=== PATIENT | female | born 1935 | race Caucasian/White ===

== ENCOUNTER → 2019-04-24 07:46 | Outpatient (CLI) | payer MEDICARE, SELFPAY ==
--- NOTE | ~2019-04-24 | XR_ITS ---
XR cervical spine 4-5V DATE: 04/24/2019 08:32 INDICATION: Neck pain TECHNIQUE: Standing AP, open-mouth, odontoid, lateral and swimmer views COMPARISON: 11/28/2013 cervical spine FINDINGS: C1 and C2 are normally aligned and the odontoid process is intact. No fracture or dislocati on or locked facet or prevertebral soft tissue swelling. Mild degenerative disc disease C4-5 and C6-7. Moderately severe degenerative disease C5-6. There is uncovertebral joint spurring at C5-6. IMPRESSION: Degenerative changes, relatively stable since 11/28/2013 Reviewed, dictated and finalized at location B. S LEADER
== END ==
PROVIDERS: PCP Family Medicine; Visit Provider Family Medicine
DX: M54.2 Cervicalgia (principal)
CPT/HCPCS: 72050

== ENCOUNTER → 2019-04-24 11:28 | Outpatient (CLI) | payer MEDICARE, SELFPAY ==
--- NOTE | ~2019-04-24 | XR_ITS ---
XR lumbar spine min 4V DATE: 04/24/2019 12:03 INDICATION: Low back pain intermittently for a few months. No injury. TECHNIQUE: AP, lateral, bilateral oblique and coned lateral lumbosacral views COMPARISON: 07/09/2015 lumbar spine FINDINGS: There is mild levoscoliosis. There is osteopenia. No fracture or bone destruction is detected. The included lower thoracic and lumbar pedicles are inta ct. The sacroiliac joints are normal. No spondylolysis or spondylolisthesis. Lumbar and lumbosacral interspaces are relatively preserved.. Degenerative changes are noted at the mid and lower lumbar and lumbosacral apophyseal joints. There is abdominal aortic and iliac arterial calcification; no aneurysm is evident. Surgical clips, right upper quadrant, likely due to cholecystectomy There is prominent of fecal material in the colon but no apparent bowel obstruction. IMPRESSION: Mild levoscoliosis Osteopenia Reviewed, dictated and finalized at location B. NT ACQUISITION PARTNER
--- NOTE | ~2019-04-24 | XR_ITS ---
XR sacroiliac joints min 3V 04/24/2019 12:03 Indication: Low back pain Procedure: 3 views of the sacroiliac joints. Comparison: 05/03/2006 Findings: There are stable bilateral symmetric degenerative changes of the sacroiliac joints. No eros anny changes to suggest inflammatory arthropathy. Sacral foramen are symmetric. Impression: 1: Mild symmetric degenerative changes of the sacroiliac joints, stable. Reviewed, dictated and finalized at location A. [facility] Impression: 1: Mild symmetric degenerative changes of the sacroiliac joints, stable.
== END ==
PROVIDERS: PCP Family Medicine; Visit Provider Family Medicine
DX: M54.5 Low back pain (principal); M85.88 Other specified disorders of bone density and structure, other site
CPT/HCPCS: 72110; 72202

== ENCOUNTER 2019-05-03 11:27 | Emergency (ER) | payer MEDICARE, SELFPAY ==
[2019-05-03 11:35] VITALS: BP 145/64; PULSE 74; RESP 16; TEMP 36.1; O2SAT 96
--- NOTE | 2019-05-03 11:50 | ED.EXTPRO ---
HPI - Extremity Problem General Chief complaint: Extremity Problem,Nontraumatic Stated complaint: rt arm pain Time Seen by Provider: 05/03/19 11:50 Source: patient and RN notes reviewed History of Present Illness HPI Narrative: Patient is an 84-year-old female that presents the urgent care with complaints of intermittent right arm pain from the elbow to the right hand. Patient states is been ongoing for approximately 4 to 6 weeks. Patient states she notices an increase in the pain when she is stirring something on the stove or writing. Patient does have a history of fibromyalgia and ray nods. Patient states she has not followed up with her PCP regarding the recent pain but has decreased her gabapentin recently. Patient denies any weakness to the right arm. States that she also has some symptoms to the left arm which are not as severe. Patient denies dropping anything from the right hand. Patient denies any known trauma, fall, injury. Patient denies chest pain. No other acute complaints. No acute distress noted. Patient aware of the plan of care. Related Data Home Medications Medication Instructions Recorded Confirmed meloxicam 7.5 mg tablet 15 mg PO DAILY tablet 01/15/19 05/03/19 diclofenac sodium 1 % TOPICAL TID 05/03/19 05/03/19 Allergies Allergy/AdvReac Type Severity Reaction Status Date / Time codeine Allergy Unknown Unknown Verified 05/03/19 11:32 Review of Systems Review of Systems: Narrative: CONSTITUTIONAL: Denies fever, chills, or sweats. EYES: Denies visual changes, redness, or discharge. ENT: Denies rhinorrhea, congestion, sore throat, or otalgia. CARDIOVASCULAR: Denies chest pain, palpitations, or edema. RESPIRATORY: Denies cough or dyspnea. GASTROINTESTINAL: Denies abdominal pain, nausea, vomiting, or diarrhea. GENITOURINARY: Denies dysuria or hematuria. SKIN: Denies rash or itching. MUSCULOSKELETAL: Reports of intermittent pain from the right elbow to the right hand NEUROLOGIC: Denies headache, numbness, or weakness. All other systems reviewed are negative, except as documented in HPI. [facility] Social History Social History Smoking status: Never smoker Second hand tobacco smoke exposure: No Alcohol intake: current Gender identity (if verbalized by the patient): Female Comments At the time of my signature, I reviewed and agree with the nursing past medical, surgical, social, and family history. There is no relevant family history pertinent to the patient complaint. Exam Narrative: Exam Narrative: GENERAL: This is a well-nourished, well-developed patient, in no apparent distress. HEAD: normocephalic, atraumatic. EYES: PERRL. Sclera clear/white. Vision is grossly intact. EARS: External ears normal NOSE: External nose normal with no obvious nasal discharge THROAT: Mucous membranes moist NECK: Neck supple CARDIOVASCULAR: Regular rate and rhythm without murmurs, gallops, or rubs. RESPIRATORY: Clear to auscultation. Breath sounds equal bilaterally. No wheezes, rales, or rhonchi. SKIN: warm, intact with no suspicious lesions or rash, good texture and turgor. NEURO: awake, alert, and oriented to person, place and time. There were no obvious focal neurologic abnormalities. Positive strong equal multiple wire sawyer/strength. No obvious neuro deficits or abnormalities. EXTREMITIES: No clubbing, cyanosis, or edema. No joint tenderness, effusion, or edema noted. No calf tenderness. Negative Homans sign bilaterally. Course Vital Signs Vital signs: Vital Signs Temperature 96.9 F L 05/03/19 11:35 Pulse Rate 74 05/03/19 11:35 Respiratory Rate 16 05/03/19 11:35 Blood Pressure 145/64 H 05/03/19 11:35 Pulse Oximetry 96 05/03/19 11:35 Temperature 96.9 F L 05/03/19 11:35 Pulse Rate 74 05/03/19 11:35 Respiratory Rate 16 05/03/19 11:35 Blood Pressure 145/64 H 05/03/19 11:35 Pulse Oximetry 96 05/03/19 11:35 Reviewed?patient is informed
== END 2019-05-03 12:28 | disposition home or self-care (01) ==
PROVIDERS: Emergency Provider Nurse Practitioner Family; PCP Family Medicine
DX: M77.9 Enthesopathy, unspecified (principal); M79.7 Fibromyalgia; E78.00 Pure hypercholesterolemia, unspecified; I10 Essential (primary) hypertension; M19.90 Unspecified osteoarthritis, unspecified site; E03.9 Hypothyroidism, unspecified
CPT/HCPCS: 99212; G0463

== ENCOUNTER 2019-07-17 14:25 | Outpatient (CLI) | payer MEDICARE, SELFPAY ==
--- NOTE | ~2019-07-17 | US_ITS ---
EXAMINATION: US art doppler w press ELISABETH SHAH EXAM DATE: 07/17/2019 15:29 INDICATION: Hypertension. Leg pain and numbness and tingling. Peripheral arterial disease. TECHNIQUE: Segmental pressures and plethysmographic and Doppler waveforms of the brachial and lower e xtremity arteries were obtained. There is no prior study for comparison. FINDINGS: Right and left brachial artery pressures of 188 mm Hg and 181 mm Hg, respectively, are concordant (no rmal difference <= 30 mmHg). RIGHT LEG: The ankle-brachial index (FAWN) is 1.00 (normal >= 0.9-1). The great toe-brachial index (TBI) is 0.56 (normal >= 0.65). The lower extremity ratios, segmental pressure gradients as follows; Proximal superficial femoral artery:- Could not obtain ( mmHg). Distal superficial femoral artery: ----- 1.11 (209 mmHg). Popliteal: 0.95 (178 mmHg). Dorsalis pedis: 0.99 (186 mmHg). Posterior tibial: 1.00 (188 mmHg). (Normal gradients <= 20-30 mmHg between adjacent levels on the same leg or the same levels on the two legs). Arterial waveforms are biphasic. LEFT LEG: The ankle-brachial index (FAWN) is 1.01 (normal >= 0.9-1). The great toe-brachial index (TBI) is 0.62 (normal >= 0.65). The lower extremity ratios, segmental pressure gradients as follows; Proximal superficial femoral artery:- Could not obtain ( mmHg). Distal superficial femoral artery: ----- Could not obtain ( mmHg). Popliteal: Could not obtain ( mmHg). Dorsalis pedis: 1.01 (189 mmHg). Posterior tibial: 0.77 (144 mmHg). (Normal gradients <= 20-30 mmHg between adjacent levels on the same leg or the same levels on the two legs). Arterial waveforms are biphasic. IMPRESSION: 1. Right ankle-brachial index 1.00, normal. 2. Left ankle-brachial index 1.01, normal. 3. Segmental pressures as above. 4. High blood pressure. Reviewed, dictated and finalized at location A.
== END 2019-07-17 14:26 | disposition home or self-care (01) ==
PROVIDERS: PCP Family Medicine; Visit Provider Podiatrist Foot & Ankle Surgery
DX: I70.203 Unspecified atherosclerosis of native arteries of extremities, bilateral legs (principal); I10 Essential (primary) hypertension; I73.9 Peripheral vascular disease, unspecified
CPT/HCPCS: 93923

== ENCOUNTER 2019-07-26 09:13 | Outpatient (CLI) | payer MEDICARE, SELFPAY ==
--- NOTE | ~2019-07-26 | CT_ITS ---
EXAMINATION: CTA abd aorta runoff DATE: 07/26/2019 09:59 INDICATION: Atherosclerosis, renal disease, bilateral foot pain, hypertension TECHNIQUE: Computed tomographic angiography (CTA) of the abdomen, pelvis, and both lower extremities was performed with 150 mL Omnipaque-350 intravenous contrast. The dose-length product (DLP) was 1368. 15 mGy-cm. Maximum intensity projection 3D-reconstructions of the arteries were created by the [employer] on a separate workstation. Automated exposure control and iterative reconstruction technique w ere employed. COMPARISON: None. FINDINGS: ABDOMINAL AORTA AND ITS BRANCHES: There is calcified atherosclerosis without aneurysm or dissection. There is moderate stenosis involvi ng the first 2 cm of the celiac axis. Mild stenosis is present at the origin of the superior mesenter ic artery. There are two right and one left renal arteries. Mild stenosis is seen at the origin of th e left renal artery. PELVIC VASCULATURE: There are areas of calcified atherosclerosis without hemodynamically significant stenosis. RIGHT LOWER EXTREMITY VASCULATURE: There is minimal calcified atherosclerosis of the common femoral vein without hemodynamically signifi cant stenosis. Otherwise, there is no significant atherosclerosis throughout the remainder of the leg . The peroneal artery is diminutive at the ankle. LEFT LOWER EXTREMITY VASCULATURE: No significant atherosclerosis or stenosis. The peroneal artery is diminutive at the ankle. ADDITIONAL FINDINGS: The lung bases are clear. The heart size is normal. The gallbladder is surgically absent. The liver, spleen, pancreas, and adrenal glands are normal. The kidneys are unremarkable. No pathologically enla rged abdominal or pelvic lymph nodes are identified. There is no free intraperitoneal gas or evidence of bowel obstruction. A moderate volume of colonic stool is present. IMPRESSION: 1. Areas of intra-abdominal atherosclerosis without hemodynamically significant peripheral arterial d isease. Reviewed, dictated and finalized at location A. IMPRESSION: 1. Areas of intra-abdominal atherosclerosis without hemodynamically significant peripheral arterial disease.
[2019-07-26 09:51] LABS: Estimated Glomerular Filt Rate > 60
== END 2019-07-26 09:14 | disposition home or self-care (01) ==
PROVIDERS: PCP Family Medicine; Visit Provider Podiatrist Foot & Ankle Surgery
DX: I70.203 Unspecified atherosclerosis of native arteries of extremities, bilateral legs (principal)
CPT/HCPCS: 36415; 75635; Q9967

== ENCOUNTER 2019-08-08 06:31 | Outpatient (CLI) | payer MEDICARE, SELFPAY ==
--- NOTE | ~2019-08-08 | MR_ITS ---
EXAMINATION: MR lumbar spine wo con DATE: 08/08/2019 07:46 INDICATION: Lumbago. Bilateral leg pain. TECHNIQUE: Magnetic resonance imaging (MRI) of the lumbar spine was performed without intravenous con trast. Sequences included sagittal T2-weighted FSE, sagittal T2-weighted FS FSE, sagittal T1-weighted FSE, and axial T2-weighted FSE. COMPARISON: Lumbar spine radiographs 04/24/2019 FINDINGS: There is 5 degrees levocurvature of lumbar spine. Vertebral body heights and intervertebral disc heights are normal. The distal spinal cord signal intensity is normal. The conus medullaris is at L2. The following disc levels are specifically discussed: L1-L2: The disc does not extend beyond the endplate margin. There is mild bilateral facet joint osteo arthritis. There is no neural foraminal stenosis. There is no central canal stenosis. L2-L3: The disc is mildly bulging. There is mild bilateral facet joint osteoarthritis. There is mild bilateral neural foraminal stenosis. There is no central canal stenosis. L3-L4: The disc is mildly bulging. There is moderate bilateral facet joint osteoarthritis. There is m ild bilateral neural foraminal stenosis. There is no central canal stenosis. L4-L5: The disc is bulging. There is severe bilateral facet joint osteoarthritis. There is mild bilat eral neural foraminal stenosis. There is mild central canal stenosis. L5-S1: The disc is bulging. There is severe bilateral facet joint osteoarthritis. There is mild bilat eral neural foraminal stenosis. There is mild central canal stenosis. IMPRESSION: 1. Mild lumbar spondylosis. Reviewed, dictated and finalized at location A. IMPRESSION: 1. Mild lumbar spondylosis.
== END 2019-08-08 06:32 | disposition home or self-care (01) ==
PROVIDERS: PCP Family Medicine; Visit Provider Nurse Practitioner Family
DX: M54.5 Low back pain (principal); M47.816 Spondylosis without myelopathy or radiculopathy, lumbar region
CPT/HCPCS: 72148

== ENCOUNTER 2019-08-29 08:57 | Outpatient (CLI) | payer MEDICARE, SELFPAY ==
--- NOTE | 2019-08-29 11:00 | NEURO_ITS ---
Patient Number: [id number] Impression: # Complains of right hand pain. # No Carpal Tunnel Syndrome. # Right ulnar neuropathy around the elbow. # Normal needle/EMG exam. # Clinical correlation recommended. Nerve Conduction Studies Anti Sensory Summary Table Stim Site NR Peak (ms) P-T Amp (?V) Site1 Site2 Delta-P (ms) Dist (cm) Jean (m/s) Right Median Anti Sensory (2-3nd Digit) Wrist 3.0 77.5 Wrist 2-3nd Digit 3.0 14.0 47 Wrist 2.9 84.0 Wrist 2-3nd Digit 3.0 14.0 47 Right Radial Anti Sensory (Base 1st Digit) Wrist 2.4 37.1 Wrist Base 1st Digit 2.4 0.0 Right Ulnar Anti Sensory (5th Digit) Wrist 2.7 83.1 Wrist 5th Digit 2.7 14.0 52 Motor Summary Table Stim Site NR Onset (ms) O-P Amp (mV) Site1 Site2 Delta-0 (ms) Dist (cm) Jean (m/s) Right Median Motor (Abd Poll Brev) Wrist 3.5 5.7 Elbow Wrist 4.5 26.0 58 Elbow 8.0 1.9 Right Ulnar Motor (Abd Dig Minimi) Wrist 2.9 4.4 A Elbow Wrist 5.1 26.0 51 A Elbow 8.0 2.3 B Elbow Wrist 4.1 20.0 49 B Elbow 7.0 3.5 F Wave Studies NR F-Lat (ms) L-R F-Lat (ms) Right Median (Mrkrs) (Abd Poll Brev) 29.47 Right Ulnar (Mrkrs) (Abd Dig Min) 28.64 EMG Side Muscle Nerve Root Ins Act Fibs Amp Dur Recrt Comment Right 1stDorInt Ulnar C8-T1 Nml Nml Nml Nml Nml Right Ext Indicis Radial (Post Int) C7-8 Nml Nml Nml Nml Nml Right Ext Digitorum Radial (Post Int) C7-8 Nml Nml Nml Nml Nml Right BrachioRad Radial C5-6 Nml Nml Nml Nml Nml Right PronatorTeres Median C6-7 Nml Nml Nml Nml Nml Right Abd Poll Brev Median C8-T1 Nml Nml Nml Nml Nml Right ABD Dig Min Ulnar C8-T1 Nml Nml Nml Nml Nml MTDD
== END 2019-08-29 08:58 | disposition home or self-care (01) ==
PROVIDERS: PCP Family Medicine; Visit Provider Plastic Surgery
DX: R20.2 Paresthesia of skin (principal); G56.21 Lesion of ulnar nerve, right upper limb
CPT/HCPCS: 95886; 95909

== ENCOUNTER 2019-08-30 07:03 | Emergency (ER) | payer MEDICARE, SELFPAY ==
--- NOTE | ~2019-08-30 | CT_ITS ---
EXAMINATION: CT brain wo con DATE: 08/30/2019 07:49 INDICATION: Blurred vision and headache TECHNIQUE: Computed tomography (CT) of the head was performed without intravenous contrast. Sagittal and coronal reconstructions were performed. The mA was adjusted according to patient size. Iterative reconstruction technique was employed. The dose-length product was 529.67 mGy-cm. COMPARISON: head CT dated 11/28/2013 FINDINGS: No acute intracranial hemorrhage, acute infarction or abnormal extra axial fluid collection. There is mild scattered white matter hypoattenuation consistent with chronic small vessel ischemic disease. V entricles are normal and symmetric. No mass/mass effect. Changes of bilateral intraocular lens replac ement. The orbits, paranasal sinuses and mastoid air cells are normal. Intracranial calcified cerebra l atherosclerosis is noted. IMPRESSION: 1. No acute intracranial process. 2. Mild scattered white matter hypoattenuation consistent with chronic small vessel ischemic disease. Reviewed, dictated and finalized at location A. IMPRESSION: 1. No acute intracranial process. 2. Mild scattered white matter hypoattenuation consistent with chronic small ve ssel ischemic disease.
--- NOTE | 2019-08-30 07:05 | ED.HA ---
HPI - Headache General Chief Complaint: Headache Stated Complaint: headache Time Seen by Provider: 08/30/19 07:05 History of Present Illness HPI Narrative: Intermittent headaches for the past 3 weeks. Variable locations. Feels jolts throughout her body. Currently being evaluated for carpal tunnel syndrome versus neuropathy. EMG negative. She has a h/o fibromyalgia, raynaud's, hypothyroidism. Related Data Home Medications Medication Instructions Recorded Confirmed meloxicam 7.5 mg tablet 15 mg PO DAILY tablet 01/15/19 05/03/19 diclofenac sodium 1 % TOPICAL TID 05/03/19 05/03/19 Allergies Allergy/AdvReac Type Severity Reaction Status Date / Time codeine Allergy Unknown Unknown Verified 08/30/19 07:05 Review of Systems Review of Systems: All systems reviewed & are unremarkable except as noted in HPI and below Constitutional: Constitutional: Denies fever(s) and Denies weakness Cardiovascular: Cardiovascular: Denies chest pain Respiratory: Respiratory: Denies dyspnea Genitourinary: Genitourinary: Denies dysuria Musculoskeletal: Musculoskeletal: Reports back pain Integumentary/Breasts: Skin/Breast: Denies rash Neurologic: Reports dizziness, Reports headache(s), Denies numbness and Denies weakness PMFSH Past Medical History Medical History Arthritis Fibromyalgia HLD (hyperlipidemia) HTN (hypertension) Hypothyroid Raynaud disease Surgical History Surgical History History of cholecystectomy History of cholecystectomy Family History Family History Father Hypertension Family history of malignant neoplasm Family history of cardiovascular disease Mother Hypertension Family history of emphysema Sibling Hypertension Family history of heart disease in male family member before age 55 Acute myocardial infarction Other Depression Family history of arthritis Social History Social History Smoking status: Never smoker Second hand tobacco smoke exposure: No Alcohol intake: current Gender identity (if verbalized by the patient): Female Exam Const: General: healthy appearing, no acute distress and alert Orientation/consciousness: patient oriented x3 HENMT: Head: normal to inspection Other: posterior scalp tenderness Eyes: Conjunctivae: conjunctivae normal Pupils: Equal, round and reactive pupils present Neck: Neck: normal visual inspection and no lymphadenopathy Chest: Chest palpation & inspection: no tenderness Resp: Effort & Inspection: normal respiratory effort Auscultation: clear to auscultation bilaterally, no rales, no rhonchi and no wheezes Cardio: Jugular venous distension: no JVD Rate: regular rate Rhythm: regular rhythm Heart sounds: no murmurs GI: Inspection: non-distended GI Palp: Yes Soft to palpation and No Tenderness to palpation present (GI) Skin: General skin exam: normal color Neuro: General: patient oriented x3, moves all extremities, no focal motor deficits and CN's II-XI intact bilaterally Cranial nerves: Yes Nystagmus not present Speech: normal speech Extrem: General: no edema Psych: Appearance: well kempt Affect: Anxious affect present Course Vital Signs Vital signs: Vital Signs Temperature 36.6 C 08/30/19 07:10 Pulse Rate 58 L 08/30/19 07:10 Respiratory Rate 18 08/30/19 07:10 Blood Pressure 152/64 H 08/30/19 07:10 Pulse Oximetry 100 08/30/19 07:10 Temperature 36.6 C 08/30/19 07:10 Pulse Rate 58 L 08/30/19 07:10 Respiratory Rate 18 08/30/19 07:10 Blood Pressure 149/67 H 08/30/19 08:47 Pulse Oximetry 100 08/30/19 08:47 MDM - Headache Differential Diagnosis Differential diagnosis: Likely migraine and headache Medical Records Attestation: I reviewed the patient's medical re
[2019-08-30 07:10] VITALS: BP 152/64; PULSE 58; RESP 18; TEMP 36.6; O2SAT 100
[2019-08-30 07:17] VITALS: BP 167/53; O2SAT 100
[2019-08-30 07:32] VITALS: BP 150/56; O2SAT 87
[2019-08-30] MEDS: SODIUM CHLORIDE 0.9% IV 500 ML 999 ML IV CONT (08:20)
[2019-08-30] MEDS: METOCLOPRAMIDE HCL INJ 10 MG/2 ML VIAL IV PUSH (08:20)
[2019-08-30 08:23] LABS: Basophils Absolute Auto 0.1 K/mm3 (0.0-0.1); Basophils Percent Auto 1.4 % (0.2-1.2); Eosinophils Absolute Auto 0.1 K/mm3 (0-0.3); Eosinophils Percent Auto 1.6 % (0-4.4); Hematocrit 37.2 % (37.0-47.0); Hemoglobin 12.3 g/dL (12.0-15.0); Immature Granulocyte Absolute 0.02 K/mm3 (0.00-0.031); Immature Granulocyte Percent A 0.4 % (0-0.5); Lymphocytes Absolute Auto 1.37 K/mm3 (0.9-3.2); Lymphocytes Percent Auto 24.8 % (18.3-44.2); Mean Corpuscular HGB Conc 33.1 g/dl (32-36); Mean Corpuscular Hemoglobin 30.8 pg (26-34); Mean Corpuscular Volume 93.2 fl (80-100); Mean Platelet Volume 11.3 fl (7.4-10.4); Monocytes Absolute Auto 0.6 K/mm3 (0.1-0.6); Neutrophils Absolute Auto 3.4 K/mm3 (1.3-6.7); Neutrophils Percent Auto 60.8 % (45.5-73.1); Platelet Count Result 234 k/mm3 (150-375); Red Blood Count 3.99 M/mm3 (4.2-5.4); Red Cell Distribution Width 12.5 % (11.5-14.5); White Blood Count 5.5 K/mm3 (4.5-10.0)
[2019-08-30 08:35] LABS: Blood Urea Nitrogen 16 mg/dL (7-17); Calcium 9.2 mg/dL (8.4-10.2); Carbon Dioxide 25 mmol/L (22-30); Chloride 101 mmol/L (98-107); Estimated CRCL calculation 54 ml/min; Estimated Glomerular Filt Rate > 60; Glucose 92 mg/dL (65-105); Potassium 4.4 mmol/L (3.4-5.0); Sodium 133 mmol/L (137-145)
[2019-08-30 08:47] VITALS: BP 149/67; O2SAT 100
--- NOTE | 2019-08-30 09:00 | PC.NURSE ---
Pt states her headache is now a dull ache but only rates it one point lower than previous. Pt has new sites of pain anytime this RN goes into the room. c/o mitzi feet pain, and left arm pain at present.
--- NOTE | 2019-08-30 09:27 | PC.NURSE ---
Pt ambulatory to bathroom for clean catch urine collection. Pt now c/o pain to left hand and right wrist where the IV tape is sore. Both sites appear to be WNL.
[2019-08-30 09:44] LABS: Add Urine Microscopic? NO; Appearance Urine Clear (Clear); Bilirubin Urine Negative (Negative); Blood Urine Negative (Negative); Color Urine Colorless (Yellow); Glucose Urine UA Negative (Negative); Ketones Urine Negative (Negative); Leukocyte Esterase Ur Negative LEU/UL (Negative); Nitrate Urine Negative (Negative); Protein Urine Negative (Negative); Specific Grav Ur 1.005 (1.001-1.035); Urobilinogen Urine Negative mg/dL (<2.0)
[2019-08-30] MEDS: KETOROLAC 30 MG/ML VIAL (*BKC) IV PUSH (10:01)
== END 2019-08-30 10:58 | disposition home or self-care (01) ==
PROVIDERS: Emergency Provider Emergency Medicine; PCP Family Medicine
DX: R51 Headache (principal); M19.90 Unspecified osteoarthritis, unspecified site; M79.7 Fibromyalgia; E78.5 Hyperlipidemia, unspecified; I10 Essential (primary) hypertension; E03.9 Hypothyroidism, unspecified; I73.00 Raynaud's syndrome without gangrene
CPT/HCPCS: 36415; 70450; 80048; 81003; 85025; 96365; 96375; 99284; J0131; J1200; J1885; J2765; J7040

== ENCOUNTER 2019-09-16 12:07 | Emergency (ER) | payer MEDICARE, SELFPAY ==
[2019-09-16 12:11] VITALS: BP 143/45; PULSE 64; RESP 18; TEMP 36.4; O2SAT 100
--- NOTE | 2019-09-16 12:16 | PC.NURSE ---
Patient to restroom at this time.
[2019-09-16 13:13] VITALS: BP 139/58; PULSE 62; RESP 18; O2SAT 99
--- NOTE | 2019-09-16 14:09 | ED.GENADULT ---
HPI - General Adult General Chief complaint: Unspecified Stated complaint: pain all over Time Seen by Provider: 09/16/19 12:16 History of Present Illness HPI narrative: Patient is an 84-year-old female who presents with diffuse body pain. Intermittent and worsening over the last 3 to 4 weeks. No fevers or chills or sweats. She is had MRI evaluation. She has had a recent nerve conduction study. She takes gabapentin and has had that increase. Occasionally she will have shocklike jolts in her body. She is scheduled to follow-up with her manager architectural in 2 weeks. Patient reports when she has the pain she comes very anxious and then anxiety worsens her pain. observes that when he calms down her anxiety most of her symptoms resolved. Patient also went to pain management and received an injection of low back earlier in the week for this. Related Data Home Medications Medication Instructions Recorded Confirmed meloxicam 7.5 mg tablet 15 mg PO DAILY tablet 01/15/19 05/03/19 diclofenac sodium 1 % TOPICAL TID 05/03/19 05/03/19 Allergies Allergy/AdvReac Type Severity Reaction Status Date / Time No Known Allergies Allergy Verified 09/16/19 12:35 Review of Systems Review of Systems: All systems reviewed & are unremarkable except as noted in HPI and below Constitutional: Constitutional: Denies chills, Denies fever(s) and Denies weakness Respiratory: Respiratory: Denies cough, Denies dyspnea and Denies wheezing Gastrointestinal: Gastrointestinal: Denies abdominal pain, Denies diarrhea, Denies nausea and Denies vomiting Musculoskeletal: Musculoskeletal: Reports back pain, Denies arthralgias, Denies joint swelling and Denies muscle cramps Neurologic: Denies focal weakness and 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 HEAD: Normocephalic, atraumatic. ENT: Mucous membranes moist. CHEST: Clear to auscultation. No respiratory distress. HEART: Regular rate and rhythm. Normal peripheral pulses. EXTREMITIES: Normal range of motion. No edema. Back: No reproducible tenderness paraspinal musculature of the back. No midline tenderness. NEURO: Alert and oriented x3. PSYCH: Normal mood and affect. Course Course Emergency Course: [place] for pain here. Will give hydroxyzine at home for anxiety. Needs follow-up with her PCP. Vital Signs Vital signs: Vital Signs Temperature 97.5 F L 09/16/19 12:11 Pulse Rate 64 09/16/19 12:11 Respiratory Rate 18 09/16/19 12:11 Blood Pressure 143/45 H 09/16/19 12:11 Pulse Oximetry 100 09/16/19 12:11 Temperature 97.5 F L 09/16/19 12:11 Pulse Rate 64 09/16/19 12:11 Respiratory Rate 18 09/16/19 12:11 Blood Pressure 143/45 H 09/16/19 12:11 Pulse Oximetry 100 09/16/19 12:11 Medical Decision Making Vital Signs Vital Signs: Vital Signs Temperature 97.5 F L 09/16/19 12:11 Pulse Rate 64 09/16/19 12:11 Respiratory Rate 18 09/16/19 12:11 Blood Pressure 143/45 H 09/16/19 12:11 Pulse Oximetry 100 09/16/19 12:11 Temperature 97.5 F L 09/16/19 12:11 Pulse Rate 64 09/16/19 12:11 Respiratory Rate 18 09/16/19 12:11 Blood Pressure 143/45 H 09/16/19 12:11 Pulse Oximetry 100 09/16/19 12:11 Discharge Plan Discharge Clinical Impression: Fibromyalgia, Anxiety Patient Disposition: Home, Self-Care Condition: Stable Instructions: Pain Management (ED), Anxiety (ED) Prescriptions: New hydroxyzine HCl 25 mg tablet 25 mg PO TID PRN (Reason: anxiety) Qty: 14 RF: 0 No Action diclofenac sodium 1 % topical TID RF: 0 meloxicam 7.5 mg tablet 15 mg PO DAILY RF: 0
[2019-09-16 14:28] VITALS: BP 133/61; PULSE 66; RESP 18; TEMP 36.2; O2SAT 97
== END 2019-09-16 14:28 | disposition home or self-care (01) ==
PROVIDERS: Emergency Provider Emergency Medicine; PCP Family Medicine
DX: M79.7 Fibromyalgia (principal); F41.9 Anxiety disorder, unspecified
CPT/HCPCS: 99283; A9270

== ENCOUNTER 2019-10-18 06:39 | Outpatient (CLI) | payer MEDICARE, SELFPAY ==
--- NOTE | ~2019-10-18 | MR_ITS ---
EXAMINATION: MR cervical spine wo con DATE: 10/18/2019 07:27 INDICATION: Cervicalgia. TECHNIQUE: Magnetic resonance imaging (MRI) of the cervical spine was performed without intravenous c ontrast. Sequences included sagittal T2-weighted FSE, sagittal T2-weighted FS FSE, sagittal T1-weight ed FSE, axial MERGE and axial T2-weighted FSE. COMPARISON: None FINDINGS: Bone alignment is normal. Vertebral body heights are normal. T1 and T2 hyperintense hemangioma at T6 . Bone marrow signal intensity is otherwise normal. Mild disc height loss at C5-C6 and T2-T3 through T5-T6 and minimal disc height loss at C4-C5. Cord signal intensity is normal. The following disc leve ls are specifically discussed: C2-C3: The disc does not extend beyond the endplate margin. There is no uncovertebral joint osteoarth ritis. There is mild right and severe left facet joint osteoarthritis. There is no neural foraminal s tenosis. There is no central canal stenosis. C3-C4: Disc is mildly bulging. There is mild bilateral uncovertebral joint osteoarthritis. There is m ild bilateral facet joint osteoarthritis. There is minimal bilateral neural foraminal stenosis. There is minimal central canal stenosis. C4-C5: Disc is bulging. There is mild bilateral uncovertebral joint osteoarthritis. There is mild rig ht and severe left facet joint osteoarthritis. There is moderate right and mild to moderate left neur al foraminal stenosis. There is mild central canal stenosis. C5-C6: Disc is bulging. There is mild left and moderate right uncovertebral joint osteoarthritis. The re is mild bilateral facet joint osteoarthritis. There is mild left and moderate right neural foramin al stenosis. There is mild central canal stenosis. C6-C7: Disc is bulging. There is mild bilateral uncovertebral joint osteoarthritis. There is mild mitzi ateral facet joint osteoarthritis. There is mild bilateral neural foraminal stenosis. There is mild c entral canal stenosis. C7-T1: Disc is mildly bulging. There is no uncovertebral joint osteoarthritis. There is moderate bila teral facet joint osteoarthritis. There is no neural foraminal stenosis. There is no central canal st enosis. IMPRESSION: 1. Mild cervical spondylosis. Reviewed, dictated and finalized at location A.
== END 2019-10-18 06:40 | disposition home or self-care (01) ==
LOC: ANHIMG 06:41
PROVIDERS: PCP Family Medicine; Visit Provider Nurse Practitioner Family
DX: M54.2 Cervicalgia (principal); M47.892 Other spondylosis, cervical region
CPT/HCPCS: 72141

== ENCOUNTER 2019-11-25 03:41 | Emergency (ER) | payer MEDICARE, SELFPAY ==
--- NOTE | ~2019-11-25 | CT_ITS ---
EXAMINATION: CT abdomen pelvis w con DATE: 11/25/2019 06:31 INDICATION: Lower abdominal pain TECHNIQUE: Computed tomography (CT) of the abdomen and pelvis was performed with 100 cc Omnipaque 350 intravenous contrast. Automated exposure control and iterative reconstruction technique were employe d. Exam dose: 501.22 mGy-cm total exam DLP. COMPARISON: CTA abdominal aorta runoff FINDINGS: The lung bases are clear of infiltrate or consolidation. Normal heart size. No pericardial or pleural effusion. Status post cholecystectomy. No hepatic, splenic, pancreatic, adrenal or renal space-occupying mass lesion is detected. There is abdominal aortic calcification and calcification at the origins of the celiac, renal arterie s as well as calcification of the iliac and right femoral arteries. No abdominal aortic aneurysm. No intraperitoneal or retroperitoneal or pelvic mass lesion or adenopathy or ascites. There is diffuse thickening of the urinary bladder wall; recommend correlation for possible cystitis. The uterus and adnexal areas are unremarkable. No bowel obstruction, pneumatosis or intraperitoneal free air. No CT evidence of appendicitis. No suspicious osteolytic or osteoblastic lesions are noted. IMPRESSION: Status post cholecystectomy Diffuse thickening of the urinary bladder wall, raising possibility of cystitis Reviewed, dictated and finalized at Location A. Reviewed, dictated and finalized at location A.
--- NOTE | ~2019-11-25 | XR_ITS ---
XR shoulder RT min 2V DATE: 11/25/2019 06:34 INDICATION: Right posterior shoulder pain for 2 to 3 weeks. No acute injury. TECHNIQUE: 5 views COMPARISON: None FINDINGS: No fracture or dislocation, periosteal reaction or bone destruction of the right shoulder. No abnormal soft tissue calcification of the right shoulder is detected. IMPRESSION: Negative Reviewed, dictated and finalized at location A. IMPRESSION: Negative
[2019-11-25 03:48] VITALS: BP 182/74; PULSE 60; RESP 17; TEMP 36.7; O2SAT 100
[2019-11-25 05:00] VITALS: BP 183/72; PULSE 67; RESP 16; O2SAT 98
[2019-11-25 05:04] LABS: Basophils Absolute Auto 0.1 K/mm3 (0.0-0.1); Basophils Percent Auto 1.4 % (0.2-1.2); Eosinophils Absolute Auto 0.1 K/mm3 (0-0.3); Eosinophils Percent Auto 1.6 % (0-4.4); Hematocrit 42.8 % (37.0-47.0); Hemoglobin 14.3 g/dL (12.0-15.0); Immature Granulocyte Absolute 0.02 K/mm3 (0.00-0.031); Immature Granulocyte Percent A 0.3 % (0-0.5); Lymphocytes Absolute Auto 2.04 K/mm3 (0.9-3.2); Lymphocytes Percent Auto 32.6 % (18.3-44.2); Mean Corpuscular HGB Conc 33.4 g/dl (32-36); Mean Corpuscular Hemoglobin 31.7 pg (26-34); Mean Corpuscular Volume 94.9 fl (80-100); Mean Platelet Volume 11.2 fl (7.4-10.4); Monocytes Absolute Auto 0.7 K/mm3 (0.1-0.6); Neutrophils Absolute Auto 3.3 K/mm3 (1.3-6.7); Neutrophils Percent Auto 53.1 % (45.5-73.1); Platelet Count Result 237 k/mm3 (150-375); Red Blood Count 4.51 M/mm3 (4.2-5.4); Red Cell Distribution Width 13.2 % (11.5-14.5); White Blood Count 6.3 K/mm3 (4.5-10.0)
[2019-11-25] MEDS: KETOROLAC 30 MG/ML VIAL (*BKC) (05:04)
--- NOTE | 2019-11-25 05:07 | ED.GENADULT ---
HPI - General Adult General Chief complaint: Unspecified <Adia Mathias MD - Last Filed: 11/25/19 19:42> Stated complaint: generalized pain, head, abdomen <Adia Mathias MD - Last Filed: 11/25/19 19:42> Time Seen by Provider: 11/25/19 04:01 <Adia Mathias MD - Last Filed: 11/25/19 19:42> Source: patient <Adia Mathias MD - Last Filed: 11/25/19 19:42> Mode of arrival: ambulatory <Adia Mathias MD - Last Filed: 11/25/19 19:42> Limitations: no limitations <Adia Mathias MD - Last Filed: 11/25/19 19:42> History of Present Illness HPI narrative: This patient is an 84 year old female who presents for evaluation of right upper back pain. Patient reports she has been having pain to right shoulder and right shoulder blade with movement of her right arm. She reports she has had this pain for 1 month. When I review her records, she has been complaining of this pain to her PCP for over 6 months. She states she was unable to sleep due to the pain so she came to ER. She also reports abdominal pain for the past month. She denies fever, cough, sob, nausea, or vomiting. She also complained to nursing about intermittent headaches that she has had for months. She states she is mainly her for her right shoulder. She has been evaluated in the ER her headaches with labs and CT brain. She reports she takes gabapentin and hydrocodone for pain. <Adia Mathias MD - Last Filed: 11/25/19 19:42> Related Data Home medications: Home Medications Medication Instructions Recorded Confirmed diclofenac sodium 1 % topical gel 2 gm TOPICAL QID 10/24/19 valacyclovir 1 gram tablet 1,000 mg PO TID 11/13/19 <Adia Mathias MD - Last Filed: 11/25/19 19:42> Allergies/adverse reactions: Allergies Allergy/AdvReac Type Severity Reaction Status Date / Time No Known Allergies Allergy Verified 11/25/19 03:52 <Adia Mathias MD - Last Filed: 11/25/19 19:42> Review of Systems Review of Systems: All systems reviewed & are unremarkable except as noted in HPI and below <Adia Mathias MD - Last Filed: 11/25/19 19:42> Constitutional: Constitutional: Denies chills and Denies fever(s) <Adia Mathias MD - Last Filed: 11/25/19 19:42> Cardiovascular: Cardiovascular: Denies chest pain <Adia Mathias MD - Last Filed: 11/25/19 19:42> Respiratory: Respiratory: Denies cough and Denies dyspnea <Adia Mathias MD - Last Filed: 11/25/19 19:42> Gastrointestinal: Gastrointestinal: Reports abdominal pain, Denies diarrhea, Denies nausea and Denies vomiting <Adia Mathias MD - Last Filed: 11/25/19 19:42> Musculoskeletal: Musculoskeletal: Reports back pain <Adia Mathias MD - Last Filed: 11/25/19 19:42> Neurologic: Denies focal weakness, Denies numbness and Denies weakness <Adia Mathias MD - Last Filed: 11/25/19 19:42> PMFSH Past Medical History Medical History: Medical History Arthritis Fibromyalgia FRANCY (generalized anxiety disorder) HLD (hyperlipidemia) HTN (hypertension) Hypothyroid Raynaud disease <Adia Mathias MD - Last Filed: 11/25/19 19:42> Surgical History Surgical History: Surgical History History of cholecystectomy History of cholecystectomy <Adia Mathias MD - Last Filed: 11/25/19 19:42> Social History Social History: Social History Smoking status: Never smoker Second hand tobacco smoke exposure: No Alcohol intake: former Substance use: never Substance use type: does not use Gender identity (if verbalized by the patient): Female Spiritual care concerns: Yes (See a cellulose insulation helper.) Agree to blood products: Yes <Adia Mathias MD - Last Filed: 11/25/19 19:42> Exam Narrative: Exam Narrative: GENERAL: Well-a
[2019-11-25 05:14] LABS: Prothrombin Time 13.3 Seconds (11.1-14.7)
[2019-11-25 05:15] LABS: Partial Thromboplastin Time 34.1 SECONDS (22.3-36.8)
[2019-11-25 05:16] LABS: Alanine Aminotransferase 29 U/L (4-35); Albumin Level 4.7 g/dL (3.5-5.1); Alkaline Phosphatase 114 U/L (38-126); Anion Gap 6 mmol/L (8-16); Aspartate Amino Transferase 39 U/L (14-36); Bilirubin,Total 0.7 mg/dL (0.2-1.3); Blood Urea Nitrogen 13 mg/dL (7-17); Calcium 9.9 mg/dL (8.4-10.2); Carbon Dioxide 24 mmol/L (22-30); Chloride 104 mmol/L (98-107); Estimated CRCL calculation 41 ml/min; Estimated Glomerular Filt Rate > 60; Glucose 92 mg/dL (65-105); Lipase 537 U/L (23-300); Potassium 3.9 mmol/L (3.4-5.0); Sodium 134 mmol/L (137-145)
[2019-11-25 05:18] LABS: D Dimer 0.39 ug/mL (<0.48)
[2019-11-25 05:42] LABS: Add Urine Microscopic? NO; Appearance Urine Clear (Clear); Bilirubin Urine Negative (Negative); Blood Urine Negative (Negative); Color Urine Colorless (Yellow); Glucose Urine UA Negative (Negative); Ketones Urine Negative (Negative); Leukocyte Esterase Ur Negative LEU/UL (Negative); Nitrate Urine Negative (Negative); Protein Urine Negative (Negative); Specific Grav Ur 1.006 (1.001-1.035); Urobilinogen Urine Negative mg/dL (<2.0)
[2019-11-25 06:00] VITALS: BP 177/65; PULSE 66; RESP 18; O2SAT 97
[2019-11-25] MEDS: LORazepam (*CRX) 0.5 MG TABLET PO (06:54)
[2019-11-25 09:17] VITALS: BP 145/80; PULSE 80; RESP 17; TEMP 36.8; O2SAT 98
== END 2019-11-25 09:21 | disposition home or self-care (01) ==
PROVIDERS: General Practice; Emergency Provider Emergency Medicine; PCP Family Medicine
DX: M54.6 Pain in thoracic spine (principal); M19.90 Unspecified osteoarthritis, unspecified site; M79.7 Fibromyalgia; E78.5 Hyperlipidemia, unspecified; I10 Essential (primary) hypertension; E03.9 Hypothyroidism, unspecified; I73.00 Raynaud's syndrome without gangrene; R10.9 Unspecified abdominal pain
CPT/HCPCS: 36415; 73030; 74177; 80053; 81003; 83690; 85025; 85380; 85610; 85730; 96374; 99284; A9270; J1885; Q9967

== ENCOUNTER 2020-01-19 06:34 | Emergency (ER) | payer MEDICARE, SELFPAY ==
--- NOTE | ~2020-01-19 | XR_ITS ---
EXAMINATION: XR chest 2V DATE: 01/19/2020 08:25 INDICATION: Shortness of breath TECHNIQUE: Frontal and lateral views of the chest are obtained COMPARISON: 07/08/2017 FINDINGS: The lungs are free of acute opacities. There is no pleural effusion or pneumothorax. The ca rdiomediastinal silhouette is normal. There is mild thoracic spondylosis. Surgical clips in the right upper quadrant are likely from prior cholecystectomy. IMPRESSION: 1. No acute cardiopulmonary abnormality. Reviewed, dictated and finalized at location A. PAPER INSTALLER
--- NOTE | ~2020-01-19 | CT_ITS ---
EXAMINATION: CT abdomen pelvis w con INDICATION: Abdominal pain TECHNIQUE: Computed tomographic images of the abdomen and pelvis were obtained after the administrati on of 100 cc of Omnipaque 350 intravenous contrast. The dose-length product (DLP) was 385.75 mGy-cm. Automated exposure control and iterative reconstruction technique were employed. COMPARISON: 11/25/2019 FINDINGS: Minimal dependent atelectasis is present in the lung bases. The heart size is normal. The g allbladder is surgically absent. The liver, spleen, pancreas, and adrenal glands are normal. The kidn eys are unremarkable. No pathologically enlarged abdominal or pelvic lymph nodes are identified. Ther e is no free intraperitoneal gas or evidence of bowel obstruction. There is calcified atherosclerosis of the aorta and many of the other arteries. A small fat-containing umbilical hernia is noted. The b ladder is distended with urine. IMPRESSION: 1. No CT correlate for the patient's symptoms. Reviewed, dictated and finalized at location A. MACHINE CUTTER
[2020-01-19 06:38] VITALS: BP 132/56; PULSE 115; RESP 22; TEMP 35.7; O2SAT 94
--- NOTE | 2020-01-19 07:12 | ED.HA ---
HPI - Headache General Chief Complaint: Headache Stated Complaint: headache/anxious Time Seen by Provider: 01/19/20 07:06 Source: patient and family Mode of arrival: ambulatory Limitations: no limitations History of Present Illness HPI Narrative: Patient is an 84-year-old female presenting to the emergency department for evaluation of multiple complaints. She is reporting chronic history of headache pain, neck pain, chest pain, abdominal pain, and anxiety. Patient states she is having an anxiety attack. She states that her skin on her back starts to feel itchy. She is reporting chest pain and shortness of breath that began many days ago. Patient states she can no longer stay at home due to the anxiety she was feeling regarding her general state of health. Patient had been on antianxiety medication in the past, but did not tolerate that well thus it was discontinued quite some time ago. No new problems started today. She states that she generally has an upset stomach and this is intermittent for her. She reports nausea without vomiting. She denies any focal pain states the general area that her stomach feels upset is in the upper abdomen. She denies any weakness, numbness, dizziness. She reports some generalized chest pain that does not radiate to the back or flanks. She states this also started many days ago. Patient denies any associated diaphoresis. Patient states she feels short of breath without cough or hemoptysis, however patient's oxygen saturation is adequate in room air. Related Data Home Medications Medication Instructions Recorded Confirmed diclofenac sodium 1 % topical gel 2 gm TOPICAL QID 10/24/19 01/07/20 ciclopirox 8 % topical solution 1 applic TOPICAL DAILY 11/27/19 01/07/20 ascorbate calcium (vitamin C) 500 500 mg PO DAILY 01/07/20 01/07/20 mg tablet cholecalciferol (vitamin D3) 50 50 mcg PO DAILY 01/07/20 01/07/20 mcg (2,000 unit) capsule multivitamin 1 tablet PO DAILY 01/07/20 01/07/20 vitamin B complex 1 tablet PO DAILY 01/07/20 01/07/20 sulfasalazine 01/19/20 Allergies Allergy/AdvReac Type Severity Reaction Status Date / Time No Known Allergies Allergy Verified 01/19/20 06:42 Review of Systems Review of Systems: Narrative: CONSTITUTIONAL: Denies fever, chills, or sweats. EYES: Denies visual changes, redness, or discharge. ENT: Denies rhinorrhea, congestion, sore throat, or otalgia. CARDIOVASCULAR: Reports chest pain and palpitations without edema RESPIRATORY: Denies cough, reports shortness of breath GASTROINTESTINAL: Reports abdominal pain with nausea, denies vomiting or diarrhea GENITOURINARY: Denies dysuria or hematuria. SKIN: Denies rash or itching. MUSCULOSKELETAL: Denies back pain, joint pain, or myalgia. NEUROLOGIC: Denies headache, numbness, or weakness. PSYCHIATRIC: Reports anxiety PMFSH Past Medical History Medical History Arthritis Fibromyalgia FRANCY (generalized anxiety disorder) HLD (hyperlipidemia) HTN (hypertension) Hypothyroid Raynaud disease Surgical History Surgical History History of cholecystectomy History of cholecystectomy Family History Family History Father Hypertension Family history of malignant neoplasm Family history of cardiovascular disease Mother Hypertension Family history of emphysema Sibling Hypertension Family history of heart disease in male family member before age 55 Acute myocardial infarction Other Depression Family history of arthritis Social History Social History Smoking status: Never smoker Second hand tobacco smoke exposure: No Alcohol intake: former Substance use: never Substance use type: does not use Gender identity (if verbalized by the patient): Female Sexual Orientation (if Jermaine
--- NOTE | 2020-01-19 07:47 | ECG_ITS ---
Measurements Intervals [place] Rate: 54 P: 75 PA: 169 QRS: -13 QRSD: 89 T: 52 QT: 474 QTc: 450 Interpretive Statements SINUS BRADYCARDIA BORDERLINE ECG Electronically Signed On 01-19-2020 12:35:23 OPERATIONS INTERN by Darshan Albarado D.O.
[2020-01-19 08:11] LABS: Basophils Absolute Auto 0.1 K/mm3 (0.0-0.1); Basophils Percent Auto 1.1 % (0.2-1.2); Eosinophils Absolute Auto 0.1 K/mm3 (0-0.3); Eosinophils Percent Auto 0.8 % (0-4.4); Hematocrit 41.8 % (37.0-47.0); Hemoglobin 13.6 g/dL (12.0-15.0); Immature Granulocyte Absolute 0.06 K/mm3 (0.00-0.031); Immature Granulocyte Percent A 0.9 % (0-0.5); Lymphocytes Absolute Auto 1.54 K/mm3 (0.9-3.2); Lymphocytes Percent Auto 23.5 % (18.3-44.2); Mean Corpuscular HGB Conc 32.5 g/dl (32-36); Mean Corpuscular Hemoglobin 31.1 pg (26-34); Mean Corpuscular Volume 95.4 fl (80-100); Mean Platelet Volume 10.5 fl (7.4-10.4); Monocytes Absolute Auto 0.8 K/mm3 (0.1-0.6); Neutrophils Absolute Auto 4.1 K/mm3 (1.3-6.7); Neutrophils Percent Auto 61.7 % (45.5-73.1); Platelet Count Result 226 k/mm3 (150-375); Red Blood Count 4.38 M/mm3 (4.2-5.4); Red Cell Distribution Width 12.7 % (11.5-14.5); White Blood Count 6.6 K/mm3 (4.5-10.0)
[2020-01-19 08:22] LABS: Prothrombin Time 13.7 Seconds (11.1-14.7)
[2020-01-19 08:23] LABS: Partial Thromboplastin Time 33.5 SECONDS (22.3-36.8)
[2020-01-19 08:25] LABS: D Dimer 0.27 ug/mL (<0.48)
[2020-01-19 08:29] LABS: Alanine Aminotransferase 46 U/L (4-35); Albumin Level 3.9 g/dL (3.5-5.1); Alkaline Phosphatase 108 U/L (38-126); Anion Gap 6 mmol/L (8-16); Aspartate Amino Transferase 47 U/L (14-36); Bilirubin,Total 0.8 mg/dL (0.2-1.3); Blood Urea Nitrogen 9 mg/dL (7-17); Calcium 9.3 mg/dL (8.4-10.2); Carbon Dioxide 29 mmol/L (22-30); Chloride 96 mmol/L (98-107); Estimated CRCL calculation 48 ml/min; Estimated Glomerular Filt Rate > 60; Glucose 97 mg/dL (65-105); Lipase 668 U/L (23-300); Sodium 131 mmol/L (137-145)
[2020-01-19 08:40] LABS: NT Pro B Type Natriuretic Pept 85 PG/ML (5-100); Troponin I < 0.012 ng/mL (0.000-0.034)
[2020-01-19 08:47] LABS: Add Urine Microscopic? NO; Appearance Urine Clear (Clear); Bilirubin Urine Negative (Negative); Blood Urine Negative (Negative); Color Urine Straw (Yellow); Glucose Urine UA Negative (Negative); Ketones Urine Negative (Negative); Leukocyte Esterase Ur Negative LEU/UL (Negative); Nitrate Urine Negative (Negative); Protein Urine Negative (Negative); Specific Grav Ur 1.005 (1.001-1.035); Urobilinogen Urine Negative mg/dL (<2.0)
[2020-01-19] MEDS: SODIUM CHLORIDE 0.9% IV 1,000 ML 999 ML IV CONT (08:58)
[2020-01-19] MEDS: FAMOTIDINE 20 MG/2 ML VIAL IV PUSH (08:58)
[2020-01-19] MEDS: METOCLOPRAMIDE HCL INJ 10 MG/2 ML VIAL IV PUSH (08:58)
[2020-01-19] MEDS: diphenhydrAMINE HCl INJ 50 MG/ML VIAL 25 MG IV PUSH (08:58)
[2020-01-19] MEDS: KETOROLAC 15 MG/ML VIAL (*BKC) IV PUSH (09:01)
[2020-01-19] MEDS: MAGNESIUM SULF 2 GM/WATER 50ML 2 GM/50 ML BAG IVPB (09:02)
[2020-01-19 11:24] VITALS: BP 136/78; PULSE 56; RESP 19; O2SAT 100
== END 2020-01-19 11:25 | disposition home or self-care (01) ==
PROVIDERS: Emergency Provider Emergency Medicine; PCP Family Medicine
DX: G44.209 Tension-type headache, unspecified, not intractable (principal); F41.9 Anxiety disorder, unspecified; M19.90 Unspecified osteoarthritis, unspecified site; M79.7 Fibromyalgia; E78.5 Hyperlipidemia, unspecified; I10 Essential (primary) hypertension; E03.9 Hypothyroidism, unspecified; I73.00 Raynaud's syndrome without gangrene; R00.1 Bradycardia, unspecified; R06.02 Shortness of breath
CPT/HCPCS: 36415; 71046; 74177; 80053; 81003; 83690; 83880; 84484; 85025; 85380; 85610; 85730; 93005; 96365; 96375; 99284; J1200; J1885; J2765; J3475; J7030; Q9967

== ENCOUNTER 2020-01-23 20:45 | Emergency (ER) | payer MEDICARE, SELFPAY ==
[2020-01-23 20:50] VITALS: BP 167/70; PULSE 65; RESP 16; TEMP 36.1; O2SAT 100
--- NOTE | 2020-01-23 21:05 | PC.NURSE ---
patient here in ED room 5 with c/o body aches, neck pain and increased anxiety. see triage notes. patient has been taking hydrocodone for years . recently tried to stop taking. quit doses approximately 10 days ago. spouse states she was seen 3 days ago in this ED for the same symptoms. patient states she took 1 hydrocodone this am. she could not take the pain anymore . assessments chart.
--- NOTE | 2020-01-23 21:28 | ED.GENADULT ---
HPI - General Adult General Chief complaint: Unspecified Stated complaint: anxiety; withdrawl symptoms Time Seen by Provider: 01/23/20 21:03 History of Present Illness HPI narrative: Patient is a 84-year-old female who presents the emergency department with chief complaint of feeling anxious and generalized pain all over. The patient reports she has history of fibromyalgia. The patient reports she was on B[place] for many years and decided to wean herself off of Benton 10 days ago. Patient states that she has pain worse in her neck radiating up into her head denies nausea vomiting denies diarrhea. Patient states she is also been more anxious lately. The patient states that she has been in the emergency department multiple times for similar complaints but neglected to tell the providers that she had weaned herself off of B[place]. Related Data Home Medications Medication Instructions Recorded Confirmed diclofenac sodium 1 % topical gel 2 gm TOPICAL QID 10/24/19 01/07/20 ciclopirox 8 % topical solution 1 applic TOPICAL DAILY 11/27/19 01/07/20 ascorbate calcium (vitamin C) 500 500 mg PO DAILY 01/07/20 01/07/20 mg tablet cholecalciferol (vitamin D3) 50 50 mcg PO DAILY 01/07/20 01/07/20 mcg (2,000 unit) capsule multivitamin 1 tablet PO DAILY 01/07/20 01/07/20 vitamin B complex 1 tablet PO DAILY 01/07/20 01/07/20 sulfasalazine 01/19/20 Allergies Allergy/AdvReac Type Severity Reaction Status Date / Time No Known Allergies Allergy Verified 01/19/20 06:42 Review of Systems Review of Systems: Narrative: CONSTITUTIONAL: Denies fever, chills, or sweats. EYES: Denies visual changes, redness, or discharge. ENT: Denies rhinorrhea, congestion, sore throat, or otalgia. CARDIOVASCULAR: Denies chest pain, palpitations, or edema. RESPIRATORY: Denies cough or dyspnea. GASTROINTESTINAL: Denies abdominal pain, nausea, vomiting, or diarrhea. GENITOURINARY: Denies dysuria or hematuria. SKIN: Denies rash or itching. MUSCULOSKELETAL: Denies back pain, joint pain, or myalgia. NEUROLOGIC: Denies headache, numbness, or weakness. PSYCHIATRIC: Denies anxiety or depression. All systems reviewed & are unremarkable except as noted in HPI and below PMFSH Past Medical History Medical History Arthritis Fibromyalgia FRANCY (generalized anxiety disorder) HLD (hyperlipidemia) HTN (hypertension) Hypothyroid Raynaud disease Surgical History Surgical History History of cholecystectomy History of cholecystectomy Family History Family History Father Hypertension Family history of malignant neoplasm Family history of cardiovascular disease Mother Hypertension Family history of emphysema Sibling Hypertension Family history of heart disease in male family member before age 55 Acute myocardial infarction Other Depression Family history of arthritis Social History Social History Smoking status: Never smoker Second hand tobacco smoke exposure: No Alcohol intake: former Substance use: never Substance use type: does not use Gender identity (if verbalized by the patient): Female Spiritual care concerns: Yes (See a customer service cashier.) Agree to blood products: Yes Exam Narrative: Exam Narrative: GENERAL: Well-appearing, well-nourished, and in no acute distress. HEAD: Normocephalic, atraumatic. EYES: PERRLA and EOMI. ENT: Nares clear, no rhinorrhea or epistaxis. Mucous membranes moist. NECK: Supple. CHEST: Clear to auscultation. No respiratory distress. HEART: Regular rate and rhythm. No murmur heard. Normal peripheral pulses. ABDOMEN: Soft, nontender, nondistended, normal active bowel sounds. EXTREMITIES: Normal range of motion. No edema. SKIN: Warm, dry, no rash. NEURO: No focal deficits.
[2020-01-23] MEDS: AMITRIPTYLINE HCL 10 MG TABLET PO (21:40)
--- NOTE | 2020-01-23 21:40 | PC.NURSE ---
patient given amitriptylline as ordered. and patient aware of new med. prescription sent to pharmacy.
== END 2020-01-23 21:53 | disposition home or self-care (01) ==
PROVIDERS: Emergency Provider Emergency Medicine; PCP Family Medicine
DX: M79.7 Fibromyalgia (principal); M54.2 Cervicalgia; M19.90 Unspecified osteoarthritis, unspecified site; E78.5 Hyperlipidemia, unspecified; I10 Essential (primary) hypertension; E03.9 Hypothyroidism, unspecified; I73.00 Raynaud's syndrome without gangrene
CPT/HCPCS: 99283; A9270

== ENCOUNTER 2020-01-25 16:11 | Emergency (ER) | payer MEDICARE, SELFPAY ==
--- NOTE | ~2020-01-25 | XR_ITS ---
EXAMINATION: XR ankle LT min 3V DATE: 01/25/2020 16:25 INDICATION: Anterior left ankle pain TECHNIQUE: Anteroposterior, oblique, mortise, and lateral views of the left ankle were obtained. COMPARISON: None. FINDINGS: Alignment is normal. No fracture. Joint spaces are well maintained. No ankle joint effusion. The so ft tissues are unremarkable. IMPRESSION: 1. . Negative left ankle radiographs. Reviewed, dictated and finalized at location H. ET RECORD CLERK
[2020-01-25 16:17] VITALS: BP 144/49; PULSE 67; RESP 16; TEMP 36.4; O2SAT 100
--- NOTE | 2020-01-25 16:27 | ED.GENADULT ---
HPI - General Adult General Chief complaint: Extremity Problem,Nontraumatic Stated complaint: lt ankle pain Source: patient Mode of arrival: ambulatory Limitations: no limitations History of Present Illness HPI narrative: 84 y/o female. PMH Includes: See Record. Presents to Urgent Care Clinic today with acute complaints of LT ankle pain, worsening in past 2-3 weeks. She denies acute fall, injury, or trauma. States she may have stepped on it wrong . The pain is described as sharp , intermittent. Worse with prolonged standing or ambulation. Home treatment remedies have yielded sub-therapeutic relief per report. No additional acute c/o upon PE. Related Data Home Medications Medication Instructions Recorded Confirmed diclofenac sodium 1 % topical gel 2 gm TOPICAL QID 10/24/19 01/07/20 ciclopirox 8 % topical solution 1 applic TOPICAL DAILY 11/27/19 01/07/20 ascorbate calcium (vitamin C) 500 500 mg PO DAILY 01/07/20 01/07/20 mg tablet cholecalciferol (vitamin D3) 50 50 mcg PO DAILY 01/07/20 01/07/20 mcg (2,000 unit) capsule multivitamin 1 tablet PO DAILY 01/07/20 01/07/20 sulfasalazine 01/19/20 acetaminophen 650 mg PO Q8H PRN 01/25/20 01/25/20 cyanocobalamin (vitamin B-12) 5,000 mcg PO DAILY 01/25/20 01/25/20 [Vitamin B-12] Allergies Allergy/AdvReac Type Severity Reaction Status Date / Time No Known Allergies Allergy Verified 01/25/20 16:26 Review of Systems Review of Systems: Narrative: CONSTITUTIONAL: Denies fever, chills, sweats. EYES: Denies visual changes, redness, discharge. ENT: Denies rhinorrhea, congestion, sore throat, otalgia. CARDIOVASCULAR: Denies chest pain, palpitations, edema. RESPIRATORY: Denies dyspnea, wheezing, cough GASTROINTESTINAL: Denies abdominal pain, nausea, vomiting, diarrhea. GENITOURINARY: Denies dysuria, hematuria, abnormal discharge SKIN: Denies rash or itching. MUSCULOSKELETAL: Positive Joint pain LT ankle. No myalgia. NEUROLOGIC: Denies numbness, or focal weakness. PSYCHIATRIC: Denies anxiety or depression. [facility] Past Medical History Medical History Arthritis Fibromyalgia FRANCY (generalized anxiety disorder) HLD (hyperlipidemia) HTN (hypertension) Hypothyroid Raynaud disease Surgical History Surgical History History of cholecystectomy History of cholecystectomy Family History Family History Father Hypertension Family history of malignant neoplasm Family history of cardiovascular disease Mother Hypertension Family history of emphysema Sibling Hypertension Family history of heart disease in male family member before age 55 Acute myocardial infarction Other Depression Family history of arthritis Social History Social History Smoking status: Never smoker Second hand tobacco smoke exposure: No Alcohol intake: former Substance use: never Substance use type: does not use Gender identity (if verbalized by the patient): Female Spiritual care concerns: Yes (See a machine operator assistant.) Agree to blood products: Yes Exam Narrative: Exam Narrative: GENERAL: This is a well-nourished, well-developed patient, in no apparent distress. HEAD: normocephalic, atraumatic. EYES: PERRL. Sclera clear/white. Vision is grossly intact. EARS: External ears normal, auditory canals clear and without drainage, TMs normal without perforation. Hearing grossly intact. NOSE: External nose normal with no obvious nasal discharge, nares without redness, no rhinorrhea. THROAT: Mucous membranes moist, posterior pharynx clear. NECK: Neck supple, non-tender without lymphadenopathy, masses or thyromegaly. CARDIOVASCULAR: Regular rate and rhythm without murmurs, gallops, or rubs. Pedal pulses 3+ bilateral. RESPIRATORY: Clear to auscultation. Breath sounds equ
== END 2020-01-25 16:57 | disposition home or self-care (01) ==
PROVIDERS: Emergency Provider Nurse Practitioner Adult Health; PCP Family Medicine
DX: S93.402A Sprain of unspecified ligament of left ankle, initial encounter (principal); X58.XXXA Exposure to other specified factors, initial encounter; M19.90 Unspecified osteoarthritis, unspecified site; M79.7 Fibromyalgia; E78.5 Hyperlipidemia, unspecified; I10 Essential (primary) hypertension; E03.9 Hypothyroidism, unspecified; I73.00 Raynaud's syndrome without gangrene
CPT/HCPCS: 73610; 99213; G0463

== ENCOUNTER 2020-02-01 08:09 | Outpatient (CLI) | payer MEDICARE, SELFPAY ==
--- NOTE | ~2020-02-01 | XR_ITS ---
EXAMINATION: XR thoracic spine 2V DATE: 02/01/2020 08:26 INDICATION: Thoracic back pain. TECHNIQUE: 3 views of thoracic spine were obtained. COMPARISON: Chest 2 views 01/19/2020 FINDINGS: There is 8 degrees levocurvature of cervicothoracic spine. Vertebral body heights are halle l. There is mildly decreased disc height at multiple levels in mid thoracic spine. There are endplate osteophytes at most levels. IMPRESSION: 1. Mild thoracic spondylosis. Reviewed, dictated and finalized at location A. E COMMERCE ARCHITECT
== END 2020-02-01 08:10 | disposition home or self-care (01) ==
LOC: ANHIMG 08:14
PROVIDERS: PCP Family Medicine; Visit Provider Family Medicine
DX: M47.814 Spondylosis without myelopathy or radiculopathy, thoracic region (principal)
CPT/HCPCS: 72070

== ENCOUNTER 2020-02-06 16:20 | Emergency (ER) | payer MEDICARE, SELFPAY ==
[2020-02-06 17:13] VITALS: BP 147/51; PULSE 66; RESP 14; TEMP 36.6; O2SAT 99
[2020-02-06 17:38] LABS: Basophils Absolute Auto 0.2 K/mm3 (0.0-0.1); Eosinophils Absolute Auto 0.2 K/mm3 (0-0.3); Eosinophils Percent Auto 2.4 % (0-4.4); Hematocrit 41.5 % (37.0-47.0); Hemoglobin 13.9 g/dL (12.0-15.0); Immature Granulocyte Percent A 1.3 % (0-0.5); Lymphocytes Absolute Auto 1.88 K/mm3 (0.9-3.2); Lymphocytes Percent Auto 24.8 % (18.3-44.2); Mean Corpuscular HGB Conc 33.5 g/dl (32-36); Mean Corpuscular Hemoglobin 31.6 pg (26-34); Mean Corpuscular Volume 94.3 fl (80-100); Mean Platelet Volume 9.5 fl (7.4-10.4); Monocytes Absolute Auto 1.1 K/mm3 (0.1-0.6); Monocytes Percent Auto 14.8 % (2.6-8.5); Neutrophils Absolute Auto 4.1 K/mm3 (1.3-6.7); Neutrophils Percent Auto 54.7 % (45.5-73.1); Platelet Count Result 312 k/mm3 (150-375); Red Cell Distribution Width 12.8 % (11.5-14.5); White Blood Count 7.6 K/mm3 (4.5-10.0)
[2020-02-06 17:47] LABS: Add Urine Microscopic? NO; Appearance Urine Clear (Clear); Bilirubin Urine Negative (Negative); Blood Urine Negative (Negative); Color Urine Straw (Yellow); Glucose Urine UA Negative (Negative); Ketones Urine Negative (Negative); Leukocyte Esterase Ur Negative LEU/UL (Negative); Nitrate Urine Negative (Negative); Protein Urine Negative (Negative); Urobilinogen Urine Negative mg/dL (<2.0)
[2020-02-06 17:51] LABS: Specific Grav Ur 1.003 (1.001-1.035)
[2020-02-06 17:51] LABS: Alanine Aminotransferase 49 U/L (4-35); Albumin Level 4.6 g/dL (3.5-5.1); Alkaline Phosphatase 149 U/L (38-126); Anion Gap 9 mmol/L (8-16); Aspartate Amino Transferase 48 U/L (14-36); Bilirubin,Total 0.6 mg/dL (0.2-1.3); Blood Urea Nitrogen 10 mg/dL (7-17); Calcium 9.7 mg/dL (8.4-10.2); Carbon Dioxide 25 mmol/L (22-30); Chloride 98 mmol/L (98-107); Estimated CRCL calculation 55 ml/min; Estimated Glomerular Filt Rate > 60; Glucose 92 mg/dL (65-105); Lipase 202 U/L (23-300); Potassium 3.9 mmol/L (3.4-5.0); Sodium 132 mmol/L (137-145)
--- NOTE | 2020-02-06 18:15 | PC.NURSE ---
spoke to this rn about pts anxiety over past 6 months. states is seeing dr. wei tomorrow. has seen once in the past for this and prescribed a med that she took for 4 days and seemed to make anxiety worse.
[2020-02-06 18:39] VITALS: BP 148/61; PULSE 63; RESP 16; O2SAT 94
[2020-02-06] MEDS: LORazepam (*CRX) 1 MG TABLET PO (18:43)
--- NOTE | 2020-02-06 20:03 | ED.GENADULT ---
HPI - General Adult General Chief complaint: Anxiety Stated complaint: Anxiety Attack, Pain all Over Time Seen by Provider: 02/06/20 17:50 Source: patient and family Mode of arrival: ambulatory Limitations: no limitations History of Present Illness HPI narrative: Patient is a 35-year-old female presents feeling anxious with generalized aching which she has been having for months seen by primary care for this took her new medicine tramadol today but had been experiencing anxiety prior to taking the medicine but notes that she has felt anxious all day with similar occurrences in the past scheduled to see primary care tomorrow denies recent illness or other concerns presents in no distress but does appear uncomfortable and in anxious state Related Data Home Medications Medication Instructions Recorded Confirmed diclofenac sodium 1 % topical gel 2 gm TOPICAL QID 10/24/19 01/25/20 ciclopirox 8 % topical solution 1 applic TOPICAL DAILY 11/27/19 01/25/20 ascorbate calcium (vitamin C) 500 500 mg PO DAILY 01/07/20 01/25/20 mg tablet cholecalciferol (vitamin D3) 50 50 mcg PO DAILY 01/07/20 01/25/20 mcg (2,000 unit) capsule multivitamin 1 tablet PO DAILY 01/07/20 01/25/20 sulfasalazine 500 mg PO TID 01/19/20 01/25/20 acetaminophen 650 mg PO Q8H PRN 01/25/20 01/25/20 cyanocobalamin (vitamin B-12) 5,000 mcg PO DAILY 01/25/20 01/25/20 [Vitamin B-12] Allergies Allergy/AdvReac Type Severity Reaction Status Date / Time duloxetine Allergy Severe Anxiety Verified 01/29/20 10:32 Review of Systems Review of Systems: All systems reviewed & are unremarkable except as noted in HPI and below PMFSH Past Medical History Medical History Arthritis Fibromyalgia FRANCY (generalized anxiety disorder) HLD (hyperlipidemia) HTN (hypertension) Hypothyroid Raynaud disease Surgical History Surgical History Cataract 2019 H/O elbow surgery 2020 History of cholecystectomy 2016 History of cholecystectomy Family History Family History Father Family history of malignant neoplasm Family history of cardiovascular disease Depression Heart disease Hypertension Leukemia Mother Hypertension Family history of emphysema Heart disease Sibling Hypertension Family history of heart disease in male family member before age 55 Acute myocardial infarction Diabetes mellitus Heart disease Grandparent Cerebrovascular accident Hypertension Other Family history of arthritis Social History Social History Smoking status: Never smoker Second hand tobacco smoke exposure: No Alcohol intake: former Substance use: never Substance use type: does not use Gender identity (if verbalized by the patient): Female Spiritual care concerns: Yes (See a technical implementation lead.) Agree to blood products: Yes Exam Narrative: Exam Narrative: GENERAL: Well-appearing, well-nourished, and in no acute distress. HEAD: Normocephalic, atraumatic. EYES: PERRLA and EOMI. ENT: Nares clear, no rhinorrhea or epistaxis. Mucous membranes moist. CHEST: Clear to auscultation. No respiratory distress. No wheezes rales or rhonchi HEART: Regular rate and rhythm. No murmur heard. EXTREMITIES: Normal range of motion. No edema. SKIN: Warm, dry, no rash. NEURO: No focal deficits. Alert and oriented x3. Cranial nerves II through XII grossly intact PSYCH: Normal mood and affect. Course Course Emergency Course: Patient in the room in no distress feeling better. Patient noted improvement with Ativan feels comfortable to go home with follow-up tomorrow no high risk changes in the blood work Vital Signs Vital signs: Vital Signs Temperature 97.8 F 02/06/20 17:13 Pulse Rate 66 02/06/20 17:13 Respiratory Rate 14 02/06/20 17:13 Bloo
[2020-02-06 20:20] VITALS: BP 150/71; PULSE 60; RESP 14; O2SAT 94
== END 2020-02-06 20:21 | disposition home or self-care (01) ==
PROVIDERS: Emergency Provider Emergency Medicine; PCP Family Medicine
DX: F41.9 Anxiety disorder, unspecified (principal); M19.90 Unspecified osteoarthritis, unspecified site; M79.7 Fibromyalgia; E78.5 Hyperlipidemia, unspecified; I10 Essential (primary) hypertension; E03.9 Hypothyroidism, unspecified
CPT/HCPCS: 36415; 80053; 81003; 83690; 85025; 99283; A9270

== ENCOUNTER 2020-02-21 07:19 | Outpatient (CLI) | payer MEDICARE, SELFPAY ==
--- NOTE | ~2020-02-21 | XR_ITS ---
XR shoulder RT min 2V DATE: 02/21/2020 07:57 INDICATION: Right shoulder pain TECHNIQUE: 4 views COMPARISON: None FINDINGS: No fracture or dislocation, periosteal reaction or bone destruction. Normal alignment at th e acromioclavicular and glenohumeral joints. No abnormal soft tissue calcification. Moderate osteopenia. IMPRESSION: Moderate osteopenia; otherwise negative Reviewed, dictated and finalized at location B. ACORPOREAL TECHNICIAN
== END 2020-02-21 07:20 | disposition home or self-care (01) ==
PROVIDERS: PCP Family Medicine; Visit Provider Family Medicine
DX: M85.811 Other specified disorders of bone density and structure, right shoulder (principal)
CPT/HCPCS: 73030

== ENCOUNTER 2020-03-12 11:17 | Emergency (ER) | payer MEDICARE, SELFPAY ==
--- NOTE | 2020-03-12 11:19 | ED.ABDPAIN ---
HPI - Abdominal Pain General Chief Complaint: Anxiety Stated Complaint: ABD pain Time Seen by Provider: 03/12/20 11:19 Source: patient and family Mode of arrival: ambulatory Limitations: no limitations History of Present Illness HPI narrative: Patient is an 85-year-old with a history of fibromyalgia, hypertension, chronic anxiety who presents for possible evaluation of adverse reaction to medication. Patient states she started buspirone this morning for her anxiety which her primary care physician prescribed, and she felt a sensation that her throat was closing after taking it. She denies feeling that way now. Patient is very tearful, pacing in the room. Her states the patient's anxiety is out of control. Patient denies any vomiting, shortness of breath, wheezing or hives. No history of allergic reactions in the past. No diarrhea. Patient is not having any difficulty breathing. Patient has been constipated due to taking an opiate medication for all over, generalized body pain. At this point, patient has not been referred to a psychiatrist. She denies current abdominal pain. She denies current chest pain. Patient states her anxiety has become very debilitating and family in room agrees. She states the narcotic pain medications have not improved any of her generalized pain. Related Data Home Medications Medication Instructions Recorded Confirmed ciclopirox 8 % topical solution 1 applic TOPICAL DAILY 11/27/19 02/25/20 ascorbate calcium (vitamin C) 500 500 mg PO DAILY 01/07/20 02/25/20 mg tablet cholecalciferol (vitamin D3) 50 50 mcg PO DAILY 01/07/20 02/25/20 mcg (2,000 unit) capsule multivitamin 1 tablet PO DAILY 01/07/20 02/25/20 sulfasalazine 500 mg PO TID 01/19/20 02/25/20 acetaminophen 650 mg PO Q8H PRN 01/25/20 02/25/20 cyanocobalamin (vitamin B-12) 5,000 mcg PO DAILY 01/25/20 02/25/20 [Vitamin B-12] Allergies Allergy/AdvReac Type Severity Reaction Status Date / Time duloxetine Allergy Severe Anxiety Verified 02/25/20 14:00 escitalopram [From Lexapro] AdvReac Intermediate anxiety Verified 03/11/20 10:08 sertraline AdvReac anxiety Verified 03/04/20 11:55 Review of Systems Review of Systems: Narrative: CONSTITUTIONAL: Denies fever ENT: Denies rhinorrhea, congestion, sore throat, or otalgia. CARDIOVASCULAR: Denies chest pain, palpitations, or edema. RESPIRATORY: Denies cough or dyspnea. GASTROINTESTINAL: Denies abdominal pain, nausea, vomiting, or diarrhea. Reports constipation. GENITOURINARY: Denies dysuria or hematuria. SKIN: Denies rash or itching. MUSCULOSKELETAL: Reports all over body pain NEUROLOGIC: Denies headache, numbness, or weakness. PSYCHIATRIC: Reports extreme anxiety PMFSH Past Medical History Medical History Arthritis Fibromyalgia FRANCY (generalized anxiety disorder) HLD (hyperlipidemia) HTN (hypertension) Hypothyroid Raynaud disease Surgical History Surgical History Cataract 2019 H/O elbow surgery 2019 History of cholecystectomy 2016 History of cholecystectomy Family History Family History Father Family history of malignant neoplasm Family history of cardiovascular disease Depression Heart disease Hypertension Leukemia Mother Hypertension Family history of emphysema Heart disease Sibling Hypertension Family history of heart disease in male family member before age 55 Acute myocardial infarction Diabetes mellitus Heart disease Grandparent Cerebrovascular accident Hypertension Other Family history of arthritis Social History Social History Smoking status: Never smoker Second hand tobacco smoke exposure: No Alcohol intake: former Substance use: never Substance use type: does not use Gender identity (if verbal
[2020-03-12 11:24] VITALS: BP 155/54; PULSE 73; RESP 16; TEMP 36.4; O2SAT 98
[2020-03-12] MEDS: LORazepam (*CRX) 1 MG TABLET PO (12:06)
[2020-03-12 12:59] LABS: Basophils Absolute Auto 0.1 K/mm3 (0.0-0.1); Basophils Percent Auto 1.3 % (0.2-1.2); Eosinophils Absolute Auto 0.1 K/mm3 (0-0.3); Eosinophils Percent Auto 1.5 % (0-4.4); Hematocrit 41.3 % (37.0-47.0); Hemoglobin 13.4 g/dL (12.0-15.0); Immature Granulocyte Absolute 0.02 K/mm3 (0.00-0.031); Immature Granulocyte Percent A 0.3 % (0-0.5); Lymphocytes Absolute Auto 1.36 K/mm3 (0.9-3.2); Lymphocytes Percent Auto 22.8 % (18.3-44.2); Mean Corpuscular HGB Conc 32.4 g/dl (32-36); Mean Corpuscular Hemoglobin 31.7 pg (26-34); Mean Corpuscular Volume 97.6 fl (80-100); Mean Platelet Volume 9.8 fl (7.4-10.4); Monocytes Absolute Auto 0.7 K/mm3 (0.1-0.6); Monocytes Percent Auto 11.7 % (2.6-8.5); Neutrophils Absolute Auto 3.7 K/mm3 (1.3-6.7); Neutrophils Percent Auto 62.4 % (45.5-73.1); Platelet Count Result 262 k/mm3 (150-375); Red Blood Count 4.23 M/mm3 (4.2-5.4); Red Cell Distribution Width 13.2 % (11.5-14.5)
[2020-03-12 13:02] LABS: Add Urine Microscopic? NO; Appearance Urine Clear (Clear); Bilirubin Urine Negative (Negative); Blood Urine Negative (Negative); Color Urine Colorless (Yellow); Glucose Urine UA Negative (Negative); Ketones Urine Negative (Negative); Leukocyte Esterase Ur Negative LEU/UL (Negative); Nitrate Urine Negative (Negative); Protein Urine Negative (Negative); Urobilinogen Urine Negative mg/dL (<2.0)
[2020-03-12 13:13] LABS: Specific Grav Ur 1.002 (1.001-1.035)
[2020-03-12 13:15] LABS: Alanine Aminotransferase 47 U/L (4-35); Albumin Level 4.5 g/dL (3.5-5.1); Alkaline Phosphatase 120 U/L (38-126); Amphetamine Screen Urine Negative (Negative); Anion Gap 8 mmol/L (8-16); Aspartate Amino Transferase 47 U/L (14-36); Barbiturate Screen Urine Negative (Negative); Benzodiazepines Screen Urine Negative (Negative); Bilirubin,Total 0.6 mg/dL (0.2-1.3); Blood Urea Nitrogen 8 mg/dL (7-17); Calcium 10.1 mg/dL (8.4-10.2); Cannabinoid Screen Urine Negative (Negative); Carbon Dioxide 31 mmol/L (22-30); Chloride 99 mmol/L (98-107); Cocaine Screen Urine Negative (Negative); Estimated CRCL calculation 51 ml/min; Estimated Glomerular Filt Rate > 60; Glucose 95 mg/dL (65-105); Methadone Screen Urine Negative (Negative); Opiate Screen Urine Positive (Negative); Phencyclidine Screen Urine Negative (Negative); Potassium 3.7 mmol/L (3.4-5.0); Sodium 138 mmol/L (137-145)
[2020-03-12 13:17] LABS: Lipase 118 U/L (23-300)
== END 2020-03-12 14:37 | disposition home or self-care (01) ==
PROVIDERS: Emergency Provider Emergency Medicine; PCP Family Medicine
DX: F41.1 Generalized anxiety disorder (principal); M79.7 Fibromyalgia; I10 Essential (primary) hypertension; M19.90 Unspecified osteoarthritis, unspecified site; E78.5 Hyperlipidemia, unspecified; I73.00 Raynaud's syndrome without gangrene
CPT/HCPCS: 36415; 80053; 80307; 81003; 83690; 84443; 85025; 99283; A9270

== ENCOUNTER 2020-05-11 02:35 | Emergency (ER) | payer MEDICARE, SELFPAY ==
--- NOTE | ~2020-05-11 | XR_ITS ---
EXAMINATION: XR abdomen/kub 1V EXAM DATE: 05/11/2020 03:57 INDICATION: Constipation and abdominal pain x few days. TECHNIQUE: Frontal projection(s) of the abdomen for interpretation. There is no prior study for [employer]. FINDINGS: There is moderate amount of colonic stool and gas. No small bowel dilation, nonobstructiv e bowel gas pattern. There are no suspicious calcifications identified. There is no organomegaly suspected. There are mild bony degenerative changes. There are cholecystectomy clips. IMPRESSION: Moderate amount of colonic stool. Reviewed, dictated and finalized at location A. RANCE SOURCING MANAGER
[2020-05-11 03:00] VITALS: BP 157/52; PULSE 60; RESP 16; O2SAT 95
[2020-05-11 03:14] LABS: Basophils Absolute Auto 0.1 K/mm3 (0.0-0.1); Basophils Percent Auto 1.2 % (0.2-1.2); Eosinophils Absolute Auto 0.1 K/mm3 (0-0.3); Eosinophils Percent Auto 2.6 % (0-4.4); Hemoglobin 11.5 g/dL (12.0-15.0); Immature Granulocyte Absolute 0.01 K/mm3 (0.00-0.031); Immature Granulocyte Percent A 0.2 % (0-0.5); Lymphocytes Absolute Auto 1.27 K/mm3 (0.9-3.2); Lymphocytes Percent Auto 30.4 % (18.3-44.2); Mean Corpuscular HGB Conc 32.9 g/dl (32-36); Mean Corpuscular Hemoglobin 32.3 pg (26-34); Mean Corpuscular Volume 98.3 fl (80-100); Mean Platelet Volume 10.8 fl (7.4-10.4); Monocytes Absolute Auto 0.6 K/mm3 (0.1-0.6); Monocytes Percent Auto 15.3 % (2.6-8.5); Neutrophils Absolute Auto 2.1 K/mm3 (1.3-6.7); Neutrophils Percent Auto 50.3 % (45.5-73.1); Platelet Count Result 182 k/mm3 (150-375); Red Blood Count 3.56 M/mm3 (4.2-5.4); Red Cell Distribution Width 12.7 % (11.5-14.5); White Blood Count 4.2 K/mm3 (4.5-10.0)
[2020-05-11 03:26] LABS: Alanine Aminotransferase 42 U/L (4-35); Albumin Level 3.7 g/dL (3.5-5.1); Alkaline Phosphatase 114 U/L (38-126); Anion Gap 5 mmol/L (8-16); Aspartate Amino Transferase 44 U/L (14-36); Bilirubin,Total 0.4 mg/dL (0.2-1.3); Blood Urea Nitrogen 10 mg/dL (7-17); Carbon Dioxide 29 mmol/L (22-30); Chloride 102 mmol/L (98-107); Estimated CRCL calculation 47 ml/min; Estimated Glomerular Filt Rate > 60; Glucose 93 mg/dL (65-105); Lipase 111 U/L (23-300); Potassium 3.9 mmol/L (3.4-5.0); Sodium 136 mmol/L (137-145)
[2020-05-11 03:48] LABS: Add Urine Microscopic? NO; Appearance Urine Clear (Clear); Bilirubin Urine Negative (Negative); Blood Urine Negative (Negative); Color Urine Colorless (Yellow); Glucose Urine UA Negative (Negative); Ketones Urine Negative (Negative); Leukocyte Esterase Ur Negative LEU/UL (Negative); Nitrate Urine Negative (Negative); Protein Urine Negative (Negative); Specific Grav Ur 1.004 (1.001-1.035); Urobilinogen Urine Negative mg/dL (<2.0)
[2020-05-11 04:00] VITALS: BP 155/61; PULSE 62; RESP 16; O2SAT 96
[2020-05-11] MEDS: DICYCLOMINE HCL INJ 20 MG/2 ML VIAL IM (04:38)
--- NOTE | 2020-05-11 04:39 | ED.ABDPAIN ---
HPI - Abdominal Pain General Chief Complaint: Abdominal Pain Stated Complaint: Abdominal pain Time Seen by Provider: 05/11/20 02:38 History of Present Illness HPI narrative: Patient is an 85-year-old female who presents to the ER with epigastric abdominal pain. Increasing through the evening. Has recently started laxatives to help her go to the bathroom. Patient has chronic pain related to fibromyalgia and takes [place] with increased regularity. She has also switched from gabapentin to Lyrica for pain management. She is having no fevers or chills or sweats. She has had no nausea or vomiting. She does endorse constipation and last had a bowel movement yesterday that was firm. Patient is found no modifying factors to her pain. Pain is described as cramping nonradiating. Related Data Home Medications Medication Instructions Recorded Confirmed ciclopirox 8 % topical solution 1 applic TOPICAL DAILY 11/27/19 04/11/20 ascorbate calcium (vitamin C) 500 500 mg PO DAILY 01/07/20 04/11/20 mg tablet cholecalciferol (vitamin D3) 50 50 mcg PO DAILY 01/07/20 04/11/20 mcg (2,000 unit) capsule multivitamin 1 tablet PO DAILY 01/07/20 04/11/20 sulfasalazine 500 mg PO TID 01/19/20 04/11/20 cyanocobalamin (vitamin B-12) 5,000 mcg PO DAILY 01/25/20 02/25/20 [Vitamin B-12] pregabalin 50 mg capsule 50 mg PO BID 04/30/20 escitalopram oxalate 5 mg tablet 5 mg PO DAILY 05/08/20 acetaminophen 500 mg capsule 500 mg PO Q6H PRN 05/09/20 05/09/20 lorazepam 0.5 mg tablet 0.25 mg PO BID tablet 05/09/20 05/09/20 Allergies Allergy/AdvReac Type Severity Reaction Status Date / Time duloxetine Allergy Severe Anxiety Verified 05/11/20 03:18 buspirone [From BuSpar] AdvReac Severe panic Verified 05/11/20 03:18 attacks sertraline AdvReac anxiety Verified 05/11/20 03:18 Review of Systems Review of Systems: All systems reviewed & are unremarkable except as noted in HPI and below Constitutional: Constitutional: Denies chills, Denies fever(s) and Denies weakness Cardiovascular: Cardiovascular: Denies chest pain and Denies radiating jaw, neck or arm pain Gastrointestinal: Gastrointestinal: Reports abdominal pain, Reports constipation, Denies diarrhea, Denies nausea and Denies vomiting Genitourinary: Genitourinary: Denies nocturia and Denies dysuria PMFSH Past Medical History Medical History Arthritis Fibromyalgia FRANCY (generalized anxiety disorder) HLD (hyperlipidemia) HTN (hypertension) Hypothyroid Raynaud disease Surgical History Surgical History Cataract 2019 H/O elbow surgery 2020 History of cholecystectomy 2016 History of cholecystectomy Family History Family History Father Family history of malignant neoplasm Family history of cardiovascular disease Depression Heart disease Hypertension Leukemia Mother Hypertension Family history of emphysema Heart disease Sibling Hypertension Family history of heart disease in male family member before age 55 Acute myocardial infarction Diabetes mellitus Heart disease Grandparent Cerebrovascular accident Hypertension Other Family history of arthritis Social History Social History Smoking status: Never smoker Second hand tobacco smoke exposure: No Alcohol intake: former Substance use: never Substance use type: does not use Gender identity (if verbalized by the patient): Female Spiritual care concerns: Yes (See a siphon operator.) Agree to blood products: Yes Exam Narrative: Exam Narrative: GENERAL: Well-appearing, well-nourished, and in no acute distress. HEAD: Normocephalic, atraumatic. CHEST: Clear to auscultation. No respiratory distress. HEART: Regular rate and rhythm. Normal peripheral pulses. ABDOMEN: So
[2020-05-11 05:00] VITALS: BP 151/62; PULSE 63; RESP 16; O2SAT 94
== END 2020-05-11 05:20 | disposition home or self-care (01) ==
PROVIDERS: Emergency Provider Emergency Medicine; PCP Family Medicine
DX: K59.00 Constipation, unspecified (principal); M19.90 Unspecified osteoarthritis, unspecified site; M79.7 Fibromyalgia; E78.5 Hyperlipidemia, unspecified; I10 Essential (primary) hypertension; E03.9 Hypothyroidism, unspecified; I73.00 Raynaud's syndrome without gangrene; F41.1 Generalized anxiety disorder
CPT/HCPCS: 36415; 74018; 80053; 81003; 83690; 85025; 96372; 99283; J0500

== ENCOUNTER 2020-05-31 09:47 | Emergency (ER) | payer MEDICARE, SELFPAY ==
[2020-05-31 10:07] VITALS: BP 135/42; PULSE 51; RESP 16; TEMP 37; O2SAT 98
--- NOTE | 2020-05-31 10:21 | ED.RECABL ---
HPI - Recheck/Abnormal Lab/Rx General Chief Complaint: Recheck/Abnormal Lab/Rx Stated Complaint: MEDICINE REFILL Time Seen by Provider: 05/31/20 10:21 Source: patient Mode of arrival: ambulatory Limitations: no limitations History of Present Illness HPI narrative: Keira Knott is an 85 yo female with a PMH of fibromyalgia, HTN, osteopenia, depression, who comes to [facility] needing a partial refill on Lyrica for fibromyalgia. She just started on a month ago and called her doctor on but was unable to get a hold of the physician our [facility] pharmacy and the office is closed on Tuesday she will run of medication this evening so we discussed partial refill till she can get a hold of her doctor this week Related Data Home Medications Medication Instructions Recorded Confirmed ciclopirox 8 % topical solution 1 applic TOPICAL DAILY 11/27/19 05/31/20 ascorbate calcium (vitamin C) 500 500 mg PO DAILY 01/07/20 05/31/20 mg tablet cholecalciferol (vitamin D3) 50 50 mcg PO DAILY 01/07/20 05/31/20 mcg (2,000 unit) capsule multivitamin 1 tablet PO DAILY 01/07/20 05/31/20 sulfasalazine 500 mg PO TID 01/19/20 05/31/20 cyanocobalamin (vitamin B-12) 5,000 mcg PO DAILY 01/25/20 05/31/20 [Vitamin B-12] escitalopram oxalate 5 mg tablet 5 mg PO DAILY 05/08/20 05/31/20 acetaminophen 500 mg capsule 500 mg PO Q6H PRN 05/09/20 05/31/20 lorazepam 0.5 mg tablet 0.25 mg PO BID tablet 05/09/20 05/31/20 furosemide 40 mg PO DAILY 05/31/20 05/31/20 polyethylene glycol 3350 [Miralax] 17 g PO DAILY 05/31/20 05/31/20 pregabalin 75 mg PO DAILY 05/31/20 05/31/20 thiamine HCl (vitamin B1) [Vitamin 250 mg PO DAILY 05/31/20 05/31/20 B-1] Allergies Allergy/AdvReac Type Severity Reaction Status Date / Time duloxetine Allergy Severe Anxiety Verified 05/31/20 09:57 buspirone [From BuSpar] AdvReac Severe panic Verified 05/31/20 09:57 attacks sertraline AdvReac anxiety Verified 05/31/20 09:57 Review of Systems Review of Systems: Narrative: CONSTITUTIONAL: Denies fever, chills, sweats. EYES: Denies visual changes, redness, discharge. ENT: Denies rhinorrhea, congestion, sore throat, otalgia. CARDIOVASCULAR: Denies chest pain, palpitations, edema. RESPIRATORY: Denies dyspnea, wheezing, cough GASTROINTESTINAL: Denies abdominal pain, nausea, vomiting, diarrhea. GENITOURINARY: Denies dysuria, hematuria, abnormal discharge SKIN: Denies rash or itching. NEUROLOGIC: Denies numbness, or focal weakness. PSYCHIATRIC: Denies anxiety or depression. Needs medication refill [facility] Past Medical History Medical History Arthritis Fibromyalgia FRANCY (generalized anxiety disorder) HLD (hyperlipidemia) HTN (hypertension) Hypothyroid Raynaud disease Surgical History Surgical History Cataract 2019 H/O elbow surgery 2020 History of cholecystectomy 2016 History of cholecystectomy Family History Family History Father Family history of malignant neoplasm Family history of cardiovascular disease Depression Heart disease Hypertension Leukemia Mother Hypertension Family history of emphysema Heart disease Sibling Hypertension Family history of heart disease in male family member before age 55 Acute myocardial infarction Diabetes mellitus Heart disease Grandparent Cerebrovascular accident Hypertension Other Family history of arthritis Social History Social History Smoking status: Never smoker Second hand tobacco smoke exposure: No Alcohol intake: former Substance use: never Substance use type: does not use Gender identity (if verbalized by the patient): Female Spiritual care concerns: Yes (See a med dir.) Agree to blood products: Yes Comments At time of signature, I agree with nursing past me
== END 2020-05-31 10:35 | disposition home or self-care (01) ==
PROVIDERS: Emergency Provider Nurse Practitioner; PCP Family Medicine
DX: Z76.0 Encounter for issue of repeat prescription (principal); M79.7 Fibromyalgia; M19.90 Unspecified osteoarthritis, unspecified site; E78.5 Hyperlipidemia, unspecified; I10 Essential (primary) hypertension; E03.9 Hypothyroidism, unspecified; I73.00 Raynaud's syndrome without gangrene; F41.1 Generalized anxiety disorder
CPT/HCPCS: 99211; G0463

== ENCOUNTER 2020-06-02 08:14 | Outpatient (CLI) | payer MEDICARE, SELFPAY ==
[2020-06-02 08:42] LABS: Anion Gap 4 mmol/L (8-16); Blood Urea Nitrogen 11 mg/dL (7-17); Calcium 9.5 mg/dL (8.4-10.2); Carbon Dioxide 33 mmol/L (22-30); Chloride 98 mmol/L (98-107); Estimated Glomerular Filt Rate > 60; Glucose 88 mg/dL (65-105); Potassium 3.8 mmol/L (3.4-5.0); Sodium 135 mmol/L (137-145)
== END 2020-06-02 08:15 | disposition home or self-care (01) ==
PROVIDERS: PCP Family Medicine
DX: Z01.89 Encounter for other specified special examinations (principal)
CPT/HCPCS: 36415; 80048

== ENCOUNTER 2020-07-15 07:03 | Outpatient (CLI) | payer MEDICARE, SELFPAY ==
[2020-07-15 07:37] LABS: Alanine Aminotransferase 21 U/L (4-35); Albumin Level 4.1 g/dL (3.5-5.1); Alkaline Phosphatase 85 U/L (38-126); Anion Gap 1 mmol/L (8-16); Aspartate Amino Transferase 35 U/L (14-36); Bilirubin,Total 0.4 mg/dL (0.2-1.3); Blood Urea Nitrogen 6 mg/dL (7-17); Calcium 9.7 mg/dL (8.4-10.2); Carbon Dioxide 34 mmol/L (22-30); Chloride 102 mmol/L (98-107); Cholesterol 152 mg/dL (0-200); Estimated Glomerular Filt Rate > 60; Glucose 86 mg/dL (65-105); HDL Direct 50 mg/dL; Potassium 3.8 mmol/L (3.4-5.0); Sodium 137 mmol/L (137-145); Triglycerides 214 mg/dL (<150)
[2020-07-15 07:47] LABS: LDL Cholesterol Direct 62 mg/dL
[2020-07-15 08:07] LABS: Thyroid Stimulating Hormone 0.526 uIU/mL (0.465-4.680)
== END 2020-07-15 07:04 | disposition home or self-care (01) ==
LOC: ANHLAB 07:05
PROVIDERS: PCP Family Medicine; Visit Provider Family Medicine
DX: R94.5 Abnormal results of liver function studies (principal); I10 Essential (primary) hypertension
CPT/HCPCS: 36415; 80053; 80061; 84443

== ENCOUNTER 2020-07-31 18:14 | Emergency (ER) | payer MEDICARE, SELFPAY ==
--- NOTE | ~2020-07-31 | CT_ITS ---
EXAMINATION: CT brain wo con DATE: 07/31/2020 18:43 INDICATION: Hypertension. Headache. TECHNIQUE: Computed tomography (CT) of the head was performed without intravenous contrast. The dose- length product was 605.33 mGy-cm. The mA was adjusted according to patient size. Iterative reconstruc tion technique was employed. COMPARISON: CT dated 08/30/2019 FINDINGS: No acute intracranial hemorrhage, infarction, mass or mass effect. There are scattered mild periventricular and subcortical white matter changes, most likely related to small vessel ischemic d isease (microangiopathy). No ventriculomegaly or midline shift. Basilar cisterns are patent. There is intracranial atherosclerosis. Paranasal sinuses and mastoids are pneumatized. No depressed skull fra ctures. IMPRESSION: 1. No acute intracranial abnormality. 2: Chronic age-related findings. Reviewed, dictated and finalized at location A.
[2020-07-31 18:19] VITALS: BP 216/85; PULSE 64; RESP 20; TEMP 36.6; O2SAT 100
--- NOTE | 2020-07-31 18:28 | ECG_ITS ---
Measurements Intervals [place] Rate: 58 P: 73 UT: 157 QRS: -26 QRSD: 89 T: 37 QT: 419 QTc: 414 Interpretive Statements SINUS BRADYCARDIA BASELINE ARTIFACT- I, II, III, AVR, AVF, V1, V3-V6 BORDERLINE ECG Electronically Signed On 07-31-2020 20:13:49 CDT by Darshan Albarado D.O.
--- NOTE | 2020-07-31 18:28 | ED.HA ---
HPI - Headache General Chief Complaint: Headache Stated Complaint: headache Time Seen by Provider: 07/31/20 18:28 Source: patient and family Mode of arrival: ambulatory Limitations: no limitations History of Present Illness HPI Narrative: Patient is an 85-year-old female with a history of generalized anxiety disorder, Raynaud's, arthritis, fibromyalgia who presents for evaluation of right-sided headache. Patient reports a right-sided headache near her eye and upper jaw that began this afternoon. She reports redness over the right eye, but states she has been rubbing this area. She reports mild swelling. Patient states she has had a toothache, tooth pain and saw her dentist today who diagnosed her with a dental infection and prescribed her amoxicillin. She has had 1 dose of this medication. Patient reports dull, aching pain without radiation to the back of the head, neck pain. No vision changes. Patient denies nausea or vomiting. No fever or chills. No difficulty opening her mouth. No chest pain or shortness of breath. No vision changes. Patient has had a longstanding course with pain management, is trying to wean down from her lorazepam and hydrocodone. Related Data Home Medications Medication Instructions Recorded Confirmed ciclopirox 8 % topical solution 1 applic TOPICAL DAILY 11/27/19 07/29/20 ascorbate calcium (vitamin C) 500 500 mg PO DAILY 01/07/20 07/29/20 mg tablet cholecalciferol (vitamin D3) 50 50 mcg PO DAILY 01/07/20 07/29/20 mcg (2,000 unit) capsule multivitamin 1 tablet PO DAILY 01/07/20 07/29/20 sulfasalazine 500 mg PO TID 01/19/20 07/29/20 cyanocobalamin (vitamin B-12) 5,000 mcg PO DAILY 01/25/20 07/29/20 [Vitamin B-12] escitalopram oxalate 5 mg tablet 5 mg PO DAILY 05/08/20 07/29/20 acetaminophen 500 mg capsule 500 mg PO Q6H PRN 05/09/20 07/29/20 polyethylene glycol 3350 [Miralax] 17 g PO DAILY 05/31/20 07/29/20 thiamine HCl (vitamin B1) [Vitamin 250 mg PO DAILY 05/31/20 07/29/20 B-1] lorazepam 0.5 mg tablet 0.25 mg PO DAILY PRN tablet 07/03/20 07/29/20 losartan 25 mg tablet 25 mg PO DAILY 07/29/20 07/29/20 omega-3 fatty acids 1,000 mg 1,000 mg PO DAILY 07/29/20 07/29/20 capsule Allergies Allergy/AdvReac Type Severity Reaction Status Date / Time duloxetine Allergy Severe Anxiety Verified 07/31/20 19:40 buspirone [From BuSpar] AdvReac Severe panic Verified 07/31/20 19:40 attacks sertraline AdvReac anxiety Verified 07/31/20 19:40 Review of Systems Review of Systems: Narrative: CONSTITUTIONAL: Denies fever, chills, or sweats. EYES: Denies visual changes, redness, or discharge. ENT: Denies rhinorrhea, congestion, sore throat, or otalgia. Reports right facial pain, reports right maxilla pain. CARDIOVASCULAR: Denies chest pain, palpitations, or edema. RESPIRATORY: Denies cough or dyspnea. GASTROINTESTINAL: Denies abdominal pain, nausea, vomiting, or diarrhea. GENITOURINARY: Denies dysuria or hematuria. SKIN: Denies rash or itching. MUSCULOSKELETAL: Denies back pain, joint pain, or myalgia. NEUROLOGIC: Reports headache without numbness, or weakness. [facility] Past Medical History Medical History Arthritis Fibromyalgia FRANCY (generalized anxiety disorder) HLD (hyperlipidemia) HTN (hypertension) Hypothyroid Raynaud disease Surgical History Surgical History Cataract 2019 H/O elbow surgery 2020 History of cholecystectomy 2016 History of cholecystectomy Family History Family History Father Family history of malignant neoplasm Family history of cardiovascular disease Depression Heart disease Hypertension Leukemia Mother Hypertension Family history of emphysema Heart disease Sibling Hypertension Family history of heart disease in male family member before age 55 Acute myocardial infarction Diabetes jad
[2020-07-31 19:06] LABS: Anion Gap 7 mmol/L (8-16); Blood Urea Nitrogen 9 mg/dL (7-17); Calcium 10.3 mg/dL (8.4-10.2); Carbon Dioxide 30 mmol/L (22-30); Chloride 101 mmol/L (98-107); Estimated CRCL calculation 58 ml/min; Estimated Glomerular Filt Rate > 60; Glucose 90 mg/dL (65-105); Sodium 138 mmol/L (137-145)
[2020-07-31 19:14] LABS: Troponin I < 0.012 ng/mL (0.000-0.034)
[2020-07-31 19:28] LABS: Basophils Absolute Auto 0.1 K/mm3 (0.0-0.1); Eosinophils Percent Auto 0.6 % (0-4.4); Hemoglobin 13.7 g/dL (12.0-15.0); Immature Granulocyte Absolute 0.02 K/mm3 (0.00-0.031); Immature Granulocyte Percent A 0.3 % (0-0.5); Lymphocytes Absolute Auto 1.42 K/mm3 (0.9-3.2); Lymphocytes Percent Auto 20.1 % (18.3-44.2); Mean Corpuscular HGB Conc 32.6 g/dl (32-36); Mean Corpuscular Hemoglobin 30.8 pg (26-34); Mean Corpuscular Volume 94.4 fl (80-100); Mean Platelet Volume 10.5 fl (7.4-10.4); Monocytes Absolute Auto 0.8 K/mm3 (0.1-0.6); Monocytes Percent Auto 11.3 % (2.6-8.5); Neutrophils Absolute Auto 4.7 K/mm3 (1.3-6.7); Neutrophils Percent Auto 66.7 % (45.5-73.1); Platelet Count Result 252 k/mm3 (150-375); Red Blood Count 4.45 M/mm3 (4.2-5.4); Red Cell Distribution Width 12.9 % (11.5-14.5); White Blood Count 7.1 K/mm3 (4.5-10.0)
[2020-07-31] MEDS: MORPHINE SULFATE (*CRX) 4 MG/ML INJ IV PUSH (19:42)
[2020-07-31] MEDS: KETOROLAC 15 MG/ML VIAL (*BKC) IV PUSH (19:45)
[2020-07-31 19:58] VITALS: BP 188/62; PULSE 59; RESP 22; O2SAT 100
[2020-07-31 20:56] VITALS: BP 185/80; PULSE 57; RESP 16; O2SAT 100
[2020-07-31 21:05] LABS: Add Urine Microscopic? NO; Appearance Urine Clear (Clear); Bilirubin Urine Negative (Negative); Blood Urine Negative (Negative); Color Urine Colorless (Yellow); Glucose Urine UA Negative (Negative); Ketones Urine Negative (Negative); Leukocyte Esterase Ur Negative LEU/UL (Negative); Nitrate Urine Negative (Negative); Protein Urine Negative (Negative); Urobilinogen Urine Negative mg/dL (<2.0)
[2020-07-31 21:06] LABS: Specific Grav Ur 1.004 (1.001-1.035)
[2020-07-31] MEDS: hydrALAZINE HCL 20 MG/ML VIAL 10 MG IV PUSH (21:13)
[2020-07-31 21:15] VITALS: BP 192/70; PULSE 58; RESP 20; O2SAT 97
[2020-07-31 22:06] VITALS: BP 170/68; PULSE 64; RESP 20; O2SAT 100
== END 2020-07-31 22:06 | disposition home or self-care (01) ==
PROVIDERS: Emergency Provider Emergency Medicine; PCP Family Medicine
DX: R51.9 Headache, unspecified (principal); K08.89 Other specified disorders of teeth and supporting structures; I10 Essential (primary) hypertension; F41.1 Generalized anxiety disorder; I73.00 Raynaud's syndrome without gangrene; M19.90 Unspecified osteoarthritis, unspecified site; M79.7 Fibromyalgia; E78.5 Hyperlipidemia, unspecified; E03.9 Hypothyroidism, unspecified
CPT/HCPCS: 36415; 70450; 80048; 81003; 84484; 85025; 93005; 96365; 96375; 99284; J0131; J0360; J1885; J2270

== ENCOUNTER 2020-09-09 18:28 | Emergency (ER) | payer MEDICARE, SELFPAY ==
--- NOTE | 2020-09-09 18:31 | PC.NURSE ---
Patient saw all the people in the waiting room and stated I cant that long . pt left
== END 2020-09-09 18:41 | disposition left against medical advice (07) ==
DX: Z53.21 Procedure and treatment not carried out due to patient leaving prior to being seen by health care provider (principal)
CPT/HCPCS: 99199

== ENCOUNTER 2020-09-11 17:11 | Outpatient (CLI) | payer MEDICARE, SELFPAY ==
[2020-09-11 17:59] LABS: Alanine Aminotransferase 32 U/L (4-35); Albumin Level 4.6 g/dL (3.5-5.1); Alkaline Phosphatase 88 U/L (38-126); Anion Gap 8 mmol/L (8-16); Aspartate Amino Transferase 42 U/L (14-36); Bilirubin,Total 0.7 mg/dL (0.2-1.3); Blood Urea Nitrogen 12 mg/dL (7-17); CRP < 0.5 mg/dL (<1.0); Calcium 9.9 mg/dL (8.4-10.2); Carbon Dioxide 29 mmol/L (22-30); Chloride 97 mmol/L (98-107); Estimated Glomerular Filt Rate > 60; Glucose 91 mg/dL (65-105); Sodium 134 mmol/L (137-145)
[2020-09-11 18:17] LABS: Basophils Absolute Auto 0.1 K/mm3 (0.0-0.1); Basophils Percent Auto 1.2 % (0.2-1.2); Eosinophils Absolute Auto 0.1 K/mm3 (0-0.3); Eosinophils Percent Auto 1.8 % (0-4.4); Hematocrit 41.9 % (37.0-47.0); Hemoglobin 13.6 g/dL (12.0-15.0); Immature Granulocyte Absolute 0.02 K/mm3 (0.00-0.031); Immature Granulocyte Percent A 0.4 % (0-0.5); Lymphocytes Absolute Auto 1.67 K/mm3 (0.9-3.2); Lymphocytes Percent Auto 29.6 % (18.3-44.2); Mean Corpuscular HGB Conc 32.5 g/dl (32-36); Mean Corpuscular Hemoglobin 31.8 pg (26-34); Mean Corpuscular Volume 97.9 fl (80-100); Mean Platelet Volume 10.9 fl (7.4-10.4); Monocytes Absolute Auto 0.7 K/mm3 (0.1-0.6); Monocytes Percent Auto 12.2 % (2.6-8.5); Neutrophils Absolute Auto 3.1 K/mm3 (1.3-6.7); Neutrophils Percent Auto 54.8 % (45.5-73.1); Platelet Count Result 257 k/mm3 (150-375); Red Blood Count 4.28 M/mm3 (4.2-5.4); Red Cell Distribution Width 14.5 % (11.5-14.5); White Blood Count 5.6 K/mm3 (4.5-10.0)
[2020-09-11 18:53] LABS: Erythrocyte Sedimentation Rate 3 mm/hr (0-20)
== END 2020-09-11 17:12 | disposition home or self-care (01) ==
PROVIDERS: PCP Family Medicine; Visit Provider Family Medicine
DX: R51.9 Headache, unspecified (principal); R94.5 Abnormal results of liver function studies
CPT/HCPCS: 36415; 80053; 85025; 85652; 86140

== ENCOUNTER 2020-09-23 15:23 | Outpatient (CLI) | payer MEDICARE, SELFPAY ==
--- NOTE | ~2020-09-23 | CT_ITS ---
EXAMINATION: CT abdomen pelvis w con EXAM DATE: 09/23/2020 15:48 INDICATION: Low back and lower abdominal pain. TECHNIQUE: Spiral CT of the abdomen and pelvis was performed following intravenous injection of 100 m L Omnipaque 350. Axial, coronal and sagittal images of the abdomen and pelvis were reviewed. The do se-length product (DLP) for this examination was 650.78 mGy-cm. The exposure was tailored according to patient size (auto mA exposure control), and iterative reconstruction (ASIR) was used as additiona l dose reduction technique. Comparison is made to prior examination from 01/19/2020. FINDINGS: The liver, spleen, adrenal glands and pancreas are unremarkable. There are cholecystectomy clips. Portal and splenic veins are patent. Kidneys enhance symmetrically. There is no hydronephr osis. The uterus is unremarkable. The bladder is unremarkable. There is no retroperitoneal or pe lvic lymphadenopathy. There is mild scattered arteriosclerotic disease. The appendix is normal. The stomach and small bowel are unremarkable. There is expected amount of c olonic stool. No free intraperitoneal gas. The heart is normal in size. There are no pericardial or pleural effusions. The lung bases are unremarkable. There are no osteoblastic or osteolytic les ions identified. IMPRESSION: 1. No acute intra-abdominal findings. Reviewed, dictated and finalized at location A.
== END 2020-09-23 15:24 | disposition home or self-care (01) ==
LOC: ANHIMG 15:24
PROVIDERS: PCP Family Medicine; Visit Provider Family Medicine
DX: R10.9 Unspecified abdominal pain (principal)
CPT/HCPCS: 74177; Q9967

== ENCOUNTER 2020-09-24 15:23 | Outpatient (CLI) | payer MEDICARE, SELFPAY ==
--- NOTE | ~2020-09-24 | XR_ITS ---
XR chest 2V DATE: 09/24/2020 15:46 INDICATION: Lower chest pain TECHNIQUE: PA and lateral views COMPARISON: 01/18/2022 view chest 09/25/2018 CT pulmonary scan FINDINGS: Heart size is normal. There is aortic arch and descending thoracic aortic and abdominal aor tic calcification. No hilar or mediastinal enlargement. The lungs are mildly hyperinflated. No pulmonary infiltrate or consolidation, pleural effusion or pul monary vascular congestion or pneumothorax. Diffuse osteopenia. Mild dextroscoliosis of the thoracolumbar spine. Status post cholecystectomy. IMPRESSION: No active cardiopulmonary disease Aortic atherosclerosis Diffuse osteopenia Status post cholecystectomy Reviewed, dictated and finalized at location A.
== END 2020-09-24 15:24 | disposition home or self-care (01) ==
LOC: ANHIMG 15:28
PROVIDERS: PCP Family Medicine; Visit Provider Family Medicine
DX: R10.9 Unspecified abdominal pain (principal); R07.89 Other chest pain; I70.0 Atherosclerosis of aorta; M85.88 Other specified disorders of bone density and structure, other site; Z90.49 Acquired absence of other specified parts of digestive tract
CPT/HCPCS: 71046

== ENCOUNTER 2020-09-29 15:21 | Outpatient (CLI) | payer MEDICARE, SELFPAY ==
--- NOTE | ~2020-09-29 | XR_ITS ---
EXAMINATION: XR shoulder RT min 2V INDICATION: Right shoulder pain TECHNIQUE: Four views of the right shoulder are submitted. COMPARISON: 02/21/2020 FINDINGS: Normal alignment. No fracture. Glenohumeral and acromioclavicular joint spaces are normal. Soft tissues are unremarkable. IMPRESSION: 1. No acute osseous abnormality. Reviewed, dictated and finalized at location A.
== END 2020-09-29 15:22 | disposition home or self-care (01) ==
LOC: ANHIMG 15:27
PROVIDERS: PCP Family Medicine; Visit Provider Nurse Practitioner Family
DX: M25.511 Pain in right shoulder (principal)
CPT/HCPCS: 73030

== ENCOUNTER 2020-10-03 18:13 | Emergency (ER) | payer MEDICARE, SELFPAY ==
[2020-10-03 18:21] VITALS: BP 151/65; PULSE 64; RESP 16; TEMP 36.8; O2SAT 100
--- NOTE | 2020-10-03 18:34 | ED.FEMALEGU ---
HPI - Female Genitourinary General Chief complaint: Urogenital-Female Stated complaint: vaginal itching/pain/POS UTI/back pain Source: patient and RN notes reviewed Limitations: no limitations History of Present Illness HPI Narrative: The patient-- on several medications for pain, BP, mood--presents with urinary problems. Patient states, and her records revealed that she is been regularly evaluated including a CT of the abdomen recently which was noncontributory, and a MR of the lumbar spine which was remarkable for moderate / significant degenerative arthritis. She complains about 1/2-week history of urinary frequency, urgency and dysuria with possible itching that is worse with micturition, and not improved with OTC creams. She has had only 2 known urine cultures in the last 15-20 years, the last one 10 years ago showed pansensitive Klebsiella and E. coli species. [id number] urinalysis noncontributory; discussed various causes [infection(yeast, bacterial), meds/diuretics (which she persists she is not taking), [employer]/hormonal, structural] and to follow-up with PMD and gynecology. Related Data Home Medications Medication Instructions Recorded Confirmed ciclopirox 8 % topical solution 1 applic TOPICAL DAILY 11/27/19 10/03/20 ascorbate calcium (vitamin C) 500 500 mg PO DAILY 01/07/20 10/03/20 mg tablet cholecalciferol (vitamin D3) 50 50 mcg PO DAILY 01/07/20 10/03/20 mcg (2,000 unit) capsule multivitamin 1 tablet PO DAILY 01/07/20 10/03/20 sulfasalazine 500 mg PO TID 01/19/20 10/03/20 cyanocobalamin (vitamin B-12) 5,000 mcg PO DAILY 01/25/20 10/03/20 [Vitamin B-12] thiamine HCl (vitamin B1) [Vitamin 250 mg PO DAILY 05/31/20 10/03/20 B-1] omega-3 fatty acids 1,000 mg 1,000 mg PO DAILY 07/29/20 10/03/20 capsule furosemide 20 mg tablet 20 mg PO QAM 08/07/20 10/03/20 sennosides 15 mg tablet 15 mg PO DAILY 09/11/20 10/03/20 lorazepam 0.5 mg tablet 0.25 mg PO BID PRN tablet 09/30/20 10/03/20 Allergies Allergy/AdvReac Type Severity Reaction Status Date / Time duloxetine Allergy Severe Anxiety Verified 09/11/20 15:47 buspirone [From BuSpar] AdvReac Severe panic Verified 09/11/20 15:47 attacks sertraline AdvReac anxiety Verified 09/11/20 15:47 Review of Systems Review of Systems: General/Constitutional: No weight loss,fever Eyes: N0: Redness,discharge Ears/Nose/Throat: No: Epistaxis,ear discharge Respiratory: Denies: Hemoptysis Gastrointestinal: No Vomiting, Bleeding-rectal Skin: No Lumps, eruption Neurologic: No Focal Weakness,Sz Hematologic: Denies: Petechiae/Purpura Psychiatric: No: Suicida ideationl All Other Systems: Reviewed and Negative [facility] Past Medical History Medical History Arthritis Fibromyalgia FRANCY (generalized anxiety disorder) HLD (hyperlipidemia) HTN (hypertension) Hypothyroid Raynaud disease Surgical History Surgical History Cataract 2019 H/O elbow surgery 2020 History of cholecystectomy 2016 History of cholecystectomy Family History Family History Father Family history of malignant neoplasm Family history of cardiovascular disease Depression Heart disease Hypertension Leukemia Mother Hypertension Family history of emphysema Heart disease Sibling Hypertension Family history of heart disease in male family member before age 55 Acute myocardial infarction Diabetes mellitus Heart disease Grandparent Cerebrovascular accident Hypertension Other Family history of arthritis Social History Social History Smoking status: Never smoker Second hand tobacco smoke exposure: No Alcohol intake: former Substance use: never Substance use type: does not use Gender identity (if verbalized by the patient): Female
== END 2020-10-03 19:12 | disposition home or self-care (01) ==
PROVIDERS: Emergency Provider Emergency Medicine; PCP Family Medicine
DX: R30.0 Dysuria (principal); R35.0 Frequency of micturition; L29.9 Pruritus, unspecified; M19.90 Unspecified osteoarthritis, unspecified site; M79.7 Fibromyalgia; E78.5 Hyperlipidemia, unspecified; I10 Essential (primary) hypertension; E03.9 Hypothyroidism, unspecified; I73.00 Raynaud's syndrome without gangrene; F41.1 Generalized anxiety disorder
CPT/HCPCS: 81003; 87086; 87147; 87181; 87186; 99213; G0463

== ENCOUNTER 2020-11-20 13:48 | Outpatient (CLI) | payer MEDICARE, SELFPAY ==
--- NOTE | ~2020-11-20 | MR_ITS ---
EXAMINATION: MR thoracic spine wo con EXAM DATE: 11/20/2020 14:42 INDICATION: M54.9 - Dorsalgia, unspecified mid back pain. Right-sided neck pain between shoulder blad es. TECHNIQUE: Multi-sequential, multiplanar MR images of the thoracic spine were obtained without contra st. Sagittal T1, T2, T2 fat saturation, axial T2 weighted images reviewed. Correlation is made to th oracic x-ray 02/01/2020. FINDINGS: The spinal cord signal intensity and intrinsic morphology is normal. Mild thoracic dextrosc oliosis. The thoracic central canal and neural foramen are widely patent. The vertebral bodies are al igned in the AP dimension. Mild diffuse thoracic disc disease and facet arthropathy. Paraspinal soft tissue is unremarkable. IMPRESSION: Mild thoracic spondylosis and dextroscoliosis. Reviewed, dictated and finalized at location B.
== END 2020-11-20 13:49 | disposition home or self-care (01) ==
PROVIDERS: PCP Family Medicine; Visit Provider Family Medicine
DX: M47.894 Other spondylosis, thoracic region (principal)
CPT/HCPCS: 72146

== ENCOUNTER 2021-03-27 12:39 | Outpatient (CLI) | payer MEDICARE, SELFPAY ==
--- NOTE | ~2021-03-27 | XR_ITS ---
XR knee RT 3V DATE: 03/27/2021 13:08 INDICATION: Right knee pain following fall TECHNIQUE: 3 views COMPARISON: None FINDINGS: Diffuse osteopenia. No fracture or dislocation or joint effusion. No periosteal reaction or bone destruction. Joint space s are preserved. No radiopaque intra-articular loose body or chondrocalcinosis. IMPRESSION: No fracture or dislocation or joint effusion Osteopenia Reviewed, dictated and finalized at location A. [employer]
--- NOTE | ~2021-03-27 | XR_ITS ---
XR ankle LT min 3V DATE: 03/27/2021 13:08 INDICATION: Fall. Left ankle pain. TECHNIQUE: 4 views COMPARISON: None FINDINGS: There is mild soft tissue swelling, greater medially. No fracture or dislocation, periostea l reaction or bone destruction. Ankle mortise is intact. Osteopenia. IMPRESSION: Mild soft tissue swelling, greater medially Osteopenia Reviewed, dictated and finalized at location A. R PIGMENT
== END 2021-03-27 12:40 | disposition home or self-care (01) ==
LOC: ANHIMG 12:46
PROVIDERS: PCP Family Medicine; Visit Provider Family Medicine
DX: M79.89 Other specified soft tissue disorders (principal); M85.861 Other specified disorders of bone density and structure, right lower leg; M85.862 Other specified disorders of bone density and structure, left lower leg
CPT/HCPCS: 73562; 73610

== ENCOUNTER 2021-05-21 15:31 | Outpatient (CLI) | payer MEDICARE, SELFPAY ==
--- NOTE | ~2021-05-21 | US_ITS ---
EXAMINATION:US venous doppler LE BI INDICATION:Right leg pain TECHNIQUE: Multiple grayscale, color flow and Doppler images of the right lower extremity deep venous systems were obtained and reviewed. COMPARISON:No prior studies for comparison. FINDINGS: The common femoral, superficial femoral and popliteal veins demonstrate normal respiratory variation, augmentation and compressibility. Color flow is also seen within the posterior tibial, pe roneal, greater saphenous and profunda veins. There is a fluid collection in the left medial ankle ar ea in the area of bruising, possibly hematoma measuring 4.7 x 3 x 1.1 cm. IMPRESSION: 1: No lower extremity deep venous thrombosis. Reviewed, dictated and finalized at location B.
--- NOTE | ~2021-05-21 | XR_ITS ---
XR ankle LT 2V DATE: 05/21/2021 16:40 INDICATION: Left ankle pain and swelling TECHNIQUE: AP and lateral views COMPARISON: None FINDINGS: There is diffuse osteopenia. No fracture or dislocation of the ankle or disruption of the a nkle mortise. No periosteal reaction or bone destruction. IMPRESSION: Osteopenia Reviewed, dictated and finalized at location A. IMPRESSION: Osteopenia
== END 2021-05-21 15:32 | disposition home or self-care (01) ==
LOC: ANHIMG 15:32
PROVIDERS: PCP Family Medicine; Visit Provider Family Medicine
DX: S99.912A Unspecified injury of left ankle, initial encounter (principal); M79.604 Pain in right leg; M79.89 Other specified soft tissue disorders; X58.XXXA Exposure to other specified factors, initial encounter; M85.872 Other specified disorders of bone density and structure, left ankle and foot
CPT/HCPCS: 73600; 93970

== ENCOUNTER 2021-05-28 01:32 | Day surgery (SDC) | payer MEDICARE, SELFPAY ==
[2021-05-20 08:16] VITALS: BMI 22.1
--- NOTE | 2021-05-28 07:15 | WPDANESEPPF ---
Anes - Initial Pre Proc Eval Procedure: Operation Date: 05/28/21 13:15 Proposed Procedures p Esophagogastroduodenoscopy - Jet Taylor MD s Flexible Sigmoidoscopy - Jet Taylor MD Date/Time: 05/28/21 07:15 Surgeon: Jet Taylor MD Pre Op Diagnosis: dysphagia, Rectal Pain Patient Data Age: 86 Gender: F Height: 1.57 m Weight: 55 kg Allergies Allergy/AdvReac Type Severity Reaction Status Date / Time sertraline AdvReac anxiety Verified 05/28/21 12:25 Home Medications Medication Instructions Recorded Confirmed Type levothyroxine 75 mcg tablet 75 mcg PO .Alternating #45 tablet 03/24/21 05/20/21 Rx levothyroxine 88 mcg tablet 88 mcg PO DAILY #90 tablet 03/24/21 05/20/21 Rx duloxetine 60 mg capsule,delayed 60 mg PO DAILY #90 cap 03/25/21 05/20/21 Rx release buspirone 15 mg tablet 15 mg PO TID #90 tablet 04/17/21 05/20/21 Rx atorvastatin 10 mg PO DAILY 05/20/21 05/20/21 History furosemide 20 mg PO DAILY PRN 05/20/21 05/20/21 History losartan 25 mg PO DAILY PRN 05/20/21 05/20/21 History omega-3 fatty acids-vitamin E 1 cap PO DAILY 05/20/21 05/20/21 History [Fish Oil] pregabalin [Lyrica] 75 mg PO BID 05/20/21 05/20/21 History sulfasalazine 500 mg PO TID 05/20/21 05/20/21 History Patient hx anesthesia problems: none Family hx anesthesia problems: none Results Review: All pre-operative results and documents have been reviewed as part of the pre-operative evaluation. [facility] Past Medical History Medical History Arthritis Fibromyalgia FRANCY (generalized anxiety disorder) HLD (hyperlipidemia) HTN (hypertension) Hypothyroid Raynaud disease Surgical History Surgical History Cataract 2019 H/O elbow surgery 2020 History of cholecystectomy 2016 History of cholecystectomy Family History Family History Father Family history of malignant neoplasm Family history of cardiovascular disease Depression Heart disease Hypertension Leukemia Mother Hypertension Family history of emphysema Heart disease Sibling Hypertension Family history of heart disease in male family member before age 55 Acute myocardial infarction Diabetes mellitus Heart disease Grandparent Cerebrovascular accident Hypertension Other Family history of arthritis Social History Social History Smoking status: Never smoker Second hand tobacco smoke exposure: No Alcohol intake: former Substance use: never Substance use type: does not use Living arrangements: with family Gender identity (if verbalized by the patient): Female Sexual Orientation (if Verbalized by the Patient): Straight or Heterosexual Spiritual care concerns: No Agree to blood products: Yes Anes - Eval Final PreProcedure Day of Procedure 05/28/21 07:15 Patient weight: normal Heart: regular rate and rhythm Lungs: clear to auscultation and normal air movement Airway: Mallampati scale class II Neurological: alert and oriented Last oral intake: >/= 8 hours ASA classification: III Emergent: no Anesthetic plan: proceed Anesthesia type and monitoring: general GIVS and standard monitoring Results Review: All pre-operative results and documents have been reviewed as part of the pre-operative evaluation. Informed Consent: The patient's anesthetic plan and its attendant risks and benefits were discussed with the patient/family/POA. Questions were solicited and answers provided to the satisfaction of the patient/family/POA.
[2021-05-28] MEDS: LACTATED RINGERS 1,000 ML 150 ML IV CONT (12:29)
--- NOTE | 2021-05-28 12:32 | WPDHPUPDATE1 ---
History and Physical Update Update Date/Time: 05/28/21 12:32 History and Physical has been reviewed, including an updated exam of the patient. There are NO changes in the patient's condition. Risks, benefits, and alternatives have been discussed and questions answered. Patient agrees to proceed with procedure.
[2021-05-28 12:34] VITALS: BP 140/98; PULSE 70; RESP 18; TEMP 36.5; O2SAT 94
[2021-05-28] MEDS: BENZOCAINE (*SP) 60 ML SPRAY CAN (HURRICAINE) 1 SPRAY MUCOUS MEM (13:46)
--- NOTE | 2021-05-28 13:56 | SUR.OPER ---
EGD: [id number] COLON: [id number]
[2021-05-28 14:17] VITALS: BP 115/51; PULSE 72; RESP 23; O2SAT 95
[2021-05-28 14:27] VITALS: BP 126/60; PULSE 59; RESP 24; O2SAT 95
[2021-05-28 14:37] VITALS: BP 105/52; PULSE 69; RESP 16; O2SAT 96
== END 2021-05-28 14:50 | disposition home or self-care (01) ==
PROVIDERS: PCP Family Medicine; Visit Provider Internal Medicine Gastroenterology
PROC: 0DJ08ZZ Inspection of Upper Intestinal Tract, Via Natural or Artificial Opening Endoscopic (ICD-10-PCS; CPT 43235; principal; 2021-05-28 13:15)
PROC: 0DJD8ZZ Inspection of Lower Intestinal Tract, Via Natural or Artificial Opening Endoscopic (ICD-10-PCS; CPT 45330; 2021-05-28 13:15)
DX: K62.89 Other specified diseases of anus and rectum (principal); D12.2 Benign neoplasm of ascending colon; K64.8 Other hemorrhoids; I10 Essential (primary) hypertension; E78.5 Hyperlipidemia, unspecified; E03.9 Hypothyroidism, unspecified; M79.7 Fibromyalgia; I73.00 Raynaud's syndrome without gangrene; F41.1 Generalized anxiety disorder
CPT/HCPCS: 45385; 43235; 88305; J2704; J7120

== ENCOUNTER 2021-06-09 09:51 | Outpatient (CLI) | payer MEDICARE, SELFPAY ==
--- NOTE | ~2021-06-09 | XR_ITS ---
EXAMINATION: XR barium swallow modified EXAM DATE: 06/09/2021 10:19 INDICATION: R13.10 - Dysphagia, unspecified. TECHNIQUE: Modified barium esophagram was performed by speech pathologist with radiologist Dr. Deonte Corea present to administered fluoroscopy. Speech pathologist administered barium in varying consis tencies as per speech pathologist documentation. This was recorded on tape. There was total fluorosc opic time of 0.6 minutes. The DAP for this procedure was 0.4 Gycm2. A total of 3 images sent to PAC S from the exam. FINDINGS: Oral stage: Adequate function. Pharyngeal phase: Adequate function. Laryngeal penetration: None. Aspiration: None. Laryngeal sensitivity: Present. IMPRESSION: Patient tolerated oral feedings in the upright position. Please refer to speech patholo gist findings and specific feeding recommendations. Reviewed, dictated and finalized at location A. IMPRESSION: Patient tolerated oral feedings in the upright position. Please r efer to speech pathologist findings and specific feeding recommendations.
--- NOTE | 2021-06-09 10:28 | STOPEVAL ---
Thank you for referring Keira Knott to [facility].? Referring Physician Date Attending Provider: Jet Taylor MD Therapy Assessment Status Assessment Status Assessment Status Evaluation Outpatient Past Medical History Past Medical History No Past Medical/Surgical History Patient/Family Denies Significant Past Medical/ Surgical History Pain Assessment Timing of Pain Assessment Timing of Pain Assessment Assessment Self Report Self Report Pain Level 0 Pain Score Pain Score 0: Self Report Modified Barium Swallow Evaluation Consistency Solid Consistency 5 mL Method of Presentation Spoon Oral Preparatory Symptoms Within Functional Limits Oral Phase Symptoms Within Functional Limits Pharyngeal Phase Symptoms Within Functional Limits Severity of Vallecular Residue None - 0% No Residue Severity of Pyriform Sinus Residue None - 0% No Residue 8 Point Laryngeal Penetration-Aspiration Material Does Not Enter Airway Scale Cervical/Esophageal Symptoms Within Functional Limits Mixed Consistency 5 mL Method of Presentation Spoon Oral Preparatory Symptoms Within Functional Limits Oral Phase Symptoms Within Functional Limits Pharyngeal Phase Symptoms Within Functional Limits Severity of Vallecular Residue None - 0% No Residue Severity of Pyriform Sinus Residue None - 0% No Residue 8 Point Laryngeal Penetration-Aspiration Material Does Not Enter Airway Scale Cervical/Esophageal Symptoms Within Functional Limits Pureed Consistency 5 mL Method of Presentation Spoon Oral Preparatory Symptoms Within Functional Limits Oral Phase Symptoms Within Functional Limits Pharyngeal Phase Symptoms Within Functional Limits, Residue in Valleculae Severity of Vallecular Residue Mild - 5-25 % Epiglottic Ligament Visable Severity of Pyriform Sinus Residue None - 0% No Residue 8 Point Laryngeal Penetration-Aspiration Material Does Not Enter Airway Scale Cervical/Esophageal Symptoms Within Functional Limits Pureed Consistency 3 mL Method of Presentation Spoon Oral Preparatory Symptoms Within Functional Limits Oral Phase Symptoms Within Functional Limits Pharyngeal Phase Symptoms Within Functional Limits, Residue in Valleculae Severity of Vallecular Residue Mild - 5-25 % Epiglottic Ligament Visable Severity of Pyriform Sinus Residue None - 0% No Residue 8 Point Laryngeal Penetration-Aspiration Material Does Not Enter Airway Scale Cervical/Esophageal Symptoms Within Functional Limits Thin Uncontrolled 1 Method of Presentation Cup
== END 2021-06-09 09:52 | disposition home or self-care (01) ==
LOC: ANHIMG 09:52
PROVIDERS: PCP Family Medicine; Visit Provider Internal Medicine Gastroenterology
DX: R13.10 Dysphagia, unspecified (principal)
CPT/HCPCS: 92611

== ENCOUNTER 2021-07-02 15:12 | Outpatient (CLI) | payer MEDICARE, SELFPAY ==
[2021-07-02 15:44] LABS: Immature Reticulocyte Fraction 8.6 % (3.0-15.9); Reticulocyte Hemoglobin Conten 34.1 pg (28.2-35.7); Reticulocyte Percent 1.93 % (0.7-4.3); Reticulocytes Absolute 0.07 B/L (32.2-175.7)
[2021-07-02 16:09] LABS: Iron 55 ug/dL (37-170)
[2021-07-02 16:18] LABS: Percent Iron Saturation 23 % (20-50)
[2021-07-02 20:57] LABS: Folic Acid > 20.0 ng/mL (2.76->20)
== END 2021-07-02 15:13 | disposition home or self-care (01) ==
PROVIDERS: PCP Family Medicine; Visit Provider Family Medicine
DX: D64.9 Anemia, unspecified (principal)
CPT/HCPCS: 36415; 82607; 82746; 83540; 83550; 85046

== ENCOUNTER 2021-07-10 14:56 | Outpatient (CLI) | payer MEDICARE, SELFPAY ==
--- NOTE | ~2021-07-10 | XR_ITS ---
XR chest 2V DATE: 07/10/2021 15:16 INDICATION: Cough TECHNIQUE: PA and lateral views COMPARISON: 09/24/2020 PA and lateral chest FINDINGS: There is bilateral hyperinflation, relative flattening the diaphragm, suggesting COPD. There is discoid atelectasis in the left lower lung. Small left pleural effusion. No pulmonary infiltrate or consolidation, pleural effusion or pulmonary vascular congestion or pneumo thorax is noted otherwise. No hilar or mediastinal enlargement. Status post cholecystectomy There is interval vertebroplasty at the upper thoracic spine. Diffuse osteopenia. IMPRESSION: Discoid atelectasis, left lower lung and small left pleural effusion COPD Aortic calcification Diffuse osteopenia Status post vertebroplasty in upper thoracic spine Status post cholecystectomy Reviewed, dictated and finalized at location A. IMPRESSION: Discoid atelectasis, left lower lung and small left pleural effusio n COPD Aortic calcification Diffuse osteopenia Status post vertebroplasty in upper thoracic spine Status post cholecystectomy
== END 2021-07-10 14:57 | disposition home or self-care (01) ==
PROVIDERS: PCP Family Medicine; Visit Provider Family Medicine
DX: R05.9 Cough, unspecified (principal); J44.9 Chronic obstructive pulmonary disease, unspecified; I70.0 Atherosclerosis of aorta; M85.88 Other specified disorders of bone density and structure, other site; Z90.49 Acquired absence of other specified parts of digestive tract
CPT/HCPCS: 71046

== ENCOUNTER 2021-08-05 13:19 | Outpatient (CLI) | payer MEDICARE, SELFPAY ==
--- NOTE | ~2021-08-05 | XR_ITS ---
EXAMINATION: XR ankle LT min 3V DATE: 08/05/2021 13:47 INDICATION: Left ankle pain. TECHNIQUE: Anteroposterior, oblique, mortise, and lateral views of the left ankle were obtained. COMPARISON: 05/21/2021 FINDINGS: Alignment is normal. No fracture. Minimal to mild osteoarthritis at the left ankle and a few joints in the midfoot. No ankle joint effusion. Tiny enthesopathic ossicle at the distal Achilles tendon. D iffuse osteopenia. The soft tissues are unremarkable. IMPRESSION: 1. 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 No ankle joint effusio n or acute osseous abnormality. Reviewed, dictated and finalized at location B. IMPRESSION: 1. 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 No ankle joint effusion or acute osseous abnormality.
[2021-08-05 13:43] LABS: Hematocrit 40.7 % (37.0-47.0); Hemoglobin 12.6 g/dL (12.0-15.0); Mean Corpuscular Hemoglobin 30.7 pg (26-34); Mean Corpuscular Volume 99.3 fl (80-100); Mean Platelet Volume 10.7 fl (7.4-10.4); Platelet Count Result 244 k/mm3 (150-375); Red Cell Distribution Width 13.8 % (11.5-14.5)
[2021-08-05 13:57] LABS: Alanine Aminotransferase 50 U/L (6-35); Albumin Level 4.4 g/dL (3.5-5.1); Alkaline Phosphatase 143 U/L (38-126); Anion Gap 6 mmol/L (8-16); Aspartate Amino Transferase 43 U/L (14-36); Bilirubin,Total 0.2 mg/dL (0.2-1.3); Blood Urea Nitrogen 15 mg/dL (7-17); Calcium 9.1 mg/dL (8.4-10.2); Carbon Dioxide 28 mmol/L (22-30); Chloride 102 mmol/L (98-107); Estimated Glomerular Filt Rate > 60; Glucose 100 mg/dL (65-110); Potassium 4.2 mmol/L (3.4-5.0); Sodium 136 mmol/L (137-145)
== END 2021-08-05 13:20 | disposition home or self-care (01) ==
LOC: ANHLAB 13:20
PROVIDERS: PCP Family Medicine; Visit Provider Family Medicine
DX: M19.072 Primary osteoarthritis, left ankle and foot (principal); R63.4 Abnormal weight loss; D64.9 Anemia, unspecified
CPT/HCPCS: 36415; 73610; 80053; 84443; 85027

== ENCOUNTER 2021-08-21 10:31 | Outpatient (CLI) | payer MEDICARE, SELFPAY ==
--- NOTE | ~2021-08-21 | US_ITS ---
US abdomen complete DATE: 08/21/2021 12:15 INDICATION: Abnormal liver function tests TECHNIQUE: Real-time imaging of the abdomen, Doppler analysis COMPARISON: 09/23/2020 CT abdomen pelvis FINDINGS: The gallbladder is surgically absent. The common bile duct measures 3.2 mm, within normal r miles. No hepatic or pancreatic space-occupying mass lesion is evident. Normal hepatopedal portal venous nathan w direction. No renal mass lesion or hydronephrosis. Normal caliber of the abdominal aorta. The inferior vena cava is unremarkable. Normal splenic size. IMPRESSION: Status post cholecystectomy Reviewed, dictated and finalized at Location A. Reviewed, dictated and finalized at location A. IMPRESSION: Status post cholecystectomy
== END 2021-08-21 10:32 | disposition home or self-care (01) ==
LOC: ANHIMG 10:35
PROVIDERS: PCP Family Medicine; Visit Provider Family Medicine
DX: R94.5 Abnormal results of liver function studies (principal); Z90.49 Acquired absence of other specified parts of digestive tract
CPT/HCPCS: 76700

== ENCOUNTER 2021-09-06 09:56 | Outpatient (CLI) | payer MEDICARE, SELFPAY ==
--- NOTE | ~2021-09-06 | XR_ITS ---
XR ankle LT 2V DATE: 09/06/2021 10:21 INDICATION: Left lateral ankle pain following injury TECHNIQUE: AP and lateral views COMPARISON: 08/05/2021 left ankle FINDINGS: There is osteopenia. No fracture or dislocation of the ankle or disruption of the ankle mor tise is detected. IMPRESSION: Osteopenia No fracture or dislocation Reviewed, dictated and finalized at location A.
--- NOTE | ~2021-09-06 | MR_ITS ---
EXAMINATION: MR lumbar spine wo con DATE: 09/06/2021 10:49 INDICATION: 3 months of low back pain and radiculopathy with bilateral lower limb pain. Bleeding. TECHNIQUE: Magnetic resonance imaging (MRI) of the lumbar spine was performed without intravenous con trast. Sequences included sagittal T2-weighted FSE, sagittal T2-weighted FS FSE, sagittal T1-weighted FSE, and axial T2-weighted FSE. COMPARISON: None FINDINGS: A degree lumbar levocurvature. Sagittal alignment is normal. Vertebral body heights are normal. Norm al marrow signal. Mild disc height loss with right-sided predominance at L2-L3 through L4-L5. The con us medullaris terminates at L2. There is normal signal in the caudal spinal cord. Paravertebral soft tissues are unremarkable. The following disc levels are specifically discussed: T12-L1: The disc does not extend beyond the endplate margin. There is mild bilateral facet joint oste oarthritis. There is no neural foraminal stenosis. There is no central canal stenosis. L1-L2: The disc does not extend beyond the endplate margin. There is mild hypertrophy of the ligament um flavum. There is mild bilateral facet joint osteoarthritis. There is no neural foraminal stenosis . There is no central canal stenosis. L2-L3: Disc is mildly bulging most prominent at the bilateral foraminal zones. There is mild hypertro phy of the ligamentum flavum. There is mild bilateral facet joint osteoarthritis. There is bilateral neural foraminal stenosis. There is no central canal stenosis. L3-L4: Disc is mildly bulging most prominent at the bilateral foraminal zones. There is hypertrophy o f the ligamentum flavum. There is mild left and moderate right facet joint osteoarthritis. There is mild bilateral neural foraminal stenosis. There is mild central canal stenosis. L4-L5: Disc is bulging most prominent at the bilateral foraminal zones. There is hypertrophy of the l igamentum flavum. There is moderate left and severe right facet joint osteoarthritis. There is modera te right and mild to moderate left neural foraminal stenosis. There is no central canal stenosis. L5-S1: Disc is mildly bulging most prominent at the bilateral foraminal zones. There is severe bilate ral facet joint osteoarthritis. There is mild right and moderate left neural foraminal stenosis. Ther e is no central canal stenosis. IMPRESSION: 1. 8 degrees lumbar levocurvature with mild spondylosis. Reviewed, dictated and finalized at location A.
== END 2021-09-06 09:57 | disposition home or self-care (01) ==
PROVIDERS: PCP Family Medicine; Visit Provider Nurse Practitioner Family
DX: M41.86 Other forms of scoliosis, lumbar region (principal); M47.816 Spondylosis without myelopathy or radiculopathy, lumbar region; M85.89 Other specified disorders of bone density and structure, multiple sites
CPT/HCPCS: 72148; 73600

== ENCOUNTER 2021-09-24 12:30 | Outpatient (RCR) | payer MEDICARE, SELFPAY ==
--- NOTE | 2021-08-25 14:49 | STOPEVAL ---
Thank you for referring Keira Knott to [facility].? The patient is scheduled to be seen for therapy? 2x/week for 4 weeks. Please review, sign, date and return this plan of care MELVINA. I agree with and certify that the following plan of care is medically necessary. Referring Physician Date Attending Provider: Maliha Jackson DO Referring Provider: Maliha Jackson DO Therapy Assessment Status Assessment Status Assessment Status Evaluation Outpatient Past Medical History Past Medical History Source of Past Medical History Patient Neurological History Hx Other Neurological Disorders Yes: Fall with brain bleed but denied hemorrhage Cardiovascular History Hx Cardiac Disorders No Significant History Respiratory History Hx Respiratory Disorders No Significant History Gastrointestinal History Hx Gastrointestinal Disorders No Significant History Genitourinary History Hx Genitourinary Disorders No Significant History Musculoskeletal History Hx Arthritis Yes Hx Back Injury Yes Hx Back Pain Yes Hx Crutches or Walker Use Yes: Uses walker at home Query Text:If Yes, Enter Crutches, Walker, or Both in the Comment Hx Orthopedic Surgery Yes: Right elbow Hx Spinal Surgery Yes: Spinal fusion Evaluation Information Problem Diagnosis Dysphagia Subjective Information The patient reported that she Query Text:As Reported By Patient/ fell down her basement stairs Family last December, and suffered a brain thing. ( Leak or something? Is that what they call it? ). She stated that she was admitted to [facility] in [place] for four weeks, then admitted to a long-term for physical rehabilitation. Today she admits to forgetting people's names and then having other issues with memory. Patient reported a variety of issues including arthritis and back and neck issues. When asked about her swallowing, she reported a history of abdominal pain and underwent endoscopy and colonoscopy which she reported no deficits were noted. She began noticing difficulty swallowing, states she has
--- NOTE | 2021-09-09 12:28 | STOPEVAL ---
SWALLOWING EVALUATION Thank you for referring Keira Knott to [facility].? The patient is scheduled to be seen for therapy? 2x/week for 4 weeks. Please review, sign, date and return this plan of care MELVINA. I agree with and certify that the following plan of care is medically necessary. Referring Physician Date Attending Provider: Maliha Jackson DO Referring Provider: Maliha Jackson DO Therapy Assessment Status Assessment Status Assessment Status Evaluation Outpatient Past Medical History Past Medical History Source of Past Medical History Patient Neurological History Hx Other Neurological Disorders Yes: Fall with brain bleed but denied hemorrage Musculoskeletal History Hx Arthritis Yes Hx Back Injury Yes Hx Back Pain Yes Hx Crutches or Walker Use Yes: Uses walker at home Query Text:If Yes, Enter Crutches, Walker, or Both in the Comment Hx Orthopedic Surgery Yes: Right elbow Hx Spinal Surgery Yes: Spinal fusion Evaluation Information Problem Diagnosis Dysphagia Subjective Information The patient reported that she Query Text:As Reported By Patient/ fell down her basement stairs Family last December, and suffered a brain thing. ( Leak or something? Is that what they call it? ). She stated that she was admitted to [facility] in [place] for four weeks, then admitted to a halfway for physical rehabilitation. Today she admits to forgetting people's names and then having other issues with memory. Patient reported a variety of issues including arthritis and back and neck issues. When asked about her swallowing, she reported a history of abdominal pain and underwent endoscopy and colonoscopy which she reported no deficits were noted. She began noticing difficulty swallowing, states she has difficulty with breathing, getting short of breath. She states that eating and drinking really has to be done
--- NOTE | 2021-09-24 16:35 | STOPEVAL ---
SPEECH THERAPY RE-EVALUATION AND DISCHARGE SUMMARY Thank you for referring Keira Knott to [facility].? The patient has achieved all goals and is being discharged from Speech Therapy at this time. I agree with and certify that the following plan of care is medically necessary. Referring Physician Date Attending Provider: Maliha Jackson DO Referring Provider: Maliha Jackson DO Therapy Assessment Status Assessment Status Assessment Status Discharge Timing of Pain Assessment Timing of Pain Assessment Pre-Treatment Self Report Self Report Pain Level 0 Pain Score Pain Score 0: Self Report Bedside Swallow Evaluation Consistency Solid Consistency Uncontrolled 2 Other Swallow Amount Rene Cracker Method of Presentation Finger/Hand Behaviors Observed Apparently Normal Swallow Occurrence of Coughing None Vocal Quality After Swallowing Clear Swallow Palpation Results Good Swallow Initiation,Strong Laryngeal Elevation Solid Consistency Uncontrolled 1 Other Swallow Amount Cut up Fruit in syrup Method of Presentation Spoon Behaviors Observed Apparently Normal Swallow Occurrence of Coughing None Vocal Quality After Swallowing Clear Swallow Palpation Results Good Swallow Initiation,Strong Laryngeal Elevation Thin Uncontrolled 1 Method of Presentation Cup Behaviors Observed Apparently Normal Swallow Occurrence of Coughing None Vocal Quality After Swallowing Clear Swallow Palpation Results Good Swallow Initiation,Strong Laryngeal Elevation Tolerance Tolerance For Swallow No Distress Alertness Awake/Safe Cooperativeness Calm,Cooperative Attention Attentive Awareness of Swallowing Problem Aware Awareness of Secretions Aware Postural Control Moves Independently Fatigability Does Not Fatigue Ability to Follow Directions Independent Recommendations Feeding Type Recommended Oral Supervision Recommended Eat Independently Positions Used Chin Tucked (Flexed),Upright Food Consistency Regular, Level 7 Liquid Consistency Thin (0) Mealtime Procedures Recommended Alternate Solids/Liquids, Forceful Swallow,Small Bites/ Sips Bedside Swallow Comments See Clinical Summary. Voice Evaluation Voice Quality Breathiness None Harshness None Hoarseness Mild Vocal Castaneda None Voice Quality Significant improvement in
== END 2021-09-25 11:31 | disposition home or self-care (01) ==
LOC: ANHST 12:30
PROVIDERS: PCP Family Medicine; Visit Provider Family Medicine
DX: R13.10 Dysphagia, unspecified (principal)
CPT/HCPCS: 92507; 92526; 92610

== ENCOUNTER 2021-11-07 09:16 | Emergency (ER) | payer MEDICARE, SELFPAY ==
--- NOTE | ~2021-11-07 | XR_ITS ---
EXAMINATION: XR lumbar spine 2-3V, XR hip BI 2V w AP pelvis DATE: 11/07/2021 10:11 INDICATION: Low back pain post fall from bed TECHNIQUE: 1. Anteroposterior and lateral views of the lumbar spine, and cone-down lateral view of the lumbosacr al junction were obtained. 2. AP view of the pelvis and AP and frog-leg lateral views of the left and right hips were obtained. COMPARISON: Lumbar spine MR dated 09/06/2021 FINDINGS: Lumbar spine: 8 degree lumbar levocurvature. 2 mm anterolisthesis L4 on L5. Lumbar vertebral body and disc heights are normal. Moderate to severe lower lumbar facet osteoarthritis. Cholecystectomy clips in the right upper quadrant. Moderate to large amount of stool scattered throughout the colon. Mild bilateral sacr oiliac osteoarthritis. Pelvis: No fracture or suspected avascular necrosis. Bilateral hip joint spaces are normal. Soft tissues are unremarkable. IMPRESSION: 1. Mild lumbar spondylosis with 8 degree lumbar levocurvature and 2 mm anterolisthesis L4 on L5. 2. No acute osseous abnormality in the lumbar spine, pelvis or hips. Reviewed, dictated and finalized at location A. IMPRESSION: 1. Mild lumbar spondylosis with 8 degree lumbar levocurvature and 2 mm anteroli sthesis L4 on L5. 2. No acute osseous abnormality in the lumbar spine, pelvis or hips.
--- NOTE | ~2021-11-07 | XR_ITS ---
EXAMINATION: [id number], XR thoracic spine 3V DATE: 11/07/2021 10:12 INDICATION: Back pain post fall from bed TECHNIQUE: 1. PA view of the chest and 3 views of the left and right ribs were obtained. 2. AP and lateral view of the thoracic spine was obtained.. COMPARISON: Chest radiograph dated 07/10/2021 FINDINGS: Chest and ribs: Prominent bilateral costochondral calcifications. No rib fractures identified. Unchanged linear disco id atelectasis/scarring at the left lung base. No other airspace opacities, pulmonary edema, pleural effusion or pneumothorax. Postoperative changes along the medial right mid to upper lung. Cholecystec claudia clips in right upper quadrant. Thoracic spine: 15 degree lower thoracic dextroscoliosis. Sagittal alignment is normal. Chronic vertebroplasty at T3 and T4. Remaining thoracic vertebral body heights are normal. Mild scattered disc height loss in the thoracic spine. IMPRESSION: 1. Unchanged discoid atelectasis at the left lung base. No rib fractures or acute cardiopulmonary dis ease. 2. 15 degree thoracic dextroscoliosis with mild spondylosis. 3. T3 and T4 vertebral plasties. Reviewed, dictated and finalized at location A. IMPRESSION: 1. Unchanged discoid atelectasis at the left lung base. No rib fractures or acu te cardiopulmonary disease. 2. 15 degree thoracic dextroscoliosis with mild spondylosis. 3. T3 and T4 vertebral plasties.
[2021-11-07 09:27] VITALS: BP 144/67; PULSE 93; RESP 16; TEMP 36.4; O2SAT 98
--- NOTE | 2021-11-07 09:46 | ED.GENADULT ---
HPI - General Adult General Chief complaint: Back Pain/Injury Stated complaint: Back injury near waistline Source: patient and family Mode of arrival: ambulatory Limitations: no limitations History of Present Illness HPI narrative: Patient brought in by her with reports of back pain. She indicates she fell out of bed at 0200 this morning. She bumped her head. No loss of consciousness. Not on blood thinners. She had some swelling to her occipital region but that has resolved with application of ice. She reports pain in thoracic spine, lumbar spine, pelvis, bilateral hips, and posterior ribs. She states pain in posterior ribs is 4/10, thoracic spine 4/10, lumbar spine 8/10, pelvis and hips 8/10. She states she has chronic pain follow a fall down steps, for which she now sees pain management. She had an intracranial bleed. She sustained several spinal fractures. She had what sounds to be a spinal fusion. She has percocet at home, which she normally takes about once per week. Baseline status is ambulatory, sometimes with assistance of walker. She has been able to ambulate following the injury. Related Data Home Medications Medication Instructions Recorded Confirmed furosemide 20 mg tablet 20 mg PO DAILY PRN Edema 05/20/21 11/03/21 losartan 25 mg tablet 25 mg PO DAILY PRN Hypertension 05/20/21 11/03/21 omega-3 fatty acids-vitamin E 1 cap PO DAILY 05/20/21 11/03/21 1,000 mg capsule sulfasalazine 500 mg tablet 500 mg PO TID 05/20/21 11/03/21 venlafaxine 75 mg capsule,extended 150 mg PO DAILY 07/10/21 11/03/21 release 24 hr (Effexor XR) mometasone 0.1 % topical solution ml topical 10/13/21 11/03/21 Allergies Allergy/AdvReac Type Severity Reaction Status Date / Time sertraline AdvReac anxiety Verified 11/03/21 10:36 Review of Systems Review of Systems: CONSTITUTIONAL: Denies fever, chills, or sweats. EYES: Denies visual changes, redness, or discharge. ENT: Denies rhinorrhea, congestion, sore throat, or otalgia. CARDIOVASCULAR: Denies chest pain, palpitations, or edema. RESPIRATORY: Denies cough or dyspnea. GASTROINTESTINAL: Denies abdominal pain, nausea, vomiting, or diarrhea. GENITOURINARY: Denies dysuria or hematuria. SKIN: Denies rash or itching. MUSCULOSKELETAL: Reports pain in neck, back, pelvis and hips NEUROLOGIC: Denies headache, numbness, dizziness, or weakness. PSYCHIATRIC: Denies anxiety or depression. [facility] Past Medical History Medical History Arthritis Depression Fibromyalgia FRANCY (generalized anxiety disorder) HLD (hyperlipidemia) HTN (hypertension) Hypothyroid Peripheral neuropathy Raynaud disease Rectal pain, chronic Surgical History Surgical History Cataract 2019 H/O elbow surgery 2020 History of cholecystectomy 2016 History of cholecystectomy Family History Family History Father Family history of malignant neoplasm Family history of cardiovascular disease Depression Heart disease Hypertension Leukemia Mother Hypertension Family history of emphysema Heart disease Sibling Hypertension Family history of heart disease in male family member before age 55 Acute myocardial infarction Diabetes mellitus Heart disease Grandparent Cerebrovascular accident Hypertension Other Family history of arthritis Social History Social History Smoking status: Former smoker Second hand tobacco smoke exposure: No Alcohol intake: former Substance use: never Substance use type: does not use Gender identity (if verbalized by the patient): Female Sexual Orientation (if Verbalized by the Patient): Straight or Heterosexual Spiritual care concerns: No Agree to blood products: Yes Exam Narrative: GENERAL: Well-a
== END 2021-11-07 11:11 | disposition home or self-care (01) ==
PROVIDERS: Emergency Provider Nurse Practitioner; PCP Family Medicine
DX: S20.229A Contusion of unspecified back wall of thorax, initial encounter (principal); W06.XXXA Fall from bed, initial encounter; M19.90 Unspecified osteoarthritis, unspecified site; M79.7 Fibromyalgia; E78.5 Hyperlipidemia, unspecified; I10 Essential (primary) hypertension; E03.9 Hypothyroidism, unspecified; G62.9 Polyneuropathy, unspecified; I73.00 Raynaud's syndrome without gangrene; Z87.891 Personal history of nicotine dependence; F41.1 Generalized anxiety disorder; F32.A Depression, unspecified
CPT/HCPCS: 71111; 72072; 72100; 73521; 99214; G0463

== ENCOUNTER 2021-12-10 08:48 | Emergency (ER) | payer MEDICARE, SELFPAY ==
[2021-12-10 08:59] VITALS: BP 121/64; PULSE 63; RESP 16; TEMP 36.3; O2SAT 100
--- NOTE | 2021-12-10 09:36 | ED.HEATRA ---
HPI - Head Injury General Chief complaint: Head Injury Stated complaint: fall, head injury Time Seen by Provider: 12/10/21 09:38 Source: patient Mode of arrival: ambulatory Limitations: no limitations History of Present Illness HPI Narrative: 86-year-old female presented for complaint of headache since a fall yesterday at noon. She states she was bending over in the kitchen, fell onto her buttocks and then struck the right side of her head on a cabinet. She denies loss of consciousness. Patient reportedly crawled to the carpeted floor and helped her up when he arrived home. He states she usually stays in a wheelchair while he is gone, however his appointment lasted longer than anticipated and she was hungry so she got up. She uses a walker as well. She currently denies dizziness, vision changes, nausea, neck pain or radicular pain, hip or tailbone pain, numbness, tingling or weakness of extremities. Of note, Patient fell out of bed about one month ago and was evaluated after that fall. One year ago fell down stairs resulting in 4 week hospitalization for multiple vertebral fractures and 'brain bleed' per pt. Related Data Home Medications Medication Instructions Recorded Confirmed furosemide 20 mg tablet 20 mg PO DAILY PRN Edema 05/20/21 12/10/21 losartan 25 mg tablet 25 mg PO DAILY PRN Hypertension 05/20/21 12/10/21 omega-3 fatty acids-vitamin E 1 cap PO DAILY 05/20/21 12/10/21 1,000 mg capsule sulfasalazine 500 mg tablet 500 mg PO TID 05/20/21 12/10/21 venlafaxine 75 mg capsule,extended 150 mg PO DAILY 07/10/21 12/10/21 release 24 hr (Effexor XR) mometasone 0.1 % topical solution See Rx Instructions .Route .COMPLEX 10/13/21 12/10/21 pregabalin 50 mg capsule (Lyrica) See Rx Instructions PO BID 11/25/21 12/10/21 Allergies Allergy/AdvReac Type Severity Reaction Status Date / Time sertraline AdvReac anxiety Verified 12/10/21 09:00 Review of Systems Review of Systems: CONSTITUTIONAL: Denies body aches, fever, chills EYES: Denies visual changes CARDIOVASCULAR: Denies chest pain, palpitations, or edema. RESPIRATORY: Denies cough or dyspnea. GASTROINTESTINAL: Denies abdominal pain, nausea, vomiting, or diarrhea. SKIN: Denies rash or wounds. MUSCULOSKELETAL: denies back pain NEUROLOGIC: reports headache, denies numbness, tingling, or weakness. All systems reviewed & are unremarkable except as noted in HPI and below PMFSH Past Medical History Medical History Arthritis Depression Fibromyalgia FRANCY (generalized anxiety disorder) HLD (hyperlipidemia) HTN (hypertension) Hypothyroid Peripheral neuropathy Raynaud disease Rectal pain, chronic Surgical History Surgical History Cataract 2019 H/O elbow surgery 2020 History of cholecystectomy 2016 History of cholecystectomy Family History Family History Father Family history of malignant neoplasm Family history of cardiovascular disease Depression Heart disease Hypertension Leukemia Mother Hypertension Family history of emphysema Heart disease Sibling Hypertension Family history of heart disease in male family member before age 55 Acute myocardial infarction Diabetes mellitus Heart disease Grandparent Cerebrovascular accident Hypertension Other Family history of arthritis Social History Social History Smoking status: Former smoker Second hand tobacco smoke exposure: No Alcohol intake: former Substance use: never Substance use type: does not use Gender identity (if verbalized by the patient): Female Sexual Orientation (if Verbalized by the Patient): Straight or Heterosexual Spiritual care concerns: No Agree to blood products: Yes Comments At time of signature, I have reviewed and a
== END 2021-12-10 10:03 | disposition short-term general hospital (02) ==
PROVIDERS: Emergency Provider Nurse Practitioner Family
DX: R51.9 Headache, unspecified (principal); W19.XXXA Unspecified fall, initial encounter; M19.90 Unspecified osteoarthritis, unspecified site; M79.7 Fibromyalgia; E78.5 Hyperlipidemia, unspecified; E03.9 Hypothyroidism, unspecified; I73.00 Raynaud's syndrome without gangrene; G62.9 Polyneuropathy, unspecified; F32.A Depression, unspecified; F41.1 Generalized anxiety disorder; Z87.891 Personal history of nicotine dependence
CPT/HCPCS: 99213; G0463

== ENCOUNTER 2021-12-10 10:25 | Emergency (ER) | payer MEDICARE, SELFPAY ==
--- NOTE | ~2021-12-10 | CT_ITS ---
EXAMINATION: CT cervical spine wo con DATE: 12/10/2021 11:46 INDICATION: Head injury. TECHNIQUE: Computed tomography (CT) of the cervical spine was performed without intravenous contrast. Automated exposure control and iterative reconstruction technique were employed. The dose-length pro duct was 99.58 mGy-cm. COMPARISON: None FINDINGS: There is mild scarring at the lung apices. There is 10 degrees levoscoliosis of cervical th oracic spine. There is a chronic burst fracture of T3 with changes of vertebroplasty. 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 There is mildly decreased disc height at C4-C5, moderately decreased disc height at C5-C6, and mildly decreased disc height at C6-C7. The f ollowing disc levels are specifically discussed: C2-C3: There is no uncovertebral joint osteoarthritis. There is mild right and severe left facet join t osteoarthritis. There is mild left neural foraminal stenosis. There is no central canal stenosis. C3-C4: There is mild bilateral uncovertebral joint osteoarthritis. There is mild bilateral facet join t osteoarthritis. There is no neural foraminal stenosis. There is mild central canal stenosis. C4-C5: There is mild bilateral uncovertebral joint osteoarthritis. There is mild right and severe lef t facet joint osteoarthritis. There is mild left neural foraminal stenosis. There is mild central can al stenosis. C5-C6: There is severe right and mild left uncovertebral joint osteoarthritis. There is mild right fa cet joint osteoarthritis. There is mild right neural foraminal stenosis. There is mild central canal stenosis. C6-C7: There is no uncovertebral joint osteoarthritis. There is severe right and moderate left facet joint osteoarthritis. There is mild right neural foraminal stenosis. There is no central canal stenos is. C7-T1: There is no uncovertebral joint osteoarthritis. There is moderate and mild left facet joint os teoarthritis. There is no neural foraminal stenosis. There is no central canal stenosis. IMPRESSION: 1. No fracture. 2. Moderate cervical spondylosis. 3. Cervicothoracic levoscoliosis. Reviewed, dictated and finalized at location A.
--- NOTE | ~2021-12-10 | CT_ITS ---
EXAMINATION: CT brain wo con DATE: 12/10/2021 11:46 INDICATION: Fall with head injury TECHNIQUE: Computed tomography (CT) of the head was performed without intravenous contrast. Sagittal and coronal reconstructions were performed. The mA was adjusted according to patient size. Iterative reconstruction technique was employed. The dose-length product was 605.33 mGy-cm. COMPARISON: head CT dated 07/31/2020 FINDINGS: No fracture. No acute intracranial hemorrhage, acute infarction or abnormal extra axial fluid collect ion. There is mild to moderate scattered white matter hypoattenuation consistent with chronic small v essel ischemic disease. Ventricles are normal and symmetric. No mass/mass effect. Changes of bilatera l intraocular lens replacement. The orbits, paranasal sinuses and mastoid air cells are normal. Intra cranial calcified cerebral atherosclerosis is noted. IMPRESSION: 1. No fracture or acute intracranial process. 2. Mild to moderate scattered white matter hypoattenuation consistent with chronic small vessel ische saira disease. Reviewed, dictated and finalized at location A. IMPRESSION: 1. No fracture or acute intracranial process. 2. 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
[2021-12-10 10:48] VITALS: BP 136/55; PULSE 68; RESP 18; TEMP 36.4; O2SAT 97
--- NOTE | 2021-12-10 11:02 | PC.NURSE ---
Spouse is Cj Knott; call when have disposition; home [facility] line number [phone]
--- NOTE | 2021-12-10 12:07 | ED.HEATRA ---
HPI - Head Injury General Chief complaint: Head Injury Stated complaint: fell T-1; headach Time Seen by Provider: 12/10/21 11:30 History of Present Illness HPI Narrative: 86-year-old female here for evaluation of fall with head injury yesterday. Patient states that she was bent over in her kitchen when she lost her balance, falling over to the right side and striking the right side of her head against a cabinet. She did not lose consciousness, she remembers the entire event. She was in her usual state of health prior to the event. Currently complaining of right-sided headache but no other complaints. Denies visual changes, nausea, vomiting, confusion. She does have a history of a brain bleed which prompted her ED evaluation. Does not take blood thinners. Related Data Home Medications Medication Instructions Recorded Confirmed furosemide 20 mg tablet 20 mg PO DAILY PRN Edema 05/20/21 12/10/21 losartan 25 mg tablet 25 mg PO DAILY PRN Hypertension 05/20/21 12/10/21 omega-3 fatty acids-vitamin E 1 cap PO DAILY 05/20/21 12/10/21 1,000 mg capsule sulfasalazine 500 mg tablet 500 mg PO TID 05/20/21 12/10/21 venlafaxine 75 mg capsule,extended 150 mg PO DAILY 07/10/21 12/10/21 release 24 hr (Effexor XR) mometasone 0.1 % topical solution See Rx Instructions .Route .COMPLEX 10/13/21 12/10/21 pregabalin 50 mg capsule (Lyrica) See Rx Instructions PO BID 11/25/21 12/10/21 Allergies Allergy/AdvReac Type Severity Reaction Status Date / Time sertraline AdvReac anxiety Verified 12/10/21 09:00 Review of Systems Review of Systems: Gen: Denies fevers or chills Eyes: Denies eye pain or visual change ENT: Denies congestion Respiratory: Denies shortness of breath or cough CV: Denies chest pain or palpitations GI: Denies abdominal pain nausea, emesis or diarrhea : denies burning, urgency, frequency or hematuria Musculoskeletal: Denies back pain or muscle pain Neuro: Reports headache. Denies numbness, tingling, weakness or focal weakness Skin: Denies rash Except as documented, all other systems reviewed and negative PMFSH Past Medical History Medical History Arthritis Depression Fibromyalgia FRANCY (generalized anxiety disorder) HLD (hyperlipidemia) HTN (hypertension) Hypothyroid Peripheral neuropathy Raynaud disease Rectal pain, chronic Surgical History Surgical History Cataract 2019 H/O elbow surgery 2020 History of cholecystectomy 2016 History of cholecystectomy Family History Family History Father Family history of malignant neoplasm Family history of cardiovascular disease Depression Heart disease Hypertension Leukemia Mother Hypertension Family history of emphysema Heart disease Sibling Hypertension Family history of heart disease in male family member before age 55 Acute myocardial infarction Diabetes mellitus Heart disease Grandparent Cerebrovascular accident Hypertension Other Family history of arthritis Social History Social History Smoking status: Former smoker Second hand tobacco smoke exposure: No Alcohol intake: former Substance use: never Substance use type: does not use Gender identity (if verbalized by the patient): Female Sexual Orientation (if Verbalized by the Patient): Straight or Heterosexual Spiritual care concerns: No Agree to blood products: Yes Exam Narrative: APPEARANCE: Well appearing, no pain in distress, well-nourished. Head: Normocephalic and atraumatic. EYES: PERRLA/EOMI, conjunctivae clear NOSE: No nasal drainage EARS: External ear normal in appearance THROAT: Oropharynx is clear. Mucous membranes are moist. NECK: Supple. No adenopathy, no masses. RESPIRATORY: Airway patent, respirations nonl
[2021-12-10 12:23] VITALS: BP 139/74; PULSE 70; RESP 16; O2SAT 99
== END 2021-12-10 12:34 | disposition home or self-care (01) ==
PROVIDERS: Emergency Provider Emergency Medicine
DX: S09.90XA Unspecified injury of head, initial encounter (principal); E78.5 Hyperlipidemia, unspecified; I10 Essential (primary) hypertension; I73.00 Raynaud's syndrome without gangrene; E03.9 Hypothyroidism, unspecified; G62.9 Polyneuropathy, unspecified; M19.90 Unspecified osteoarthritis, unspecified site; M79.7 Fibromyalgia; F32.A Depression, unspecified; F41.1 Generalized anxiety disorder; Z98.49 Cataract extraction status, unspecified eye; Z87.891 Personal history of nicotine dependence; W01.198A Fall on same level from slipping, tripping and stumbling with subsequent striking against other object, initial encounter
CPT/HCPCS: 70450; 72125; 99284

== ENCOUNTER 2021-12-14 14:44 | Outpatient (CLI) | payer MEDICARE, SELFPAY ==
--- NOTE | ~2021-12-14 | DEXA_ITS ---
Bone Density Report Name: TANNA FIELDS Age: 86 Sex: Female Ethnicity: White Date of : 1935 Indication: postmenopausal; screening for osteoporosis; prior fracture; rheumatoid arthritis; Referring Provider: CONSTANCE, PRIMITIVO Pereira Study: Bone densitometry was performed. Exam Date: December 14, 2021 Accession number: [id number] Bone Density: Region BMD T-score Z-score Classification AP Spine(L1-L4) 0.716 -3.0 -0.1 Osteoporosis Femoral Neck (Left) 0.521 -3.0 -0.4 Osteoporosis Total Hip (Left) 0.591 -2.9 -0.5 Osteoporosis Femoral Neck (Right) 0.510 -3.1 -0.5 Osteoporosis Total Hip (Right) 0.563 -3.1 -0.8 Osteoporosis Total Hip Mean 0.577 -3.0 -0.7 Osteoporosis World Health Organization criteria for BMD impression classify patients as: Normal (T-score at or above -1.0), Osteopenia (T-score between -1.0 and -2.5), or Osteoporosis (T-score at or below -2.5). 10-year Fracture Risk: FRAX not reported because: Some T-score for Spine Total or Hip Total or Femoral Neck at or below -2.5 Prior hip or vertebral fracture Treated for osteoporosis Clinical Information Provided by Patient: Have had a previous hip or vertebral fracture Has had a low trauma fracture Has rheumatoid arthritis Is being treated for osteoporosis Has used the following medications: Vitamin D, Calcium Patient maximum height was 62 Menopause Age: 51 No regular weight bearing exercise Drinks caffeinated beverages Onset of menses at age 14 Number of children 0 Impression: The patient has established osteoporosis, based on the Right Total Hip T-score and the existence of a prior fracture. The patient has risk factors, including: previous fracture. Discussion: It is important to ask patients whether they are taking their medications and to encourage continued and appropriate compliance with their osteoporosis therapies to reduce fracture risk. It is also important to review their risk factors and encourage appropriate calcium and vitamin D intakes, exercise, fall prevention and other lifestyle measures. Follow-Up: Consider a repeat BMD and Vertebral Fracture Assessment (VFA) exam in 2 years or sooner if medically necessary, to reassess this patient's status. Reported by: JAMES on 12/14/2021 3:10:00 PM. Reviewed, dictated and finalized at location Jonathon MCCLURE
--- NOTE | ~2021-12-14 | MM_ITS ---
EXAMINATION: MM screening allison BI w jamaal HISTORY: Screening TECHNIQUE: Craniocaudal and mediolateral oblique 3-D tomosynthesis images were obtained and synthetic 2-D images were generated. CAD analysis was submitted and interpreted. COMPARISON: Comparison to multiple prior studies sequentially, with oldest reviewed study dated 10/29. BREAST PARENCHYMAL COMPOSITION: The breasts are heterogeneously dense, which may obscure small masses . FINDINGS: There are stable benign-appearing bilateral breast calcifications. There is no evidence of suspicious mass, calcification, or architectural distortion to suggest malignancy in either breast. T here has been no suspicious interval change. IMPRESSION: 1. No mammographic evidence of malignancy. 2. Recommend routine screening mammography in one year. BI-RADS Category 2: Benign finding(s). Reviewed, dictated and finalized at location A.
== END 2021-12-14 14:45 | disposition home or self-care (01) ==
LOC: ANHIMG 14:45
PROVIDERS: PCP Family Medicine; Visit Provider Family Medicine
DX: Z12.31 Encounter for screening mammogram for malignant neoplasm of breast (principal); Z78.0 Asymptomatic menopausal state; M81.0 Age-related osteoporosis without current pathological fracture
CPT/HCPCS: 77063; 77067; 77080

== ENCOUNTER 2021-12-26 09:32 | Emergency (ER) | payer MEDICARE, SELFPAY ==
--- NOTE | ~2021-12-26 | XR_ITS ---
EXAMINATION: [id number] INDICATION: Left-sided rib pain TECHNIQUE: A frontal view of the chest and 3 views of the left ribs were obtained. COMPARISON: 07/10/2021 FINDINGS: The lungs are free of acute opacities. No pleural effusion or pneumothorax. The cardiomedia stinal silhouette is normal. The bones are osteopenic which limits the sensitivity for fracture howev er no rib fracture is seen. Surgical clips in the right upper quadrant are likely from prior cholecys tectomy. Vertebroplasty changes noted in the upper thoracic spine. IMPRESSION: 1. No acute cardiopulmonary abnormality or evidence of displaced rib fracture. Reviewed, dictated and finalized at location A.
--- NOTE | 2021-12-26 09:34 | ED.FALL ---
HPI - Fall General Chief Complaint: Fall Stated Complaint: FALL/RIB PAIN Time Seen by Provider: 12/26/21 09:37 Source: patient and RN notes reviewed Mode of arrival: ambulatory Limitations: no limitations History of Present Illness HPI Narrative: 86-year-old female presents to the [facility] with with complaints of left lateral rib pain. Patient reports that she was sitting on the toilet and fell over landing with her ribs against the tub. Denies hitting head. No loss of consciousness. No midline tenderness. No bruising or swelling noted. Tenderness on palpation. Related Data Home Medications Medication Instructions Recorded Confirmed furosemide 20 mg tablet 20 mg PO DAILY PRN Edema 05/20/21 12/26/21 losartan 25 mg tablet 25 mg PO DAILY PRN Hypertension 05/20/21 12/26/21 omega-3 fatty acids-vitamin E 1 cap PO DAILY 05/20/21 12/26/21 1,000 mg capsule sulfasalazine 500 mg tablet 500 mg PO TID 05/20/21 12/26/21 venlafaxine 75 mg capsule,extended 150 mg PO DAILY 07/10/21 12/26/21 release 24 hr (Effexor XR) mometasone 0.1 % topical solution See Rx Instructions .Route .COMPLEX 10/13/21 12/26/21 Allergies Allergy/AdvReac Type Severity Reaction Status Date / Time sertraline AdvReac anxiety Verified 12/26/21 09:38 Review of Systems Review of Systems: All systems reviewed & are unremarkable except as noted in HPI and below Constitutional: Constitutional: Reports no additional constitutional complaints, Denies chills and Denies fever(s) Eyes: Eyes: Reports no additional eye complaints ENT: Reports system reviewed and no additional complaints, except as documented Cardiovascular: Cardiovascular: Reports no additional cardiovascular complaints Respiratory: Respiratory: Reports no additional respiratory complaints Gastrointestinal: Gastrointestinal: Reports no additional gastrointestinal complaints Musculoskeletal: Musculoskeletal: Reports as per HPI (Lateral lower rib pain) Integumentary/Breasts: Skin/Breast: Reports system reviewed and no additional complaints, except as docu Neurologic: Reports system reviewed and no additional complaints, except as documented Psychiatric: Psychiatric: Reports no additional psychiatric complaints Allergic/Immunologic: Allergic/Immunologic: Reports no additional allergic/immunologic complaints PMFSH Past Medical History Medical History Arthritis Depression Fibromyalgia FRANCY (generalized anxiety disorder) HLD (hyperlipidemia) HTN (hypertension) Hypothyroid Peripheral neuropathy Raynaud disease Rectal pain, chronic Surgical History Surgical History Cataract 2019 H/O elbow surgery 2020 History of cholecystectomy 2016 History of cholecystectomy Family History Family History Father Family history of malignant neoplasm Family history of cardiovascular disease Depression Heart disease Hypertension Leukemia Mother Hypertension Family history of emphysema Heart disease Sibling Hypertension Family history of heart disease in male family member before age 55 Acute myocardial infarction Diabetes mellitus Heart disease Grandparent Cerebrovascular accident Hypertension Other Family history of arthritis Social History Social History Smoking status: Former smoker Second hand tobacco smoke exposure: No Alcohol intake: former Substance use: never Substance use type: does not use Gender identity (if verbalized by the patient): Female Sexual Orientation (if Verbalized by the Patient): Straight or Heterosexual Spiritual care concerns: No Agree to blood products: Yes Comments At the time of my signature, I reviewed and agree with the nursing past medical, surgical, social, and family history.
[2021-12-26 09:40] VITALS: BP 123/52; PULSE 62; RESP 16; TEMP 36.3; O2SAT 98
== END 2021-12-26 10:23 | disposition home or self-care (01) ==
PROVIDERS: Emergency Provider Nurse Practitioner; PCP Family Medicine
DX: S20.20XA Contusion of thorax, unspecified, initial encounter (principal); W18.12XA Fall from or off toilet with subsequent striking against object, initial encounter; M19.90 Unspecified osteoarthritis, unspecified site; M79.7 Fibromyalgia; E78.5 Hyperlipidemia, unspecified; I10 Essential (primary) hypertension; E03.9 Hypothyroidism, unspecified; G62.9 Polyneuropathy, unspecified; I73.00 Raynaud's syndrome without gangrene; F32.9 Major depressive disorder, single episode, unspecified; F41.1 Generalized anxiety disorder; Z87.891 Personal history of nicotine dependence
CPT/HCPCS: 71101; 99213; G0463

== ENCOUNTER 2022-03-10 13:24 | Emergency (ER) | payer MEDICARE, SELFPAY ==
[2022-03-10 13:39] VITALS: BP 143/63; PULSE 67; RESP 16; TEMP 36.5; O2SAT 98
--- NOTE | 2022-03-10 14:49 | ED.GENADULT ---
HPI - General Adult General Chief complaint: Abdominal Pain Stated complaint: body and back pain Source: patient, family, RN notes reviewed and old records reviewed Mode of arrival: ambulatory Limitations: no limitations History of Present Illness HPI narrative: 87 year old female accompanied by spouse presents to the [facility] care with complaints of chronic back pain related to serious fall with fractures of back and brain bleed requiring rehab stay for several month. Patient reports that she has constipation and only went small amount yesterday that was like hard balls. Patient is on OxyContin for her back pain and last dose pain medication 10:00 a.m. this morning.Patient is on Linzess for constipation but no solving constipation issues. Patient is frail and ambulates with walker. MD complaint: back pain and constipation Related Data Home Medications Medication Instructions Recorded Confirmed furosemide 20 mg tablet 20 mg PO DAILY PRN Edema 05/20/21 03/10/22 losartan 25 mg tablet 25 mg PO DAILY PRN Hypertension 05/20/21 03/10/22 sulfasalazine 500 mg tablet 500 mg PO TID 05/20/21 03/10/22 venlafaxine 75 mg capsule,extended 150 mg PO DAILY 07/10/21 03/10/22 release 24 hr (Effexor XR) cyanocobalamin (vitamin B-12) 1,000 mcg IM WEEKLY 12/30/21 03/10/22 1,000 mcg/mL injection solution memantine 5 mg tablet 5 mg PO DAILY 03/10/22 03/10/22 Allergies Allergy/AdvReac Type Severity Reaction Status Date / Time sertraline AdvReac anxiety Verified 03/10/22 13:31 Review of Systems Review of Systems: CONSTITUTIONAL: Denies fever, chills, or sweats. EYES: Denies visual changes, redness, or discharge. ENT: Denies rhinorrhea, congestion, sore throat, or otalgia. CARDIOVASCULAR: Denies chest pain, palpitations, or edema. RESPIRATORY: Denies cough or dyspnea. GASTROINTESTINAL: reports some abdominal discomfort she relates to her constipation, no, nausea, vomiting, or diarrhea positive for constipation issues. GENITOURINARY: Denies dysuria or hematuria. SKIN: Denies rash or itching. MUSCULOSKELETAL: Chronic back pain, joint pain, or myalgia. NEUROLOGIC: Denies headache, numbness, or weakness. PSYCHIATRIC: Reports anxiety or depression. All systems reviewed & are unremarkable except as noted in HPI and below PMFSH Past Medical History Medical History Arthritis Depression Fatigue Fibromyalgia FRANCY (generalized anxiety disorder) HLD (hyperlipidemia) HTN (hypertension) Hypothyroid Peripheral neuropathy Plantar fasciitis Raynaud disease Rectal pain, chronic Surgical History Surgical History Cataract 2019 H/O elbow surgery 2020 History of cholecystectomy 2016 History of cholecystectomy Family History Family History Father Family history of malignant neoplasm Family history of cardiovascular disease Depression Heart disease Hypertension Leukemia Mother Hypertension Family history of emphysema Heart disease Sibling Hypertension Family history of heart disease in male family member before age 55 Acute myocardial infarction Diabetes mellitus Heart disease Grandparent Cerebrovascular accident Hypertension Other Family history of arthritis Social History Social History Smoking status: Former smoker Second hand tobacco smoke exposure: No Alcohol intake: former Substance use: never Substance use type: does not use Lack of Transportation: No Lack of Food: Never True Current Housing: I Have Housing Concerned About Future Housing: No Difficulty Paying Gas/Electric Bills: No Difficulty Paying for Meds: YES Currently Unemployed: No Education: Bachelor's Degree Difficulty w/ Childcare or Family Care: No Gender identity (if verbalized by the patient): Female
== END 2022-03-10 14:58 | disposition home or self-care (01) ==
PROVIDERS: Emergency Provider Registered Nurse; PCP Family Medicine
DX: K59.00 Constipation, unspecified (principal); M54.50 Low back pain, unspecified; Z87.891 Personal history of nicotine dependence; M19.90 Unspecified osteoarthritis, unspecified site; M79.7 Fibromyalgia; E78.5 Hyperlipidemia, unspecified; I10 Essential (primary) hypertension; E03.9 Hypothyroidism, unspecified; G62.9 Polyneuropathy, unspecified; I73.00 Raynaud's syndrome without gangrene; F41.1 Generalized anxiety disorder; F32.A Depression, unspecified
CPT/HCPCS: 99211; G0463

== ENCOUNTER 2022-03-21 16:03 | Inpatient (IN) | payer MEDICARE, SELFPAY ==
[2022-03-21] VITALS (8 sets, daily range): BP systolic 152–179; BP diastolic 62–64; PULSE 55–65; RESP 16–20; TEMP 36.6–36.8; O2SAT 98–99; BMI 22.4
--- NOTE | ~2022-03-21 | XR_ITS ---
Portable chest x-ray Comparison: 03/21/2022 Clinical History: Pneumonia Findings: Small left pleural effusion present. Right lung clear. Cardiomediastinal silhouette is st able. Bones and soft tissues are stable. Impression: Small left pleural effusion. Reviewed, dictated and finalized at [facility]. 2 SYSTEMS PROGRAMMER Impression: Small left pleural effusion.
--- NOTE | ~2022-03-21 | XR_ITS ---
XR hip RT 2V w AP pelvis 03/22/2022 13:46 Indication: Right hip fracture Procedure: 3 views right hip including AP pelvis Comparison: Comparison to multiple prior studies sequentially, with oldest reviewed study dated 05/03. Findings: There is a nondisplaced right femoral neck fracture with probable rotatory component. Surro unding osseous structures within normal limits. Impression: 1: Displaced right femoral neck fracture. Reviewed, dictated and finalized at location A. ASSOCIATE Impression: 1: Displaced right femoral neck fracture.
--- NOTE | ~2022-03-21 | XR_ITS ---
EXAMINATION: XR surgery orthopedic DATE: 03/23/2022 14:11 INDICATION: Right hip pinning TECHNIQUE: 2 fluoroscopic images of the right hip were obtained during procedure performed by Dr. Richard lebron. Radiologist was not present for the imaging or procedure. The amount of fluoroscopy time used d uring this procedure was 0.9 minutes. COMPARISON: None. FINDINGS: Interval fixation of the previous noted subcapital fracture of the proximal right femur with 3 cannul ated lag screws. Unchanged mild valgus angulation. Right hip joint space appears relatively preserved . No new fractures identified. IMPRESSION: 1. Unchanged mild valgus angulation of a laterally impacted subcapital fracture of the proximal right femur post laxity fixation. Reviewed, dictated and finalized at location A. BATHER
--- NOTE | ~2022-03-21 | CT_ITS ---
EXAMINATION: CT pelvis wo con DATE: 03/21/2022 17:17 INDICATION: Right hip and groin pain post fall TECHNIQUE: Computed tomography (CT) of the pelvis was performed without intravenous contrast. Sagitta l and coronal reconstructed images were created. Automated exposure control and iterative reconstruct ion technique were employed.The dose-length product was 233.39 mGy-cm. COMPARISON: CT abdomen and pelvis dated 09/23/2020 and right hip radiographs dated 11/07/21 FINDINGS: Nondisplaced subcapital fracture of the proximal right femur with about 15 degrees valgus angulation resulting in mild lateral impaction. No appreciable associated right hip joint effusion. No other fra ctures identified. Mild osteoarthritis at the bilateral hip and sacroiliac joints. Severe lower lumba r facet osteoarthritis. The bladder, uterus, bilateral adnexa and visualized portions of the bowels a re unremarkable. No free fluid in the pelvis. No pathologically enlarged pelvic or inguinal lymphaden opathy. IMPRESSION: 1. 15 degrees valgus angulation of a nondisplaced subcapital fracture of the proximal right femur. Reviewed, dictated and finalized at location A. AGNETICIAN IMPRESSION: 1. 15 degrees valgus angulation of a nondisplaced subcapital fracture of the pr oximal right femur.
--- NOTE | ~2022-03-21 | CT_ITS ---
EXAMINATION: CT cervical spine wo con DATE: 03/21/2022 17:17 INDICATION: Fall with head injury TECHNIQUE: Computed tomography (CT) of the cervical spine was performed without intravenous contrast. Automated exposure control and iterative reconstruction technique were employed. The dose-length pro duct was 98.11 mGy-cm. COMPARISON: None FINDINGS: Unchanged mild cervicothoracic levocurvature. Sagittal alignment is normal. Partially visualized drain cleaner vale T3 burst fracture with prior vertebroplasty. Small amount of the methylmethacrylate extrusion int o the likely extra thecal space and the posterior margin of the vertebral body where there is also mi nimal retropulsion. Together this results in minimal to mild central canal stenosis. Remaining more c ephalad vertebral body heights are normal. No acute fractures. Mild disc height loss at C4-C5 and C7- T1 and moderate disc height loss at C5-C6 and C6-C7. No significant change in associated cervical fac et and uncovertebral osteoarthritis resulting in mild neural foraminal stenosis at a couple levels on the left and right. There is also minimal central canal stenosis at a few levels in the cervical spi ne. See prior report for level by level analysis. IMPRESSION: 1. Chronic T3 burst fracture with prior vertebroplasty. No acute osseous abnormality. 2. Mild cervicothoracic levoscoliosis with mild to moderate cervical spondylosis. Reviewed, dictated and finalized at location A. RAFT DESIGN ENGINEER IMPRESSION: 1. Chronic T3 burst fracture with prior vertebroplasty. No acute osseous abnorm ality. 2. Mild cervicothoracic levoscoliosis with mild to moderate cervical spondylosi s.
--- NOTE | ~2022-03-21 | XR_ITS ---
EXAMINATION: XR chest 1V portable DATE: 03/21/2022 17:57 INDICATION: Fall with head injury and right hip fracture for preoperative evaluation. TECHNIQUE: frontal view of the chest was obtained. COMPARISON: Chest radiograph dated 07/10/2021 FINDINGS: Unchanged linear band of discoid atelectasis/scarring at the medial left lower lung zone. Unchanged m ild blunting at the left costophrenic angle and posterior sulcus which could relate to chronic scarri ng or a small left pleural effusion. No pneumothorax. Chronic compression fractures with change of pr ior vertebroplasty at T3 and T4. There is intravascular extravasation of methylmethacrylate extending along a right-sided spinal vein with small amount of embolized methylmethacrylate likely than a pulm onary artery extending anteriorly from the right hilum. The cardiomediastinal silhouette is normal. IMPRESSION: 1. Chronic discoid atelectasis/scarring at the medial left lower lung zone with possible small left p leural effusion versus additional pleural parenchymal scarring. 2. T3 and T4 vertebral plasties with likely secondary small amount of chronic embolized methylmethacr ylate in a pulmonary artery in the right midlung zone. Reviewed, dictated and finalized at location A. Y MACHINE OPERATOR IMPRESSION: 1. Chronic discoid atelectasis/scarring at the medial left lower lung zone with possible small left pleural effusion versus additional pleural parenchymal sca rring. 2. T3 and T4 vertebral plasties with likely secondary small amount of chronic e mbolized methylmethacrylate in a pulmonary artery in the right midlung zone.
--- NOTE | ~2022-03-21 | CT_ITS ---
EXAMINATION: CT brain wo con DATE: 03/21/2022 17:16 INDICATION: Fall with head injury TECHNIQUE: Computed tomography (CT) of the head was performed without intravenous contrast. Sagittal and coronal reconstructions were performed. The mA was adjusted according to patient size. Iterative reconstruction technique was employed. The dose-length product was 605.33 mGy-cm. COMPARISON: head CT dated 12/10/2021 FINDINGS: No fracture. No acute intracranial hemorrhage, acute infarction or abnormal extra axial fluid collect ion. 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 There is mild to moderate scattered white m atter hypoattenuation consistent with chronic small vessel ischemic disease. Symmetric prominence of the sulci consistent with mild age-appropriate diffuse cerebral volume loss. Ventricles are normal an d symmetric. No mass/mass effect. Changes of bilateral intraocular lens replacement. The orbits and m astoid air cells are normal. Mild mucosal thickening the bilateral ethmoid sinuses. Intracranial calc ified cerebral atherosclerosis is noted. IMPRESSION: 1. No fracture or acute intracranial process. 2. Small old lacunar infarct at the left basal ganglia and mild to moderate scattered white matter hy poattenuation consistent with chronic small vessel ischemic disease. Reviewed, dictated and finalized at location A. ET ASSEMBLER IMPRESSION: 1. No fracture or acute intracranial process. 2. 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
--- NOTE | 2022-03-21 16:10 | ED.FALL ---
HPI - Fall General Chief Complaint: Fall Stated Complaint: GLF Time Seen by Provider: 03/21/22 17:51 Source: patient and EMS Mode of arrival: EMS Limitations: no limitations History of Present Illness HPI Narrative: Patient is an 87-year-old female who presents to the ED via EMS with report of a fall and right hip pain. Patient reports she typically uses a walker for assistance with ambulation. She attempted to walk somewhere today with only one hand on her walker and lost her balance and fell. She fell onto her buttocks and right hip first, then fell back and hit her head. She denied LOC. She complains of pain to her right hip and groin. She was unable to ambulate afterwards and EMS was called. EMS noted some shortening of right lower extremity but no significant external rotation. Patient was given 2 mg of morphine in route to the ED. Denies CP, SOB, recent cough or cold sx's, abdominal pain, N/V, numbness/tingling. Denied prodromal sx's prior to fall. Patient is not on any blood thinners. Related Data Home Medications Medication Instructions Recorded Confirmed furosemide 20 mg tablet 20 mg PO DAILY PRN Edema 05/20/21 03/10/22 losartan 25 mg tablet 25 mg PO DAILY PRN Hypertension 05/20/21 03/10/22 sulfasalazine 500 mg tablet 500 mg PO TID 05/20/21 03/10/22 venlafaxine 75 mg capsule,extended 150 mg PO DAILY 07/10/21 03/10/22 release 24 hr (Effexor XR) cyanocobalamin (vitamin B-12) 1,000 mcg IM WEEKLY 12/30/21 03/10/22 1,000 mcg/mL injection solution memantine 5 mg tablet 5 mg PO DAILY 03/10/22 03/10/22 Allergies Allergy/AdvReac Type Severity Reaction Status Date / Time sertraline AdvReac anxiety Verified 03/10/22 13:31 Review of Systems Review of Systems: CONSTITUTIONAL: Denies fever, chills, or sweats. CARDIOVASCULAR: Denies chest pain, palpitations, or edema. RESPIRATORY: Denies cough or dyspnea. GASTROINTESTINAL: Denies abdominal pain, nausea, vomiting, or diarrhea. MUSCULOSKELETAL: See HPI. NEUROLOGIC: See HPI. All systems reviewed & are unremarkable except as noted in HPI and below PMFSH Past Medical History Medical History Arthritis Brain bleed Depression Fatigue Fibromyalgia FRANCY (generalized anxiety disorder) HLD (hyperlipidemia) HTN (hypertension) Hypothyroid Peripheral neuropathy Plantar fasciitis Raynaud disease Rectal pain, chronic Surgical History Surgical History Cataract 2019 H/O elbow surgery 2019 History of back surgery History of cholecystectomy 2016 History of cholecystectomy Family History Family History Father Family history of malignant neoplasm Family history of cardiovascular disease Depression Heart disease Hypertension Leukemia Mother Hypertension Family history of emphysema Heart disease Sibling Hypertension Family history of heart disease in male family member before age 55 Acute myocardial infarction Diabetes mellitus Heart disease Grandparent Cerebrovascular accident Hypertension Other Family history of arthritis Social History Social History 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
[2022-03-21] MEDS: ONDANSETRON INJ 4 MG/2 ML VIAL IV PUSH (16:30)
[2022-03-21] MEDS: MORPHINE SULFATE (*CRX) 2 MG/ML INJ IV PUSH ×2 (16:30→18:40)
[2022-03-21 16:57] LABS: Influenza A QL RT-PCR Negative (Negative); Influenza B QL RT-PCR Negative (Negative); SARS-CoV-2 RNA PCR Negative
[2022-03-21 17:32] LABS: Basophils Absolute Auto 0.1 K/mm3 (0.0-0.1); Basophils Percent Auto 1.1 % (0.2-1.2); Eosinophils Absolute Auto 0.1 K/mm3 (0-0.3); Eosinophils Percent Auto 1.8 % (0-4.4); Hematocrit 37.4 % (37.0-47.0); Hemoglobin 11.8 g/dL (12.0-15.0); Immature Granulocyte Absolute 0.03 K/mm3 (0.00-0.031); Immature Granulocyte Percent A 0.5 % (0-0.5); Lymphocytes Absolute Auto 1.25 K/mm3 (0.9-3.2); Lymphocytes Percent Auto 21.9 % (18.3-44.2); Mean Corpuscular HGB Conc 31.6 g/dl (32-36); Mean Corpuscular Hemoglobin 31.7 pg (26-34); Mean Corpuscular Volume 100.5 fl (80-100); Mean Platelet Volume 11.3 fl (7.4-10.4); Monocytes Absolute Auto 0.8 K/mm3 (0.1-0.6); Monocytes Percent Auto 13.2 % (2.6-8.5); Neutrophils Absolute Auto 3.5 K/mm3 (1.3-6.7); Neutrophils Percent Auto 61.5 % (45.5-73.1); Platelet Count Result 208 k/mm3 (150-375); Red Blood Count 3.72 M/mm3 (4.2-5.4); Red Cell Distribution Width 13.5 % (11.5-14.5); White Blood Count 5.7 K/mm3 (4.5-10.0)
[2022-03-21 17:44] LABS: Alanine Aminotransferase 27 U/L (6-35); Alkaline Phosphatase 110 U/L (38-126); Anion Gap 4 mmol/L (8-16); Aspartate Amino Transferase 33 U/L (14-36); Bilirubin,Total 0.4 mg/dL (0.2-1.3); Blood Urea Nitrogen 17 mg/dL (7-17); Calcium 8.9 mg/dL (8.4-10.2); Carbon Dioxide 31 mmol/L (22-30); Chloride 102 mmol/L (98-107); Estimated Glomerular Filt Rate > 60; Glucose 90 mg/dL (65-110); Potassium 3.8 mmol/L (3.4-5.0); Sodium 137 mmol/L (137-145)
--- NOTE | 2022-03-21 18:09 | PM.IMHP ---
H&P: HPI History of Present Illness Date/Time: 03/21/22 18:09 Chief Complaint: Fall Narrative: This is an 87-year-old female patient who typically uses a walker or sometimes he she uses a wheelchair. The patient stated that she was using her walker today and she was turning around to but her tray away and she lost her balance and landed on her buttocks. The patient had been at a restaurant eating lunch. She fell on her right hip and fell on her back and then hit her head. She has not on any anticoagulation. The patient stated it was a mechanical fall and she just lost her balance. She did not have any chest pain or palpitations or any shortness of breath prior to this she had no dizziness or shortness breath. She was negative for influenza A/B and COVID. Chest x-ray was read as the following. Chronic discoid atelectasis/scarring at the medial left lower lung zone with possible small left pleural effusion versus additional pleural parenchymal scarring. 2. T3 and T4 vertebral plasties with likely secondary small amount of chronic embolized methylmethacrylate in a pulmonary artery in the right midlung zone. Pelvis CT was read as the following. 15 degrees valgus angulation of a nondisplaced subcapital fracture of the proximal right femur. Cervical spine was read as a follow-up. Chronic T3 burst fracture with prior vertebroplasty. No acute osseous abnormality. 2. Mild cervicothoracic levoscoliosis with mild to moderate cervical spondylosis Head CT was read as the following1. No fracture or acute intracranial process. 2. Small old lacunar infarct at the left basal ganglia and mild to moderate scattered white matter hypoattenuation consistent with chronic small vessel ischemic disease. Dr. Chiu has been consulted per Orthopedic. He agrees to accept the consult The patient is being admitted to observation status on the date of service of 03/21/2022. Review of Systems Review of Systems: See HPI All systems reviewed & are unremarkable except as noted in HPI and below Constitutional: Constitutional: Reports as per HPI and Reports no additional constitutional complaints Eyes: Eyes: Reports as per HPI and Reports no additional eye complaints ENT: Reports system reviewed and no additional complaints, except as documented and Reports Normal hearing present Cardiovascular: Cardiovascular: Reports no additional cardiovascular complaints Respiratory: Respiratory: Reports no additional respiratory complaints and Reports no additional respiratory complaints Gastrointestinal: Gastrointestinal: Reports as per HPI and Reports no additional gastrointestinal complaints Musculoskeletal: Musculoskeletal: Reports no additional musculoskeletal complaints Integumentary/Breasts: Skin/Breast: Reports system reviewed and no additional complaints, except as docu and Reports as per HPI Neurologic: Reports system reviewed and no additional complaints, except as documented, Reports as per HPI and Reports Normal hearing present Psychiatric: Psychiatric: Reports no additional psychiatric complaints and Reports as per HPI Endocrine: Endocrine: Reports no additional endocrine complaints Hematologic/Lymphatic: Hematologic/Lymphatic: Reports no additional hematologic/lymphatic complaints Allergic/Immunologic: Allergic/Immunologic: Reports no additional allergic/immunologic complaints [facility] Past Medical History Medical History (Updated 03/22/22 @ 01:47 by Milagro Cutler NP) Arthritis Bilateral foot pain Brain bleed Cataracts, bilateral Cephalgia Chest wall pain Depression Dysuria-frequency syndrome Fatigue Fibromyalgia FRANCY (generalized anxiety disorder) HLD (hyperlipidemia) HTN (hypertension) Hyponatremia Hypothyroid Peripheral neuropathy Plantar fasciitis Raynaud disease Rectal pain, chronic Rhinorrhea Shoulder pain, bilateral Surgical History Surgical History (Updated 03/22/22 @ 01:43 by Milagro Cutler NP) Cataract 2019 H/O dilation and c
--- NOTE | 2022-03-21 18:17 | ECG_ITS ---
Measurements Intervals [place] Rate: 64 P: 74 SC: 154 QRS: -7 QRSD: 96 T: 79 QT: 398 QTc: 412 Interpretive Statements SINUS RHYTHM BORDERLINE ST-T WAVE ABNORMALITY- ANTEROLAT/HIGH LAT LEADS BASELINE ARTIFACT- I, III, AVR, AVL BORDERLINE ECG COMPARED TO ECG 07/31/2020 19:59:12 [address] NOW PRESENT ST-T WAVE ABNORMALITY NOW PRESENT Electronically Signed On 03-22-2022 7:52:[address]IAN by Darshan Albarado D.O.
[2022-03-21] MEDS: diazePAM INJ (*CRX) 10 MG/2 ML SYRINGE 5 MG IV PUSH (18:41)
--- NOTE | 2022-03-21 20:51 | PC.NURSE ---
attempted to call report to hospital floor at this time. This nurse was told that floor staff was unaware of room assignment and to call back in approx 30 minutes from the time of this note. Sav charge nurse notified
--- NOTE | 2022-03-21 22:07 | ADMGEN ---
This patient, Keira Knott, was admitted to Medical Room 258-01. Patient/family oriented to hospital policies and general routines including ID bracelet, bed and alarms, visiting hours, pain management, procedures, bathroom and other care routines, personal items, smoking policy, room service/diet, and visiting hours. Information on how to activate the Rapid Response Team has been discussed. Patient/Family are encouraged to report perceived risks to care and to ask questions if they do not understand what they are told or what they should do.
[2022-03-22] MEDS: MORPHINE SULFATE (*CRX) 2 MG/ML INJ IV PUSH ×2 (05:15→09:51)
[2022-03-22 05:32] LABS: Basophils Absolute Auto 0.1 K/mm3 (0.0-0.1); Basophils Percent Auto 0.6 % (0.2-1.2); Eosinophils Absolute Auto 0.1 K/mm3 (0-0.3); Hematocrit 37.5 % (37.0-47.0); Hemoglobin 11.8 g/dL (12.0-15.0); Immature Granulocyte Absolute 0.02 K/mm3 (0.00-0.031); Immature Granulocyte Percent A 0.2 % (0-0.5); Lymphocytes Absolute Auto 0.74 K/mm3 (0.9-3.2); Lymphocytes Percent Auto 8.2 % (18.3-44.2); Mean Corpuscular HGB Conc 31.5 g/dl (32-36); Mean Corpuscular Hemoglobin 31.6 pg (26-34); Mean Corpuscular Volume 100.5 fl (80-100); Mean Platelet Volume 11.2 fl (7.4-10.4); Monocytes Absolute Auto 0.7 K/mm3 (0.1-0.6); Monocytes Percent Auto 7.3 % (2.6-8.5); Neutrophils Absolute Auto 7.4 K/mm3 (1.3-6.7); Neutrophils Percent Auto 82.7 % (45.5-73.1); Platelet Count Result 180 k/mm3 (150-375); Red Blood Count 3.73 M/mm3 (4.2-5.4); Red Cell Distribution Width 13.5 % (11.5-14.5)
[2022-03-22 05:45] LABS: Alanine Aminotransferase 36 U/L (6-35); Albumin Level 3.7 g/dL (3.5-5.1); Alkaline Phosphatase 108 U/L (38-126); Anion Gap 2 mmol/L (8-16); Aspartate Amino Transferase 44 U/L (14-36); Bilirubin,Total 0.5 mg/dL (0.2-1.3); Blood Urea Nitrogen 14 mg/dL (7-17); Calcium 8.4 mg/dL (8.4-10.2); Carbon Dioxide 32 mmol/L (22-30); Chloride 99 mmol/L (98-107); Estimated CRCL calculation 45 ml/min; Estimated Glomerular Filt Rate > 60; Glucose 120 mg/dL (65-110); Magnesium 2.1 mg/dL (1.6-2.3); Sodium 133 mmol/L (137-145)
[2022-03-22 06:32] VITALS: BP 128/60; PULSE 65; RESP 16; TEMP 36.4; O2SAT 92
[2022-03-22 06:52] LABS: Thyroid Stimulating Hormone Reflex 0.643 uIU/mL (0.465-4.68)
--- NOTE | 2022-03-22 09:04 | PM.CNOR ---
Assessment and Plan Assessment and plan (1) Closed subcapital fracture of neck of right femur: Qualifiers: Encounter type: initial encounter Qualified Code(s): S72.011A - Unspecified intracapsular fracture of right femur, initial encounter for closed fracture <OLINDA Wolfe - Last Filed: 03/22/22 10:12> Code(s): S72.011A - Unspecified intracapsular fracture of right femur, initial encounter for closed fracture <DEEPALI WolfeP - Last Filed: 03/22/22 10:12> Status: Acute <OLINDA Wolfe - Last Filed: 03/22/22 10:12> Assessment and Plan: History, exam and pelvis CT reviewed with the patient and then the patient's Cj via telephone. Pelvis CT reveals a nondisplaced subcapital fracture of the proximal right femur with 15 degrees valgus angulation. The fracture type and injury as well as CT discussed with the patient and family. Operative and nonoperative treatment options reviewed. The patient and POA desire surgical intervention. Discussed Right Hip Pinning Risks of surgery including but not limited to neurovascular damage, wound complications, blood clot, pulmonary embolus, stroke, myocardial infarction, anesthetic risks up to and including were reviewed. Continued pain and possible dysfunction were explained. No guarantees were offered. The patient understands and wishes to proceed. Plan: Right Hip Pinning by Dr. Chiu pending medical clearance. NPO at midnight. Okay to resume diet at this time pending hospitalist clearance/orders. Bedrest and pain control in the interim. Fall precautions as patient is confused with early stages of dementia. Obtain consent with POA present. <Nita Garsia, [employer]ACHINE [employer] APPRENTICE - Last Filed: 03/22/22 10:12> (2) Ground-level fall: Code(s): W18.30XA - Fall on same level, unspecified, initial encounter <OLINDA Wolfe - Last Filed: 03/22/22 10:12> Status: Acute <DEEPALI WolfeP - Last Filed: 03/22/22 10:12> Assessment and Plan: Reviewed assessment and imaging with attending MD and consulted surgeon, Dr. Chiu. Agrees with current plan of care as indicated above. No further recommendations at this time. <OLINDA Wolfe - Last Filed: 03/22/22 10:12> Reviewed assessment and imaging with attending MD and consulted surgeon, Dr. Chiu. Agrees with current plan of care as indicated above. No further recommendations at this time. patient seen, consultation reviewed with OLINDA Sung. chart reviewed. Patient family desire operative treatment when medically stable. Discussed nonoperative and operative treatment options with the patient. Risks and benefits of each as well as alternatives were reviewed. All of the patient's questions were answered. The risks of surgery reviewed including but not limited to: Neurovascular damage, wound complication, infection, blood clot, pulmonary embolus, stroke, myocardial infarction, and anesthetic risks up to and including . Continued pain and possible dysfunction were explained. Specific risks of the procedure including later recurrence of deformity. No guarantees were offered. If hardware used, discussed risk of failure/ breakage and possible need for removal. If complications occur, the patient understands the need for further treatment, possible further surgery. Patient verbalizes understanding and wishes to proceed. PLAN: Right hip pinning <Basil Chiu MD - Last Filed: 03/22/22 12:54> History of Present Illness HPI Consult date: 03/22/22 <OLINDA Wolfe - Last Filed: 03/22/22 10:12> 03/22/22 <Basil Chiu MD - Last Filed: 03/22/22 12:54> Consult reason: fracture <OLINDA Wolfe - Last Filed: 03/22/22 10:12> Chief complaint: subcapital neck fracture of R femur,GLF <OLINDA Wolfe - Last Filed: 03/22/22 10:12> Narrative: 87 year old female admitted from home via EMS due to a fall with subsequent
[2022-03-22] MEDS: sulfaSALAzine 500 MG TABLET PO ×3 (09:41→17:36)
[2022-03-22] MEDS: VENLAFAXINE HCL XR 75 MG CAP.ER.24H 150 MG PO (09:41)
[2022-03-22] MEDS: PREGABALIN (*CRX) 50 MG CAPSULE PO (09:41)
--- NOTE | 2022-03-22 10:12 | PM.IMPN ---
Progress Note: A&P Assessment and Plan (1) Subcapital fracture of femur: Code(s): S72.019A - Unspecified intracapsular fracture of unspecified femur, initial encounter for closed fracture Status: Acute Assessment and Plan: Orthopedic surgery is planning a right hip pinning tomorrow Troponin negative, ECG mildly abnormal, nonacute, patient is low risk for intermediate risk surgery Percocet as needed, morphine for breakthrough, benadryl for itching (2) Depression: Code(s): F32.A - Depression, unspecified Status: Acute Assessment and Plan: Continue Effexor (3) Anxiety: Code(s): F41.9 - Anxiety disorder, unspecified Status: Acute Assessment and Plan: As above (4) Thyroid disorder: Code(s): E07.9 - Disorder of thyroid, unspecified Status: Acute Assessment and Plan: Check TSH, continue levothyroxine (5) HTN (hypertension): Qualifiers: Hypertension type: essential hypertension Qualified Code(s): I10 - Essential (primary) hypertension Code(s): I10 - Essential (primary) hypertension Status: Acute Assessment and Plan: Stable (6) HLD (hyperlipidemia): Qualifiers: Hyperlipidemia type: mixed hyperlipidemia Qualified Code(s): E78.2 - Mixed hyperlipidemia Code(s): E78.5 - Hyperlipidemia, unspecified Status: Acute Assessment and Plan: Continue statin (7) Somnolence, daytime: Code(s): R40.0 - Somnolence Status: Acute Assessment and Plan: chronic, likely multifactorial, will check ApneaLink tonight to screen for MARIA ISABEL, would consider decreasing lyrica and effexor in favor of cymbalta + wellbutrin for less sedation, will defer this to outpatient management Plan DVT prophylaxis with SCDs GI prophylaxis with PPI Code status full code Subjective Date/time seen: 03/22/22 10:12 Interval history: No overnight events noted. No chest pain or shortness of breath. No nausea, vomiting or diarrhea. No fevers or chills. Review of Systems Review of Systems: 12 point review of systems was assessed and was negative except as noted in the HPI Exam Narrative: General: No acute distress, alert and oriented per baseline HEENT: Atraumatic, normocephalic, mucous membranes moist CV: Regular rate and rhythm, S1, S2 Lungs: Clear to auscultation bilaterally, no rales or crackles noted, no wheezes, good air entry Abdomen: Soft, nontender, nondistended Extremities: Normal to inspection, varicose veins noted Skin: No rashes noted, no lesions or wounds seen Psych: Euthymic, normal affect Objective Data Vital Signs Vital Signs: Vital Signs - 24 hr 03/21/22 16:17 03/21/22 16:22 03/21/22 16:30 Temperature 98.2 F Pulse Rate 55 L Respiratory Rate 17 20 17 Blood Pressure 152/64 H Pulse Oximetry 98 Oxygen Delivery Room Air Oxygen Flow Rate 03/21/22 16:50 03/21/22 17:00 03/21/22 17:17 Temperature Pulse Rate 61 63 Respiratory Rate 17 Blood Pressure Pulse Oximetry Oxygen Delivery Oxygen Flow Rate 03/21/22 22:54 03/21/22 21:45 03/22/22 06:32 Temperature 97.9 F 97.6 F Pulse Rate 65 65 Respiratory Rate 16 16 Blood Pressure 179/62 H 128/60 Pulse Oximetry 99 99 92 Oxygen Delivery Nasal Cannula Oxygen Flow Rate 2 Intake/Output Intake/Output: Intake & Output 03/19/22 03/20/22 03/21/22 03/22/22 23:59 23:59 23:59 23:59 Intake Total 100 Output Total 400 Balance -300 Meds/Results Medications: Active Medications Generic Name Dose Route Start Last Admin Trade Name Rjq PRN Reason Stop Dose Admin Atorvastatin Calcium 10 mg 03/22/22 17:00 Atorvastatin 10 Mg Tablet BY MOUTH DAILY@1700 [facility] Cyanocobalamin 1,000 mcg 04/08/22 09:00 Cyanocobalamin Inj 1,000 Mcg/Ml Vial IM MONTHLY [facility] Folic Acid 1 mg 03/22/22 12:00 Folic Acid 1 Mg Tablet BY MOUTH DAILY@1200 [facility] Hydralazin
[2022-03-22 10:45] VITALS: O2SAT 97
[2022-03-22] MEDS: SODIUM CHLORIDE 0.9% IV 1,000 ML 75 ML IV CONT (10:46)
[2022-03-22 11:00] LABS: Troponin I < 0.012 ng/mL (0.000-0.034)
[2022-03-22 11:01] LABS: Vitamin D 25 Hydroxy 56.3 ng/mL
[2022-03-22 11:13] LABS: Thyroid Stimulating Hormone 0.628 uIU/mL (0.465-4.680)
[2022-03-22 11:49] LABS: Folic Acid > 20.0 ng/mL (2.76->20)
[2022-03-22] MEDS: PANTOPRAZOLE 40 MG TABLET PO (12:36)
[2022-03-22] MEDS: FOLIC ACID 1 MG TABLET BY MOUTH (12:36)
[2022-03-22] MEDS: AMOXICILLIN/CLAVULANATE K 875-125 MG TAB 1 TABLET PO ×2 (14:13→21:10)
[2022-03-22 14:20] VITALS: BP 113/51; PULSE 63; RESP 16; TEMP 36.9; O2SAT 88
--- NOTE | 2022-03-22 15:05 | PM.IMPN ---
Progress Note: A&P Assessment and Plan (1) Subcapital fracture of femur: Code(s): S72.019A - Unspecified intracapsular fracture of unspecified femur, initial encounter for closed fracture Status: Acute Assessment and Plan: Orthopedic surgery is planning a right hip pinning tomorrow Troponin negative, ECG mildly abnormal, nonacute, patient is low risk for intermediate risk surgery Percocet as needed, morphine for breakthrough, benadryl for itching (2) Depression: Code(s): F32.A - Depression, unspecified Status: Acute Assessment and Plan: Continue Effexor (3) Anxiety: Code(s): F41.9 - Anxiety disorder, unspecified Status: Acute Assessment and Plan: As above (4) Thyroid disorder: Code(s): E07.9 - Disorder of thyroid, unspecified Status: Acute Assessment and Plan: Check TSH, continue levothyroxine (5) HTN (hypertension): Qualifiers: Hypertension type: essential hypertension Qualified Code(s): I10 - Essential (primary) hypertension Code(s): I10 - Essential (primary) hypertension Status: Acute Assessment and Plan: Stable (6) HLD (hyperlipidemia): Qualifiers: Hyperlipidemia type: mixed hyperlipidemia Qualified Code(s): E78.2 - Mixed hyperlipidemia Code(s): E78.5 - Hyperlipidemia, unspecified Status: Acute Assessment and Plan: Continue statin (7) Somnolence, daytime: Code(s): R40.0 - Somnolence Status: Acute Assessment and Plan: chronic, likely multifactorial, will check ApneaLink tonight to screen for MARIA ISABEL, would consider decreasing lyrica and effexor in favor of cymbalta + wellbutrin for less sedation, will defer this to outpatient management Plan DVT prophylaxis with SCDs GI prophylaxis with PPI Code status full code Subjective Date/time seen: 03/22/22 15:05 Interval history: No overnight events noted. No chest pain or shortness of breath. No nausea, vomiting or diarrhea. No fevers or chills. Pain controlled. Review of Systems Review of Systems: 12 point review of systems was assessed and was negative except as noted in the HPI Exam Narrative: General: No acute distress, alert and oriented per baseline HEENT: Atraumatic, normocephalic, mucous membranes moist CV: Regular rate and rhythm, S1, S2 Lungs: Clear to auscultation bilaterally, no rales or crackles noted, no wheezes, good air entry Abdomen: Soft, nontender, nondistended Extremities: Normal to inspection, varicose veins noted Skin: No rashes noted, no lesions or wounds seen Psych: Euthymic, normal affect Objective Data Vital Signs Vital Signs: Vital Signs - 24 hr 03/21/22 16:17 03/21/22 16:22 03/21/22 16:30 Temperature 98.2 F Pulse Rate 55 L Respiratory Rate 17 20 17 Blood Pressure 152/64 H Pulse Oximetry 98 Oxygen Delivery Room Air Oxygen Flow Rate 03/21/22 16:50 03/21/22 17:00 03/21/22 17:17 Temperature Pulse Rate 61 63 Respiratory Rate 17 Blood Pressure Pulse Oximetry Oxygen Delivery Oxygen Flow Rate 03/21/22 22:54 03/21/22 21:45 03/22/22 06:32 Temperature 97.9 F 97.6 F Pulse Rate 65 65 Respiratory Rate 16 16 Blood Pressure 179/62 H 128/60 Pulse Oximetry 99 99 92 Oxygen Delivery Nasal Cannula Oxygen Flow Rate 2 03/22/22 14:20 03/22/22 10:45 Temperature 98.5 F Pulse Rate 63 Respiratory Rate 16 Blood Pressure 113/51 L Pulse Oximetry 88 L 97 Oxygen Delivery Nasal Cannula Oxygen Flow Rate 1 Intake/Output Intake/Output: Intake & Output 03/19/22 03/20/22 03/21/22 03/22/22 23:59 23:59 23:59 23:59 Intake Total 540 Output Total 400 Balance 140 Meds/Results Medications: Active Medications Generic Name Dose Route Start Last Admin Trade Name Geo PRN Reason Stop Dose Admin Amoxicillin/Clavulanate Potassium 1 tablet 03/22/22 13:00 03/22/22 14:13 Amoxicillin/Clavulana
[2022-03-22] MEDS: ATORVASTATIN 10 MG TABLET BY MOUTH (17:36)
[2022-03-22] MEDS: PREGABALIN (*CRX) 75 MG CAPSULE PO (21:09)
[2022-03-22 22:35] VITALS: PULSE 68; RESP 18; O2SAT 92
[2022-03-22 23:00] VITALS: BP 124/54; PULSE 63; RESP 16; TEMP 36.6; O2SAT 95
[2022-03-23] VITALS (11 sets, daily range): BP systolic 120–165; BP diastolic 50–79; PULSE 61–66; RESP 11–22; TEMP 36.2–37.4; O2SAT 92–100
--- NOTE | 2022-03-23 02:53 | PCRCNOTE ---
0205 am pt pulled sleep study cannula off had to replace
[2022-03-23 05:38] LABS: Basophils Absolute Auto 0.1 K/mm3 (0.0-0.1); Basophils Percent Auto 0.7 % (0.2-1.2); Eosinophils Absolute Auto 0.2 K/mm3 (0-0.3); Eosinophils Percent Auto 3.2 % (0-4.4); Hematocrit 36.9 % (37.0-47.0); Hemoglobin 11.7 g/dL (12.0-15.0); Immature Granulocyte Absolute 0.03 K/mm3 (0.00-0.031); Immature Granulocyte Percent A 0.4 % (0-0.5); Lymphocytes Absolute Auto 0.81 K/mm3 (0.9-3.2); Lymphocytes Percent Auto 10.7 % (18.3-44.2); Mean Corpuscular HGB Conc 31.7 g/dl (32-36); Mean Corpuscular Hemoglobin 32.3 pg (26-34); Mean Corpuscular Volume 101.9 fl (80-100); Monocytes Absolute Auto 0.9 K/mm3 (0.1-0.6); Monocytes Percent Auto 11.8 % (2.6-8.5); Neutrophils Absolute Auto 5.6 K/mm3 (1.3-6.7); Neutrophils Percent Auto 73.2 % (45.5-73.1); Platelet Count Result 152 k/mm3 (150-375); Red Blood Count 3.62 M/mm3 (4.2-5.4); Red Cell Distribution Width 13.2 % (11.5-14.5); White Blood Count 7.6 K/mm3 (4.5-10.0)
[2022-03-23 05:51] LABS: Alanine Aminotransferase 35 U/L (6-35); Albumin Level 3.4 g/dL (3.5-5.1); Alkaline Phosphatase 109 U/L (38-126); Anion Gap 2 mmol/L (8-16); Aspartate Amino Transferase 43 U/L (14-36); Bilirubin,Total 0.5 mg/dL (0.2-1.3); Blood Urea Nitrogen 11 mg/dL (7-17); Calcium 8.2 mg/dL (8.4-10.2); Carbon Dioxide 31 mmol/L (22-30); Chloride 102 mmol/L (98-107); Estimated CRCL calculation 45 ml/min; Estimated Glomerular Filt Rate > 60; Glucose 90 mg/dL (65-110); Potassium 3.8 mmol/L (3.4-5.0); Sodium 135 mmol/L (137-145)
[2022-03-23] MEDS: LEVOTHYROXINE SODIUM 88 MCG TABLET BY MOUTH (05:56)
[2022-03-23] MEDS: sulfaSALAzine 500 MG TABLET PO ×2 (08:19→18:23)
[2022-03-23] MEDS: VENLAFAXINE HCL XR 75 MG CAP.ER.24H 150 MG PO (08:19)
[2022-03-23] MEDS: PANTOPRAZOLE 40 MG TABLET PO (08:20)
[2022-03-23] MEDS: AMOXICILLIN/CLAVULANATE K 875-125 MG TAB 1 TABLET PO ×2 (08:20→21:55)
[2022-03-23] MEDS: PREGABALIN (*CRX) 50 MG CAPSULE PO (08:22)
--- NOTE | 2022-03-23 08:44 | WPDHPUPDATE1 ---
History and Physical Update Update Date/Time: 03/23/22 08:44 History and Physical has been reviewed, including an updated exam of the patient. There are NO changes in the patient's condition. Risks, benefits, and alternatives have been discussed and questions answered. Patient agrees to proceed with procedure. Plan right hip pinning.
--- NOTE | 2022-03-23 09:37 | PM.IMPN ---
Progress Note: A&P Assessment and Plan (1) Subcapital fracture of femur: Code(s): S72.019A - Unspecified intracapsular fracture of unspecified femur, initial encounter for closed fracture Status: Acute Assessment and Plan: Orthopedic surgery is planning a right hip pinning today Troponin negative, ECG mildly abnormal, nonacute, patient is low risk for intermediate risk surgery Percocet as needed, morphine for breakthrough, benadryl for itching (2) Depression: Code(s): F32.A - Depression, unspecified Status: Acute Assessment and Plan: Continue Effexor (3) Anxiety: Code(s): F41.9 - Anxiety disorder, unspecified Status: Acute Assessment and Plan: As above (4) Thyroid disorder: Code(s): E07.9 - Disorder of thyroid, unspecified Status: Acute Assessment and Plan: TSH on the low side, continue levothyroxine, recheck TSH 4-6 weeks outpatient (5) HTN (hypertension): Qualifiers: Hypertension type: essential hypertension Qualified Code(s): I10 - Essential (primary) hypertension Code(s): I10 - Essential (primary) hypertension Status: Acute Assessment and Plan: Stable (6) HLD (hyperlipidemia): Qualifiers: Hyperlipidemia type: mixed hyperlipidemia Qualified Code(s): E78.2 - Mixed hyperlipidemia Code(s): E78.5 - Hyperlipidemia, unspecified Status: Acute Assessment and Plan: Continue statin (7) Somnolence, daytime: Code(s): R40.0 - Somnolence Status: Acute Assessment and Plan: chronic, likely 2/2 MARIA ISABEL, untreated, per grossly abnormal apnealink, pulm consult pending for CPAP at d/c and further workup/care Plan DVT prophylaxis with SCDs GI prophylaxis with PPI Code status full code Subjective Date/time seen: 03/23/22 09:37 Interval history: No overnight events noted. No chest pain or shortness of breath. No nausea, vomiting or diarrhea. No fevers or chills. Pain 7/10, percocet on its way to the patient now. Review of Systems Review of Systems: All systems reviewed & are unremarkable except as noted in HPI and below Exam Narrative: General: No acute distress, alert and oriented per baseline HEENT: Atraumatic, normocephalic, mucous membranes moist CV: Regular rate and rhythm, S1, S2 Lungs: Clear to auscultation bilaterally, no rales or crackles noted, no wheezes, good air entry Abdomen: Soft, nontender, nondistended Extremities: Normal to inspection, varicose veins noted Skin: No rashes noted, no lesions or wounds seen Psych: Anxious, euthymic Objective Data Vital Signs Vital Signs: Vital Signs - 24 hr 03/22/22 14:20 03/22/22 10:45 03/22/22 23:00 Temperature 98.5 F 97.8 F Pulse Rate 63 63 Respiratory Rate 16 16 Blood Pressure 113/51 L 124/54 L Pulse Oximetry 88 L 97 95 Oxygen Delivery Nasal Cannula Oxygen Flow Rate 1 03/22/22 22:35 03/23/22 05:20 Temperature 97.8 F Pulse Rate 68 66 Respiratory Rate 18 16 Blood Pressure 141/58 H Pulse Oximetry 92 99 Oxygen Delivery Nasal Cannula Oxygen Flow Rate 1 Intake/Output Intake/Output: Intake & Output 03/20/22 03/21/22 03/22/22 03/23/22 23:59 23:59 23:59 23:59 Intake Total 980 250 Output Total 750 700 Balance 230 -450 Meds/Results Medications: Active Medications Generic Name Dose Route Start Last Admin Trade Name Freq PRN Reason Stop Dose Admin Amoxicillin/Clavulanate Potassium 1 tablet 03/22/22 13:00 03/23/22 08:20 Amoxicillin/Clavulanate K 875-125 Mg Tab PO 1 tablet Q12HR [facility] Administration Atorvastatin Calcium 10 mg 03/22/22 17:00 03/22/22 17:36 Atorvastatin 10 Mg Tablet BY MOUTH 10 mg DAILY@1700 [facility] Administration Cyanocobalamin 1,000 mcg 04/08/22 09:00 Cyanocobalamin Inj 1,000 Mcg/Ml Vial IM MONTHLY [facility] Diphenhydramine HCl 25 mg 03/22/22 12:23 Diphenhydramine Hcl Inj 50 Mg/Ml Vial IV PUSH Q4H PRN
[2022-03-23] MEDS: SODIUM CHLORIDE 0.9% IV 1,000 ML 75 ML IV CONT (10:45)
--- NOTE | 2022-03-23 12:24 | WPDANESEPPF ---
Anes - Initial Pre Proc Eval Procedure: Operation Date: 03/23/22 13:00 Proposed Procedures p Right Hip Pinning - Basil Chiu MD Date/Time: 03/23/22 12:24 Surgeon: Julio Garsia MD Pre Op Diagnosis: subcapital neck fracture of R femur,GLF Patient Data Age: 87 Gender: F Height: 1.57 m Weight: 55.6 kg Last Vital Signs Temp 37.4 C 03/23/22 12:05 Pulse 66 03/23/22 12:05 Resp 14 03/23/22 12:05 BP 147/57 H 03/23/22 12:05 Pulse Ox 92 03/23/22 12:05 O2 Del Method Nasal Cannula 03/23/22 12:05 O2 Flow Rate 2 03/23/22 12:05 Allergies Allergy/AdvReac Type Severity Reaction Status Date / Time sertraline AdvReac anxiety Verified 03/10/22 13:31 Home Medications Medication Instructions Recorded Confirmed Type furosemide 20 mg tablet 20 mg PO DAILY PRN Edema 05/20/21 03/21/22 History sulfasalazine 500 mg tablet 500 mg PO TID 05/20/21 03/21/22 History venlafaxine 75 mg capsule,extended 150 mg PO DAILY 07/10/21 03/21/22 History release 24 hr (Effexor XR) linaclotide 72 mcg capsule See Rx Instructions .Route 11/03/21 03/21/22 Rx (Linzess) .COMPLEX #90 caps levothyroxine 75 mcg tablet See Rx Instructions .Route 12/02/21 03/21/22 Rx .COMPLEX #45 tabs levothyroxine 88 mcg tablet See Rx Instructions .Route 12/02/21 03/21/22 Rx .COMPLEX #45 tabs cyanocobalamin (vitamin B-12) 1,000 mcg IM WEEKLY 12/30/21 03/21/22 History 1,000 mcg/mL injection solution atorvastatin 10 mg tablet See Rx Instructions .Route 01/21/22 03/21/22 Rx .COMPLEX #90 tabs pregabalin 50 mg capsule 50 mg PO QAM #90 caps 02/07/22 03/21/22 Rx folic acid 1 mg tablet See Rx Instructions .Route 03/15/22 03/21/22 Rx .COMPLEX #90 tabs oxycodone 5 mg capsule 5 mg PO Q8H PRN pain #60 caps 03/15/22 03/21/22 Rx potassium chloride 10 mEq See Rx Instructions .Route 03/15/22 03/21/22 Rx capsule,extended release .COMPLEX #90 caps ipratropium bromide 21 mcg (0.03 2 spray intranasal TID PRN 03/21/22 03/21/22 History %) nasal spray Congestion pregabalin 75 mg capsule (Lyrica) 75 mg PO QHS 03/21/22 03/21/22 History Laboratory Tests 03/23/22 03/23/22 05:22 05:22 WBC 7.6 K/mm3 K/mm3 (4.5-10.0) RBC 3.62 M/mm3 L M/mm3 (4.2-5.4) Hgb 11.7 g/dL L g/dL (12.0-15.0) Hct 36.9 % L % (37.0-47.0) MCV 101.9 fl H fl (80-100) MCH 32.3 pg pg (26-34) MCHC 31.7 g/dl L g/dl (32-36) RDW 13.2 % % (11.5-14.5) Plt Count 152 k/mm3 k/mm3 (150-375) MPV 11.0 fl H fl (7.4-10.4) Immature Gran % (Auto) 0.4 % % (0-0.5) Neut % (Auto) 73.2 % H % (45.5-73.1) Lymph % (Auto) 10.7 % L % (18.3-44.2) [place] % (Auto) 11.8 % H % (2.6-8.5) Eos % (Auto) 3.2 % % (0-4.4) Baso % (Auto) 0.7 % % (0.2-1.2) Lymph # (Auto) 0.81 K/mm3 L K/mm3 (0.9-3.2) [place] # (Auto) 0.9 K/mm3 H K/mm3 (0.1-0.6) Eos # (Auto) 0.2 K/mm3 K/mm3 (0-0.3) Baso # (Auto) 0.1 K/mm3 K/mm3 (0.0-0.1) Abs Immat Gran (auto) 0.03 K/mm3 K/mm3 (0.00-0.031) Absolute Neuts (auto) 5.6 K/mm3 K/mm3 (1.3-6.7) Absolute Nucleated RBC 0.0 K/mm3 K/mm3 (0.0-0.012) Nucleated RBC % 0.0 % % (0.0-0.2) Sodium 135 mmol/L L mmol/L (137-145) Potassium 3.8 mmol/L mmol/L (3.4-5.0) Chloride 102 mmol/L mmol/L (98-107) Carbon Dioxide 31 mmol/L H mmol/L (22-30) Anion Gap 2 mmol/L L mmol/L (8-16) BUN 11 mg/dL mg/dL (7-17) Creatinine 0.60 mg/dL L mg/dL (0.7-1.0) Estim Creat Clear Calc 45 ml/min ml/min Estimated GFR > 60 (59 - ) Glucose 90 mg/dL mg/dL (65-110) Calcium 8.2 mg/dL L mg/dL (8.4-10.2) Total Bilirubin 0.5 mg/dL mg/dL (0.2-1.3) AST 43 U/L H U/L (14-36) ALT 35 U/L U/L (6-35) Alkaline Phosphatase 109 U/L U/L (38-126) Total Protein 6.0 g/dL L g/dL (6.3-8.2) Al
[2022-03-23] MEDS: TRANEXAMIC ACID 1,000MG/ISO100 1,000 MG/100 ML BAG 200 MG IVPB (12:45)
[2022-03-23] MEDS: LACTATED RINGERS 1,000 ML 30 ML IV CONT (13:01)
[2022-03-23] MEDS: ceFAZolin 2 GM/D5W 50 ML 2 GM/50 ML BAG IVPB (13:17)
[2022-03-23] MEDS: BUPIVACAINE/EPINEPHRINE 0.5% 30 ML VIAL INFILTRATE (13:51)
--- NOTE | 2022-03-23 14:15 | P.OP_ITS ---
Procedure Note - Detailed Date of Procedure 03/23/22 Pre-op Diagnosis subcapital neck fracture of R femur Post-op Diagnosis Same Procedure Performed Right hip pinning Surgeon Basil Chiu MD [employer] training assistant Anesthesia General Indications 87-year-old woman who fell and sustained a right hip fracture. Patient and family desire operative treatment. Indicated for right hip pinning. Description of Procedure Informed consent signed. Extremity marked in preoperative holding area. Patient received intravenous antibiotics. Brought to operating room and underwent general anesthetic by the Anesthesia Team. Positioned supine on the fracture table. Right leg placed into longitudinal traction. Left leg extended out of field. Image intensification brought in and confirm reduction of fracture. Right hip prepped and draped in usual sterile surgical fashion using ChloraPrep skin solution. Image intensification used to guide the starting position and a longitudinal incision made with 10 blade knife over the lateral proximal femur. Blunt dissection carried down to the lateral femur. Bleeding controlled with electrocautery. First guide pin placed in the inferior center position of the femoral neck and head. Confirmed with image intensification. Two subsequent pins placed superior and anterior and superior and posterior to the 1st pin to create an inverted triangle type pattern. Pins confirmed with image intensification. Length of screw measured, reaming performed. Appropriate size screw placed with good compression and fixation noted for all 3 pins. Guide pins removed. Final image intensification confirmed reduction of fracture and placement of hardware. Wound thoroughly irrigated with antibiotic solution. Fascia repaired with 2 0 Vicryl interrupted sutures. Subcutaneous tissue repaired with 3 0 Monocryl interrupted suture. Skin repaired with 3-0 Monocryl running suture and glue. Sterile dressing applied. Patient woken from anesthesia, extubated and returned to recovery room in stable condition. All sponge needle and instrument counts correct at the end of the case. Implants Arthrex 7mm cannulated screws X 3 Estimated Blood Loss 5 Drains No Packing No Pathology None sent Complications None Condition Stable Disposition PACU [facility] Billing Surgery - Charge Forward: Surgery Billing ([id number])
[2022-03-23] MEDS: FOLIC ACID 1 MG TABLET BY MOUTH (18:22)
[2022-03-23] MEDS: oxyCODONE/ACETAMINOPHEN (*CRX) 5-325 MG TABLET 1 TABLET PO (18:22)
[2022-03-23] MEDS: ATORVASTATIN 10 MG TABLET BY MOUTH (18:23)
[2022-03-23] MEDS: SENNA/DOCUSATE SODIUM TABLET 2 TAB PO (18:25)
[2022-03-23] MEDS: PREGABALIN (*CRX) 75 MG CAPSULE PO (21:56)
[2022-03-24] VITALS (9 sets, daily range): BP systolic 109–139; BP diastolic 46–64; PULSE 56–64; RESP 16–20; TEMP 36.2–36.7; O2SAT 91–98
[2022-03-24 05:11] LABS: Basophils Absolute Auto 0.1 K/mm3 (0.0-0.1); Basophils Percent Auto 0.8 % (0.2-1.2); Eosinophils Absolute Auto 0.1 K/mm3 (0-0.3); Eosinophils Percent Auto 1.7 % (0-4.4); Hematocrit 35.6 % (37.0-47.0); Hemoglobin 11.1 g/dL (12.0-15.0); Immature Granulocyte Absolute 0.04 K/mm3 (0.00-0.031); Immature Granulocyte Percent A 0.5 % (0-0.5); Lymphocytes Absolute Auto 0.81 K/mm3 (0.9-3.2); Lymphocytes Percent Auto 9.6 % (18.3-44.2); Mean Corpuscular HGB Conc 31.2 g/dl (32-36); Mean Corpuscular Hemoglobin 32.3 pg (26-34); Mean Corpuscular Volume 103.5 fl (80-100); Mean Platelet Volume 10.9 fl (7.4-10.4); Monocytes Percent Auto 12.1 % (2.6-8.5); Neutrophils Absolute Auto 6.4 K/mm3 (1.3-6.7); Neutrophils Percent Auto 75.3 % (45.5-73.1); Platelet Count Result 153 k/mm3 (150-375); Red Blood Count 3.44 M/mm3 (4.2-5.4); White Blood Count 8.5 K/mm3 (4.5-10.0)
[2022-03-24 05:26] LABS: Alanine Aminotransferase 30 U/L (6-35); Albumin Level 3.3 g/dL (3.5-5.1); Alkaline Phosphatase 108 U/L (38-126); Anion Gap 2 mmol/L (8-16); Aspartate Amino Transferase 36 U/L (14-36); Bilirubin,Total 0.4 mg/dL (0.2-1.3); Blood Urea Nitrogen 9 mg/dL (7-17); Calcium 8.2 mg/dL (8.4-10.2); Carbon Dioxide 28 mmol/L (22-30); Chloride 101 mmol/L (98-107); Estimated CRCL calculation 53 ml/min; Estimated Glomerular Filt Rate > 60; Glucose 102 mg/dL (65-110); Potassium 3.7 mmol/L (3.4-5.0); Sodium 131 mmol/L (137-145)
[2022-03-24] MEDS: LEVOTHYROXINE SODIUM 75 MCG TABLET BY MOUTH (06:28)
[2022-03-24] MEDS: oxyCODONE/ACETAMINOPHEN (*CRX) 5-325 MG TABLET 1 TABLET PO ×3 (07:23→22:56)
--- NOTE | 2022-03-24 07:54 | PM.IMPN ---
Progress Note: A&P Assessment and Plan (1) Subcapital fracture of femur: Code(s): S72.019A - Unspecified intracapsular fracture of unspecified femur, initial encounter for closed fracture Status: Acute Assessment and Plan: Right femuyr fracture after a fall. Now s/p right hip pinning POD #1. Toelrated the procedure well. Up to the chair today. Continue routine postoperative care per Orthopedics. DVT prophylaxis per Orthopedics (2) Hypoxia: Code(s): R09.02 - Hypoxemia Status: Acute Assessment and Plan: Patient remains on supplemental oxygen. Chest x-ray personally reviewed as mentioned above. Could be related to untreated MARIA ISABEL as noted by the abnormal sleep study. Consider also occult aspiration or pulmonary fibrosis. Pulmonary has been consulted. ApneaLink results were reviewed and are consistent with mild sleep apnea. It should be mentioned that this study was performed on 1 L of oxygen. Despite this, she still spent 16 minutes with SpO2 less than 88%. Will check bedside swallowing study. On Augmentin started 03/22. No abx on admissin. For PNA? Check swallow study. Continue for now She is also on sulfasalazine which can cause some pulmonary toxicity. She has been on this since 2020. This is started by automation engineer for possible RA. RA could be causing pulmonary fibrosis itself. Check rheumatoid factor. (3) Anemia: Code(s): D64.9 - Anemia, unspecified Status: Acute Assessment and Plan: CBC reviewed from today. Hgb 11.4 with macrocytosis. B12 level normal on 03/22. Follow. (4) Somnolence, daytime: Code(s): R40.0 - Somnolence Status: Acute Assessment and Plan: Possibly related to above. Evaluation as mentioned above. (5) Depression: Code(s): F32.A - Depression, unspecified Status: Acute Assessment and Plan: With stable. Continue Effexor (6) Anxiety: Code(s): F41.9 - Anxiety disorder, unspecified Status: Acute Assessment and Plan: As above (7) Thyroid disorder: Code(s): E07.9 - Disorder of thyroid, unspecified Status: Acute Assessment and Plan: TSH on the low side, continue levothyroxine, recheck TSH 4-6 weeks outpatient (8) HTN (hypertension): Qualifiers: Hypertension type: essential hypertension Qualified Code(s): I10 - Essential (primary) hypertension Code(s): I10 - Essential (primary) hypertension Status: Acute Assessment and Plan: Patient's blood pressure was reviewed on 03/24 Blood pressure remains well controlled (elevated at times felt related to pain). Will continue current medications. (9) HLD (hyperlipidemia): Qualifiers: Hyperlipidemia type: mixed hyperlipidemia Qualified Code(s): E78.2 - Mixed hyperlipidemia Code(s): E78.5 - Hyperlipidemia, unspecified Status: Acute Assessment and Plan: Continue statin Plan Code status full code Time Spent With Patient Time: 38 minutes Time with patient: Greater than 35 minutes Subjective Date/time seen: 03/24/22 07:54 Interval history: 87yo female here for right femur fracture after a fall. Assuming care. Chart reviewed. Patient up to the chair this morning. She had increasing pain but pain was tolerable. No chest pain or shortness of breath. Passing flatus. She does not wear oxygen at home. She is a lifelong nonsmoker but was exposed to secondhand smoke. No history COPD, emphysema or asthma. She does complain of dysphagia related to sore throat. Exam Narrative: Vital signs noted. Gen - NARD Chest -bibasilar dry inspiratory crackles. CV - RRR S1/S2 Abd - Soft, NT/ND, Positive BS Ext - No pedal edema. Right lateral hip dressing is clean, dry and intact. Psych - Nml mood and affect Skin - Warm and dry Objective Data Vital Signs Vital Signs: Vital Signs - 24 hr 03/23/22 12:05 03/23/22 14:12
[2022-03-24] MEDS: SENNA/DOCUSATE SODIUM TABLET 2 TAB PO ×2 (08:15→17:31)
[2022-03-24] MEDS: AMOXICILLIN/CLAVULANATE K 875-125 MG TAB 1 TABLET PO ×2 (08:15→21:06)
[2022-03-24] MEDS: polyethylene glycoL 3350 17 GM POWD.PACK PO (08:15)
[2022-03-24] MEDS: VENLAFAXINE HCL XR 75 MG CAP.ER.24H 150 MG PO (08:15)
[2022-03-24] MEDS: FONDAPARINUX SODIUM 2.5 MG/0.5 ML SYRINGE SUB-Q (08:15)
[2022-03-24] MEDS: PANTOPRAZOLE 40 MG TABLET PO (08:16)
[2022-03-24] MEDS: sulfaSALAzine 500 MG TABLET PO ×3 (08:16→17:31)
[2022-03-24] MEDS: PREGABALIN (*CRX) 50 MG CAPSULE PO (08:16)
--- NOTE | 2022-03-24 08:20 | PM.PNORT ---
Progress Note: A&P Assessment and Plan (1) Subcapital fracture of femur: Qualifiers: Encounter type: subsequent encounter Fracture type: closed Laterality: right Fracture healing: with routine healing Qualified Code(s): S72.011D - Unspecified intracapsular fracture of right femur, subsequent encounter for closed fracture with routine healing Code(s): S72.019A - Unspecified intracapsular fracture of unspecified femur, initial encounter for closed fracture Status: Acute Assessment and Plan: postoperative day 1, right hip pinning. Patient up to chair. PT /OT with weight-bearing as tolerated. Pain control. DVT prophylaxis with Arixtra. Transition to aspirin at discharge. Disposition: Rehab versus home with home health depending on progress When medically stable. Subjective Subjective Date/Time Seen: 03/24/22 08:20 Post Op day: 1 Principal diagnosis: Right hip fracture Interval history: patient awake. Up in chair. Complains of right hip pain. No new complaints. Exam Const: General: comfortable; No acute distress Resp: Effort & Inspection: normal respiratory effort and no audible wheezes Neuro: Other: Extrem: Right lower extremity: lower leg ( Negative Homans sign), ankle Details: normal ROM ( dorsiflexion and plantar flexion intact) and foot Details: vascular exam Details: dorsalis pedis pulse present and normal capillary refill, tendon exam Details: active flexion normal and active extension normal and motor-sensory exam Details: light-touch normal Location: in all toes; no edema Left lower extremity: normal to inspection, ankle Details: normal ROM and foot Details: vascular exam Details: dorsalis pedis pulse present and normal capillary refill and motor-sensory exam light-touch normal in all toes; no edema Other: Right hip dressing clean dry and intact. Objective Data Vital Signs Vital Signs: Vital Signs - 24 hr 03/23/22 12:05 03/23/22 14:12 03/23/22 14:25 Temperature 99.4 F 97.1 F L Pulse Rate 66 64 61 Respiratory Rate 14 11 L 12 Blood Pressure 147/57 H 143/60 H 136/56 L Pulse Oximetry 92 99 99 Oxygen Delivery Nasal Cannula Simple Face Mask Simple Face Mask Oxygen Flow Rate 2 6 6 03/23/22 14:40 03/23/22 14:55 03/23/22 15:10 Temperature Pulse Rate 62 66 66 Respiratory Rate 19 12 22 H Blood Pressure 145/58 H 163/71 H 163/62 H Pulse Oximetry 99 98 98 Oxygen Delivery Simple Face Mask Simple Face Mask Nasal Cannula Oxygen Flow Rate 6 6 2 03/23/22 15:25 03/23/22 17:12 03/23/22 09:30 Temperature 98.4 F Pulse Rate 66 66 66 Respiratory Rate 15 16 16 Blood Pressure 165/79 H 120/50 L Pulse Oximetry 96 100 100 Oxygen Delivery Nasal Cannula Nasal Cannula Oxygen Flow Rate 2 1 03/23/22 21:12 03/24/22 01:45 03/24/22 05:12 Temperature 97.7 F 97.2 F L 98.0 F Pulse Rate 61 57 L 64 Respiratory Rate 21 H 20 16 Blood Pressure 121/54 L 139/54 L 109/64 Pulse Oximetry 100 98 93 Oxygen Delivery Oxygen Flow Rate Intake/Output Intake/Output: Intake & Output 03/21/22 03/22/22 03/23/22 03/24/22 23:59 23:59 23:59 23:59 Intake Total 980 2108 400 Output Total 750 1475 700 Balance 230 633 -300 Meds/Results Medications: Active Medications Generic Name Dose Route Start Last Admin Trade Name Freq PRN Reason Stop Dose Admin Acetaminophen 650 mg 03/23/22 15:27 Acetaminophen 325 Mg Tablet PO Q6H PRN Mild Pain (1-3) or Fever Amoxicillin/Clavulanate Potassium 1 tablet 03/22/22 13:00 03/24/22 08:15 Amoxicillin/Clavulanate K 875-125 Mg Tab PO 1 tablet Q12HR [facility] Administration Atorvastatin Calcium 10 mg 03/22/22 17:00 03/23/22 18:23 Atorvastatin 10 Mg Tablet BY MOUTH 10 mg DAILY@1700 [facility] Administration Cyanocobalamin 1,000 mcg 04/08/22 09:00 Cyanocobalamin Inj 1,000 Mcg/Ml Vial IM [facility] Diphenhydramine HCl 25 mg 03/22/22 12:23 Diphenhydramine Hcl Inj 50 Mg/Ml Vial I
[2022-03-24 08:51] LABS: Rheumatoid Factor < 8.6 IU/ML (<12)
--- NOTE | 2022-03-24 10:18 | PM.CNPUL ---
Assessment and Plan Assessment and plan (1) Hypoxia: Code(s): R09.02 - Hypoxemia Status: Acute Assessment and Plan: this 87-year-old female underwent right hip surgery following fall at home. On initial evaluation she had normal oxyhemoglobin saturation on room air. Perioperatively she received opiates for pain control and underwent surgery for right hip fracture. There was a drop in oxyhemoglobin saturation prior to surgery with significant improvement of hypoxemia postoperatively. Currently the patient is on lower FiO2 and has no respiratory complaints. I suspect the patient's perioperative hypoxemia was related to mild lung atelectasis usually seen during the perioperative stage. Patient doing incentive spirometry, is fully alert cooperative sitting in chair. hospitalist also raised a question of possible sleep apnea following abnormal findings of ApneaLink study. Under current circumstances, ApneaLink study was inappropriate as patient was under the effect of pain control medications. patient has no symptoms suggestive of sleep disordered breathing and a previous sleep study in 2018 showed no evidence of sleep apnea. The previous sleep study is available for review. of note the patient has ahistory of previous hemothorax on left and the abnormalities seen on chest x-ray probably represent pleural scarring. Plan: Continue with incentive spirometry, monitor oxyhemoglobin saturation. Repeat chest x-ray. (2) Subcapital fracture of femur: Qualifiers: Encounter type: subsequent encounter Fracture type: closed Laterality: right Fracture healing: with routine healing Qualified Code(s): S72.011D - Unspecified intracapsular fracture of right femur, subsequent encounter for closed fracture with routine healing Code(s): S72.019A - Unspecified intracapsular fracture of unspecified femur, initial encounter for closed fracture Status: Acute History of Present Illness History of Present Illness Consult date: 03/24/22 Chief complaint: subcapital neck fracture of R femur,GLF Narrative: This is a pulmonary consultation for postoperative hypoxemia and possible sleep apnea. This 87-year-old female presented after she fell at home. She was diagnosed with a right subcapital femur fracture when evaluated in the emergency room approximately 3 days ago.. On initial evaluation in the emergency room she had normal oxyhemoglobin saturation on room air. Over the last 4 days there was gradual increase of supplemental oxygen up to 6 liters/minute because of hypoxemia. The patient underwent surgery yesterday. Currently her supplemental oxygen is lower, at 2 liters/minute. The patient sitting up in chair with no complaints such as cough wheezing chest pain. patient has a history of a previous left hemothorax with chest tube drainage and a chest x-rays have been showing mild pleural scarring on left. previous sleep apnea in 2018 showed no evidence of sleep disordered breathing. Patient underwent ApneaLink while inpatient which showed some oxyhemoglobin desaturation an elevated AHI. Review of Systems Review of Systems: patient reports no weight changes. She has no orthopnea. She has had some constipation. She has no urinary complaints. She has no history lower extremity edema. She has no daytime somnolence. [facility] Past Medical History Medical History Arthritis Bilateral foot pain Brain bleed Cataracts, bilateral Cephalgia Chest wall pain Depression Dysuria-frequency syndrome Fatigue Fibromyalgia FRANCY (generalized anxiety disorder) HLD (hyperlipidemia) HTN (hypertension) Hyponatremia Hypothyroid Peripheral neuropathy Plantar fasciitis Raynaud disease Rectal pain, chronic Rhinorrhea Shoulder pain, bilateral Surgical History Surgical History Cataract 2019 H/O dilation and curettage
--- NOTE | 2022-03-24 10:19 | P.PNAN_ITS ---
Anes - Prog Note Post-Op Date/Time: 03/24/22 10:19 Cardiovascular status: normal Respiratory status: normal Airway patency: baseline Mental status: baseline Post-Op hydration status: normal Vital Signs: Last Vital Signs Temp 97.8 F 03/24/22 09:12 Pulse 56 L 03/24/22 09:12 Resp 16 03/24/22 09:12 BP 119/46 L 03/24/22 09:12 Pulse Ox 95 03/24/22 09:12 O2 Del Method Nasal Cannula 03/23/22 15:25 O2 Flow Rate 2 03/23/22 15:25 Pain Score (VAS): 04/16 I/O: Intake & Output 03/23/22 03/24/22 03/24/22 23:59 07:59 15:59 Intake Total 408 400 240 Output Total 700 Balance 408 -300 240 Laboratory Tests 03/24/22 04:53 03/24/22 04:53 03/24/22 03/24/22 03/24/22 04:53 04:53 08:32 WBC 8.5 RBC 3.44 L Hgb 11.1 L Hct 35.6 L MCV 103.5 H MCH 32.3 MCHC 31.2 L RDW 13.0 Plt Count 153 MPV 10.9 H Immature Gran % (Auto) 0.5 Neut % (Auto) 75.3 H Lymph % (Auto) 9.6 L Hudspeth % (Auto) 12.1 H Eos % (Auto) 1.7 Baso % (Auto) 0.8 Lymph # (Auto) 0.81 L [place]ud[place]eth # (Auto) 1.0 H Eos # (Auto) 0.1 Baso # (Auto) 0.1 Abs Immat Gran (auto) 0.04 H Absolute Neuts (auto) 6.4 Absolute Nucleated RBC 0.0 Nucleated RBC % 0.0 Sodium 131 L Potassium 3.7 Chloride 101 Carbon Dioxide 28 Anion Gap 2 L BUN 9 Creatinine 0.50 L Estim Creat Clear Calc 53 Estimated GFR > 60 Glucose 102 Calcium 8.2 L Total Bilirubin 0.4 AST 36 ALT 30 Alkaline Phosphatase 108 Total Protein 6.0 L Albumin 3.3 L Rheumatoid Factor < 8.6 SERA Screen 03/24/22 08:32 WBC RBC Hgb Hct MCV MCH MCHC RDW Plt Count MPV Immature Gran % (Auto) Neut % (Auto) Lymph % (Auto) Hudspeth % (Auto) Eos % (Auto) Baso % (Auto) Lymph # (Auto) Hudspeth # (Auto) Eos # (Auto) Baso # (Auto) Abs Immat Gran (auto) Absolute Neuts (auto) Absolute Nucleated RBC Nucleated RBC % Sodium Potassium Chloride Carbon Dioxide Anion Gap BUN Creatinine Estim Creat Clear Calc Estimated GFR Glucose Calcium Total Bilirubin AST ALT Alkaline Phosphatase Total Protein Albumin Rheumatoid Factor SERA Screen Pending Post-procedural complaints: none Patient Feedback: Patient satisfied with anesthetic care.
[2022-03-24] MEDS: FOLIC ACID 1 MG TABLET BY MOUTH (11:02)
--- NOTE | 2022-03-24 11:16 | PCSTNOTE ---
Please refer to the Bedside Swallow Evaluation in the EMR. Please note, silent aspiration cannot be ruled out at bedside.
--- NOTE | 2022-03-24 15:59 | PC.NURSE ---
On 03/24/22, the student, [Kristen Beard], provided care and completed [facility] documentation on this patient. I have reviewed the student's documentation and agree with the findings.
[2022-03-24] MEDS: ATORVASTATIN 10 MG TABLET BY MOUTH (17:32)
[2022-03-24] MEDS: ACETAMINOPHEN 325 MG TABLET 650 MG PO (17:50)
[2022-03-24] MEDS: PREGABALIN (*CRX) 75 MG CAPSULE PO (21:06)
[2022-03-25] MEDS: diphenhydrAMINE HCl INJ 50 MG/ML VIAL 25 MG IV PUSH (00:21)
[2022-03-25 01:05] VITALS: BP 142/60; PULSE 66; RESP 16; TEMP 36.4; O2SAT 92
[2022-03-25 05:01] LABS: Basophils Absolute Auto 0.1 K/mm3 (0.0-0.1); Basophils Percent Auto 1.2 % (0.2-1.2); Eosinophils Absolute Auto 0.4 K/mm3 (0-0.3); Eosinophils Percent Auto 5.5 % (0-4.4); Hematocrit 33.9 % (37.0-47.0); Hemoglobin 10.9 g/dL (12.0-15.0); Immature Granulocyte Absolute 0.03 K/mm3 (0.00-0.031); Immature Granulocyte Percent A 0.4 % (0-0.5); Lymphocytes Absolute Auto 1.16 K/mm3 (0.9-3.2); Mean Corpuscular HGB Conc 32.2 g/dl (32-36); Mean Corpuscular Hemoglobin 31.4 pg (26-34); Mean Corpuscular Volume 97.7 fl (80-100); Monocytes Absolute Auto 1.1 K/mm3 (0.1-0.6); Monocytes Percent Auto 14.2 % (2.6-8.5); Neutrophils Absolute Auto 4.9 K/mm3 (1.3-6.7); Neutrophils Percent Auto 63.7 % (45.5-73.1); Platelet Count Result 171 k/mm3 (150-375); Red Blood Count 3.47 M/mm3 (4.2-5.4); Red Cell Distribution Width 13.1 % (11.5-14.5); White Blood Count 7.8 K/mm3 (4.5-10.0)
[2022-03-25 05:10] LABS: Alanine Aminotransferase 48 U/L (6-35); Albumin Level 3.6 g/dL (3.5-5.1); Alkaline Phosphatase 133 U/L (38-126); Anion Gap 3 mmol/L (8-16); Aspartate Amino Transferase 75 U/L (14-36); Bilirubin,Total 0.5 mg/dL (0.2-1.3); Blood Urea Nitrogen 12 mg/dL (7-17); Calcium 8.4 mg/dL (8.4-10.2); Carbon Dioxide 31 mmol/L (22-30); Chloride 102 mmol/L (98-107); Estimated CRCL calculation 45 ml/min; Estimated Glomerular Filt Rate > 60; Glucose 87 mg/dL (65-110); Potassium 3.2 mmol/L (3.4-5.0); Sodium 136 mmol/L (137-145)
[2022-03-25 05:46] VITALS: BP 109/49; PULSE 65; RESP 16; TEMP 36.6; O2SAT 94
[2022-03-25] MEDS: LEVOTHYROXINE SODIUM 88 MCG TABLET BY MOUTH (06:45)
--- NOTE | 2022-03-25 09:06 | PM.PNORT ---
Progress Note: A&P Assessment and Plan (1) Subcapital fracture of femur: Qualifiers: Encounter type: subsequent encounter Fracture type: closed Laterality: right Fracture healing: with routine healing Qualified Code(s): S72.011D - Unspecified intracapsular fracture of right femur, subsequent encounter for closed fracture with routine healing Code(s): S72.019A - Unspecified intracapsular fracture of unspecified femur, initial encounter for closed fracture Status: Acute Assessment and Plan: POD #2: Right hip pinning. PT /OT. WBAT. Walker. Fall risk. Pain control. Ice lateral hip DVT prophylaxis with Arixtra. Transition to aspirin at discharge. Disposition: Family prefers rehab at discharge as of now. (2) Urinary retention: Code(s): R33.9 - Retention of urine, unspecified Status: Acute Assessment and Plan: Failed void trial. Catheter currently in place. May require urology consult if unable to pass void trial prior to discharge. Subjective Subjective Date/Time Seen: 03/25/22 09:06 Post Op day: 2 Principal diagnosis: Right hip fracture Interval history: POD #2: Right Hip Pinning Patient alert. Reports confusion overnight. Difficulty with urinary retention. Almazan catheter in place once again. Generalized pain which per is unchanged from preoperative chronic pain. Mild hip pain over incision. Review of Systems Review of Systems: All systems reviewed & are unremarkable except as noted in HPI and below Exam Const: General: comfortable; No acute distress Resp: Effort & Inspection: normal respiratory effort and no audible wheezes Neuro: Other: Extrem: Right lower extremity: lower leg ( Negative Homans sign), ankle Details: normal ROM ( dorsiflexion and plantar flexion intact) and foot Details: vascular exam Details: dorsalis pedis pulse present and normal capillary refill, tendon exam Details: active flexion normal and active extension normal and motor-sensory exam Details: light-touch normal Location: in all toes; no edema Left lower extremity: normal to inspection, ankle Details: normal ROM and foot Details: vascular exam Details: dorsalis pedis pulse present and normal capillary refill and motor-sensory exam light-touch normal in all toes; no edema Other: Right hip dressing clean dry and intact. Objective Data Vital Signs Vital Signs: Vital Signs - 24 hr 03/24/22 09:12 03/24/22 10:30 03/24/22 13:12 Temperature 36.6 C 36.3 C L Pulse Rate 56 L 57 L Respiratory Rate 16 16 Blood Pressure 119/46 L 114/50 L Pulse Oximetry 95 96 94 Oxygen Delivery Nasal Cannula Oxygen Flow Rate 1 03/24/22 13:00 03/24/22 14:00 03/24/22 17:12 Temperature Pulse Rate 56 L Respiratory Rate 16 Blood Pressure 118/53 L Pulse Oximetry 97 95 Oxygen Delivery Room Air Room Air Oxygen Flow Rate 03/24/22 21:25 03/25/22 01:05 03/25/22 05:46 Temperature 36.6 C 36.4 C 36.6 C Pulse Rate 56 L 66 65 Respiratory Rate 18 16 16 Blood Pressure 115/48 L 142/60 H 109/49 L Pulse Oximetry 97 92 94 Oxygen Delivery Oxygen Flow Rate Intake/Output Intake/Output: Intake & Output 03/22/22 03/23/22 03/24/22 03/25/22 23:59 23:59 23:59 23:59 Intake Total 980 2108 1450 200 Output Total 750 1475 1350 700 Balance 230 633 100 -500 Meds/Results Medications: Active Medications Generic Name Dose Route Start Last Admin Trade Name Freq PRN Reason Stop Dose Admin Acetaminophen 650 mg 03/23/22 15:27 03/24/22 17:50 Acetaminophen 325 Mg Tablet PO 650 mg Q6H PRN Administration Mild Pain (1-3) or Fever Amoxicillin/Clavulanate Potassium 1 tablet 03/22/22 13:00 03/24/22 21:06 Amoxicillin/Clavulanate K 875-125 Mg Tab PO 1 tablet Q12HR [facility] Administration Atorvastatin Calcium 10 mg 03/22/22 17:00 03/24/22 17:32 Atorvastatin 10 Mg Tablet BY MOUTH 10 mg DAILY@1700 [facility] Administration Cyanocobalamin 1,000 m
[2022-03-25] MEDS: oxyCODONE/ACETAMINOPHEN (*CRX) 5-325 MG TABLET 1 TABLET PO ×3 (09:38→21:19)
[2022-03-25] MEDS: polyethylene glycoL 3350 17 GM POWD.PACK PO (09:38)
[2022-03-25] MEDS: POTASSIUM CHLORIDE 20 MEQ TABLET 40 MEQ PO (09:38)
[2022-03-25] MEDS: PANTOPRAZOLE 40 MG TABLET PO (09:39)
[2022-03-25] MEDS: PREGABALIN (*CRX) 50 MG CAPSULE PO (09:39)
[2022-03-25] MEDS: SENNA/DOCUSATE SODIUM TABLET 2 TAB PO ×2 (09:39→17:26)
[2022-03-25] MEDS: AMOXICILLIN/CLAVULANATE K 875-125 MG TAB 1 TABLET PO (09:39)
[2022-03-25] MEDS: sulfaSALAzine 500 MG TABLET PO ×3 (09:39→17:51)
[2022-03-25] MEDS: FONDAPARINUX SODIUM 2.5 MG/0.5 ML SYRINGE SUB-Q (09:39)
--- NOTE | 2022-03-25 11:29 | PM.IMPN ---
Progress Note: A&P Assessment and Plan (1) Subcapital fracture of femur: Qualifiers: Encounter type: subsequent encounter Fracture healing: with routine healing Fracture type: closed Laterality: right Qualified Code(s): S72.011D - Unspecified intracapsular fracture of right femur, subsequent encounter for closed fracture with routine healing Code(s): S72.019A - Unspecified intracapsular fracture of unspecified femur, initial encounter for closed fracture Status: Acute Assessment and Plan: Right femur fracture after a fall. Now s/p right hip pinning POD #2. She has tolerated the procedure well. Continue PT/OT. Continue routine postoperative care per Orthopedics. DVT prophylaxis per Orthopedics (2) Hypoxia: Code(s): R09.02 - Hypoxemia Status: Acute Assessment and Plan: Patient was able to be taken off supplemental oxygen. CXR showing a small left pleural effusion. Pulmonary was consulted. ApneaLink results were reviewed and are consistent with mild sleep apnea. It should be mentioned that this study was performed on 1 L of oxygen. Despite this, she still spent 16 minutes with SpO2 less than 88%. Bedside swallowing study showing she could benefit from soft and bite sized. Diet cahnged. Augmentin started 03/22. No abx on admission. For PNA? She is also on sulfasalazine which can cause pulmonary toxicity. She has been on this since 2019. This is started by business dean for possible RA. RA could be causing pulmonary fibrosis itself. Rheumatoid factor normal. Weaned off O2. Follow. Stop Augmentin (3) Urinary retention: Code(s): R33.9 - Retention of urine, unspecified Status: Acute Assessment and Plan: Patient with urine retention after Almazan removed. Almazan had to be replaced due to 500mL urine retention after she voided. Will plan for Almazan trial prior to discharge or at SNF once she is more up and around. (4) Anemia: Code(s): D64.9 - Anemia, unspecified Status: Acute Assessment and Plan: Hgb 10.9. Probably related to fracture. B12 level normal on 03/22. Follow. (5) HTN (hypertension): Qualifiers: Hypertension type: essential hypertension Qualified Code(s): I10 - Essential (primary) hypertension Code(s): I10 - Essential (primary) hypertension Status: Acute Assessment and Plan: Patient's blood pressure was reviewed on 03/25 Blood pressure remains well controlled Will continue to monitor (6) Thyroid disorder: Code(s): E07.9 - Disorder of thyroid, unspecified Status: Acute Assessment and Plan: TSH on the low side, continue levothyroxine, recheck TSH 4-6 weeks outpatient (7) Depression: Code(s): F32.A - Depression, unspecified Status: Acute Assessment and Plan: Stable. Continue Effexor (8) Somnolence, daytime: Code(s): R40.0 - Somnolence Status: Acute Assessment and Plan: Possibly related to above. Plan DVT Prophylaxis: Arixtra Code status full code Subjective Date/time seen: 03/25/22 11:29 Interval history: 87yo female here for right femur fracture after a fall. Feels tired. Right leg pain tolerable. No n/v. No CP. Has some neck pain after the fall but was present also before the fall without much change. Exam Narrative: Gen - NARD Chest - palpable chest wall pain right of midline. Lungs clear CV - RRR S1/S2 Abd - Soft, NT/ND, Positive BS Ext - No pedal edema. Psych - Nml mood and affect Skin - Warm and dry Objective Data Vital Signs Vital Signs: Vital Signs - 24 hr 03/24/22 13:12 03/24/22 13:00 03/24/22 14:00 Temperature 97.4 F L Pulse Rate 57 L Respiratory Rate 16 Blood Pressure 114/50 L Pulse Oximetry 94 97 Oxygen Delivery Room Air Room Air 03/24/22 17:12 03/24/22 21:25 03/25/22 01:05 Temperature 97.9 F 97.6 F Pulse Rate 56 L 56 L 66 Respiratory Rate 16 18
[2022-03-25] MEDS: FOLIC ACID 1 MG TABLET BY MOUTH (12:51)
[2022-03-25] MEDS: ATORVASTATIN 10 MG TABLET BY MOUTH (17:26)
[2022-03-25 20:00] VITALS: PULSE 65; RESP 16; O2SAT 94
[2022-03-25] MEDS: PREGABALIN (*CRX) 75 MG CAPSULE PO (20:18)
[2022-03-25] MEDS: VENLAFAXINE HCL XR 75 MG CAP.ER.24H 150 MG PO (20:18)
[2022-03-25 21:54] VITALS: BP 139/60; PULSE 61; RESP 18; TEMP 36.7; O2SAT 95
[2022-03-26 02:35] VITALS: BP 143/59; PULSE 66; RESP 16; TEMP 36.8; O2SAT 92
[2022-03-26 06:00] VITALS: BP 171/61; PULSE 63; RESP 18; TEMP 36.7; O2SAT 97
[2022-03-26] MEDS: LEVOTHYROXINE SODIUM 75 MCG TABLET BY MOUTH (06:08)
[2022-03-26 06:23] LABS: Basophils Absolute Auto 0.1 K/mm3 (0.0-0.1); Basophils Percent Auto 1.3 % (0.2-1.2); Eosinophils Absolute Auto 0.3 K/mm3 (0-0.3); Hematocrit 35.6 % (37.0-47.0); Hemoglobin 11.4 g/dL (12.0-15.0); Immature Granulocyte Absolute 0.03 K/mm3 (0.00-0.031); Immature Granulocyte Percent A 0.5 % (0-0.5); Lymphocytes Absolute Auto 1.44 K/mm3 (0.9-3.2); Mean Corpuscular Hemoglobin 31.6 pg (26-34); Mean Corpuscular Volume 98.6 fl (80-100); Mean Platelet Volume 10.9 fl (7.4-10.4); Monocytes Percent Auto 15.2 % (2.6-8.5); Neutrophils Absolute Auto 3.5 K/mm3 (1.3-6.7); Platelet Count Result 184 k/mm3 (150-375); Red Blood Count 3.61 M/mm3 (4.2-5.4); Red Cell Distribution Width 13.2 % (11.5-14.5); White Blood Count 6.3 K/mm3 (4.5-10.0)
[2022-03-26 06:44] LABS: Alanine Aminotransferase 47 U/L (6-35); Albumin Level 3.5 g/dL (3.5-5.1); Alkaline Phosphatase 139 U/L (38-126); Anion Gap 4 mmol/L (8-16); Aspartate Amino Transferase 54 U/L (14-36); Bilirubin,Total 0.5 mg/dL (0.2-1.3); Blood Urea Nitrogen 9 mg/dL (7-17); Calcium 8.4 mg/dL (8.4-10.2); Carbon Dioxide 27 mmol/L (22-30); Chloride 102 mmol/L (98-107); Estimated CRCL calculation 53 ml/min; Estimated Glomerular Filt Rate > 60; Glucose 88 mg/dL (65-110); Magnesium 1.9 mg/dL (1.6-2.3); Potassium 3.6 mmol/L (3.4-5.0); Sodium 133 mmol/L (137-145)
--- NOTE | 2022-03-26 09:13 | PM.PNORT ---
Progress Note: A&P Assessment and Plan (1) Subcapital fracture of femur: Qualifiers: Encounter type: subsequent encounter Fracture type: closed Laterality: right Fracture healing: with routine healing Qualified Code(s): S72.011D - Unspecified intracapsular fracture of right femur, subsequent encounter for closed fracture with routine healing Code(s): S72.019A - Unspecified intracapsular fracture of unspecified femur, initial encounter for closed fracture Status: Acute Assessment and Plan: POD #3: Right hip pinning. PT /OT. WBAT. Walker. Fall risk. Pain control. Ice lateral hip DVT prophylaxis with Arixtra. Transition to aspirin at discharge. Disposition: Family prefers rehab at discharge as of now. (2) Urinary retention: Code(s): R33.9 - Retention of urine, unspecified Status: Acute Assessment and Plan: Failed void trial. Catheter currently in place. Medicine team following with void trial planned prior to d/c or at SNF. Subjective Subjective Date/Time Seen: 03/26/22 09:13 Post Op day: 3 Principal diagnosis: Right hip fracture Interval history: POD #3: Right Hip Pinning Patient alert. Fatigue today. Difficulty with urinary retention. Generalized pain which per is unchanged from preoperative chronic pain. Mild hip pain over incision. Review of Systems Review of Systems: All systems reviewed & are unremarkable except as noted in HPI and below Exam Const: General: comfortable; No acute distress Resp: Effort & Inspection: normal respiratory effort and no audible wheezes Neuro: Other: Extrem: Right lower extremity: lower leg ( Negative Homans sign), ankle Details: normal ROM ( dorsiflexion and plantar flexion intact) and foot Details: vascular exam Details: dorsalis pedis pulse present and normal capillary refill, tendon exam Details: active flexion normal and active extension normal and motor-sensory exam Details: light-touch normal Location: in all toes; no edema Left lower extremity: normal to inspection, ankle Details: normal ROM and foot Details: vascular exam Details: dorsalis pedis pulse present and normal capillary refill and motor-sensory exam light-touch normal in all toes; no edema Other: Right hip dressing clean dry and intact. Objective Data Vital Signs Vital Signs: Vital Signs - 24 hr 03/25/22 09:34 03/25/22 20:00 03/25/22 21:54 Temperature 36.7 C Pulse Rate 65 61 Respiratory Rate 16 18 Blood Pressure 139/60 Pulse Oximetry 94 95 Oxygen Delivery Room Air Room Air 03/26/22 02:35 03/26/22 06:00 Temperature 36.8 C 36.7 C Pulse Rate 66 63 Respiratory Rate 16 18 Blood Pressure 143/59 H 171/61 H Pulse Oximetry 92 97 Oxygen Delivery Intake/Output Intake/Output: Intake & Output 03/23/22 03/24/22 03/25/22 03/26/22 23:59 23:59 23:59 23:59 Intake Total 2108 1450 1310 640 Output Total 1475 1350 1950 1000 Balance 633 805 -[phone] -979 Meds/Results Medications: Active Medications Generic Name Dose Route Start Last Admin Trade Name Freq PRN Reason Stop Dose Admin Acetaminophen 650 mg 03/23/22 15:27 03/24/22 17:50 Acetaminophen 325 Mg Tablet PO 650 mg Q6H PRN Administration Mild Pain (1-3) or Fever Atorvastatin Calcium 10 mg 03/22/22 17:00 03/25/22 17:26 Atorvastatin 10 Mg Tablet BY MOUTH 10 mg DAILY@1700 [facility] Administration Cyanocobalamin 1,000 mcg 04/08/22 09:00 Cyanocobalamin Inj 1,000 Mcg/Ml Vial IM [facility]TH[facility]TER Diphenhydramine HCl 25 mg 03/22/22 12:23 03/25/22 00:21 Diphenhydramine Hcl Inj 50 Mg/Ml Vial IV PUSH 25 mg Q4H PRN Administration Itching Folic Acid 1 mg 03/22/22 12:00 03/25/22 12:51 Folic Acid 1 Mg Tablet BY MOUTH 1 mg DAILY@1200 [facility] Administration Fondaparinux 2.5 mg 03/24/22 09:00 03/25/22 09:39 Fondaparinux Sodium 2.5 Mg/0.5 Ml Syringe SUB-Q 2.5 mg DAILY [facility] Administration Hydralazine HCl 10 mg 01
[2022-03-26] MEDS: SENNA/DOCUSATE SODIUM TABLET 2 TAB PO ×2 (10:08→17:35)
[2022-03-26] MEDS: polyethylene glycoL 3350 17 GM POWD.PACK PO (10:09)
[2022-03-26] MEDS: PANTOPRAZOLE 40 MG TABLET PO (10:09)
[2022-03-26] MEDS: FONDAPARINUX SODIUM 2.5 MG/0.5 ML SYRINGE SUB-Q (10:09)
[2022-03-26] MEDS: PREGABALIN (*CRX) 50 MG CAPSULE PO (10:10)
[2022-03-26] MEDS: sulfaSALAzine 500 MG TABLET PO ×2 (10:10→12:26)
[2022-03-26] MEDS: FOLIC ACID 1 MG TABLET BY MOUTH (12:26)
--- NOTE | 2022-03-26 14:37 | PM.IMPN ---
Progress Note: A&P Assessment and Plan (1) Subcapital fracture of femur: Qualifiers: Encounter type: subsequent encounter Fracture type: closed Laterality: right Fracture healing: with routine healing Qualified Code(s): S72.011D - Unspecified intracapsular fracture of right femur, subsequent encounter for closed fracture with routine healing Code(s): S72.019A - Unspecified intracapsular fracture of unspecified femur, initial encounter for closed fracture Status: Acute Assessment and Plan: Right femur fracture after a fall. Now s/p right hip pinning POD #3. She has tolerated the procedure well. Continue PT/OT. Continue routine postoperative care per Orthopedics. DVT prophylaxis per Orthopedics (2) Hypoxia: Code(s): R09.02 - Hypoxemia Status: Acute Assessment and Plan: Patient was requiring supplemental oxygen. CXR showing a small left pleural effusion. Pulmonary was consulted. ApneaLink results were reviewed and are consistent with mild sleep apnea. It should be mentioned that this study was performed on 1 L of oxygen. Despite this, she still spent 16 minutes with SpO2 less than 88%. Bedside swallowing study showing she could benefit from soft and bite sized. Diet changed. She is also on sulfasalazine which can cause pulmonary toxicity. She has been on this since 2019. This is started by analog circuit designer for possible RA. RA could be causing pulmonary fibrosis itself. Rheumatoid factor normal. Weaned off O2. Follow. (3) Urinary retention: Code(s): R33.9 - Retention of urine, unspecified Status: Acute Assessment and Plan: Patient with urine retention after Almazan removed. Almazan had to be replaced due to 500mL urine retention after she voided. Will plan for Almazan trial today. (4) Anemia: Code(s): D64.9 - Anemia, unspecified Status: Acute Assessment and Plan: Hgb 10.9. Probably related to fracture. B12 level normal on 03/22. Follow. (5) HTN (hypertension): Qualifiers: Hypertension type: essential hypertension Qualified Code(s): I10 - Essential (primary) hypertension Code(s): I10 - Essential (primary) hypertension Status: Acute Assessment and Plan: Patient's blood pressure was reviewed on 03/26 Blood pressure reasonable but was higher this morning. Will continue to monitor (6) Thyroid disorder: Code(s): E07.9 - Disorder of thyroid, unspecified Status: Acute Assessment and Plan: TSH on the low side. Continue levothyroxine. Defer to PCP to recheck when approrpiate. (7) Depression: Code(s): F32.A - Depression, unspecified Status: Acute Assessment and Plan: Stable. Continue Effexor (8) Somnolence, daytime: Code(s): R40.0 - Somnolence Status: Acute Assessment and Plan: Possibly related to above. Plan DVT Prophylaxis: Arixtra Code status full code Subjective Date/time seen: 03/26/22 14:37 Interval history: 87yo female here for right femur fracture after a fall. Slept well but still feels tired. Right leg pain tolerable. Walking in room. Flatus and small BM. No CP or SOB. Exam Narrative: Gen - NARD Chest - CTA bilaterally, nml RR CV - RRR S1/S2 Abd - Soft, NT/ND, Positive BS Ext - No pedal edema. Psych - Nml mood and affect Skin - Warm and dry. right hip dressing clean and dry Objective Data Vital Signs Vital Signs: Vital Signs - 24 hr 03/25/22 20:00 03/25/22 21:54 03/26/22 02:35 Temperature 98.1 F 98.2 F Pulse Rate 65 61 66 Respiratory Rate 16 18 16 Blood Pressure 139/60 143/59 H Pulse Oximetry 94 95 92 Oxygen Delivery Room Air 03/26/22 06:00 Temperature 98.0 F Pulse Rate 63 Respiratory Rate 18 Blood Pressure 171/61 H Pulse Oximetry 97 Oxygen Delivery Intake/Output Intake/Output: Intake & Output 03/23/22 03/24/22 03/25/22 03/26/22 23:59 23:59 23:59 23:
[2022-03-26] MEDS: ATORVASTATIN 10 MG TABLET BY MOUTH (17:35)
[2022-03-26 20:00] VITALS: O2SAT 97
[2022-03-26] MEDS: PREGABALIN (*CRX) 75 MG CAPSULE PO (20:05)
[2022-03-26] MEDS: VENLAFAXINE HCL XR 75 MG CAP.ER.24H 150 MG PO (20:05)
[2022-03-26 20:53] VITALS: BP 177/72; PULSE 66; RESP 16; TEMP 36.5; O2SAT 100
[2022-03-27 05:37] LABS: Basophils Absolute Auto 0.1 K/mm3 (0.0-0.1); Basophils Percent Auto 1.6 % (0.2-1.2); Eosinophils Absolute Auto 0.3 K/mm3 (0-0.3); Eosinophils Percent Auto 4.7 % (0-4.4); Hematocrit 35.8 % (37.0-47.0); Hemoglobin 11.8 g/dL (12.0-15.0); Immature Granulocyte Absolute 0.04 K/mm3 (0.00-0.031); Immature Granulocyte Percent A 0.7 % (0-0.5); Lymphocytes Absolute Auto 1.35 K/mm3 (0.9-3.2); Lymphocytes Percent Auto 23.7 % (18.3-44.2); Mean Corpuscular Hemoglobin 31.6 pg (26-34); Mean Corpuscular Volume 95.7 fl (80-100); Mean Platelet Volume 10.6 fl (7.4-10.4); Monocytes Absolute Auto 0.8 K/mm3 (0.1-0.6); Monocytes Percent Auto 14.7 % (2.6-8.5); Neutrophils Absolute Auto 3.1 K/mm3 (1.3-6.7); Neutrophils Percent Auto 54.6 % (45.5-73.1); Platelet Count Result 208 k/mm3 (150-375); Red Blood Count 3.74 M/mm3 (4.2-5.4); Red Cell Distribution Width 13.1 % (11.5-14.5); White Blood Count 5.7 K/mm3 (4.5-10.0)
[2022-03-27] MEDS: ACETAMINOPHEN 325 MG TABLET 650 MG PO (05:39)
[2022-03-27] MEDS: LEVOTHYROXINE SODIUM 88 MCG TABLET BY MOUTH (05:39)
[2022-03-27 06:00] VITALS: BP 167/73; PULSE 70; RESP 20; TEMP 36.8; O2SAT 96
[2022-03-27 06:04] LABS: Alanine Aminotransferase 37 U/L (6-35); Albumin Level 3.7 g/dL (3.5-5.1); Alkaline Phosphatase 142 U/L (38-126); Anion Gap 6 mmol/L (8-16); Aspartate Amino Transferase 35 U/L (14-36); Bilirubin,Total 0.7 mg/dL (0.2-1.3); Blood Urea Nitrogen 9 mg/dL (7-17); Calcium 8.8 mg/dL (8.4-10.2); Carbon Dioxide 24 mmol/L (22-30); Chloride 102 mmol/L (98-107); Estimated CRCL calculation 53 ml/min; Estimated Glomerular Filt Rate > 60; Glucose 92 mg/dL (65-110); Potassium 3.5 mmol/L (3.4-5.0); Sodium 132 mmol/L (137-145)
[2022-03-27] MEDS: oxyCODONE/ACETAMINOPHEN (*CRX) 5-325 MG TABLET 1 TABLET PO ×3 (09:22→23:28)
[2022-03-27] MEDS: FONDAPARINUX SODIUM 2.5 MG/0.5 ML SYRINGE SUB-Q (09:24)
[2022-03-27] MEDS: SENNA/DOCUSATE SODIUM TABLET 2 TAB PO ×2 (09:24→17:08)
[2022-03-27] MEDS: PANTOPRAZOLE 40 MG TABLET PO (09:24)
[2022-03-27] MEDS: PREGABALIN (*CRX) 50 MG CAPSULE PO (09:24)
[2022-03-27] MEDS: sulfaSALAzine 500 MG TABLET PO ×3 (09:25→17:09)
--- NOTE | 2022-03-27 10:32 | PCOTNOTE ---
Attempted to see pt for Occupational Therapy treatment. At this time pt is currently eating breakfast. Will attempt at a later time.
[2022-03-27] MEDS: FOLIC ACID 1 MG TABLET BY MOUTH (12:39)
[2022-03-27 14:00] VITALS: BP 133/60; PULSE 56; RESP 18; TEMP 36.9; O2SAT 100
--- NOTE | 2022-03-27 16:48 | PM.IMPN ---
Progress Note: A&P Assessment and Plan (1) Subcapital fracture of femur: Qualifiers: Encounter type: subsequent encounter Fracture healing: with routine healing Fracture type: closed Laterality: right Qualified Code(s): S72.011D - Unspecified intracapsular fracture of right femur, subsequent encounter for closed fracture with routine healing Code(s): S72.019A - Unspecified intracapsular fracture of unspecified femur, initial encounter for closed fracture Status: Acute Assessment and Plan: Right femur fracture after a fall. Now s/p right hip pinning POD #4. She tolerated the procedure well. Tolerating more activity. Continue PT/OT. Continue routine postoperative care per Orthopedics. DVT prophylaxis per Orthopedics. Adjust pain medications. RN instructed to monitor patient to ensure her somnolence resolves and that she is up for dinner. (2) Hypoxia: Code(s): R09.02 - Hypoxemia Status: Acute Assessment and Plan: Patient was requiring supplemental oxygen. CXR showing a small left pleural effusion. Pulmonary was consulted. ApneaLink results were reviewed and are consistent with mild sleep apnea. It should be mentioned that this study was performed on 1 L of oxygen and that she was taking narcotics. She spent 16 minutes with SpO2 less than 88%. Bedside swallowing study showing she could benefit from soft and bite sized so diet modified. She is also on sulfasalazine which can cause pulmonary toxicity. She has been on this since 2020. This is started by event technician for possible RA. RA could be causing pulmonary fibrosis itself. Rheumatoid factor normal. Weaned off O2. Follow. (3) Urinary retention: Code(s): R33.9 - Retention of urine, unspecified Status: Acute Assessment and Plan: Patient with urine retention after Almazan removed. Almazan had to be replaced due to 500mL urine retention after she voided. Probably related to bedrest and narcotics. Repeat Almazan trial was successful. Monitor for recurrence. (4) Anemia: Code(s): D64.9 - Anemia, unspecified Status: Acute Assessment and Plan: Hgb better at 11.8. Probably related to fracture. Follow. (5) HTN (hypertension): Qualifiers: Hypertension type: essential hypertension Qualified Code(s): I10 - Essential (primary) hypertension Code(s): I10 - Essential (primary) hypertension Status: Acute Assessment and Plan: Patient's blood pressure was reviewed on 03/27 Blood pressure higher at times Will continue to monitor (6) Thyroid disorder: Code(s): E07.9 - Disorder of thyroid, unspecified Status: Acute Assessment and Plan: TSH on the low side. Continue levothyroxine. Defer to PCP to recheck when appropriate. (7) Depression: Code(s): F32.A - Depression, unspecified Status: Acute Assessment and Plan: Stable. Continue Effexor (8) Somnolence, daytime: Code(s): R40.0 - Somnolence Status: Acute Assessment and Plan: feels patient sleeps all day. She is on Lyrica and narcotics at home. Her doctor is aware of this and medications have been adjusted. Recommended he talked with the patient's doctor further about this. Plan DVT Prophylaxis: Arixtra Code status full code Subjective Date/time seen: 03/27/22 16:48 Interval history: 87yo female here for right femur fracture after a fall. Patient somnolent but arouses. She has been working with therapy today and states she just received a pain pill (last dose was this morning). Walked to the BR and was up to the chair earlier. Exam Narrative: AF 98.4 133/60 56 18 100% ra Gen - NARD Chest - clear anteriorly, nml RR CV - RRR S1/S2 Abd - Soft, NT/ND, Positive BS. Bladder does not feel distended Ext - No pedal edema. Right hip dressing clean, dry and intact Psych - somnolent but arouses Skin - Warm and dry.
[2022-03-27] MEDS: ATORVASTATIN 10 MG TABLET BY MOUTH (17:08)
[2022-03-27] MEDS: VENLAFAXINE HCL XR 75 MG CAP.ER.24H 150 MG PO (20:33)
[2022-03-27] MEDS: PREGABALIN (*CRX) 75 MG CAPSULE PO (20:33)
[2022-03-27 21:02] VITALS: BP 139/64; PULSE 58; RESP 16; TEMP 36.6; O2SAT 97
[2022-03-28] MEDS: LEVOTHYROXINE SODIUM 75 MCG TABLET BY MOUTH (05:36)
[2022-03-28] MEDS: oxyCODONE/ACETAMINOPHEN (*CRX) 5-325 MG TABLET 1 TABLET PO ×3 (05:38→22:12)
[2022-03-28 06:17] VITALS: BP 130/57; PULSE 57; RESP 16; TEMP 36.6; O2SAT 91
[2022-03-28] MEDS: SENNA/DOCUSATE SODIUM TABLET 2 TAB PO ×2 (08:20→16:15)
[2022-03-28] MEDS: FONDAPARINUX SODIUM 2.5 MG/0.5 ML SYRINGE SUB-Q (08:21)
[2022-03-28] MEDS: polyethylene glycoL 3350 17 GM POWD.PACK PO (08:21)
[2022-03-28] MEDS: sulfaSALAzine 500 MG TABLET PO ×3 (08:21→16:15)
[2022-03-28] MEDS: PREGABALIN (*CRX) 50 MG CAPSULE PO (08:21)
[2022-03-28] MEDS: PANTOPRAZOLE 40 MG TABLET PO (08:21)
[2022-03-28 09:19] VITALS: BP 125/64; PULSE 62; RESP 16; TEMP 36.4; O2SAT 92
[2022-03-28] MEDS: FOLIC ACID 1 MG TABLET BY MOUTH (11:07)
[2022-03-28 11:30] VITALS: O2SAT 95
--- NOTE | 2022-03-28 13:09 | PCOTNOTE ---
Attempted to see pt for Occupational Therapy. Pt is with the doctor at this time.
[2022-03-28 15:16] VITALS: BP 144/55; PULSE 81; RESP 16; TEMP 35.9; O2SAT 98
--- NOTE | 2022-03-28 15:17 | PM.IMPN ---
Progress Note: A&P Assessment and Plan (1) Subcapital fracture of femur: Qualifiers: Encounter type: subsequent encounter Fracture healing: with routine healing Fracture type: closed Laterality: right Qualified Code(s): S72.011D - Unspecified intracapsular fracture of right femur, subsequent encounter for closed fracture with routine healing Code(s): S72.019A - Unspecified intracapsular fracture of unspecified femur, initial encounter for closed fracture Status: Acute Assessment and Plan: Right femur fracture after a fall. Now s/p right hip pinning POD #5. She tolerated the procedure well. Tolerating more activity but feels her pain is unchanged. Continue PT/OT. Continue routine postoperative care per Orthopedics. DVT prophylaxis per Orthopedics. (2) Hypoxia: Code(s): R09.02 - Hypoxemia Status: Acute Assessment and Plan: Patient was requiring supplemental oxygen. CXR showing a small left pleural effusion. Pulmonary was consulted. ApneaLink results were reviewed and are consistent with mild sleep apnea. It should be mentioned that this study was performed on 1 L of oxygen and that she was taking narcotics. She spent 16 minutes with SpO2 less than 88%. Bedside swallowing study showing she could benefit from soft and bite sized so diet modified. She is also on sulfasalazine which can cause pulmonary toxicity. She has been on this since 2020. This is started by financial project manager for possible RA. RA could be causing pulmonary fibrosis itself. Rheumatoid factor normal. Weaned off O2. Follow. Repeat apnea link since now more awake and alert (3) Urinary retention: Code(s): R33.9 - Retention of urine, unspecified Status: Acute Assessment and Plan: Patient with urine retention after Almazan removed. Almazan had to be replaced due to 500mL urine retention after she voided. Probably related to bedrest and narcotics. Repeat Almazan trial was successful. Monitor for recurrence. (4) Anemia: Code(s): D64.9 - Anemia, unspecified Status: Acute Assessment and Plan: Hgb better at 11.8. Probably related to fracture. Follow. (5) HTN (hypertension): Qualifiers: Hypertension type: essential hypertension Qualified Code(s): I10 - Essential (primary) hypertension Code(s): I10 - Essential (primary) hypertension Status: Acute Assessment and Plan: Patient's blood pressure was reviewed on 03/28 Blood pressure well controlled. Will continue to monitor (6) Thyroid disorder: Code(s): E07.9 - Disorder of thyroid, unspecified Status: Acute Assessment and Plan: TSH on the low side. Continue levothyroxine. Defer to PCP to recheck when appropriate. (7) Depression: Code(s): F32.A - Depression, unspecified Status: Acute Assessment and Plan: Stable. Continue Effexor (8) Somnolence, daytime: Code(s): R40.0 - Somnolence Status: Acute Assessment and Plan: feels patient sleeps all day. She is on Lyrica and narcotics at home. Her doctor is aware of this and medications have been adjusted. Recommended they talk with the patient's doctor further about this. Plan DVT Prophylaxis: Arixtra Code status full code Subjective Date/time seen: 03/28/22 15:17 Interval history: 87yo female here for right femur fracture after a fall. No pain at rest but still with considerable pain with walking and sitting. She is up to the chair. No CP or SOB. Family was in the room and hospital course and current plan discussed with patient's permission. Exam Narrative: AF 125/64 62 16 95% ra Gen - NARD sitting up in chair Chest - decreased breath sounds bibasilar, nml RR CV - RRR S1/S2 Abd - Soft, NT/ND, Positive BS. Ext - No pedal edema. Right hip dressing clean, dry and intact Psych - nml mood and affect Skin - Warm and dry. Objective Data Vital Signs
[2022-03-28] MEDS: ATORVASTATIN 10 MG TABLET BY MOUTH (16:15)
[2022-03-28] MEDS: ACETAMINOPHEN 325 MG TABLET 650 MG PO (16:16)
[2022-03-28] MEDS: PREGABALIN (*CRX) 75 MG CAPSULE PO (20:12)
[2022-03-28] MEDS: VENLAFAXINE HCL XR 75 MG CAP.ER.24H 150 MG PO (20:12)
[2022-03-28 23:05] VITALS: O2SAT 97
[2022-03-29] MEDS: traMADol HCL (*CRX) 25 MG TABLET PO ×2 (00:17→16:59)
[2022-03-29 01:36] VITALS: BP 146/61; PULSE 58; RESP 16; TEMP 36.3; O2SAT 93
[2022-03-29] MEDS: oxyCODONE/ACETAMINOPHEN (*CRX) 5-325 MG TABLET 1 TABLET PO ×2 (04:46→18:21)
[2022-03-29] MEDS: LEVOTHYROXINE SODIUM 88 MCG TABLET BY MOUTH (05:36)
[2022-03-29 05:59] LABS: Anti Nuclear Antibody Titer 1:40 (Negative)
[2022-03-29 06:00] VITALS: BP 134/50; PULSE 56; RESP 16; TEMP 36.5; O2SAT 93
[2022-03-29] MEDS: PREGABALIN (*CRX) 50 MG CAPSULE PO (08:57)
[2022-03-29] MEDS: polyethylene glycoL 3350 17 GM POWD.PACK PO (08:57)
[2022-03-29] MEDS: PANTOPRAZOLE 40 MG TABLET PO (08:58)
[2022-03-29] MEDS: SENNA/DOCUSATE SODIUM TABLET 2 TAB PO ×2 (08:58→16:40)
[2022-03-29 08:59] VITALS: RESP 16; O2SAT 95
[2022-03-29] MEDS: sulfaSALAzine 500 MG TABLET PO ×3 (08:59→16:40)
[2022-03-29] MEDS: FONDAPARINUX SODIUM 2.5 MG/0.5 ML SYRINGE SUB-Q (08:59)
--- NOTE | 2022-03-29 11:33 | PM.IMPN ---
Progress Note: A&P Assessment and Plan (1) Subcapital fracture of femur: Qualifiers: Encounter type: subsequent encounter Fracture healing: with routine healing Fracture type: closed Laterality: right Qualified Code(s): S72.011D - Unspecified intracapsular fracture of right femur, subsequent encounter for closed fracture with routine healing Code(s): S72.019A - Unspecified intracapsular fracture of unspecified femur, initial encounter for closed fracture Status: Acute Assessment and Plan: Right femur fracture after a fall. Now s/p right hip pinning POD #6. She tolerated the procedure well. Tolerating more activity but feels her pain is unchanged. Continue PT/OT. Continue routine postoperative care per Orthopedics. DVT prophylaxis per Orthopedics. Waiting on placement (2) Hypoxia: Code(s): R09.02 - Hypoxemia Status: Acute Assessment and Plan: Patient was requiring supplemental oxygen. CXR showing a small left pleural effusion. Pulmonary was consulted. ApneaLink results were reviewed and are consistent with mild sleep apnea. It should be mentioned that this study was performed on 1 L of oxygen and that she was taking narcotics. She spent 16 minutes with SpO2 less than 88%. Bedside swallowing study showing she could benefit from soft and bite sized so diet modified. She is also on sulfasalazine which can cause pulmonary toxicity. She has been on this since 2020. This is started by erp implementation consultant for possible RA. RA could be causing pulmonary fibrosis itself. Rheumatoid factor normal. Weaned off O2. Follow. Repeat apnea link essential normal now (3) Urinary retention: Code(s): R33.9 - Retention of urine, unspecified Status: Acute Assessment and Plan: Patient with urine retention after Almazan removed. Almazan had to be replaced due to 500mL urine retention after she voided. Probably related to bedrest and narcotics. Repeat Almazan trial was successful. Monitor for recurrence. (4) Anemia: Code(s): D64.9 - Anemia, unspecified Status: Acute Assessment and Plan: Hgb better at 11.8. Probably related to fracture. Follow. (5) HTN (hypertension): Qualifiers: Hypertension type: essential hypertension Qualified Code(s): I10 - Essential (primary) hypertension Code(s): I10 - Essential (primary) hypertension Status: Acute Assessment and Plan: Patient's blood pressure was reviewed on 03/29 Blood pressure well controlled. Will continue to monitor (6) Thyroid disorder: Code(s): E07.9 - Disorder of thyroid, unspecified Status: Acute Assessment and Plan: TSH on the low side. Continue levothyroxine. Defer to PCP to recheck when appropriate. (7) Depression: Code(s): F32.A - Depression, unspecified Status: Acute Assessment and Plan: Stable. Continue Effexor (8) Somnolence, daytime: Code(s): R40.0 - Somnolence Status: Acute Assessment and Plan: feels patient sleeps all day. She is on Lyrica and narcotics at home. Her doctor is aware of this and medications have been adjusted. Recommended they talk with the patient's doctor further about this. Plan DVT Prophylaxis: Arixtra Code status full code Subjective Date/time seen: 03/29/22 11:33 Interval history: 87yo female here for right femur fracture after a fall. No significant pain at rest but she does have pain 7/10 with walking. She feels tired today. Eating okay. Normal bowel movements. She is voiding well. She does feel as if she empties her bladder. She does have rhinorrhea with cough productive of whitish sputum. Exam Narrative: AF 134/50 56 16 95% ra Gen - NARD sitting up in chair Chest - clear bilaterally CV - RRR S1/S2 Abd - Soft, NT/ND, Positive BS. Ext - No pedal edema. Psych - nml mood and affect Skin - Warm and dry. Objective Data Vital Sig
[2022-03-29] MEDS: FOLIC ACID 1 MG TABLET BY MOUTH (12:17)
[2022-03-29] MEDS: ATORVASTATIN 10 MG TABLET BY MOUTH (16:40)
[2022-03-29] MEDS: VENLAFAXINE HCL XR 75 MG CAP.ER.24H 150 MG PO (19:29)
[2022-03-29] MEDS: ACETAMINOPHEN 325 MG TABLET 650 MG PO (19:30)
[2022-03-29] MEDS: PREGABALIN (*CRX) 75 MG CAPSULE PO (19:30)
[2022-03-29 22:10] VITALS: BP 136/62; PULSE 62; RESP 16; TEMP 36.8; O2SAT 94
[2022-03-30 02:15] VITALS: BP 151/60; PULSE 58; RESP 18; TEMP 36.3; O2SAT 95
[2022-03-30 06:10] VITALS: BP 136/64; PULSE 56; RESP 16; TEMP 36.3; O2SAT 94
[2022-03-30] MEDS: LEVOTHYROXINE SODIUM 75 MCG TABLET BY MOUTH (06:25)
[2022-03-30] MEDS: traMADol HCL (*CRX) 25 MG TABLET PO ×2 (06:25→17:04)
[2022-03-30] MEDS: FONDAPARINUX SODIUM 2.5 MG/0.5 ML SYRINGE SUB-Q (08:39)
[2022-03-30] MEDS: SENNA/DOCUSATE SODIUM TABLET 2 TAB PO ×2 (08:39→17:03)
[2022-03-30] MEDS: PANTOPRAZOLE 40 MG TABLET PO (08:40)
[2022-03-30] MEDS: sulfaSALAzine 500 MG TABLET PO ×3 (08:40→17:04)
[2022-03-30] MEDS: PREGABALIN (*CRX) 50 MG CAPSULE PO (08:40)
[2022-03-30 10:18] VITALS: BP 145/61; PULSE 66; RESP 14; TEMP 36.7; O2SAT 97
[2022-03-30 12:45] VITALS: BP 134/61; PULSE 60; RESP 16; TEMP 36.7; O2SAT 98
[2022-03-30] MEDS: FOLIC ACID 1 MG TABLET BY MOUTH (13:25)
--- NOTE | 2022-03-30 13:36 | PM.IMPN ---
Progress Note: A&P Assessment and Plan (1) Subcapital fracture of femur: Qualifiers: Encounter type: subsequent encounter Fracture healing: with routine healing Fracture type: closed Laterality: right Qualified Code(s): S72.011D - Unspecified intracapsular fracture of right femur, subsequent encounter for closed fracture with routine healing Code(s): S72.019A - Unspecified intracapsular fracture of unspecified femur, initial encounter for closed fracture Status: Acute Assessment and Plan: Right femur fracture after a fall. Now s/p right hip pinning POD #7. She tolerated the procedure well. Tolerating more activity and pain improving. Continue PT/OT. Continue routine postoperative care per Orthopedics. DVT prophylaxis per Orthopedics. Waiting on placement (2) Urinary retention: Code(s): R33.9 - Retention of urine, unspecified Status: Acute Assessment and Plan: Patient with urine retention after Almazan removed. Almazan had to be replaced due to 500mL urine retention after she voided. Probably related to bedrest and narcotics. Repeat Almazan trial was successful. No distended bladder but incontinence.Urine incontinence may be related to overflow incontinence and/or UTI. Will check bladder scan. Check UA. Monitor for recurrence. UA noted. UCx pending. Start Rocephin (3) Hypoxia: Code(s): R09.02 - Hypoxemia Status: Acute Assessment and Plan: Patient was requiring supplemental oxygen. CXR showing a small left pleural effusion. Pulmonary was consulted. ApneaLink results were reviewed and are consistent with mild sleep apnea. It should be mentioned that this study was performed on 1 L of oxygen and that she was taking narcotics. She spent 16 minutes with SpO2 less than 88%. Bedside swallowing study showing she could benefit from soft and bite sized so diet modified. She is also on sulfasalazine which can cause pulmonary toxicity. She has been on this since 2020. This is started by ironmolder for possible RA. RA could be causing pulmonary fibrosis itself. Rheumatoid factor normal. Weaned off O2. Follow. Repeat apnea link essential normal now (4) Anemia: Code(s): D64.9 - Anemia, unspecified Status: Acute Assessment and Plan: Hgb better at 11.8. Probably related to fracture. Follow. (5) HTN (hypertension): Qualifiers: Hypertension type: essential hypertension Qualified Code(s): I10 - Essential (primary) hypertension Code(s): I10 - Essential (primary) hypertension Status: Acute Assessment and Plan: Patient's blood pressure was reviewed on 03/30 Blood pressure well controlled. Will continue to monitor (6) Thyroid disorder: Code(s): E07.9 - Disorder of thyroid, unspecified Status: Acute Assessment and Plan: TSH on the low side. Continue levothyroxine. Defer to PCP to recheck when appropriate. (7) Depression: Code(s): F32.A - Depression, unspecified Status: Acute Assessment and Plan: Stable. Continue Effexor (8) Somnolence, daytime: Code(s): R40.0 - Somnolence Status: Acute Assessment and Plan: feels patient sleeps all day. She is on Lyrica and narcotics at home. Her doctor is aware of this and medications have been adjusted. Recommended they talk with the patient's doctor further about this. Plan DVT Prophylaxis: Arixtra Code status full code Subjective Date/time seen: 03/30/22 13:36 Interval history: 87yo female here for right femur fracture after a fall. Burning when she voids now. Having soft stools. Urine incontinent last night. Low back pain that is chronic. Leg pain better Exam Narrative: AF 134/61 60 16 98% ra Gen - NARD sitting up in chair Chest - clear bilaterally CV - RRR S1/S2 Abd - Soft, NT/ND, Positive BS. Back - no CVA tenderness Ext - No pedal edema. Right lateral leg dressing c
[2022-03-30] MEDS: ACETAMINOPHEN 325 MG TABLET 650 MG PO ×2 (14:45→20:08)
[2022-03-30 16:49] LABS: Appearance Urine Slightly Cloudy (Clear); Bilirubin Urine Negative (Negative); Blood Urine Trace-lysed (Negative); Color Urine Yellow (Yellow); Glucose Urine UA Negative (Negative); Ketones Urine Negative (Negative); Leukocyte Esterase Ur 1+ LEU/UL (Negative); Nitrate Urine Positive (Negative); Protein Urine Trace mg/dL (Negative); Specific Grav Ur 1.015 (1.001-1.035); Urobilinogen Urine 0.2 mg/dL (<2.0)
[2022-03-30 16:54] LABS: Add Urine Microscopic? YES; Bacteria Urine 3+ /hpf; Mucus Urine Moderate /lpf; WBC Urine >75 /hpf
[2022-03-30] MEDS: ATORVASTATIN 10 MG TABLET BY MOUTH (17:04)
[2022-03-30] MEDS: VENLAFAXINE HCL XR 75 MG CAP.ER.24H 150 MG PO (20:05)
[2022-03-30] MEDS: PREGABALIN (*CRX) 75 MG CAPSULE PO (20:05)
[2022-03-30 20:10] VITALS: PULSE 60; RESP 16; O2SAT 98
[2022-03-30 22:02] VITALS: BP 138/98; PULSE 58; RESP 18; TEMP 36.8; O2SAT 96
[2022-03-31 00:46] VITALS: BP 140/46; PULSE 58; RESP 16; TEMP 36.5; O2SAT 94
[2022-03-31] MEDS: traMADol HCL (*CRX) 25 MG TABLET PO ×2 (00:55→08:37)
[2022-03-31 05:45] VITALS: BP 142/65; PULSE 61; RESP 16; TEMP 36.6; O2SAT 93
[2022-03-31] MEDS: ACETAMINOPHEN 325 MG TABLET 650 MG PO (06:22)
[2022-03-31] MEDS: LEVOTHYROXINE SODIUM 88 MCG TABLET BY MOUTH (06:22)
--- NOTE | 2022-03-31 08:20 | PCPTNOTE ---
Attempted to see patient for PT, however patient refused due to (R)hip/knee pain at a 8/10 and patient reported (R)LE throbbing. RN aware.
--- NOTE | 2022-03-31 08:26 | PM.IMPN ---
Progress Note: A&P Assessment and Plan (1) Subcapital fracture of femur: Qualifiers: Encounter type: subsequent encounter Fracture type: closed Laterality: right Fracture healing: with routine healing Qualified Code(s): S72.011D - Unspecified intracapsular fracture of right femur, subsequent encounter for closed fracture with routine healing Code(s): S72.019A - Unspecified intracapsular fracture of unspecified femur, initial encounter for closed fracture Status: Acute Assessment and Plan: Right femur fracture after a fall. Now s/p right hip pinning POD #7. She tolerated the procedure well. Tolerating more activity and pain improving. Continue PT/OT. Continue routine postoperative care per Orthopedics. DVT prophylaxis per Orthopedics. Waiting on placement (2) Urinary retention: Code(s): R33.9 - Retention of urine, unspecified Status: Acute Assessment and Plan: Patient with urine retention after Almazan removed. Almazan had to be replaced due to 500mL urine retention after she voided. Probably related to bedrest and narcotics. Repeat Almazan trial was successful. No distended bladder but incontinence.Urine incontinence may be related to overflow incontinence and/or UTI. Will check bladder scan. Check UA. Monitor for recurrence. UA noted. UCx pending. Start Rocephin (3) Hypoxia: Code(s): R09.02 - Hypoxemia Status: Acute Assessment and Plan: Patient was requiring supplemental oxygen. CXR showing a small left pleural effusion. Pulmonary was consulted. ApneaLink results were reviewed and are consistent with mild sleep apnea. It should be mentioned that this study was performed on 1 L of oxygen and that she was taking narcotics. She spent 16 minutes with SpO2 less than 88%. Bedside swallowing study showing she could benefit from soft and bite sized so diet modified. She is also on sulfasalazine which can cause pulmonary toxicity. She has been on this since 2020. This is started by fish seiner for possible RA. RA could be causing pulmonary fibrosis itself. Rheumatoid factor normal. Weaned off O2. Follow. Repeat apnea link essential normal now (4) Anemia: Code(s): D64.9 - Anemia, unspecified Status: Acute Assessment and Plan: Hgb better at 11.8. Probably related to fracture. Follow. (5) HTN (hypertension): Qualifiers: Hypertension type: essential hypertension Qualified Code(s): I10 - Essential (primary) hypertension Code(s): I10 - Essential (primary) hypertension Status: Acute Assessment and Plan: Patient's blood pressure was reviewed on 03/30 Blood pressure well controlled. Will continue to monitor (6) Thyroid disorder: Code(s): E07.9 - Disorder of thyroid, unspecified Status: Acute Assessment and Plan: TSH on the low side. Continue levothyroxine. Defer to PCP to recheck when appropriate. (7) Depression: Code(s): F32.A - Depression, unspecified Status: Acute Assessment and Plan: Stable. Continue Effexor (8) Somnolence, daytime: Code(s): R40.0 - Somnolence Status: Acute Assessment and Plan: feels patient sleeps all day. She is on Lyrica and narcotics at home. Her doctor is aware of this and medications have been adjusted. Recommended they talk with the patient's doctor further about this. Plan DVT Prophylaxis: Arixtra Code status full code Subjective Date/time seen: 03/31/22 08:26 Interval history: 87yo female here for right femur fracture after a fall. Burning when she voids now. Having soft stools. Urine incontinent last night. Low back pain that is chronic. Leg pain better Exam Narrative: AF 134/61 60 16 98% ra Gen - NARD sitting up in chair Chest - clear bilaterally CV - RRR S1/S2 Abd - Soft, NT/ND, Positive BS. Back - no CVA tenderness Ext - No pedal edema. Right lateral leg dressing c
[2022-03-31] MEDS: FONDAPARINUX SODIUM 2.5 MG/0.5 ML SYRINGE SUB-Q (08:35)
[2022-03-31] MEDS: PREGABALIN (*CRX) 50 MG CAPSULE PO (08:36)
[2022-03-31] MEDS: PANTOPRAZOLE 40 MG TABLET PO (08:37)
[2022-03-31] MEDS: sulfaSALAzine 500 MG TABLET PO ×2 (08:49→12:34)
--- NOTE | 2022-03-31 11:52 | PM.DS ---
DS: Admitting Diagnosis Discharge Date 03/31/22 Admitting Diagnosis fall with leg pain, femur fracture DS: Discharge Diagnosis Discharge Diagnosis (1) Subcapital fracture of femur: Qualifiers: Encounter type: subsequent encounter Fracture type: closed Laterality: right Fracture healing: with routine healing Qualified Code(s): S72.011D - Unspecified intracapsular fracture of right femur, subsequent encounter for closed fracture with routine healing Code(s): S72.019A - Unspecified intracapsular fracture of unspecified femur, initial encounter for closed fracture Status: Acute Assessment and Plan: Right femur fracture after a fall. Now s/p right hip pinning POD #7. She tolerated the procedure well. Tolerating more activity and pain improving. Continue PT/OT. Continue routine postoperative care per Orthopedics. DVT prophylaxis per Orthopedics. Waiting on placement (2) Urinary retention: Code(s): R33.9 - Retention of urine, unspecified Status: Acute Assessment and Plan: Patient with urine retention after Almazan removed. Almazan had to be replaced due to 500mL urine retention after she voided. Probably related to bedrest and narcotics. Repeat Almazan trial was successful. No distended bladder but incontinence.Urine incontinence may be related to overflow incontinence and/or UTI. Will check bladder scan. Check UA. Monitor for recurrence. UA noted. UCx pending. Start Rocephin (3) Hypoxia: Code(s): R09.02 - Hypoxemia Status: Acute Assessment and Plan: Patient was requiring supplemental oxygen. CXR showing a small left pleural effusion. Pulmonary was consulted. ApneaLink results were reviewed and are consistent with mild sleep apnea. It should be mentioned that this study was performed on 1 L of oxygen and that she was taking narcotics. She spent 16 minutes with SpO2 less than 88%. Bedside swallowing study showing she could benefit from soft and bite sized so diet modified. She is also on sulfasalazine which can cause pulmonary toxicity. She has been on this since 2020. This is started by cmv driver for possible RA. RA could be causing pulmonary fibrosis itself. Rheumatoid factor normal. Weaned off O2. Follow. Repeat apnea link essential normal now (4) Anemia: Code(s): D64.9 - Anemia, unspecified Status: Acute Assessment and Plan: Hgb better at 11.8. Probably related to fracture. Follow. (5) HTN (hypertension): Qualifiers: Hypertension type: essential hypertension Qualified Code(s): I10 - Essential (primary) hypertension Code(s): I10 - Essential (primary) hypertension Status: Acute Assessment and Plan: Patient's blood pressure was reviewed on 03/30 Blood pressure well controlled. Will continue to monitor (6) Thyroid disorder: Code(s): E07.9 - Disorder of thyroid, unspecified Status: Acute Assessment and Plan: TSH on the low side. Continue levothyroxine. Defer to PCP to recheck when appropriate. (7) Depression: Code(s): F32.A - Depression, unspecified Status: Acute Assessment and Plan: Stable. Continue Effexor (8) Somnolence, daytime: Code(s): R40.0 - Somnolence Status: Acute Assessment and Plan: feels patient sleeps all day. She is on Lyrica and narcotics at home. Her doctor is aware of this and medications have been adjusted. Recommended they talk with the patient's doctor further about this. Plan DVT Prophylaxis: Arixtra Code status full code DS: Summary Hospital Course Hospital Course: 87-year-old female with past medical history significant for prior brain bleed after a fall, hypothyroidism, generalized anxiety disorder, peripheral neuropathy with plantar fasciitis is presenting after another fall and found to have a femur fracture. Orthopedic surgery was consulted and took the patient for right hip p
[2022-03-31] MEDS: FOLIC ACID 1 MG TABLET BY MOUTH (12:34)
== END 2022-03-31 14:50 | disposition home health service (06) | DRG 481 ==
LOC: ANHED 17:53 → ANH2MED 19:02
PROVIDERS: Internal Medicine; Nurse Practitioner; Orthopaedic Surgery; Physician Assistant; Admitting Provider Chiropractor; Emergency Provider Emergency Medicine; PCP Family Medicine; Visit Provider Student in an Organized Health Care Education/Training Program
PROC: 0QS634Z Reposition Right Upper Femur with Internal Fixation Device, Percutaneous Approach (ICD-10-PCS; principal; 2022-03-23 13:00)
DX: S72.011A Unspecified intracapsular fracture of right femur, initial encounter for closed fracture (principal); J90 Pleural effusion, not elsewhere classified; N39.0 Urinary tract infection, site not specified; W18.39XA Other fall on same level, initial encounter; M19.90 Unspecified osteoarthritis, unspecified site; F32.A Depression, unspecified; R32 Unspecified urinary incontinence; R33.9 Retention of urine, unspecified; K59.09 Other constipation; M79.7 Fibromyalgia; F41.1 Generalized anxiety disorder; E78.5 Hyperlipidemia, unspecified; Z20.822 Contact with and (suspected) exposure to COVID-19; I10 Essential (primary) hypertension; E03.9 Hypothyroidism, unspecified; G62.9 Polyneuropathy, unspecified; I73.00 Raynaud's syndrome without gangrene; R40.0 Somnolence; R09.02 Hypoxemia; G47.30 Sleep apnea, unspecified; Z87.891 Personal history of nicotine dependence; Z90.49 Acquired absence of other specified parts of digestive tract; M06.9 Rheumatoid arthritis, unspecified; D64.9 Anemia, unspecified
CPT/HCPCS: 36415; 70450; 71045; 72125; 72192; 73502; 80053; 81001; 82306; 82607; 82746; 83735; 84443; 84484; 85025; 86038; 86039; 86430; 87077; 87086; 87186; 87636; 92610; 93005; 94762; 96374; 96375; 96376; 97110; 97116; 97161; 97165; 97530; 97535; 99199; 99285; A9270; G0378; J0690; J0696; J1100; J1200; J1652; J2270; J2405; J2704; J3010; J3360; J7030; J7120

== ENCOUNTER 2022-04-01 19:58 | Observation (INO) | payer MEDICARE, SELFPAY ==
--- NOTE | ~2022-04-01 | XR_ITS ---
EXAMINATION: XR femur RT min 2V DATE: 04/02/2022 12:09 INDICATION: Increasing right femoral pain post surgery TECHNIQUE: AP and lateral views of the right femur/thigh were obtained on overlapping proximal and di stal images COMPARISON: Right hip radiographs dated 04/02/2022 FINDINGS: Interval fixation with 3 cannulated lag screws of the laterally impacted nondisplaced transcervical f racture of the proximal right femur which is in unchanged alignment with mild valgus angulation. The tips of the screws do not appear to project beyond the articular cortex. No new fractures identified. Right hip and knee joint spaces appear normal on nonweightbearing imaging. No right knee joint effus ion. Soft tissues are unremarkable. IMPRESSION: 1. Unchanged mild lateral impaction and mild valgus angulation of a transcervical fracture of the pro ximal right femur post lag screw fixation. Reviewed, dictated and finalized at location B. CATION COORDINATOR IMPRESSION: 1. Unchanged mild lateral impaction and mild valgus angulation of a transcervic al fracture of the proximal right femur post lag screw fixation.
--- NOTE | ~2022-04-01 | XR_ITS ---
EXAMINATION: XR hip RT 1V DATE: 04/02/2022 12:09 INDICATION: Right hip pain. TECHNIQUE: A single view of right hip was obtained. COMPARISON: Right hip radiographs 03/22/2022, 03/23/22 FINDINGS: There is a transcervical fracture of right femoral neck. The distal fracture fragment demon strates impaction and 20 degrees valgus configuration. Internal fixation seen with 3 lag screws. Ther e is mild right hip osteoarthritis. IMPRESSION: 1. Transcervical fracture of right femoral neck with internal fixation, stable from 03/23/2022. 2. Mild right hip osteoarthritis. Reviewed, dictated and finalized at location A. OWAVE ENGINEER
[2022-04-01 19:57] VITALS: BP 164/74; PULSE 59; RESP 20; TEMP 36.4; O2SAT 98
[2022-04-01 20:20] VITALS: RESP 18
[2022-04-01 20:30] VITALS: PULSE 75
[2022-04-01 20:31] VITALS: BP 167/75; RESP 20
[2022-04-01] MEDS: SODIUM CHLORIDE 0.9% IV 1,000 ML 150 ML IV CONT (20:37)
[2022-04-01 20:39] LABS: Basophils Absolute Auto 0.1 K/mm3 (0.0-0.1); Basophils Percent Auto 1.9 % (0.2-1.2); Eosinophils Absolute Auto 0.1 K/mm3 (0-0.3); Eosinophils Percent Auto 1.7 % (0-4.4); Hematocrit 39.3 % (37.0-47.0); Hemoglobin 12.6 g/dL (12.0-15.0); Immature Granulocyte Absolute 0.09 K/mm3 (0.00-0.031); Immature Granulocyte Percent A 1.3 % (0-0.5); Lymphocytes Absolute Auto 1.72 K/mm3 (0.9-3.2); Mean Corpuscular HGB Conc 32.1 g/dl (32-36); Mean Corpuscular Hemoglobin 31.5 pg (26-34); Mean Corpuscular Volume 98.3 fl (80-100); Mean Platelet Volume 9.9 fl (7.4-10.4); Monocytes Absolute Auto 0.8 K/mm3 (0.1-0.6); Monocytes Percent Auto 12.1 % (2.6-8.5); Platelet Count Result 351 k/mm3 (150-375); Red Cell Distribution Width 13.4 % (11.5-14.5); White Blood Count 6.9 K/mm3 (4.5-10.0)
[2022-04-01 20:59] LABS: Blood Urea Nitrogen 14 mg/dL (7-17); Calcium 9.9 mg/dL (8.4-10.2); Carbon Dioxide 27 mmol/L (22-30); Estimated CRCL calculation 54 ml/min; Estimated Glomerular Filt Rate > 60; Glucose 93 mg/dL (65-110); Potassium 4.2 mmol/L (3.4-5.0); Sodium 139 mmol/L (137-145)
[2022-04-01 21:09] LABS: Anion Gap 10 mmol/L (8-16); Chloride 102 mmol/L (98-107)
--- NOTE | 2022-04-01 21:22 | PM.IMHP ---
H&P: HPI History of Present Illness Date/Time: 04/01/22 21:22 Chief Complaint: Right hip pain, difficult to ambulate Narrative: 87 years old lady with history of osteomyelitis, polymyalgia, hypertension, hyperlipidemia, hypothyroidism, chronic pain, presented ED with chief complaint of right hip pain and difficulty to ambulate. Patient had multiple fallsl recently, sustained right hip fracture , the hip fracture was a faxed on March 23. Patient was discharged home yesterday. Since discharge, patient has difficulty to ambulate. Patient cannot ambulate by herself, needed assistance of her . Patient cannot tolerate the pain prominence of the right hip, therefore patient comes back to ER for evaluation. Patient denies a fall at home, also denies chest pain, shortness breast, fever, chills, abdominal pain, nausea vomiting diarrhea . Patient denies headache, focal weakness. Review of Systems Review of Systems: All systems reviewed & are unremarkable except as noted in HPI and below PMFSH Past Medical History Medical History (Updated 04/01/22 @ 21:30 by Tarsha Cheatham MD) Arthritis Bilateral foot pain Brain bleed Cataracts, bilateral Cephalgia Chest wall pain Depression Dysuria-frequency syndrome Fatigue Fibromyalgia FRANCY (generalized anxiety disorder) HLD (hyperlipidemia) HTN (hypertension) Hyponatremia Hypothyroid Peripheral neuropathy Plantar fasciitis Raynaud disease Rectal pain, chronic Rhinorrhea Shoulder pain, bilateral Urinary retention Surgical History Surgical History Cataract 2019 H/O dilation and curettage X2 H/O elbow surgery 2020 H/O foot surgery History of back surgery History of cholecystectomy 2016 History of cholecystectomy Family History Family History Father Family history of cardiovascular disease Family history of malignant neoplasm Depression Heart disease Leukemia Hypertension Family history of arthritis Mother Heart disease Family history of emphysema Hypertension Family history of arthritis Sibling Family history of heart disease in male family member before age 55 Diabetes mellitus Acute myocardial infarction Heart disease Hypertension Grandparent Hypertension Cerebrovascular accident Family history of arthritis Social History Social History Social History: The patient lives with her . She has One child. 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 She is a lifelong nonsmoker. No marijuana alcohol or illicit drugs. Her is a durable power civil rights attorney for healthcare. Code status full code. Smoking status: Never smoker Second hand tobacco smoke exposure: Yes Alcohol intake: never Substance use: never Substance use type: does not use Lack of Transportation: No Lack of Food: Never True Current Housing: I Have Housing Concerned About Future Housing: No Difficulty Paying Gas/Electric Bills: No Difficulty Paying for Meds: No Currently Unemployed: No Education: Bachelor's Degree Difficulty w/ Childcare or Family Care: No Living arrangements: with family Occupation/Education: retired Gender identity (if verbalized by the patient): Female Sexual Orientation (if Verbalized by the Patient): Straight or Heterosexual Spiritual care concerns: Yes (Cathlic, wants to see top lifter whenever available) Agree to blood products: Yes Meds Home Medications and Allergies Home Medications Medication Instructions Recorded Confirmed Type furosemide 20 mg tablet 20 mg PO DAILY PRN Edema 05/20/21 03/21/22 History sulfasalazine 500 mg tablet 500 mg PO TID 05/20/21 03/21/22 History venlafaxine 75 mg capsule,extended 150 mg PO DAILY 07/10/21 03/21/22 History release 24 hr (Effexor XR) linaclotide 72 mcg capsule See Rx Instructions .Ro
--- NOTE | 2022-04-01 21:35 | ED.GENADULT ---
HPI - General Adult General Chief complaint: Extremity Injury, Lower Stated complaint: RIGHT FLANK, HIP, & LEG PAIN Time Seen by Provider: 04/01/22 20:09 Source: patient and family Mode of arrival: EMS Limitations: no limitations History of Present Illness HPI narrative: 87-year-old with a history of hypertension s/p right hip surgery on 03/23/22 discharged from hospital yesterday after 9-day stay was brought in from home with complaints of increased pain, patient states that she is unable to ambulate and she is extremely weak family reports that she is presently treated for urinary tract infection. She denies any falls from the time of discharge. He also mentions that she was unable to go to acute rehab facility as her insurance declined. Family reports that they are unable to care for her. She denies any fever or chills. Has generalized pain. Onset (ago): day(s) (1) Location: lower extremity (Right lower extremity) Radiation: non-radiation Severity: moderate Quality: aching Pain Consistency: constant Relieving factors: none Exacerbating factors: none Associated symptoms: denies other symptoms Related Data Home Medications Medication Instructions Recorded Confirmed furosemide 20 mg tablet 20 mg PO DAILY PRN Edema 05/20/21 03/21/22 sulfasalazine 500 mg tablet 500 mg PO TID 05/20/21 03/21/22 venlafaxine 75 mg capsule,extended 150 mg PO DAILY 07/10/21 03/21/22 release 24 hr (Effexor XR) cyanocobalamin (vitamin B-12) 1,000 mcg IM WEEKLY 12/30/21 03/21/22 1,000 mcg/mL injection solution ipratropium bromide 21 mcg (0.03 2 spray intranasal TID PRN 03/21/22 03/21/22 %) nasal spray Congestion pregabalin 75 mg capsule (Lyrica) 75 mg PO QHS 03/21/22 03/21/22 Allergies Allergy/AdvReac Type Severity Reaction Status Date / Time sertraline AdvReac anxiety Verified 03/10/22 13:31 Review of Systems Review of Systems: All systems reviewed & are unremarkable except as noted in HPI and below Constitutional: Constitutional: Reports no additional constitutional complaints Eyes: Eyes: Reports no additional eye complaints ENT: Reports system reviewed and no additional complaints, except as documented Cardiovascular: Cardiovascular: Reports no additional cardiovascular complaints Respiratory: Respiratory: Reports no additional respiratory complaints Gastrointestinal: Gastrointestinal: Reports no additional gastrointestinal complaints Musculoskeletal: Musculoskeletal: Reports as per HPI Neurologic: Reports system reviewed and no additional complaints, except as documented Psychiatric: Psychiatric: Reports no additional psychiatric complaints [facility] Past Medical History Medical History (Updated 04/01/22 @ 21:30 by Tarsha Cheatham MD) Arthritis Bilateral foot pain Brain bleed Cataracts, bilateral Cephalgia Chest wall pain Depression Dysuria-frequency syndrome Fatigue Fibromyalgia FRANCY (generalized anxiety disorder) HLD (hyperlipidemia) HTN (hypertension) Hyponatremia Hypothyroid Peripheral neuropathy Plantar fasciitis Raynaud disease Rectal pain, chronic Rhinorrhea Shoulder pain, bilateral Urinary retention Surgical History Surgical History Cataract 2019 H/O dilation and curettage X2 H/O elbow surgery 2020 H/O foot surgery History of back surgery History of cholecystectomy 2016 History of cholecystectomy Family History Family History Father Family history of cardiovascular disease Family history of malignant neoplasm Depression Heart disease Leukemia Hypertension Family history of arthritis Mother Heart disease Family history of emphysema Hypertension Family history of arthritis Sibling Family history of heart disease in male family member before age 55 Diabetes mellitus Acute myocardial infarction Heart disease Hypertension Grandparent Hypertension C
[2022-04-01 21:42] LABS: Influenza A QL RT-PCR Negative (Negative); Influenza B QL RT-PCR Negative (Negative); RSV RNA, RT-PCR Negative (Negative); SARS-CoV-2 RNA PCR Negative
[2022-04-01] MEDS: MORPHINE SULFATE (*CRX) 2 MG/ML INJ IV PUSH (21:43)
[2022-04-01] MEDS: ONDANSETRON INJ 4 MG/2 ML VIAL IV PUSH (21:43)
[2022-04-01 22:09] LABS: Appearance Urine Clear (Clear); Bilirubin Urine Negative (Negative); Blood Urine Negative (Negative); Color Urine Yellow (Yellow); Glucose Urine UA Negative (Negative); Ketones Urine Negative (Negative); Leukocyte Esterase Ur Negative LEU/UL (Negative); Nitrate Urine Negative (Negative); Protein Urine Negative (Negative); Urobilinogen Urine 0.2 mg/dL (<2.0); pH Urine 5.5 (5.0-9.0)
[2022-04-01 22:12] LABS: Add Urine Microscopic? NO
[2022-04-01 23:27] VITALS: BMI 25.6
--- NOTE | 2022-04-01 23:29 | ADMGEN ---
This patient, Keira Knott, was admitted to 3 [facility] Surg Room 304-02. Patient/family oriented to hospital policies and general routines including ID bracelet, bed and alarms, visiting hours, pain management, procedures, bathroom and other care routines, personal items, smoking policy, room service/diet, and visiting hours. Information on how to activate the Rapid Response Team has been discussed. Patient/Family are encouraged to report perceived risks to care and to ask questions if they do not understand what they are told or what they should do.
[2022-04-02] MEDS: SODIUM CHLORIDE 0.9% IV 1,000 ML 75 ML IV CONT ×2 (03:58→17:44)
[2022-04-02] MEDS: HYDROcodone/acetaminophen (*CRX) 5-325 MG TABLET 1 TAB PO ×2 (03:58→17:46)
[2022-04-02 06:00] VITALS: BP 126/48; PULSE 59; RESP 14; TEMP 36.1; O2SAT 93
[2022-04-02 06:49] LABS: Anion Gap 3 mmol/L (8-16); Blood Urea Nitrogen 12 mg/dL (7-17); Calcium 8.3 mg/dL (8.4-10.2); Carbon Dioxide 24 mmol/L (22-30); Chloride 109 mmol/L (98-107); Estimated CRCL calculation 63 ml/min; Estimated Glomerular Filt Rate > 60; Glucose 84 mg/dL (65-110); Potassium 3.8 mmol/L (3.4-5.0); Sodium 136 mmol/L (137-145)
[2022-04-02] MEDS: LEVOTHYROXINE SODIUM 75 MCG TABLET PO (07:35)
[2022-04-02] MEDS: IBUPROFEN 400 MG TABLET PO (09:31)
[2022-04-02] MEDS: CEFDINIR 300 MG CAPSULE PO ×2 (09:32→22:38)
[2022-04-02] MEDS: PREGABALIN (*CRX) 50 MG CAPSULE PO (09:32)
[2022-04-02] MEDS: polyethylene glycoL 3350 17 GM POWD.PACK PO (09:32)
[2022-04-02] MEDS: MEMANTINE 10 MG TABLET PO (09:33)
[2022-04-02] MEDS: POTASSIUM CHLORIDE 10 MEQ TABLET.ER PO (09:33)
[2022-04-02] MEDS: VENLAFAXINE HCL XR 75 MG CAP.ER.24H 150 MG PO (09:33)
[2022-04-02] MEDS: busPIRone HCL 10 MG TABLET PO ×3 (09:33→17:44)
[2022-04-02] MEDS: ENOXAPARIN 40 MG/0.4 ML SYRINGE SUB-Q (09:34)
[2022-04-02] MEDS: FOLIC ACID 1 MG TABLET PO (09:34)
[2022-04-02] MEDS: oxyCODONE HCL (*CRX) 5 MG TAB IR PO ×2 (11:02→23:14)
--- NOTE | 2022-04-02 11:25 | PM.IMPN ---
Progress Note: A&P Assessment and Plan (1) Right hip pain: Code(s): M25.551 - Pain in right hip Status: Acute Assessment and Plan: Had a right hip fracture recently, fixed on March 23 Discharge home yesterday, has difficulty to ambulate Patient needed assistance by her to walk a few steps Consult PT OT social media marketing manager, hospice case manager for evaluation of system placement Optimize pain managements (2) HTN (hypertension): Qualifiers: Hypertension type: essential hypertension Qualified Code(s): I10 - Essential (primary) hypertension Code(s): I10 - Essential (primary) hypertension Status: Acute Assessment and Plan: Continue home medication (3) Fibromyalgia: Code(s): M79.7 - Fibromyalgia Status: Acute Assessment and Plan: Continue pregabalin 50 mg a.m. and 75 mg q.h.s. (4) HLD (hyperlipidemia): Qualifiers: Hyperlipidemia type: mixed hyperlipidemia Qualified Code(s): E78.2 - Mixed hyperlipidemia Code(s): E78.5 - Hyperlipidemia, unspecified Status: Acute Assessment and Plan: Continue Lipitor 10 mg q.d. p.o. (5) Osteoarthritis: Code(s): M19.90 - Unspecified osteoarthritis, unspecified site Status: Acute Plan Recently diagnosed urinary retention because of UTI Continue cefdinir p.o. Continue rest of home medications for chronic medical issues Subjective Date/time seen: 04/02/22 11:25 Still having complaints of pain in the right hip and leg Exam Narrative: GENERAL: acute pain distress. Well-nourished. - EYES: EOMI. Anicteric. - HENT: Moist mucous membranes. - LUNGS: Clear to auscultation bilaterally, no wheezing, rhonchi, or rales. - CARDIOVASCULAR: Regular rate and rhythm. No murmur. No JVD. - ABDOMEN: Soft, non-tender and non-distended. No palpable masses. - EXTREMITIES: No edema. Peripheral pulses 2+. Non-tender. Right hip pain, right ankle pain - NEUROLOGIC: No focal neurological deficits. CN II-XII grossly intact. Multiple tenderness of whole-body - PSYCHIATRIC: Awake, Alert and oriented x 3. Anxious mood and affect. - SKIN: No rashes or lesions. Warm. - LYMPH: No cervical lymphadenopathy. Objective Data Vital Signs Vital Signs: Vital Signs - 24 hr 04/01/22 19:57 04/01/22 20:20 04/01/22 20:30 Temperature 97.6 F Pulse Rate 59 L 75 Respiratory Rate 20 18 Blood Pressure 164/74 H Pulse Oximetry 98 Oxygen Delivery 04/01/22 20:31 04/02/22 00:04 04/02/22 06:00 Temperature 97 F L Pulse Rate 59 L Respiratory Rate 20 14 Blood Pressure 167/75 H 126/48 L Pulse Oximetry 93 Oxygen Delivery Room Air 04/02/22 09:35 Temperature Pulse Rate Respiratory Rate Blood Pressure Pulse Oximetry Oxygen Delivery Room Air Intake/Output Intake/Output: Intake & Output 03/30/22 03/31/22 04/01/22 04/02/22 23:59 23:59 23:59 23:59 Intake Total 290 Output Total 90 Balance 200 Meds/Results Medications: Active Medications Generic Name Dose Route Start Last Admin Trade Name Freq PRN Reason Stop Dose Admin Acetaminophen 1,000 mg 04/02/22 05:55 Acetaminophen 500 Mg Tablet PO BID PRN Pain Rated 1-3 Hydrocodone Bitart/Acetaminophen 1 tab 04/01/22 21:29 04/02/22 03:58 Hydrocodone/Acetaminophen (*Crx) 5-325 Mg Tablet PO 1 tab Q4H PRN Administration Pain Rated 4-6 Aspirin 325 mg 04/02/22 21:00 Aspirin 325 Mg Enteric Tablet PO HS DEXTER Atorvastatin Calcium 10 mg 04/02/22 21:00 Atorvastatin 10 Mg Tablet PO HS DEXTER Buspirone HCl 10 mg 04/02/22 09:00 04/02/22 09:33 Buspirone Hcl 10 Mg Tablet PO 10 mg TID DEXTER Administration Cefdinir 300 mg 04/02/22 09:00 04/02/22 09:32 Cefdinir 300 Mg Capsule PO 04/05/22 21:01 300 mg Q12HR DEXTER Administration Enoxaparin Sodium 40 mg 04/02/22 09:00 04/02/22 09:34 Enoxaparin 40 Mg/0.4 Ml Syringe SUB-Q 40 mg DAILY [facility] Administratio
[2022-04-02 14:00] VITALS: BP 114/48; PULSE 58; RESP 18; TEMP 36; O2SAT 97
[2022-04-02 22:00] VITALS: BP 149/55; PULSE 65; RESP 16; TEMP 36.8; O2SAT 97
[2022-04-02] MEDS: ASPIRIN 325 MG ENTERIC TABLET PO (22:38)
[2022-04-02] MEDS: ATORVASTATIN 10 MG TABLET PO (22:38)
[2022-04-02] MEDS: diphenhydrAMINE HCl INJ 50 MG/ML VIAL 25 MG IV PUSH (23:13)
[2022-04-03 06:00] VITALS: BP 163/68; PULSE 61; RESP 16; TEMP 36.2; O2SAT 99
[2022-04-03] MEDS: LEVOTHYROXINE SODIUM 88 MCG TABLET PO (06:56)
[2022-04-03] MEDS: SODIUM CHLORIDE 0.9% IV 1,000 ML 75 ML IV CONT ×2 (06:57→21:12)
[2022-04-03] MEDS: ENOXAPARIN 40 MG/0.4 ML SYRINGE SUB-Q (08:07)
[2022-04-03] MEDS: polyethylene glycoL 3350 17 GM POWD.PACK PO (08:10)
[2022-04-03] MEDS: PREGABALIN (*CRX) 50 MG CAPSULE PO (08:12)
[2022-04-03] MEDS: busPIRone HCL 10 MG TABLET PO ×3 (08:12→16:52)
[2022-04-03] MEDS: CEFDINIR 300 MG CAPSULE PO ×2 (08:12→21:11)
[2022-04-03] MEDS: MEMANTINE 10 MG TABLET PO (08:13)
[2022-04-03] MEDS: FOLIC ACID 1 MG TABLET PO (08:13)
[2022-04-03] MEDS: POTASSIUM CHLORIDE 10 MEQ TABLET.ER PO (08:13)
[2022-04-03] MEDS: ACETAMINOPHEN 500 MG TABLET 1000 MG PO (08:31)
[2022-04-03] MEDS: HYDROcodone/acetaminophen (*CRX) 5-325 MG TABLET 1 TAB PO (09:47)
--- NOTE | 2022-04-03 12:33 | PM.IMPN ---
Progress Note: A&P Assessment and Plan (1) Right hip pain: Code(s): M25.551 - Pain in right hip Status: Acute Assessment and Plan: Had a right hip fracture recently, fixed on March 23 Discharge home yesterday, has difficulty to ambulate Patient needed assistance by her to walk a few steps Consult PT OT health care social worker, mental health case manager for evaluation of system placement Optimize pain managements (2) HTN (hypertension): Qualifiers: Hypertension type: essential hypertension Qualified Code(s): I10 - Essential (primary) hypertension Code(s): I10 - Essential (primary) hypertension Status: Acute Assessment and Plan: Continue home medication (3) Fibromyalgia: Code(s): M79.7 - Fibromyalgia Status: Acute Assessment and Plan: Continue pregabalin 50 mg a.m. and 75 mg q.h.s. (4) HLD (hyperlipidemia): Qualifiers: Hyperlipidemia type: mixed hyperlipidemia Qualified Code(s): E78.2 - Mixed hyperlipidemia Code(s): E78.5 - Hyperlipidemia, unspecified Status: Acute Assessment and Plan: Continue Lipitor 10 mg q.d. p.o. (5) Osteoarthritis: Code(s): M19.90 - Unspecified osteoarthritis, unspecified site Status: Acute Plan Recently diagnosed urinary retention because of UTI Continue cefdinir p.o. Continue rest of home medications for chronic medical issues Subjective Date/time seen: 04/03/22 12:33 Still complaining of pain Exam Narrative: GENERAL: acute pain distress. Well-nourished. - EYES: EOMI. Anicteric. - HENT: Moist mucous membranes. - LUNGS: Clear to auscultation bilaterally, no wheezing, rhonchi, or rales. - CARDIOVASCULAR: Regular rate and rhythm. No murmur. No JVD. - ABDOMEN: Soft, non-tender and non-distended. No palpable masses. - EXTREMITIES: No edema. Peripheral pulses 2+. Non-tender. Right hip pain, right ankle pain - NEUROLOGIC: No focal neurological deficits. CN II-XII grossly intact. Multiple tenderness of whole-body - PSYCHIATRIC: Awake, Alert and oriented x 3. Anxious mood and affect. - SKIN: No rashes or lesions. Warm. - LYMPH: No cervical lymphadenopathy. Objective Data Vital Signs Vital Signs: Vital Signs - 24 hr 04/02/22 14:00 04/02/22 22:00 04/03/22 06:00 Temperature 96.8 F L 98.2 F 97.2 F L Pulse Rate 58 L 65 61 Respiratory Rate 18 16 16 Blood Pressure 114/48 L 149/55 H 163/68 H Pulse Oximetry 97 97 99 Intake/Output Intake/Output: Intake & Output 03/31/22 04/01/22 04/02/22 04/03/22 23:59 23:59 23:59 23:59 Intake Total 1930 1900 Output Total 90 250 Balance 1840 1650 Meds/Results Medications: Active Medications Generic Name Dose Route Start Last Admin Trade Name Freq PRN Reason Stop Dose Admin Acetaminophen 1,000 mg 04/02/22 05:55 04/03/22 08:31 Acetaminophen 500 Mg Tablet PO 1,000 mg BID PRN Administration Pain Rated 1-3 Hydrocodone Bitart/Acetaminophen 1 tab 04/01/22 21:29 04/03/22 09:47 Hydrocodone/Acetaminophen (*Crx) 5-325 Mg Tablet PO 1 tab Q4H PRN Administration Pain Rated 4-6 Aspirin 325 mg 04/02/22 21:00 04/02/22 22:38 Aspirin 325 Mg Enteric Tablet PO 325 mg HS DEXTER Administration Atorvastatin Calcium 10 mg 04/02/22 21:00 04/02/22 22:38 Atorvastatin 10 Mg Tablet PO 10 mg HS DEXTER Administration Buspirone HCl 10 mg 04/02/22 09:00 04/03/22 12:21 Buspirone Hcl 10 Mg Tablet PO 10 mg TID DEXTER Administration Cefdinir 300 mg 04/02/22 09:00 04/03/22 08:12 Cefdinir 300 Mg Capsule PO 04/05/22 21:01 300 mg Q12HR DEXTER Administration Enoxaparin Sodium 40 mg 04/02/22 09:00 04/03/22 08:07 Enoxaparin 40 Mg/0.4 Ml Syringe SUB-Q 40 mg DAILY DEXTER Administration Folic Acid 1 mg 04/02/22 09:00 04/03/22 08:13 Folic Acid 1 Mg Tablet PO 1 mg DAILY DEXTER Administration Furosemide 20 mg 04/02/22 05:55 Furosemide 20 Mg Tablet PO DAILY PRN Edema
[2022-04-03 14:00] VITALS: BP 145/65; PULSE 58; RESP 16; TEMP 37.1; O2SAT 100
[2022-04-03] MEDS: TOLNAFTATE 1% POWDER 45 GM BTL 1 APPLIC TOPICAL (18:39)
[2022-04-03] MEDS: VENLAFAXINE HCL XR 75 MG CAP.ER.24H 150 MG PO (21:10)
[2022-04-03] MEDS: HYDROcodone/acetaminophen (*CRX) 10-325 MG TABLET 1 TAB PO (21:11)
[2022-04-03] MEDS: ASPIRIN 325 MG ENTERIC TABLET PO (21:11)
[2022-04-03] MEDS: ATORVASTATIN 10 MG TABLET PO (21:11)
[2022-04-03 22:00] VITALS: BP 164/66; PULSE 65; RESP 18; TEMP 36.6; O2SAT 100
[2022-04-04 06:00] VITALS: BP 168/62; PULSE 66; RESP 20; TEMP 36.1; O2SAT 91
[2022-04-04] MEDS: LEVOTHYROXINE SODIUM 75 MCG TABLET PO (06:24)
[2022-04-04] MEDS: ONDANSETRON INJ 4 MG/2 ML VIAL IV PUSH ×2 (09:07→21:19)
[2022-04-04] MEDS: ENOXAPARIN 40 MG/0.4 ML SYRINGE SUB-Q (09:10)
[2022-04-04] MEDS: CEFDINIR 300 MG CAPSULE PO ×2 (09:14→21:38)
[2022-04-04] MEDS: FOLIC ACID 1 MG TABLET PO (09:15)
[2022-04-04] MEDS: busPIRone HCL 10 MG TABLET PO ×3 (09:15→16:15)
[2022-04-04] MEDS: POTASSIUM CHLORIDE 10 MEQ TABLET.ER PO (09:15)
[2022-04-04] MEDS: PREGABALIN (*CRX) 50 MG CAPSULE PO (09:15)
[2022-04-04] MEDS: MEMANTINE 10 MG TABLET PO (09:16)
[2022-04-04] MEDS: ACETAMINOPHEN 500 MG TABLET 1000 MG PO (09:22)
[2022-04-04] MEDS: SODIUM CHLORIDE 0.9% IV 1,000 ML 75 ML IV CONT ×2 (09:56→21:37)
[2022-04-04] MEDS: TOLNAFTATE 1% POWDER 45 GM BTL 1 APPLIC TOPICAL (10:33)
[2022-04-04] MEDS: HYDROcodone/acetaminophen (*CRX) 10-325 MG TABLET 1 TAB PO ×2 (10:34→16:17)
--- NOTE | 2022-04-04 10:39 | PM.IMPN ---
Progress Note: A&P Assessment and Plan (1) Right hip pain: Code(s): M25.551 - Pain in right hip Status: Acute Assessment and Plan: Had a right hip fracture recently, fixed on March 23 Discharge home yesterday, has difficulty to ambulate Patient needed assistance by her to walk a few steps Consult PT OT social media marketing specialist, case supervisor for evaluation of system placement Optimize pain managements (2) HTN (hypertension): Qualifiers: Hypertension type: essential hypertension Qualified Code(s): I10 - Essential (primary) hypertension Code(s): I10 - Essential (primary) hypertension Status: Acute Assessment and Plan: Continue home medication (3) Fibromyalgia: Code(s): M79.7 - Fibromyalgia Status: Acute Assessment and Plan: Continue pregabalin 50 mg a.m. and 75 mg q.h.s. (4) HLD (hyperlipidemia): Qualifiers: Hyperlipidemia type: mixed hyperlipidemia Qualified Code(s): E78.2 - Mixed hyperlipidemia Code(s): E78.5 - Hyperlipidemia, unspecified Status: Acute Assessment and Plan: Continue Lipitor 10 mg q.d. p.o. (5) Osteoarthritis: Code(s): M19.90 - Unspecified osteoarthritis, unspecified site Status: Acute Plan Recently diagnosed urinary retention because of UTI Continue cefdinir p.o. Continue rest of home medications for chronic medical issues Subjective Date/time seen: 04/04/22 10:39 Right hip pain is improved Exam Narrative: GENERAL: acute pain distress. Well-nourished. - EYES: EOMI. Anicteric. - HENT: Moist mucous membranes. - LUNGS: Clear to auscultation bilaterally, no wheezing, rhonchi, or rales. - CARDIOVASCULAR: Regular rate and rhythm. No murmur. No JVD. - ABDOMEN: Soft, non-tender and non-distended. No palpable masses. - EXTREMITIES: No edema. Peripheral pulses 2+. Non-tender. Right hip pain, right ankle pain - NEUROLOGIC: No focal neurological deficits. CN II-XII grossly intact. Multiple tenderness of whole-body - PSYCHIATRIC: Awake, Alert and oriented x 3. Anxious mood and affect. - SKIN: No rashes or lesions. Warm. - LYMPH: No cervical lymphadenopathy. Objective Data Vital Signs Vital Signs: Vital Signs - 24 hr 04/03/22 14:00 04/03/22 22:00 04/04/22 06:00 Temperature 98.7 F 97.8 F 96.9 F L Pulse Rate 58 L 65 66 Respiratory Rate 16 18 20 Blood Pressure 145/65 H 164/66 H 168/62 H Pulse Oximetry 100 100 91 Intake/Output Intake/Output: Intake & Output 04/01/22 04/02/22 04/03/22 04/04/22 23:59 23:59 23:59 23:59 Intake Total 1930 3890 1440 Output Total 90 250 Balance 1840 3640 1440 Meds/Results Medications: Active Medications Generic Name Dose Route Start Last Admin Trade Name Freq PRN Reason Stop Dose Admin Acetaminophen 1,000 mg 04/02/22 05:55 04/04/22 09:22 Acetaminophen 500 Mg Tablet PO 1,000 mg BID PRN Administration Pain Rated 1-3 Hydrocodone Bitart/Acetaminophen 1 tab 04/03/22 12:34 04/04/22 10:34 Hydrocodone/Acetaminophen (*Crx) 10-325 Mg Tablet PO 1 tab Q4H PRN Administration Pain Rated 4-6 Aspirin 325 mg 04/02/22 21:00 04/03/22 21:11 Aspirin 325 Mg Enteric Tablet PO 325 mg HS DEXTER Administration Atorvastatin Calcium 10 mg 04/02/22 21:00 04/03/22 21:11 Atorvastatin 10 Mg Tablet PO 10 mg HS DEXTER Administration Buspirone HCl 10 mg 04/02/22 09:00 04/04/22 09:15 Buspirone Hcl 10 Mg Tablet PO 10 mg TID DEXTER Administration Cefdinir 300 mg 04/02/22 09:00 04/04/22 09:14 Cefdinir 300 Mg Capsule PO 04/05/22 21:01 300 mg Q12HR DEXTER Administration Enoxaparin Sodium 40 mg 04/02/22 09:00 04/04/22 09:10 Enoxaparin 40 Mg/0.4 Ml Syringe SUB-Q 40 mg DAILY DEXTER Administration Folic Acid 1 mg 04/02/22 09:00 04/04/22 09:15 Folic Acid 1 Mg Tablet PO 1 mg DAILY DEXTER Administration Furosemide 20 mg 04/02/22 05:55 Furosemide 20 Mg Tablet PO DAILY PRN
[2022-04-04 14:15] VITALS: BP 173/64; PULSE 63; RESP 14; TEMP 36.9; O2SAT 94
[2022-04-04] MEDS: VENLAFAXINE HCL XR 75 MG CAP.ER.24H 150 MG PO (21:30)
[2022-04-04] MEDS: IBUPROFEN 400 MG TABLET PO (21:37)
[2022-04-04] MEDS: ATORVASTATIN 10 MG TABLET PO (21:39)
[2022-04-04] MEDS: ASPIRIN 325 MG ENTERIC TABLET PO (21:39)
[2022-04-04] MEDS: LIDOCAINE 5% PATCH 1 PATCH TOPICAL (21:40)
[2022-04-04 22:00] VITALS: BP 177/59; PULSE 58; RESP 16; TEMP 36.7; O2SAT 100
[2022-04-05] MEDS: LEVOTHYROXINE SODIUM 88 MCG TABLET PO (05:26)
[2022-04-05 05:31] VITALS: BP 122/48; PULSE 88; RESP 16; TEMP 36.7; O2SAT 97
[2022-04-05] MEDS: ACETAMINOPHEN 500 MG TABLET 1000 MG PO (10:12)
[2022-04-05] MEDS: busPIRone HCL 10 MG TABLET PO ×3 (10:13→16:25)
[2022-04-05] MEDS: polyethylene glycoL 3350 17 GM POWD.PACK PO (10:13)
[2022-04-05] MEDS: CEFDINIR 300 MG CAPSULE PO ×2 (10:13→22:33)
[2022-04-05] MEDS: ENOXAPARIN 40 MG/0.4 ML SYRINGE SUB-Q (10:13)
[2022-04-05] MEDS: PREGABALIN (*CRX) 50 MG CAPSULE PO (10:13)
[2022-04-05] MEDS: FOLIC ACID 1 MG TABLET PO (10:13)
--- NOTE | 2022-04-05 11:20 | PM.IMPN ---
Progress Note: A&P Assessment and Plan (1) Right hip pain: Code(s): M25.551 - Pain in right hip Status: Acute Assessment and Plan: Had a right hip fracture recently, fixed on March 23 Discharge home yesterday, has difficulty to ambulate Patient needed assistance by her to walk a few steps Consult PT OT criminal justice social worker, returned case inspector for evaluation of system placement Optimize pain managements (2) HTN (hypertension): Qualifiers: Hypertension type: essential hypertension Qualified Code(s): I10 - Essential (primary) hypertension Code(s): I10 - Essential (primary) hypertension Status: Acute Assessment and Plan: Continue home medication (3) Fibromyalgia: Code(s): M79.7 - Fibromyalgia Status: Acute Assessment and Plan: Continue pregabalin 50 mg a.m. and 75 mg q.h.s. (4) HLD (hyperlipidemia): Qualifiers: Hyperlipidemia type: mixed hyperlipidemia Qualified Code(s): E78.2 - Mixed hyperlipidemia Code(s): E78.5 - Hyperlipidemia, unspecified Status: Acute Assessment and Plan: Continue Lipitor 10 mg q.d. p.o. (5) Osteoarthritis: Code(s): M19.90 - Unspecified osteoarthritis, unspecified site Status: Acute Plan Recently diagnosed urinary retention because of UTI Continue cefdinir p.o. Continue rest of home medications for chronic medical issues Subjective Date/time seen: 04/05/22 11:20 no complaints Exam Narrative: GENERAL: acute pain distress. Well-nourished. - EYES: EOMI. Anicteric. - HENT: Moist mucous membranes. - LUNGS: Clear to auscultation bilaterally, no wheezing, rhonchi, or rales. - CARDIOVASCULAR: Regular rate and rhythm. No murmur. No JVD. - ABDOMEN: Soft, non-tender and non-distended. No palpable masses. - EXTREMITIES: No edema. Peripheral pulses 2+. Non-tender. Right hip pain, right ankle pain - NEUROLOGIC: No focal neurological deficits. CN II-XII grossly intact. Multiple tenderness of whole-body - PSYCHIATRIC: Awake, Alert and oriented x 3. Anxious mood and affect. - SKIN: No rashes or lesions. Warm. - LYMPH: No cervical lymphadenopathy. Objective Data Vital Signs Vital Signs: Vital Signs - 24 hr 04/04/22 14:15 04/04/22 22:00 04/05/22 05:31 Temperature 98.5 F 98.1 F 98.1 F Pulse Rate 63 58 L 88 Respiratory Rate 14 16 16 Blood Pressure 173/64 H 177/59 H 122/48 L Pulse Oximetry 94 100 97 Intake/Output Intake/Output: Intake & Output 04/02/22 04/03/22 04/04/22 04/05/22 23:59 23:59 23:59 23:59 Intake Total 1930 3890 2440 Output Total 90 250 Balance 1840 3640 2440 Meds/Results Medications: Active Medications Generic Name Dose Route Start Last Admin Trade Name Freq PRN Reason Stop Dose Admin Acetaminophen 1,000 mg 04/02/22 05:55 04/05/22 10:12 Acetaminophen 500 Mg Tablet PO 1,000 mg BID PRN Administration Pain Rated 1-3 Hydrocodone Bitart/Acetaminophen 1 tab 04/03/22 12:34 04/04/22 16:17 Hydrocodone/Acetaminophen (*Crx) 10-325 Mg Tablet PO 1 tab Q4H PRN Administration Pain Rated 4-6 Aspirin 325 mg 04/02/22 21:00 04/04/22 21:39 Aspirin 325 Mg Enteric Tablet PO 325 mg HS DEXTER Administration Atorvastatin Calcium 10 mg 04/02/22 21:00 04/04/22 21:39 Atorvastatin 10 Mg Tablet PO 10 mg HS DEXTER Administration Buspirone HCl 10 mg 04/02/22 09:00 04/05/22 10:13 Buspirone Hcl 10 Mg Tablet PO 10 mg TID DEXTER Administration Cefdinir 300 mg 04/02/22 09:00 04/05/22 10:13 Cefdinir 300 Mg Capsule PO 04/05/22 21:01 300 mg Q12HR DEXTER Administration Enoxaparin Sodium 40 mg 04/02/22 09:00 04/05/22 10:13 Enoxaparin 40 Mg/0.4 Ml Syringe SUB-Q 40 mg DAILY DEXTER Administration Folic Acid 1 mg 04/02/22 09:00 04/05/22 10:13 Folic Acid 1 Mg Tablet PO 1 mg DAILY DEXTER Administration Furosemide 20 mg 04/02/22 05:55 Furosemide 20 Mg Tablet PO DAILY PRN Edema Sodiu
[2022-04-05] MEDS: HYDROcodone/acetaminophen (*CRX) 10-325 MG TABLET 1 TAB PO (13:14)
--- NOTE | 2022-04-05 13:17 | PCOTNOTE ---
Attempted to see patient this pm, however patient refused due to pain. RN present with pain medicine at this time.
[2022-04-05 14:00] VITALS: BP 144/51; PULSE 63; RESP 16; TEMP 36.5; O2SAT 96
--- NOTE | 2022-04-05 14:51 | PC.NURSE ---
Called pharmacy at 1012 regarding patients one time dose of potassium as we do not have that dosage on this unit. Energy Infrastructure Engineer left a voicemail. Energy Infrastructure Engineer called again at 1450 as dose has still not been sent up for patient and left a voicemail.
[2022-04-05] MEDS: POTASSIUM CHLORIDE 10 MEQ TABLET.ER PO (16:24)
[2022-04-05 22:25] VITALS: BP 182/59; PULSE 60; RESP 16; TEMP 36.4; O2SAT 100
[2022-04-05] MEDS: LIDOCAINE 5% PATCH 1 PATCH TOPICAL (22:31)
[2022-04-05] MEDS: VENLAFAXINE HCL XR 75 MG CAP.ER.24H 150 MG PO (22:31)
[2022-04-05] MEDS: ASPIRIN 325 MG ENTERIC TABLET PO (22:31)
[2022-04-05] MEDS: IBUPROFEN 400 MG TABLET PO (22:32)
[2022-04-05] MEDS: ATORVASTATIN 10 MG TABLET PO (22:33)
[2022-04-06 05:14] VITALS: BP 160/59; PULSE 64; RESP 16; TEMP 36.1; O2SAT 95
[2022-04-06] MEDS: HYDROcodone/acetaminophen (*CRX) 10-325 MG TABLET 1 TAB PO ×3 (06:35→20:26)
[2022-04-06] MEDS: LEVOTHYROXINE SODIUM 75 MCG TABLET PO (06:35)
--- NOTE | 2022-04-06 09:36 | PCPTNOTE ---
Attempted to see patient for Physical Therapy this AM. Patient's was in the room and stated that now was not a good time to try therapy. Patient was laying in bed and crying. Therapist discussed with patient's that they would try to come back later. RN notified and stated that they were trying to get the medications that patient needs.
[2022-04-06] MEDS: POTASSIUM CHLORIDE 10 MEQ TABLET.ER PO (10:05)
[2022-04-06] MEDS: busPIRone HCL 10 MG TABLET PO ×3 (10:05→18:31)
[2022-04-06] MEDS: ENOXAPARIN 40 MG/0.4 ML SYRINGE SUB-Q (10:06)
[2022-04-06] MEDS: polyethylene glycoL 3350 17 GM POWD.PACK PO (10:06)
[2022-04-06] MEDS: PREGABALIN (*CRX) 50 MG CAPSULE PO (10:06)
[2022-04-06] MEDS: FOLIC ACID 1 MG TABLET PO (10:06)
[2022-04-06] MEDS: sulfaSALAzine 500 MG TABLET PO ×3 (10:07→18:31)
[2022-04-06 10:51] VITALS: O2SAT 97
--- NOTE | 2022-04-06 10:53 | PM.IMPN ---
Progress Note: A&P Assessment and Plan (1) Right hip pain: Code(s): M25.551 - Pain in right hip Status: Acute Assessment and Plan: Had a right hip fracture recently, fixed on March 23 Discharge home yesterday, has difficulty to ambulate Patient needed assistance by her to walk a few steps Consult PT OT social and political studies professor, case operator for evaluation of system placement Optimize pain medications (2) HTN (hypertension): Qualifiers: Hypertension type: essential hypertension Qualified Code(s): I10 - Essential (primary) hypertension Code(s): I10 - Essential (primary) hypertension Status: Acute Assessment and Plan: Continue home medication (3) Fibromyalgia: Code(s): M79.7 - Fibromyalgia Status: Acute Assessment and Plan: Continue pregabalin 50 mg a.m. and 75 mg q.h.s. (4) HLD (hyperlipidemia): Qualifiers: Hyperlipidemia type: mixed hyperlipidemia Qualified Code(s): E78.2 - Mixed hyperlipidemia Code(s): E78.5 - Hyperlipidemia, unspecified Status: Acute Assessment and Plan: Continue Lipitor 10 mg q.d. p.o. (5) Osteoarthritis: Code(s): M19.90 - Unspecified osteoarthritis, unspecified site Status: Acute Assessment and Plan: Will resume mesalamine. Subjective Date/time seen: 04/06/22 10:53 Complaining of worsening of her fibromyalgia today. Having leg pain and arm pain, and pain all over. Exam Narrative: GENERAL: acute pain distress. Well-nourished. - EYES: EOMI. Anicteric. - HENT: Moist mucous membranes. - LUNGS: Clear to auscultation bilaterally, no wheezing, rhonchi, or rales. - CARDIOVASCULAR: Regular rate and rhythm. No murmur. No JVD. - ABDOMEN: Soft, non-tender and non-distended. No palpable masses. - EXTREMITIES: No edema. Peripheral pulses 2+. Non-tender. Right hip pain, right ankle pain - NEUROLOGIC: No focal neurological deficits. CN II-XII grossly intact. Multiple tenderness of whole-body - PSYCHIATRIC: Awake, Alert and oriented x 3. Anxious mood and affect. - SKIN: No rashes or lesions. Warm. - LYMPH: No cervical lymphadenopathy. Objective Data Vital Signs Vital Signs: Vital Signs - 24 hr 04/05/22 14:00 04/05/22 22:25 04/06/22 05:14 Temperature 97.7 F 97.5 F L 97.0 F L Pulse Rate 63 60 64 Respiratory Rate 16 16 16 Blood Pressure 144/51 H 182/59 H 160/59 H Pulse Oximetry 96 100 95 Oxygen Delivery 04/06/22 10:51 Temperature Pulse Rate Respiratory Rate Blood Pressure Pulse Oximetry 97 Oxygen Delivery Room Air Intake/Output Intake/Output: Intake & Output 04/03/22 04/04/22 04/05/22 04/06/22 23:59 23:59 23:59 23:59 Intake Total 3890 2440 1080 Output Total 250 Balance 3640 2440 1080 Meds/Results Medications: Active Medications Generic Name Dose Route Start Last Admin Trade Name Freq PRN Reason Stop Dose Admin Acetaminophen 1,000 mg 04/02/22 05:55 04/05/22 10:12 Acetaminophen 500 Mg Tablet PO 1,000 mg BID PRN Administration Pain Rated 1-3 Hydrocodone Bitart/Acetaminophen 1 tab 04/03/22 12:34 04/06/22 06:35 Hydrocodone/Acetaminophen (*Crx) 10-325 Mg Tablet PO 1 tab Q4H PRN Administration Pain Rated 4-6 Aspirin 325 mg 04/02/22 21:00 04/05/22 22:31 Aspirin 325 Mg Enteric Tablet PO 325 mg HS DEXTER Administration Atorvastatin Calcium 10 mg 04/02/22 21:00 04/05/22 22:33 Atorvastatin 10 Mg Tablet PO 10 mg HS DEXTER Administration Buspirone HCl 10 mg 04/02/22 09:00 04/06/22 10:05 Buspirone Hcl 10 Mg Tablet PO 10 mg TID DEXTER Administration Enoxaparin Sodium 40 mg 04/02/22 09:00 04/06/22 10:06 Enoxaparin 40 Mg/0.4 Ml Syringe SUB-Q 40 mg DAILY DEXTER Administration Folic Acid 1 mg 04/02/22 09:00 04/06/22 10:06 Folic Acid 1 Mg Tablet PO 1 mg DAILY DEXTER Administration Furosemide 20 mg 04/02/22 05:55 Furosemide 20 Mg Tablet PO DAILY PRN Edema
--- NOTE | 2022-04-06 13:40 | PCPTNOTE ---
Attempted to see patient for PT, however patient was working with OT at this time.
[2022-04-06 14:00] VITALS: BP 124/54; PULSE 60; RESP 26; TEMP 36.3; O2SAT 98
[2022-04-06] MEDS: ASPIRIN 325 MG ENTERIC TABLET PO (20:26)
[2022-04-06] MEDS: VENLAFAXINE HCL XR 75 MG CAP.ER.24H 150 MG PO (20:26)
[2022-04-06] MEDS: ATORVASTATIN 10 MG TABLET PO (20:27)
[2022-04-06 21:21] VITALS: BP 159/63; PULSE 63; RESP 16; TEMP 36.4; O2SAT 100
[2022-04-07 05:45] VITALS: BP 155/62; PULSE 61; RESP 16; TEMP 36.8; O2SAT 100
[2022-04-07] MEDS: ACETAMINOPHEN 500 MG TABLET 1000 MG PO (06:31)
[2022-04-07] MEDS: LEVOTHYROXINE SODIUM 88 MCG TABLET PO (06:31)
[2022-04-07] MEDS: HYDROcodone/acetaminophen (*CRX) 10-325 MG TABLET 1 TAB PO (10:35)
[2022-04-07] MEDS: LIDOCAINE 5% PATCH 1 PATCH TOPICAL (10:43)
[2022-04-07] MEDS: FOLIC ACID 1 MG TABLET PO (10:45)
[2022-04-07] MEDS: sulfaSALAzine 500 MG TABLET PO ×3 (10:45→16:29)
[2022-04-07] MEDS: ENOXAPARIN 40 MG/0.4 ML SYRINGE SUB-Q (10:46)
[2022-04-07] MEDS: PREGABALIN (*CRX) 50 MG CAPSULE PO (10:46)
[2022-04-07] MEDS: POTASSIUM CHLORIDE 10 MEQ TABLET.ER PO (10:46)
[2022-04-07] MEDS: busPIRone HCL 10 MG TABLET PO ×3 (10:46→16:29)
--- NOTE | 2022-04-07 11:30 | PCOTNOTE ---
Attempted to see patient this am, however PT advertising sales assistant outside patient's room just completed physical therapy. PT advertising sales assistant reported patient having a lot of pain and has limited participation at this time. Pt not seen for this reason to give patient time to rest.
[2022-04-07 14:00] VITALS: BP 118/49; PULSE 62; RESP 20; TEMP 36.4; O2SAT 96
[2022-04-07 14:03] LABS: Appearance Urine Slightly Cloudy (Clear); Bilirubin Urine Negative (Negative); Blood Urine Negative (Negative); Color Urine Yellow (Yellow); Glucose Urine UA Negative (Negative); Ketones Urine Negative (Negative); Leukocyte Esterase Ur Trace LEU/UL (Negative); Nitrate Urine Negative (Negative); Protein Urine Negative (Negative); Specific Grav Ur 1.015 (1.001-1.035); Urobilinogen Urine 0.2 mg/dL (<2.0)
[2022-04-07 14:26] LABS: RBC Urine 0-2 /hpf (0-2); Squamous Epithelial Cell Urine Rare /hpf (Few); WBC Urine 0-3 /hpf
[2022-04-07 14:32] LABS: Add Urine Microscopic? YES
--- NOTE | 2022-04-07 15:45 | PM.DS ---
DS: Admitting Diagnosis Discharge Date 04/07/22 Admitting Diagnosis Right hip pain, difficult to ambulate DS: Discharge Diagnosis Discharge Diagnosis (1) Right hip pain: Code(s): M25.551 - Pain in right hip Status: Acute (2) HTN (hypertension): Qualifiers: Hypertension type: essential hypertension Qualified Code(s): I10 - Essential (primary) hypertension Code(s): I10 - Essential (primary) hypertension Status: Acute (3) Fibromyalgia: Code(s): M79.7 - Fibromyalgia Status: Acute (4) HLD (hyperlipidemia): Qualifiers: Hyperlipidemia type: mixed hyperlipidemia Qualified Code(s): E78.2 - Mixed hyperlipidemia Code(s): E78.5 - Hyperlipidemia, unspecified Status: Acute (5) Osteoarthritis: Code(s): M19.90 - Unspecified osteoarthritis, unspecified site Status: Acute (6) Subcapital fracture of femur: Qualifiers: Encounter type: subsequent encounter Fracture healing: with routine healing Fracture type: closed Laterality: right Qualified Code(s): S72.011D - Unspecified intracapsular fracture of right femur, subsequent encounter for closed fracture with routine healing Code(s): S72.019A - Unspecified intracapsular fracture of unspecified femur, initial encounter for closed fracture Status: Acute DS: Summary Hospital Course Reason for hospitalization: 87yo female with recent right femur fracture s/p repair who returns for increased right hip pain. Please see H&P for details. Hospital Course: Patient was hospitalized for right femur fracture after a fall s/p surgical repair. She returned one day after being discharged due to difficulty ambulating. UA prior to discharge was positive and she was discharged home on Omnicef. Xray showing transcervical fracture of right femoral neck with internal fixation, stable from 03/23/2022. CBC was normal. Influenza, RSV and COVID negative. UCx from the prior hospitalization returned ESBL EColi. She completed a course of Omnicef. UA was clear on admission; UA repeated off abx and urine remained clear. The ESBL EColi probably was a contaminated specimen and not a true UTI. She worked with PT/OT. She was approved and was discharged to SNF on 04/07/22 it stable condition. was worried that the patient's anxiety was not well treated but this improved during her hospital stay. . Status at Discharge Cognitive/behavioral status at discharge: stable Time Spent with Patient Time attestation: Total time spent providing and/or coordinating discharge services: 37 minutes Time spent: Greater than 30 minutes Exam Narrative: Gen - NARD Chest - CTA bilaterally CV - RRR S1/S2 Abd - soft, NT/ND, +BS Ext - No pedal edema, right hip dressing clean and dry Psych - alert, nml mood and affect Skin - warm and dry DS: Data Data Completed and Pending Labs on day of discharge: Labs from last 24 hours 04/07/22 13:53 Urine Color Yellow Urine Appearance Slightly cloudy Urine pH 7.0 Ur Specific [place]kel[place] 1.015 Urine Protein Negative Urine Glucose (UA) Negative Urine Ketones Negative Ur Blood (Man) Negative Urine Nitrate Negative Urine Bilirubin Negative Urine Urobilinogen 0.2 Leukocyte Esterase Rfl Trace H Urine RBC 0-2 Urine WBC 0-3 Ur Squamous Epith Cells Rare Discharge Plan Discharge Attending physician on discharge: Obinna Austin Discharging Clinician: Obinna Austin Anticipated Discharge Date/Time: 04/07/22 15:49 Patient Disposition: SNF Activity: may shower, no driving and follow weight bearing status Diet: regular Discharge Instructions: Postoperative Hip Fracture Instructions Dr. Basil Chiu [phone] Dressing to be changed daily with an island dressing beginning on post op day #2. May stop dressing changes at post op day #14. No sutures/chely will need to be removed. Can allow Dermabond to fall off naturall
[2022-04-07 16:29] LABS: EDCOVIDSCREEN Negative (Negative)
== END 2022-04-07 17:45 ==
LOC: ANHED 21:41 → ANH3MEDSUR 04-02 02:55
PROVIDERS: Admitting Provider Hospitalist; Emergency Provider Family Medicine; PCP Family Medicine; Visit Provider Internal Medicine
DX: M25.551 Pain in right hip (principal); S72.031D Displaced midcervical fracture of right femur, subsequent encounter for closed fracture with routine healing; Z98.890 Other specified postprocedural states; I10 Essential (primary) hypertension; M79.7 Fibromyalgia; E78.5 Hyperlipidemia, unspecified; M16.11 Unilateral primary osteoarthritis, right hip; R10.9 Unspecified abdominal pain; M79.604 Pain in right leg; Z20.822 Contact with and (suspected) exposure to COVID-19; R53.1 Weakness; R29.6 Repeated falls; N39.0 Urinary tract infection, site not specified; F32.A Depression, unspecified; R30.0 Dysuria; R35.0 Frequency of micturition; F41.9 Anxiety disorder, unspecified; E03.9 Hypothyroidism, unspecified; G62.9 Polyneuropathy, unspecified; M72.2 Plantar fascial fibromatosis; I73.00 Raynaud's syndrome without gangrene; Z82.49 Family history of ischemic heart disease and other diseases of the circulatory system; Z82.61 Family history of arthritis; Z87.39 Personal history of other diseases of the musculoskeletal system and connective tissue; Z79.891 Long term (current) use of opiate analgesic; Z79.1 Long term (current) use of non-steroidal anti-inflammatories (NSAID); Z79.82 Long term (current) use of aspirin; Z79.899 Other long term (current) drug therapy
CPT/HCPCS: 36415; 73501; 73552; 80048; 81001; 81003; 85025; 87426; 87637; 96361; 96372; 96374; 96375; 96376; 97110; 97116; 97161; 97166; 97530; 97535; 99285; A9270; C9803; G0378; J1200; J1650; J2270; J2405; J7030

== ENCOUNTER 2022-04-15 08:50 | Emergency (ER) | payer MEDICARE, SELFPAY ==
[2022-04-15] VITALS (7 sets, daily range): BP systolic 140–186; BP diastolic 62–75; PULSE 57–64; RESP 16–21; TEMP 36.9; O2SAT 93–99
--- NOTE | ~2022-04-15 | CT_ITS ---
EXAMINATION: CT brain wo con INDICATION: Altered mental status COMPARISON: 03/21/2022 TECHNIQUE: Standard unenhanced head CT. The dose-length product (DLP) was 605.33 mGy-cm. The mA was a djusted according to patient size. Iterative reconstruction technique was employed. FINDINGS: There is no acute intraparenchymal hemorrhage. No evidence of mass lesion. No evidence of a cute infarction. There is old lacunar infarct of the left basal ganglia. There is mild periventricula r and subcortical hypodensity probably related to small vessel ischemic disease. There is mild promin ence of the sulci and ventricles related to cerebral atrophy. Intracranial calcified cerebral atheros clerosis is noted. There are no extra-axial collections. There is no mass effect or midline shift. Ch anges in the globes are likely from ocular lens surgery. The visualized sinuses and mastoid air cells are well aerated. IMPRESSION: 1. No acute intracranial abnormality. 2. Age related findings. Reviewed, dictated and finalized at location L. GE BOOTH ATTENDANT
--- NOTE | 2022-04-15 09:09 | ED.GENADULT ---
HPI - General Adult General Chief complaint: Altered Mental Status Stated complaint: hallucinations Time Seen by Provider: 04/15/22 09:00 Source: patient, family and old records reviewed Mode of arrival: EMS Limitations: no limitations History of Present Illness HPI narrative: Patient is an 87-year-old female presents to the ED via EMS with report of confusion. at bedside assisted in providing information. Patient had right hip surgery [address] Chiu after a fall. She has been admitted to the hospital here since then for intractable pain. reports patient also has a history of a previous fall in 2020 with several vertebral fractures and has chronic issues with pain. Patient is currently residing in [facility] for rehab. She is prescribed oxycodone 5 mg every 4 hours as needed for pain. Patient had a pain pill at approximately 5 AM this morning per [facility] report. This am, [facility] staff then noted patient to be hallucinating and talking to people who were not there in her room without the lights on. reports she was talking to and calling out for her father, who is . believes the patient was actually intending to call out for him. EMS was then called to bring the patient here. Patient denies feeling confused. She is A&O X3 currently. Patient denies any acute complaints. She denies any changes of her chronic pain. Denies vision changes, nausea, vomiting, chest pain, difficulty breathing, abdominal pain, fever, cough, cold sx's, focal weakness, dizziness, lightheadedness, RUSSELL, slurred speech, dysphagia, dysarthria. Related Data Home Medications Medication Instructions Recorded Confirmed ipratropium bromide 21 mcg (0.03 2 spray intranasal TID PRN 03/21/22 04/02/22 %) nasal spray Congestion acetaminophen 500 mg tablet 1,000 mg PO BID PRN Pain 04/02/22 04/02/22 aspirin 325 mg capsule 325 mg PO HS 04/02/22 04/02/22 atorvastatin 10 mg tablet 10 mg PO HS 04/02/22 04/02/22 buspirone 10 mg tablet 10 mg PO TID 04/02/22 04/02/22 folic acid 1 mg tablet 1 mg PO DAILY 04/02/22 04/02/22 furosemide 20 mg tablet 20 mg PO DAILY PRN Edema 04/02/22 04/02/22 levothyroxine 75 mcg tablet 75 mcg PO EVERY OTHER DAY 04/02/22 04/02/22 levothyroxine 88 mcg tablet 88 mcg PO EVERY OTHER DAY 04/02/22 04/02/22 lidocaine 5 % topical patch 1 patch topical DAILY PRN Pain 04/02/22 04/02/22 (Lidoderm) linaclotide 72 mcg capsule 72 mcg PO QAM 04/02/22 04/02/22 (Linzess) memantine 10 mg tablet 10 mg PO QAM 04/02/22 04/02/22 polyethylene glycol 3350 17 gram 17 g PO QAM 04/02/22 04/02/22 oral powder packet (Miralax) potassium chloride 10 mEq 10 meq PO DAILY 04/02/22 04/02/22 capsule,extended release sulfasalazine 500 mg PO TID 04/02/22 04/02/22 Allergies Allergy/AdvReac Type Severity Reaction Status Date / Time sertraline AdvReac anxiety Verified 04/15/22 09:54 Review of Systems Review of Systems: CONSTITUTIONAL: Denies fever, chills, or sweats. EYES: Denies visual changes. CARDIOVASCULAR: Denies chest pain, palpitations, or edema. RESPIRATORY: Denies cough or dyspnea. GASTROINTESTINAL: Denies abdominal pain, nausea, vomiting, or diarrhea. MUSCULOSKELETAL: Denies back pain, joint pain, or myalgia. NEUROLOGIC: See HPI. PSYCHIATRIC: See HPI. All systems reviewed & are unremarkable except as noted in HPI and below PMFSH Past Medical History Medical History Arthritis Bilateral foot pain Brain bleed Cataracts, bilateral Cephalgia Chest wall pain Depression Dysuria-frequency syndrome Fatigue Fibromyalgia FRANCY (generalized anxiety disorder) HLD (hyperlipidemia) HTN (hypertension) Hyponatremia Hypothyroid Peripheral neuropathy Plantar fasciitis Raynaud disease Rectal pain, chronic Rhinorrhea Shoulder pain, bilateral Urinary retention Surgical History Surgical History (Reviewed 04/15/22 @ 10:03 by Andie Lindquist
[2022-04-15 10:25] LABS: Basophils Absolute Auto 0.1 K/mm3 (0.0-0.1); Basophils Percent Auto 1.2 % (0.2-1.2); Eosinophils Absolute Auto 0.1 K/mm3 (0-0.3); Eosinophils Percent Auto 1.6 % (0-4.4); Hemoglobin 11.2 g/dL (12.0-15.0); Immature Granulocyte Absolute 0.02 K/mm3 (0.00-0.031); Immature Granulocyte Percent A 0.3 % (0-0.5); Lymphocytes Absolute Auto 1.36 K/mm3 (0.9-3.2); Lymphocytes Percent Auto 20.2 % (18.3-44.2); Mean Corpuscular Hemoglobin 31.7 pg (26-34); Mean Corpuscular Volume 99.2 fl (80-100); Mean Platelet Volume 10.6 fl (7.4-10.4); Monocytes Absolute Auto 0.8 K/mm3 (0.1-0.6); Monocytes Percent Auto 12.5 % (2.6-8.5); Neutrophils Absolute Auto 4.3 K/mm3 (1.3-6.7); Neutrophils Percent Auto 64.2 % (45.5-73.1); Platelet Count Result 351 k/mm3 (150-375); Red Blood Count 3.53 M/mm3 (4.2-5.4); Red Cell Distribution Width 13.6 % (11.5-14.5); White Blood Count 6.7 K/mm3 (4.5-10.0)
[2022-04-15 10:30] LABS: Appearance Urine Clear (Clear); Bilirubin Urine Negative (Negative); Blood Urine Negative (Negative); Color Urine Yellow (Yellow); Glucose Urine UA Negative (Negative); Ketones Urine Negative (Negative); Leukocyte Esterase Ur Negative LEU/UL (Negative); Nitrate Urine Negative (Negative); Protein Urine Negative (Negative); Specific Grav Ur 1.015 (1.001-1.035); Urobilinogen Urine 0.2 mg/dL (<2.0); pH Urine 8.5 (5.0-9.0)
[2022-04-15 10:39] LABS: Alanine Aminotransferase 20 U/L (6-35); Alkaline Phosphatase 160 U/L (38-126); Anion Gap 5 mmol/L (8-16); Aspartate Amino Transferase 29 U/L (14-36); Bilirubin,Total 0.6 mg/dL (0.2-1.3); Blood Urea Nitrogen 11 mg/dL (7-17); Calcium 9.2 mg/dL (8.4-10.2); Carbon Dioxide 26 mmol/L (22-30); Chloride 105 mmol/L (98-107); Estimated Glomerular Filt Rate > 60; Glucose 88 mg/dL (65-110); Potassium 3.5 mmol/L (3.4-5.0); Sodium 136 mmol/L (137-145)
[2022-04-15 11:26] LABS: Add Urine Microscopic? NO
== END 2022-04-15 14:00 ==
PROVIDERS: Emergency Provider Physician Assistant; PCP Family Medicine
DX: F11.221 Opioid dependence with intoxication delirium (principal); M19.90 Unspecified osteoarthritis, unspecified site; F32.9 Major depressive disorder, single episode, unspecified; I10 Essential (primary) hypertension
CPT/HCPCS: 36415; 51701; 70450; 80053; 81003; 85025; 99284

== ENCOUNTER 2022-07-26 09:45 | Emergency (ER) | payer MEDICARE, SELFPAY ==
[2022-07-26 10:18] VITALS: BP 93/49; PULSE 59; RESP 20; TEMP 36.1; O2SAT 100
--- NOTE | 2022-07-26 10:54 | ED.EXTPRO ---
HPI - Extremity Problem General Chief complaint: Extremity Problem,Nontraumatic Stated complaint: lt big toe infection Time Seen by Provider: 07/26/22 10:54 Source: patient Mode of arrival: ambulatory Limitations: no limitations History of Present Illness HPI Narrative: 87-year-old female presented for complaint of left great toe pain this morning. She states she woke with the toe bright red in color. She applied Neosporin and Band-Aid to the site. Upon arrival she reports the pain and redness have improved. She has a history of ingrown nail and surgery at this site several years ago. Has not taken anything for pain. Denies numbness, tingling, weakness of the foot. History of Raynaud's. Related Data Home Medications Medication Instructions Recorded Confirmed atorvastatin 10 mg tablet 10 mg PO HS 04/02/22 07/26/22 folic acid 1 mg tablet 1 mg PO DAILY 04/02/22 07/26/22 furosemide 20 mg tablet 20 mg PO DAILY PRN Edema 04/02/22 07/26/22 polyethylene glycol 3350 17 gram 17 g PO QAM 04/02/22 07/26/22 oral powder packet (Miralax) potassium chloride 10 mEq 10 meq PO DAILY 04/02/22 07/26/22 capsule,extended release sulfasalazine 500 mg PO TID 04/02/22 07/26/22 Allergies Allergy/AdvReac Type Severity Reaction Status Date / Time sertraline AdvReac anxiety Verified 07/20/22 09:30 Review of Systems Review of Systems: CONSTITUTIONAL: Denies body aches, fever, chills EYES: Denies visual changes ENT: Denies rhinorrhea, congestion CARDIOVASCULAR: Denies chest pain, palpitations, or edema. RESPIRATORY: Denies cough or dyspnea. GASTROINTESTINAL: Denies abdominal pain, nausea, vomiting, or diarrhea. SKIN: Denies rash, itching, or wounds. MUSCULOSKELETAL: Reports toe pain. Denies back pain, joint pain, or myalgia. NEUROLOGIC: Denies headache, numbness, tingling, or weakness. All systems reviewed & are unremarkable except as noted in HPI and below PMFSH Past Medical History Medical History (Updated 07/26/22 @ 11:06 by Imelda Gallegos, [employer] HELPER) Arthritis Bilateral foot pain Brain bleed Broken hip Cataracts, bilateral Cephalgia Chest wall pain Depression Dysuria-frequency syndrome Fatigue Fibromyalgia FRANCY (generalized anxiety disorder) Gastroparesis HLD (hyperlipidemia) Hospital discharge follow-up HTN (hypertension) Hyponatremia Hypothyroid Peripheral neuropathy Plantar fasciitis Raynaud disease Rectal pain, chronic Rhinorrhea Short-term memory loss Shoulder pain, bilateral Urinary retention Surgical History Surgical History Cataract 2019 H/O dilation and curettage X2 H/O elbow surgery 2020 H/O foot surgery History of back surgery History of cholecystectomy 2016 History of cholecystectomy Family History Family History Father Family history of cardiovascular disease Family history of malignant neoplasm Depression Heart disease Leukemia Hypertension Family history of arthritis Mother Heart disease Family history of emphysema Hypertension Family history of arthritis Sibling Family history of heart disease in male family member before age 55 Diabetes mellitus Acute myocardial infarction Heart disease Hypertension Grandparent Hypertension Cerebrovascular accident Family history of arthritis Social History Social History Social History: The patient lives with her . She has One child. 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 She is a lifelong nonsmoker. No marijuana alcohol or illicit drugs. Her is a durable power prosecuting attorney for healthcare. Code status full code. Smoking status: Never smoker Second hand tobacco smoke exposure: Yes Alcohol intake: never Substance use: never Substance use type: does not use Lack of Transportation: No Lack of Food: Never True Riaz
== END 2022-07-26 11:10 | disposition home or self-care (01) ==
PROVIDERS: Emergency Provider Nurse Practitioner Family
DX: M79.675 Pain in left toe(s) (principal); M19.90 Unspecified osteoarthritis, unspecified site; M79.7 Fibromyalgia; E78.5 Hyperlipidemia, unspecified; I10 Essential (primary) hypertension; E03.9 Hypothyroidism, unspecified; G62.9 Polyneuropathy, unspecified; I73.00 Raynaud's syndrome without gangrene
CPT/HCPCS: 99211; G0463

== ENCOUNTER → 2022-10-13 10:47 | Outpatient (CLI) | payer MEDICARE, SELFPAY ==
--- NOTE | ~2022-10-13 | CT_ITS ---
EXAMINATION: CT sinus wo con DATE: 10/13/2022 11:02 INDICATION: Sinusitis. TECHNIQUE: Computed tomography (CT) of the paranasal sinuses was performed without intravenous contra st. Iterative reconstruction technique was employed. The dose-length product was 407.96 mGy-cm. COMPARISON: Head CT 04/15/2022 FINDINGS: The frontal sinuses, ethmoid sinuses, sphenoid sinuses, and maxillary sinuses are clear. Th ere is rightward deviation of the nasal septum. The ostiomeatal units are patent. IMPRESSION: 1. Rightward deviation of the nasal septum. Reviewed, dictated and finalized at location A.
== END ==
PROVIDERS: PCP Family Medicine; Visit Provider Otolaryngology
DX: Q05.9 Spina bifida, unspecified (principal); G96.00 Cerebrospinal fluid leak, unspecified; J34.2 Deviated nasal septum
CPT/HCPCS: 70486

== ENCOUNTER 2022-11-11 07:43 | Outpatient (CLI) | payer MEDICARE, SELFPAY ==
--- NOTE | ~2022-11-11 | NM_ITS ---
EXAM: NM gastric emptying study DATE: 11/11/2022 10:26 INDICATION: Epigastric abdominal pain. TECHNIQUE: A gastric emptying study was performed using the methodology of Ramonita RUSSELL, et al. J Nucl Med 2007; 48:568-572. The patient was given a meal consisting of 2 scrambled eggs labeled with 1.019 mCi Tc-99m sulfur colloid, 2 slices of toast, two packages of jam, and approximately 120 mL of water . Simultaneous anterior and posterior 1-min images of the abdomen were obtained with the patient supi ne at multiple time points over a total period of 4 hours. The geometric mean of anterior and posteri or views was determined, and the percentage retention was calculated for each time point. COMPARISON: CT abdomen and pelvis 09/23/2020 FINDINGS: Gastric retention of the radiotracer-labeled meal was 36%, 12%, and 1% at the 1-hour, 2-ho ur, and 3-hour time points, respectively. With this technique, apparent rapid gastric emptying is sug gested by <30% gastric retention at 1 hour. Delayed gastric emptying is defined by gastric retention of >90% at 1 hour, >60% retention at 2 hours, or >10% retention at 4 hours. IMPRESSION: 1. Normal gastric emptying. Reviewed, dictated and finalized at location E. IMPRESSION: 1. Normal gastric emptying.
== END 2022-11-11 07:44 | disposition home or self-care (01) ==
PROVIDERS: PCP Family Medicine; Visit Provider Internal Medicine Gastroenterology
DX: R10.13 Epigastric pain (principal)
CPT/HCPCS: 78264; A9541

== ENCOUNTER 2022-11-16 15:56 | Emergency (ER) | payer MEDICARE, SELFPAY ==
--- NOTE | ~2022-11-16 | XR_ITS ---
EXAM: XR abdomen/kub 1V DATE: 11/16/2022 16:19 HISTORY: constipation . COMPARISON: 05/11/2020; CT abdomen pelvis 09/23/2020; ultrasound abdomen 08/21/2021. FINDINGS: Senescent changes in the lungs. Cholecystectomy clips. Partially visualized cannulated fix ation screws in the right femoral neck. Normal bowel gas pattern. No organomegaly. No abnormal abdomi nal calcification. Mild lumbar scoliosis. Multilevel lumbar degenerative disc disease. IMPRESSION: No radiographic evidence of obstruction or ileus. Reviewed, dictated and finalized at location K.
[2022-11-16 16:04] VITALS: BP 141/52; PULSE 64; RESP 16; TEMP 36.6; O2SAT 99
--- NOTE | 2022-11-16 16:04 | ED.ABDPAIN ---
HPI - Abdominal Pain General Chief Complaint: Abdominal Pain Stated Complaint: Constipation Source: patient, family and RN notes reviewed Mode of arrival: ambulatory Limitations: no limitations History of Present Illness HPI narrative: Patient is an 87-year-old female who presents to the [facility] with complaints constipation. Patient states she feels as if she is followed through. She reports pain to the coccyx area. She denies abdominal pain, nausea, vomiting, diarrhea. Patient states that her last bowel movement was on Tuesday. She had taken magnesium citrate on Tuesday. states that the medication worked and cleared her Adderall. However, patient states that she feels like she was not cleared up completely. states that patient is on oxycodone chronically due to a fall that occurred 2 years ago. Her last dose was 2 days ago. He states that she takes MiraLax daily. Patient does report some mild urinary frequency. Denies dysuria or hematuria. Denies flank pain. Denies recent fever. Related Data Home Medications Medication Instructions Recorded Confirmed furosemide 20 mg tablet 20 mg PO DAILY PRN Edema 04/02/22 11/16/22 polyethylene glycol 3350 17 gram 17 g PO QAM 04/02/22 11/16/22 oral powder packet (Miralax) sulfasalazine 500 mg PO TID 04/02/22 11/16/22 venlafaxine 225 mg tablet,extended 250 mg PO DAILY 10/06/22 11/16/22 release 24 hr pregabalin 75 mg capsule (Lyrica) 75 mg PO DAILY 10/11/22 11/16/22 cyanocobalamin (vitamin B-12) 1,000 mcg subcut MONTHLY 10/19/22 11/16/22 1,000 mcg/mL injection kit Allergies Allergy/AdvReac Type Severity Reaction Status Date / Time No Known Allergies Allergy Verified 11/16/22 16:29 Review of Systems Review of Systems: CONSTITUTIONAL: Denies fever, chills, or sweats. EYES: Denies visual changes, redness, or discharge. ENT: Denies otalgia and sore throat CARDIOVASCULAR: Denies chest pain, palpitations, or edema. RESPIRATORY: Denies cough or dyspnea. GASTROINTESTINAL: Denies abdominal pain, nausea, vomiting, or diarrhea. Reports coccyx pain. GENITOURINARY: Denies dysuria or hematuria. Reports urinary frequency. SKIN: Denies rash or itching. MUSCULOSKELETAL: Denies back pain, joint pain, or myalgia. NEUROLOGIC: Denies headache, numbness, or weakness. Pertinent positives per HPI. [facility] Past Medical History Medical History Arthritis Bilateral foot pain Brain bleed Broken hip Cataracts, bilateral Cephalgia Chest wall pain Depression Dysuria-frequency syndrome Fatigue Fibromyalgia FRANCY (generalized anxiety disorder) Gastroparesis Healing wound HLD (hyperlipidemia) Hospital discharge follow-up HTN (hypertension) Hyponatremia Hypothyroid Ingrown toenail Lumbar back pain with radiculopathy affecting lower extremity Peripheral neuropathy Plantar fasciitis Raynaud disease Rectal pain, chronic Rhinorrhea Short-term memory loss Shoulder pain, bilateral Thoracic back pain Urinary retention Surgical History Surgical History Cataract 2019 H/O dilation and curettage X2 H/O elbow surgery 2020 H/O foot surgery History of back surgery History of cholecystectomy 2016 History of cholecystectomy Family History Family History Father Family history of cardiovascular disease Family history of malignant neoplasm Depression Heart disease Leukemia Hypertension Family history of arthritis Mother Heart disease Family history of emphysema Hypertension Family history of arthritis Sibling Family history of heart disease in male family member before age 55 Diabetes mellitus Acute myocardial infarction Heart disease Hypertension Grandparent Hypertension Cerebrovascular accident Family history of arthritis Social History Social History (Review
== END 2022-11-16 16:59 | disposition home or self-care (01) ==
PROVIDERS: Emergency Provider Nurse Practitioner; PCP Family Medicine
DX: K59.00 Constipation, unspecified (principal); E78.5 Hyperlipidemia, unspecified; I10 Essential (primary) hypertension; E03.9 Hypothyroidism, unspecified; Z79.899 Other long term (current) drug therapy
CPT/HCPCS: 74018; 99213; G0463

== ENCOUNTER → 2022-11-26 10:49 | Outpatient (CLI) | payer MEDICARE, SELFPAY ==
--- NOTE | ~2022-11-26 | MR_ITS ---
MRI of the lumbar spine Clinical History: Spondylosis Technique: Axial T2-weighted images, and sagittal T1-weighted, T2-weighted, and T2 fat-sat images wer e acquired. COMPARISON: 09/06/2021 Findings: There is no fracture or subluxation of the lumbar spine. Vertebral bodies maintain normal h eight and alignment. No suspicious marrow signal abnormality seen. At L1-L2, there is no disc bulge or herniation. There is mild facet arthropathy. Bilateral neural for helena are preserved. At L2-L3, there is minimal disc bulge and mild facet arthropathy. No central canal stenosis. There is mild left neural foraminal narrowing. Right neural foramen preserved. At L3-L4, there is mild disc bulge and mild to moderate facet arthropathy. No central canal stenosis. There is moderate right neural foraminal narrowing. Left neural foramen preserved. At L4-L5, there is minimal disc bulge and moderate to advanced facet arthropathy. No central canal st enosis. There is minimal left neural foraminal narrowing, and moderate right neural foraminal narrowi ng. At L5-S1, there is no disc bulge or herniation. There is advanced facet arthropathy. There is moderat e left neural foraminal narrowing. No central canal stenosis. Paravertebral soft tissues are unremarkable. Impression: [id number] degenerative spondylosis, as above. Reviewed, dictated and finalized at [facility]. Impression: [id number] degenerative spondylosis, as above.
== END ==
PROVIDERS: PCP Neurological Surgery; Visit Provider Neurological Surgery
DX: M47.816 Spondylosis without myelopathy or radiculopathy, lumbar region (principal)
CPT/HCPCS: 72148

== ENCOUNTER 2022-12-01 08:33 | Emergency (ER) | payer MEDICARE, SELFPAY ==
[2022-12-01 08:57] VITALS: BP 116/63; PULSE 58; RESP 16; TEMP 36.1; O2SAT 100
--- NOTE | 2022-12-01 10:20 | ED.FEMALEGU ---
HPI - Female Genitourinary General Chief complaint: Urogenital-Female Stated complaint: UTI SYMPTOMS Time Seen by Provider: 12/01/22 10:09 Source: patient, family () and RN notes reviewed Mode of arrival: ambulatory Limitations: no limitations History of Present Illness HPI Narrative: Patient and has been present today complaining of dysuria. States patient has had dysuria on and off for the last couple of years so this did not prompt him to come, but patient decided she wanted to come in today to see if she had a UTI. Patient is a poor historian, so has been is providing most of the history. states patient has been more drowsy over the past week. Denies fever or vomiting. Related Data Home Medications Medication Instructions Recorded Confirmed furosemide 20 mg tablet 20 mg PO DAILY PRN Edema 04/02/22 11/16/22 polyethylene glycol 3350 17 gram 17 g PO QAM 04/02/22 11/16/22 oral powder packet (Miralax) sulfasalazine 500 mg PO TID 04/02/22 11/16/22 venlafaxine 225 mg tablet,extended 250 mg PO DAILY 10/06/22 11/16/22 release 24 hr cyanocobalamin (vitamin B-12) 1,000 mcg subcut MONTHLY 10/19/22 11/16/22 1,000 mcg/mL injection kit Allergies Allergy/AdvReac Type Severity Reaction Status Date / Time No Known Allergies Allergy Verified 11/19/22 11:24 Review of Systems Review of Systems: CONSTITUTIONAL: Denies body aches, fever, chills, or sweats.+ increased drowsiness EYES: Denies visual changes, redness, or discharge. ENT: Denies rhinorrhea, congestion, sore throat, or otalgia. CARDIOVASCULAR: Denies chest pain, palpitations, or edema. RESPIRATORY: Denies cough or dyspnea. GASTROINTESTINAL: Denies abdominal pain, nausea, vomiting, or diarrhea. GENITOURINARY: Denies hematuria. + chronic dysuria SKIN: Denies rash, itching, or wounds. MUSCULOSKELETAL: Denies back pain, joint pain, or myalgia. NEUROLOGIC: Denies headache, numbness, tingling, or weakness. PSYCH: Denies depression or anxiety. [facility] Past Medical History Medical History Arthritis Bilateral foot pain Brain bleed Broken hip Cataracts, bilateral Cephalgia Chest wall pain Depression Dysuria-frequency syndrome Fatigue Fibromyalgia FRANCY (generalized anxiety disorder) Gastroparesis Healing wound HLD (hyperlipidemia) Hospital discharge follow-up HTN (hypertension) Hyponatremia Hypothyroid Ingrown toenail Lumbar back pain with radiculopathy affecting lower extremity Peripheral neuropathy Plantar fasciitis Raynaud disease Rectal pain, chronic Rhinorrhea Short-term memory loss Shoulder pain, bilateral Thoracic back pain Urinary retention Surgical History Surgical History Cataract 2019 H/O dilation and curettage X2 H/O elbow surgery 2020 H/O foot surgery History of back surgery History of cholecystectomy 2016 History of cholecystectomy Family History Family History Father Family history of cardiovascular disease Family history of malignant neoplasm Depression Heart disease Leukemia Hypertension Family history of arthritis Mother Heart disease Family history of emphysema Hypertension Family history of arthritis Sibling Family history of heart disease in male family member before age 55 Diabetes mellitus Acute myocardial infarction Heart disease Hypertension Grandparent Hypertension Cerebrovascular accident Family history of arthritis Social History Social History Social History: The patient lives with her . She has One child. 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 She is a lifelong nonsmoker. No marijuana alcohol or illicit drugs. Her is a durable power divorce attorney for healthcare. Code status full code. Smoking status: Never smo
--- NOTE | 2022-12-01 11:13 | PC.NURSE ---
1000-- several attempts made in the restroom, with staff present to attempt to facilitate urine collection, since pt has to have a bowel movement as well, pt spouse states that she does have frequent bowel movements and sometimes has burning there from leaky stool
--- NOTE | 2022-12-07 15:21 | ED.GENADULT ---
HPI - General Adult General Chief complaint: Urogenital-Female Stated complaint: UTI SYMPTOMS Time Seen by Provider: 12/01/22 10:09 Source: patient, family () and RN notes reviewed Mode of arrival: ambulatory Limitations: no limitations Related Data Home Medications Medication Instructions Recorded Confirmed furosemide 20 mg tablet 20 mg PO DAILY PRN Edema 04/02/22 11/16/22 polyethylene glycol 3350 17 gram 17 g PO QAM 04/02/22 11/16/22 oral powder packet (Miralax) sulfasalazine 500 mg PO TID 04/02/22 11/16/22 venlafaxine 225 mg tablet,extended 250 mg PO DAILY 10/06/22 11/16/22 release 24 hr cyanocobalamin (vitamin B-12) 1,000 mcg subcut MONTHLY 10/19/22 11/16/22 1,000 mcg/mL injection kit Allergies Allergy/AdvReac Type Severity Reaction Status Date / Time No Known Allergies Allergy Verified 11/19/22 11:24 [facility] Past Medical History Medical History Arthritis Bilateral foot pain Brain bleed Broken hip Cataracts, bilateral Cephalgia Chest wall pain Depression Dysuria-frequency syndrome Fatigue Fibromyalgia FRANCY (generalized anxiety disorder) Gastroparesis Healing wound HLD (hyperlipidemia) Hospital discharge follow-up HTN (hypertension) Hyponatremia Hypothyroid Ingrown toenail Lumbar back pain with radiculopathy affecting lower extremity Peripheral neuropathy Plantar fasciitis Raynaud disease Rectal pain, chronic Rhinorrhea Short-term memory loss Shoulder pain, bilateral Thoracic back pain Urinary retention Surgical History Surgical History Cataract 2019 H/O dilation and curettage X2 H/O elbow surgery 2020 H/O foot surgery History of back surgery History of cholecystectomy 2016 History of cholecystectomy Family History Family History Father Family history of cardiovascular disease Family history of malignant neoplasm Depression Heart disease Leukemia Hypertension Family history of arthritis Mother Heart disease Family history of emphysema Hypertension Family history of arthritis Sibling Family history of heart disease in male family member before age 55 Diabetes mellitus Acute myocardial infarction Heart disease Hypertension Grandparent Hypertension Cerebrovascular accident Family history of arthritis Social History Social History Social History: The patient lives with her . She has One child. 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 She is a lifelong nonsmoker. No marijuana alcohol or illicit drugs. Her is a durable power civil litigation attorney for healthcare. Code status full code. Smoking status: Never smoker Second hand tobacco smoke exposure: Yes Alcohol intake: never Substance use: never Substance use type: does not use Lack of Transportation: No Lack of Food: Never True Current Housing: I Have Housing Concerned About Future Housing: No Difficulty Paying Gas/Electric Bills: No Difficulty Paying for Meds: No Currently Unemployed: No Education: Bachelor's Degree Difficulty w/ Childcare or Family Care: No Living arrangements: with family Occupation/Education: retired Gender identity (if verbalized by the patient): Female Sexual Orientation (if Verbalized by the Patient): Straight or Heterosexual Spiritual care concerns: Yes (Hinduism, wants to see hospital fellow whenever available) Agree to blood products: Yes Course Vital Signs Vital signs: Vital Signs Temperature 97 F L 12/01/22 08:57 Pulse Rate 58 L 12/01/22 08:57 Respiratory Rate 16 12/01/22 08:57 Blood Pressure 116/63 12/01/22 08:57 Pulse Oximetry 100 12/01/22 08:57 Temperature 97 F L 12/01/22 08:57 Pulse Rate 58 L 12/01/22 08:57 Respiratory Rate 16 12/01/22 08:57 Blood
== END 2022-12-01 10:33 | disposition home or self-care (01) ==
PROVIDERS: Emergency Provider Nurse Practitioner; PCP Family Medicine
DX: N30.01 Acute cystitis with hematuria (principal); E78.5 Hyperlipidemia, unspecified; I10 Essential (primary) hypertension; E03.9 Hypothyroidism, unspecified
CPT/HCPCS: 81003; 87077; 87086; 87186; 99213; G0463

== ENCOUNTER 2022-12-07 15:17 | Emergency (ER) | payer MEDICARE, SELFPAY ==
[2022-12-07 15:26] VITALS: BP 134/69; PULSE 61; RESP 16; TEMP 36.4; O2SAT 96
--- NOTE | 2022-12-07 15:36 | ED.GENADULT ---
HPI - General Adult General Chief complaint: Urogenital-Female Stated complaint: PAIN ALL OVER/ANXIETY Time Seen by Provider: 12/07/22 15:30 Source: patient, RN notes reviewed and old records reviewed Mode of arrival: ambulatory Limitations: no limitations History of Present Illness HPI narrative: 87-year-old female returns to the [facility] with complaints of continued urinary symptoms, abdominal pain, headache, pain all over and increased anxiety. Patient was seen on December 01, treated with Keflex. Patient's microbiology returned, multi-drug resistant, primary care provider prescribed Augmentin. Patient returns with today with feeling worse. Treatments prior to arrival: other (Antibiotics) Related Data Home Medications Medication Instructions Recorded Confirmed furosemide 20 mg tablet 20 mg PO DAILY PRN Edema 04/02/22 11/16/22 polyethylene glycol 3350 17 gram 17 g PO QAM 04/02/22 11/16/22 oral powder packet (Miralax) sulfasalazine 500 mg PO TID 04/02/22 11/16/22 venlafaxine 225 mg tablet,extended 250 mg PO DAILY 10/06/22 11/16/22 release 24 hr cyanocobalamin (vitamin B-12) 1,000 mcg subcut MONTHLY 10/19/22 11/16/22 1,000 mcg/mL injection kit Allergies Allergy/AdvReac Type Severity Reaction Status Date / Time No Known Allergies Allergy Verified 12/07/22 16:44 Review of Systems Review of Systems: All systems reviewed & are unremarkable except as noted in HPI and below Constitutional: Constitutional: Reports as per HPI, Reports body ache(s) and Reports fatigue Eyes: Eyes: Reports no additional eye complaints ENT: Reports system reviewed and no additional complaints, except as documented Cardiovascular: Cardiovascular: Reports no additional cardiovascular complaints, Denies chest pain and Denies dyspnea Respiratory: Respiratory: Reports no additional respiratory complaints, Denies chest congestion, Denies cough and Denies dyspnea Gastrointestinal: Gastrointestinal: Reports as per HPI, Reports abdominal pain, Denies nausea and Denies vomiting Musculoskeletal: Musculoskeletal: Reports no additional musculoskeletal complaints Integumentary/Breasts: Skin/Breast: Reports system reviewed and no additional complaints, except as docu Neurologic: Reports system reviewed and no additional complaints, except as documented Psychiatric: Psychiatric: Reports no additional psychiatric complaints Allergic/Immunologic: Allergic/Immunologic: Reports no additional allergic/immunologic complaints PMFSH Past Medical History Medical History Arthritis Bilateral foot pain Brain bleed Broken hip Cataracts, bilateral Cephalgia Chest wall pain Depression Dysuria-frequency syndrome Fatigue Fibromyalgia FRANCY (generalized anxiety disorder) Gastroparesis Healing wound HLD (hyperlipidemia) Hospital discharge follow-up HTN (hypertension) Hyponatremia Hypothyroid Ingrown toenail Lumbar back pain with radiculopathy affecting lower extremity Peripheral neuropathy Plantar fasciitis Raynaud disease Rectal pain, chronic Rhinorrhea Short-term memory loss Shoulder pain, bilateral Thoracic back pain Urinary retention Surgical History Surgical History Cataract 2019 H/O dilation and curettage X2 H/O elbow surgery 2020 H/O foot surgery History of back surgery History of cholecystectomy 2016 History of cholecystectomy Family History Family History Father Family history of cardiovascular disease Family history of malignant neoplasm Depression Heart disease Leukemia Hypertension Family history of arthritis Mother Heart disease Family history of emphysema Hypertension Family history of arthritis Sibling Family history of heart disease in male family member before age 55 Diabetes mellitus Acute myocardial infarction Hear
== END 2022-12-07 16:30 | disposition short-term general hospital (02) ==
PROVIDERS: Emergency Provider Nurse Practitioner; PCP Family Medicine
DX: N39.0 Urinary tract infection, site not specified (principal); E78.5 Hyperlipidemia, unspecified; I10 Essential (primary) hypertension; E03.9 Hypothyroidism, unspecified
CPT/HCPCS: 99212; G0463

== ENCOUNTER 2022-12-07 15:55 | Emergency (ER) | payer MEDICARE, SELFPAY ==
--- NOTE | ~2022-12-07 | CT_ITS ---
EXAMINATION: CT abdomen pelvis w con DATE: 12/07/2022 18:55 INDICATION: Abdominal pain. Back pain. Dysuria. TECHNIQUE: Computed tomography (CT) of the abdomen and pelvis was performed with 100 mL Omnipaque 350 intravenous contrast. Automated exposure control and iterative reconstruction technique were employe d. The dose-length product was 492.19 mGy-cm. COMPARISON: CT pelvis 03/21/2022 FINDINGS: The visualized portions of the lung bases demonstrate mild atelectasis. No pleural effusion . The heart size is normal. No pericardial effusion. There are coronary artery calcifications. The li daphney is normal. There are changes of cholecystectomy. Calcifications in the spleen are consistent with old granulomatous disease. The pancreas, adrenal glands, and left kidney are normal. There is cortic al thinning of right kidney. There is calcified atherosclerosis of the aorta and many of the other ar teries. There are no dilated loops of bowel. There is a large volume of stool in the colon. There is a small sliding hiatal hernia. There is screw fixation of right femoral neck. There is mild lumbar sp ondylosis. IMPRESSION: 1. Small sliding hiatal hernia. Reviewed, dictated and finalized at location E.
--- NOTE | ~2022-12-07 | CT_ITS ---
EXAMINATION: CT brain wo con DATE: 12/07/2022 18:54 INDICATION: Headache. TECHNIQUE: Computed tomography (CT) of the head was performed without intravenous contrast. The mA wa s adjusted according to patient size. Iterative reconstruction technique was employed. The dose-lengt h product was 605.33 mGy-cm. COMPARISON: Head CT 04/15/2022 FINDINGS: There are scattered areas of low attenuation in the cerebral white matter and deep lomeli nuc lei. There is no intracranial hemorrhage, acute infarction, or abnormal intracranial mass lesion. The ventricles are normal in size. There are likely changes of ocular lens replacement surgeries. There is mucosal thickening in the paranasal sinuses. The mastoid air cells are normal. IMPRESSION: 1. Stable moderate nonspecific cerebral white matter disease and disease of the deep lomeli nuclei, whi ch likely represents chronic small vessel ischemic disease. Reviewed, dictated and finalized at location E. IMPRESSION: 1. Stable moderate nonspecific cerebral white matter disease and disease of the deep lomeli nuclei, which likely represents chronic small vessel ischemic diseas e.
[2022-12-07 16:03] VITALS: BP 147/79; PULSE 57; RESP 16; TEMP 37.2; O2SAT 99
[2022-12-07 16:42] VITALS: BP 150/103; PULSE 63; RESP 12; O2SAT 96
[2022-12-07 16:43] LABS: Basophils Absolute Auto 0.1 K/mm3 (0.0-0.1); Basophils Percent Auto 1.2 % (0.2-1.2); Eosinophils Absolute Auto 0.1 K/mm3 (0-0.3); Eosinophils Percent Auto 2.3 % (0-4.4); Hematocrit 41.7 % (37.0-47.0); Hemoglobin 13.2 g/dL (12.0-15.0); Immature Granulocyte Absolute 0.02 K/mm3 (0.00-0.031); Immature Granulocyte Percent A 0.4 % (0-0.5); Lymphocytes Absolute Auto 1.52 K/mm3 (0.9-3.2); Lymphocytes Percent Auto 29.7 % (18.3-44.2); Mean Corpuscular HGB Conc 31.7 g/dl (32-36); Mean Corpuscular Hemoglobin 32.2 pg (26-34); Mean Corpuscular Volume 101.7 fl (80-100); Mean Platelet Volume 11.5 fl (7.4-10.4); Monocytes Absolute Auto 0.6 K/mm3 (0.1-0.6); Monocytes Percent Auto 11.3 % (2.6-8.5); Neutrophils Absolute Auto 2.8 K/mm3 (1.3-6.7); Neutrophils Percent Auto 55.1 % (45.5-73.1); Platelet Count Result 206 k/mm3 (150-375); White Blood Count 5.1 K/mm3 (4.5-10.0)
[2022-12-07 16:52] LABS: Alanine Aminotransferase 21 U/L (6-35); Albumin Level 4.3 g/dL (3.5-5.1); Alkaline Phosphatase 98 U/L (38-126); Anion Gap 3 mmol/L (8-16); Aspartate Amino Transferase 29 U/L (14-36); Bilirubin,Total 0.6 mg/dL (0.2-1.3); Blood Urea Nitrogen 17 mg/dL (7-17); Calcium 9.4 mg/dL (8.4-10.2); Carbon Dioxide 30 mmol/L (22-30); Chloride 103 mmol/L (98-107); Estimated CRCL calculation 45 ml/min; Estimated Glomerular Filt Rate > 60; Glucose 84 mg/dL (65-110); Potassium 3.7 mmol/L (3.4-5.0); Sodium 136 mmol/L (137-145)
[2022-12-07 17:20] LABS: Appearance Urine Clear (Clear); Bacteria Urine None Seen /hpf; Bilirubin Urine Negative (Negative); Blood Urine Negative (Negative); Color Urine Yellow (Yellow); Glucose Urine UA Negative (Negative); Ketones Urine Negative (Negative); Leukocyte Esterase Ur Trace LEU/UL (Negative); Nitrate Urine Negative (Negative); Non Pathogenic Casts 0-2; Protein Urine Negative (Negative); RBC Urine 0-2 /hpf (0-2); Specific Grav Ur 1.016 (1.001-1.035); Squamous Epithelial Cell Urine None seen /hpf (Few); Urobilinogen Urine 0.2 mg/dL (<2.0); WBC Urine 0-5 /hpf; pH Urine 7.5 (5.0-9.0)
[2022-12-07 17:30] LABS: Add Urine Microscopic? YES
--- NOTE | 2022-12-07 17:40 | ED.FEMALEGU ---
HPI - Female Genitourinary General Chief complaint: Urogenital-Female Stated complaint: UTI Time Seen by Provider: 12/07/22 17:09 Source: patient Mode of arrival: wheelchair Limitations: other (dementia) History of Present Illness HPI Narrative: This is a 87 year old female that presents to the ER for urinary complaints. Reports she is currently being treated for a UTI. She also reports she has some right lower back pain. Was sent here from urgent care for multi-drug resistant urine culture. Also reporting some abdominal discomfort. Reports a headache currently. Denies fever, vomiting or hematuria. Related Data Home Medications Medication Instructions Recorded Confirmed furosemide 20 mg tablet 20 mg PO DAILY PRN Edema 04/02/22 11/16/22 polyethylene glycol 3350 17 gram 17 g PO QAM 04/02/22 11/16/22 oral powder packet (Miralax) sulfasalazine 500 mg PO TID 04/02/22 11/16/22 venlafaxine 225 mg tablet,extended 250 mg PO DAILY 10/06/22 11/16/22 release 24 hr cyanocobalamin (vitamin B-12) 1,000 mcg subcut MONTHLY 10/19/22 11/16/22 1,000 mcg/mL injection kit Allergies Allergy/AdvReac Type Severity Reaction Status Date / Time No Known Allergies Allergy Verified 12/07/22 16:44 Review of Systems Review of Systems: CONSTITUTIONAL: Denies fever GASTROINTESTINAL: Reports abdominal pain. Denies nausea, vomiting, or diarrhea. GENITOURINARY: Reports dysuria. Denies hematuria. MUSCULOSKELETAL: Reports back pain, joint pain, and myalgia. NEUROLOGIC: Reports headache. Denies numbness, or weakness. All systems reviewed & are unremarkable except as noted in HPI and below PMFSH Past Medical History Medical History Arthritis Bilateral foot pain Brain bleed Broken hip Cataracts, bilateral Cephalgia Chest wall pain Depression Dysuria-frequency syndrome Fatigue Fibromyalgia FRANCY (generalized anxiety disorder) Gastroparesis Healing wound HLD (hyperlipidemia) Hospital discharge follow-up HTN (hypertension) Hyponatremia Hypothyroid Ingrown toenail Lumbar back pain with radiculopathy affecting lower extremity Peripheral neuropathy Plantar fasciitis Raynaud disease Rectal pain, chronic Rhinorrhea Short-term memory loss Shoulder pain, bilateral Thoracic back pain Urinary retention Surgical History Surgical History Cataract 2019 H/O dilation and curettage X2 H/O elbow surgery 2020 H/O foot surgery History of back surgery History of cholecystectomy 2016 History of cholecystectomy Family History Family History Father Family history of cardiovascular disease Family history of malignant neoplasm Depression Heart disease Leukemia Hypertension Family history of arthritis Mother Heart disease Family history of emphysema Hypertension Family history of arthritis Sibling Family history of heart disease in male family member before age 55 Diabetes mellitus Acute myocardial infarction Heart disease Hypertension Grandparent Hypertension Cerebrovascular accident Family history of arthritis Social History Social History Social History: The patient lives with her . She has One child. 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 She is a lifelong nonsmoker. No marijuana alcohol or illicit drugs. Her is a durable power clinical dermatologist for healthcare. Code status full code. Smoking status: Never smoker Second hand tobacco smoke exposure: Yes Alcohol intake: never Substance use: never Substance use type: does not use Lack of Transportation: No Lack of Food: Never True Current Housing: I Have Housing Concerned About Future Housing: No Difficulty Paying Gas/Electric Bills: No Difficulty Paying for Meds: No Currently Unemployed: No Education: [employer]
[2022-12-07 18:33] VITALS: BP 187/72; PULSE 56; RESP 16; O2SAT 100
[2022-12-07 19:37] VITALS: BP 166/86; PULSE 60; RESP 17; O2SAT 99
[2022-12-07 19:50] LABS: Creatine Kinase 32 U/L (30-135)
[2022-12-07] MEDS: AMOXICILLIN/CLAVULANATE K 875-125 MG TAB 1 TABLET PO (19:52)
[2022-12-07] MEDS: ACETAMINOPHEN 500 MG TABLET 1000 MG PO (19:52)
[2022-12-07 20:31] LABS: Influenza A QL RT-PCR Negative (Negative); Influenza B QL RT-PCR Negative (Negative); SARS-CoV-2 RNA PCR Negative (Negative)
== END 2022-12-07 21:20 | disposition home or self-care (01) ==
PROVIDERS: Emergency Medicine; Emergency Provider Physician Assistant; PCP Family Medicine
DX: N39.0 Urinary tract infection, site not specified (principal); G89.4 Chronic pain syndrome; R51.9 Headache, unspecified; R10.30 Lower abdominal pain, unspecified; Z77.22 Contact with and (suspected) exposure to environmental tobacco smoke (acute) (chronic); I73.00 Raynaud's syndrome without gangrene; I10 Essential (primary) hypertension; E78.5 Hyperlipidemia, unspecified; E03.9 Hypothyroidism, unspecified; G62.9 Polyneuropathy, unspecified; M19.90 Unspecified osteoarthritis, unspecified site; M79.7 Fibromyalgia; F41.1 Generalized anxiety disorder; F32.A Depression, unspecified; Z98.49 Cataract extraction status, unspecified eye; Z90.49 Acquired absence of other specified parts of digestive tract; K44.9 Diaphragmatic hernia without obstruction or gangrene; R90.82 White matter disease, unspecified
CPT/HCPCS: 36415; 70450; 74177; 80053; 81001; 82550; 85025; 87636; 99212; 99284; A9270; G0463; Q9967

== ENCOUNTER 2023-02-24 09:03 | Emergency (ER) | payer MEDICARE, SELFPAY ==
[2023-02-24 09:20] VITALS: BP 105/73; PULSE 60; RESP 16; TEMP 36.2; O2SAT 98
--- NOTE | 2023-02-24 09:23 | ED.GENADULT ---
HPI - General Adult General Chief complaint: Extremity Injury, Lower Stated complaint: Left Ankle Pain Source: patient, RN notes reviewed and old records reviewed Mode of arrival: ambulatory Limitations: no limitations History of Present Illness HPI narrative: 88-year-old female presents to [facility] with complaint lower left leg pain. Patient states pain started 2 years ago. Patient knows has ligament issue but is not wanting to get surgical intervention. Patient denies any new injury. patient already on ibuprofen, Tylenol, oxycodone. Patient also sees pain management. patient also states accidentally put arthritis cream onto face today. Patient denies swallowing any patient denies hernandes or sores in mouth. MD complaint: Leg pain Onset (ago): year(s) (2) Related Data Home Medications Medication Instructions Recorded Confirmed furosemide 20 mg tablet 20 mg PO DAILY PRN Edema 04/02/22 02/24/23 polyethylene glycol 3350 17 gram 17 g PO QAM 04/02/22 02/24/23 oral powder packet (Miralax) sulfasalazine 500 mg PO TID 04/02/22 02/24/23 venlafaxine 225 mg tablet,extended 250 mg PO DAILY 10/06/22 02/24/23 release 24 hr cyanocobalamin (vitamin B-12) 1,000 mcg subcut MONTHLY 10/19/22 02/24/23 1,000 mcg/mL injection kit Allergies Allergy/AdvReac Type Severity Reaction Status Date / Time No Known Allergies Allergy Verified 02/24/23 09:15 Review of Systems Constitutional: Constitutional: Reports no additional constitutional complaints, Denies body ache(s), Denies chills, Denies fatigue, Denies fever(s) and Denies headache(s) Eyes: Eyes: Reports no additional eye complaints and Denies blurry vision ENT: Reports system reviewed and no additional complaints, except as documented, Denies vertigo, Denies dizziness, Denies ear discharge, Denies otalgia, Denies facial pain, Denies headache(s), Denies nasal congestion, Denies nasal discharge, Denies sinus pain, Denies sinus pressure and Denies sore throat Cardiovascular: Cardiovascular: Reports no additional cardiovascular complaints, Denies chest pain, Denies chest pain at rest, Denies rapid heart rate and Denies dyspnea Respiratory: Respiratory: Reports no additional respiratory complaints, Denies chest congestion, Denies cough, Denies pain on inspiration, Denies pain with cough and Denies dyspnea Gastrointestinal: Gastrointestinal: Denies abdominal pain, Denies diarrhea, Denies nausea and Denies vomiting Musculoskeletal: Musculoskeletal: Denies atrophy, Denies deformity, Denies arthralgias, Denies joint swelling and Denies limited range of motion Comments: Left lower leg pain Integumentary/Breasts: Skin/Breast: Denies rash Neurologic: Reports system reviewed and no additional complaints, except as documented, Denies vertigo, Denies dizziness and Denies headache(s) Endocrine: Endocrine: Denies fatigue [facility] Past Medical History Medical History Arthritis Bilateral foot pain Brain bleed Broken hip Cataracts, bilateral Cephalgia Chest wall pain Depression Dysuria-frequency syndrome Fatigue Fibromyalgia FRANCY (generalized anxiety disorder) Gastroparesis Healing wound HLD (hyperlipidemia) Hospital discharge follow-up HTN (hypertension) Hyponatremia Hypothyroid Ingrown toenail Lumbar back pain with radiculopathy affecting lower extremity Peripheral neuropathy Plantar fasciitis Raynaud disease Rectal pain, chronic Rhinorrhea Short-term memory loss Shoulder pain, bilateral Thoracic back pain Urinary retention Surgical History Surgical History Cataract 2019 H/O dilation and curettage X2 H/O elbow surgery 2020 H/O foot surgery History of back surgery History of cholecystectomy 2016 History of cholecystectomy Family History Family History Father Family history of cardiovascu
== END 2023-02-24 09:31 | disposition home or self-care (01) ==
PROVIDERS: Emergency Provider Registered Nurse; PCP Family Medicine
DX: M79.605 Pain in left leg (principal); E78.5 Hyperlipidemia, unspecified; I10 Essential (primary) hypertension; Z79.899 Other long term (current) drug therapy
CPT/HCPCS: 99212; G0463